=== PATIENT | female | born 1995 | race Caucasian/White ===

== ENCOUNTER 2016-11-04 00:38 | Emergency (ER) | payer OTHER ==
[~2016-11-04] VITALS: Ht 160 cm; Wt 50.8 kg
[2016-11-04] MEDS ORDERED: HYDROCODONE/APAP 5/325MG TABLET. PO ONE (01:15)
[2016-11-04] MEDS ORDERED: PENICILLIN V K 250 MG TABLET. PO ONE (01:15)
[2016-11-04] MEDS ORDERED: IBUPROFEN 800 MG TABLET. PO ONE (01:15)
[2016-11-04] MEDS ORDERED: HYDR-971 PO (01:49)
[2016-11-04] MEDS ORDERED: PENI250T2 PO (01:49)
[2016-11-04] MEDS ORDERED: NAPR375T3 PO (01:49)
--- NOTE | 2016-11-04 01:49 | PHYS DOC ---
Past Medical History Past Medical History: Anemia, Anxiety, Arthritis, Bipolar, Depression, Endometriosis Additional Past Medical Histor: AUTO IMMUNDE DEFICIENCY Past Surgical History: Tonsillectomy, Other Additional Past Surgical Histo: cortison injections in joints, D&C Alcohol Use: None Drug Use: None Adult General Chief Complaint Chief Complaint: DENTAL PROBLEM HPI HPI Patient is a 20 year old female who presents with dental pain. Patient reports for the past 2-3 weeks she has been having worsening pain in her teeth and her right rear mouth. No purulent discharge from area. No fever. She also reports for about a month she has been having cough and her voice has been hoarse. Lastly, she reports that she started having some midsternal sharp chest pain just about 1 hour ago. No shortness of breath. No clear inciting or mitigating factors. She did try some hydrocodone at home with insufficient relief of pain. She has not seen a dentist as of yet. Review of Systems Review of Systems Constitutional: Denies fever or chills HENT: Hoarse, dental pain. Denies nasal congestion or sore throat Respiratory: Denies cough or shortness of breath Cardiovascular: Sharp midsternal chest pain GI: Denies abdominal pain, nausea, vomiting, bloody stools or diarrhea Musculoskeletal: Denies back pain or joint pain INeurologic: Denies headache, focal weakness or sensory changes Current Medications Current Medications Current Medications Medications (Trade) Dose Ordered Sig/Ras Start Time Stop Time Status Last Admin Dose Admin Acetaminophen/ Hydrocodone Bitart (Lortab 5/325) 2 tab 1X ONCE 11/04/16 01:15 11/04/16 01:16 DC 11/04/16 01:24 2 TAB Bupivacaine HCl (Marcaine 0.5%) 50 ml 1X ONCE 11/04/16 02:00 11/04/16 02:02 DC Bupivacaine HCl/ Epinephrine Bitart (Sensorcaine-Epi 0.25%-1:[id number] Mpf) 30 ml 1X ONCE 11/04/16 02:15 11/04/16 02:16 DC 11/04/16 02:12 30 ML Ibuprofen (Motrin) 800 mg 1X ONCE 11/04/16 01:15 11/04/16 01:16 DC 11/04/16 01:25 800 MG Penicillin V Potassium (Veetid) 250 mg 1X ONCE 11/04/16 01:15 11/04/16 01:16 DC 11/04/16 01:25 250 MG Allergies Allergies Allergies Coded Allergies Type Severity Reaction Last Updated Verified infliximab Allergy Unknown 11/04/16 Yes rituximab Allergy Unknown 11/04/16 Yes Physical Exam Physical Exam Constitutional: Well developed, well nourished, no acute distress, non-toxic appearance HENT: Normocephalic, atraumatic, bilateral external ears normal; oropharynx clear without erythema or exudate; poor dentition throughout with multiple caries noted, no abscess; floor of mouth soft; R ear canal and TM clear without erythema Neck: Normal range of motion, no stridor Cardiovascular: Bradycardic, regular rhythm, no murmur Lungs & Thorax: Bilateral breath sounds clear to auscultation; anterior chest wall TTP over sternum without visible lesion or deformity Abdomen: Bowel sounds normal, soft, non-distended, no TTP Skin: Warm, dry, no erythema, no rash Extremities: No obvious deformity, no edema Neurologic: Alert and oriented X 3, no gross deficits noted Psychologic: Affect normal, judgement normal, mood normal Current Patient Data Vital Signs Vital Signs Date Time Temp Pulse Resp B/P Pulse Ox O2 Delivery O2 Flow Rate FiO2 11/04/16 01:56 55 119/80 100 Room Air 11/04/16 01:24 16 11/04/16 00:45 98.7 98.7 Lab Values Laboratory Tests Test 11/04/16 00:20 POC Urine HCG, Qualitative Hcg negative (Negative) EKG EKG EKG (my read): sinus bradycardia, rate 53, normal axis, no acute ST/T changes Radiology/Procedures Radiology/Procedures CXR (my read): No acute abnormality Course & Med Decision Making Course & Med Decision Making Pertinent Labs and Imaging studies reviewed. (See chart for details) Patient is 20 year old female who presents with dental pain. Likely related to multiple caries. Also has cough, chest pain. Chest pain appears to be costochondritis related to cough. Will screen for more serious pathology with CXR and EKG. Oral pain meds and dose of penicillin ordered. EKG and CXR ok per my read. Discussed results with patient. Dental block performed due to continued pain. Discussed importance of following up with dentist for definitive treatment. Will discharge with rx for pain meds and course of abx, instructions for follow up, return precautions. Dragon Disclaimer Dragon Disclaimer This electronic medical record was generated, in whole or in part, using a voice recognition dictation system. PROCEDURE Procedure Dental Block Procedure Note: The distribution of the inferior alveolar nerve was identified. 2mL Sensorcaine was injected into that region after aspirating to ensure needle was not within blood vessel. Estimated Blood Loss: minimal Complications: The patient tolerated the procedure well without complications. Departure Departure Impression: Primary Impression: Toothache Additional Impression: Costochondritis Disposition: HOME, SELF-CARE Condition: STABLE Referrals: RUBEN WALKER MD (PCP) Patient Instructions: Costochondritis, Dental Pain Additional Instructions: Thank you for allowing us to provide care today in the Emergency Department. Take the provided medication as directed. Use caution when taking the pain medication as it can make you drowsy. Be sure to take the full course of antibiotics. Schedule a follow up appointment with your primary care doctor. You will also need to follow up with a dentist for further care of your dental pain. Return promptly to the Emergency Department if you develop any new or concerning symptoms. Scripts Naproxen 375 Mg Tablet1 Tab PO BID PRN PAIN #20 TAB Prov:SHIVA SERRANO MD 11/04/16 Hydrocodone/Apap 5-325 ([place] 5-325 Tablet)1 Each Tablet1 Tab PO PRN Q6HRS PRN PAIN #15 TAB Ref 0 Prov:SHIVA SERRANO MD 11/04/16 Penicillin V Potassium 250 Mg Tablet1 Tab PO QID #28 TAB Prov:SHIVA SERRANO MD 11/04/16 Problem Qualifiers SHIVA SERRANO MD Nov 04, 2016 01:49
[2016-11-04] MEDS ORDERED: BUPIVACAINE 0.5% 50 ML VIAL. IJ ONE (02:00)
[2016-11-04] MEDS ORDERED: BUPIVACAINE-EPI 0.25%-1:200000 MPF 30 ML VIAL. IJ ONE (02:15)
[2016-11-04 02:19] VITALS: BP 109/78
--- NOTE | 2016-11-04 06:49 | EKG ---
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
--- NOTE | 2016-11-04 07:29 | RAD ---
Indication chest pain. Frontal and lateral views of the chest were obtained and are compared to a study 09/19/2012. The heart, pulmonary vessels and mediastinum appear normal. The lungs are clear. There is no pleural fluid or pneumothorax. There has not been a significant change compared to the previous exam. IMPRESSION: Normal study
== END 2016-11-04 02:30 | disposition home or self-care (01) ==
LOC: ER 00:38
DX: K08.89 Other specified disorders of teeth and supporting structures (principal); M94.0 Chondrocostal junction syndrome [Tietze]; R49.0 Dysphonia; F41.9 Anxiety disorder, unspecified; M19.90 Unspecified osteoarthritis, unspecified site; F31.9 Bipolar disorder, unspecified; Z88.8 Allergy status to other drugs, medicaments and biological substances
CPT/HCPCS: 64400; 71020; 81025; 93005; 99284-25

== ENCOUNTER 2016-12-26 23:09 | Emergency (ER) | payer OTHER ==
[~2016-12-26] VITALS: Ht 160 cm; Wt 50.8 kg
[~2016-12-26 23:09] MED LIST: HYDR-971 PO; NAPR375T3 PO; PENI250T85 PO
[2016-12-26 23:24] VITALS: BP 121/85
[2016-12-26] MEDS ORDERED: KETOROLAC TROMETHAMINE 60 MG/2 ML INJ. IM ONE (23:30)
[2016-12-26] MEDS ORDERED: OXYC-323 PO (23:47)
--- NOTE | 2016-12-26 23:47 | PHYS DOC ---
Past Medical History Past Medical History: Anemia, Anxiety, Arthritis, Bipolar, Depression, Endometriosis Additional Past Medical Histor: AUTO IMMUNDE DEFICIENCY Past Surgical History: Tonsillectomy, Other Additional Past Surgical Histo: cortison injections in joints, D&C Alcohol Use: None Drug Use: None Adult General Chief Complaint Chief Complaint: GENERALIZED BODY ACHES HPI HPI 21-year-old female with history of rheumatoid arthritis who is presenting with significant pain in all her joints. 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 She takes naproxen and prednisone daily. Patient is currently taking a Medrol Dosepak for her symptoms as well as hydrocodone without relief. She also receives Arrentzia injection for her rheumatoid disease. She denies any fever or chills. She denies any chest pain or SOB. Review of Systems Review of Systems Constitutional: Denies fever or chills [] Eyes: Denies change in visual acuity, redness, or eye pain [] HENT: Denies nasal congestion or sore throat [] Respiratory: Denies cough or shortness of breath [] Cardiovascular: No additional information not addressed in HPI [] GI: Denies abdominal pain, nausea, vomiting, bloody stools or diarrhea [] : Denies dysuria or hematuria [] Musculoskeletal: Denies back pain, has joint pain [] Integument: Denies rash or skin lesions [] Neurologic: Denies headache, focal weakness or sensory changes [] Endocrine: Denies polyuria or polydipsia [] Current Medications Current Medications Current Medications Medications (Trade) Dose Ordered Sig/Ras Start Time Stop Time Status Last Admin Dose Admin Hydromorphone HCl (Dilaudid) 1 mg 1X ONCE 12/27/16 00:00 12/27/16 00:01 12/26/16 23:48 1 MG Ketorolac Tromethamine (Toradol Im) 60 mg 1X ONCE 12/26/16 23:30 12/26/16 23:31 Cancel Allergies Allergies Allergies Coded Allergies Type Severity Reaction Last Updated Verified infliximab Allergy Intermediate 12/26/16 Yes rituximab Allergy Intermediate 12/26/16 Yes Physical Exam Physical Exam Constitutional: Well developed, well nourished, no acute distress, non-toxic appearance. [] HENT: Normocephalic, atraumatic, bilateral external ears normal, oropharynx moist, no oral exudates, nose normal. [] Eyes: PERRLA, EOMI, conjunctiva normal, no discharge. [] Neck: Normal range of motion, no tenderness, supple, no stridor. [] Cardiovascular:Heart rate regular rhythm, no murmur [] Lungs & Thorax: Bilateral breath sounds clear to auscultation [] Abdomen: Bowel sounds normal, soft, no tenderness, no masses, no pulsatile masses. [] Skin: Warm, dry, no erythema, no rash. [] Back: No tenderness, no CVA tenderness. [] Extremities: No tenderness, no cyanosis, no clubbing, ROM intact, no edema. [] Neurologic: Alert and oriented X 3, normal motor function, normal sensory function, no focal deficits noted. [] Psychologic: Affect normal, judgement normal, mood normal. [] Current Patient Data Vital Signs Vital Signs Date Time Temp Pulse Resp B/P (MAP) Pulse Ox O2 Delivery O2 Flow Rate FiO2 12/26/16 23:48 18 12/26/16 23:24 99.0 87 121/85 (97) 99 Room Air 99.0 Lab Values Laboratory Tests Test 12/26/16 22:33 POC Urine HCG, Qualitative Hcg negative (Negative) EKG EKG [] Radiology/Procedures Radiology/Procedures [] Course & Med Decision Making Course & Med Decision Making Pertinent Labs and Imaging studies reviewed. (See chart for details) This 21-year-old female with history of polyarticular rheumatoid disease receive an IM injection for pain control. I will be discharging her with a course of pain control to follow closely with her primary care doctor. I instructed her to continue to take her Medrol Dosepak as instructed and follow closely with her primary care doctor. I also discussed with the patient that she should follow-up with a pain specialist for possible joint injection or command center officer for her history of rheumatoid disease. Patient is very agreeable to this plan. A work note will be given. She will be discharged without incident. There is no indication at this time to perform any laboratory workup. Dragon Disclaimer Dragon Disclaimer This electronic medical record was generated, in whole or in part, using a voice recognition dictation system. Departure Departure Impression: Primary Impression: Joint pain Additional Impression: Rheumatoid arthritis Disposition: HOME, SELF-CARE Admitting Physician: Other Condition: IMPROVED Referrals: NO PCP (PCP) Patient Instructions: Rheumatoid Arthritis, [id number] Additional Instructions: Please continue to take your steroid as prescribed. Take your pain medications as needed. Return to the ER if you develop any worsening of your symptoms. Follow up closely with your primary doctor in the next 2-3 days for your symptoms. Scripts Oxycodone/Apap 5-325 (PERCOCET 5-325 MG TABLET) 1 Each Tablet 1 TAB PO PRN Q6HRS Y for PAIN, #12 TAB 0 Refills Prov: JOSE CRUZ CALL DO 12/26/16 Problem Qualifiers JOSE CRUZ CALL DO December 26, 2016 23:47
[2016-12-27] MEDS ORDERED: HYDROmorphone 2 MG/ML VIAL IM ONE
== END 2016-12-27 00:05 | disposition home or self-care (01) ==
LOC: ER 23:09
DX: M06.9 Rheumatoid arthritis, unspecified (principal); F41.9 Anxiety disorder, unspecified; F31.9 Bipolar disorder, unspecified; Z88.8 Allergy status to other drugs, medicaments and biological substances
CPT/HCPCS: 81025; 96372; 99283; J1170

== ENCOUNTER 2017-01-27 10:40 | Emergency (ER) | payer OTHER ==
[~2017-01-27] VITALS: Ht 160 cm; Wt 51.3 kg
[~2017-01-27 10:40] MED LIST changes: +OXYC-323 PO
[2017-01-27] MEDS ORDERED: cefTRIAXone IM 250 MG VIAL IM ONE (11:30)
[2017-01-27] MEDS ORDERED: AZITHROMYCIN 250 MG TABLET. PO ONE (11:30)
--- NOTE | 2017-01-27 11:48 | PHYS DOC ---
Past Medical History Past Medical History: Anemia, Anxiety, Arthritis, Bipolar, Depression, Endometriosis, Other Additional Past Medical Histor: AUTO IMMUNDE DEFICIENCY, PCOS Past Surgical History: Tonsillectomy, Other Additional Past Surgical Histo: cortison injections in joints, D&C Alcohol Use: None Drug Use: None Adult General Chief Complaint Chief Complaint: vaginal bleeding HPI HPI Patient is a 21 year old female ambulatory to the emergency department with the complaint of vaginal bleeding for 4 weeks. She has began to feel dizzy and nauseated. She is concerned that she might be , however she has taken 4 home tests which have been negative, she had a blood test and a urine test in the clinic, both were negative. Patient in 2013 had to have "emergency D&C" related to complications with an early , she's never had abnormal vaginal bleeding other than that so she became concerned. Patient states she is chronically anemic and she takes iron. Patient has a Nexplant that she has had for 2 years for contraception and treatment of endometriosis. She's never had bleeding that was abnormal like this before. She's not on any other hormone treatment. She does not have a regular CORRECTIONAL CASE MANAGER doctor. Patient doesn't have any chronic bleeding problems. Review of Systems Review of Systems Constitutional: Denies fever or chills [] Eyes: Denies change in visual acuity, redness, or eye pain [] HENT: Denies nasal congestion or sore throat [] GI: Denies abdominal pain, nausea, vomiting, bloody stools or diarrhea [] : As in history of present illness Musculoskeletal: Denies back pain or joint pain [] Integument: Denies rash or skin lesions [] Neurologic: Denies headache, focal weakness or sensory changes [] Current Medications Current Medications Current Medications Medications (Trade) Dose Ordered Sig/Ras Start Time Stop Time Status Last Admin Dose Admin Azithromycin (Zithromax) 1,000 mg 1X ONCE 01/27/17 11:30 01/27/17 11:31 DC 01/27/17 11:38 1,000 MG Ceftriaxone Sodium (Rocephin Im) 250 mg 1X ONCE 01/27/17 11:30 01/27/17 11:31 DC 01/27/17 11:40 250 MG Allergies Allergies Allergies Coded Allergies Type Severity Reaction Last Updated Verified infliximab Allergy Intermediate 12/26/16 Yes rituximab Allergy Intermediate 12/26/16 Yes Physical Exam Physical Exam Constitutional: Well developed, well nourished, no acute distress, non-toxic appearance. Alert, mentating normally, does not appear pale. HENT: Normocephalic, atraumatic, bilateral external ears normal, nose normal. [] Eyes: conjunctiva normal, no discharge. [] Neck: Normal range of motion, no tenderness, supple, no stridor. Abdomen: Bowel sounds normal, soft, no tenderness, no masses, no pulsatile masses. Pelvic exam: External genitalia normal. Vaginal vault without blood present. Cervix has a small amount of blood at the os. No cervicitis. Bimanual exam with mild to moderate cervical motion tenderness. Uterus not enlarged but is mildly tender to palpation. Mild generalized tenderness throughout the pelvis on bimanual exam, nonlocalized. No adnexal masses or fullness appreciated. Skin: Warm, dry, no erythema, no rash. [] Extremities: No tenderness, no cyanosis, no clubbing, ROM intact, no edema. [] Neurologic: Alert and oriented X 3, normal motor function, normal sensory function, no focal deficits noted. [] Current Patient Data Vital Signs Vital Signs Date Time Temp Pulse Resp B/P (MAP) Pulse Ox O2 Delivery O2 Flow Rate FiO2 01/27/17 12:00 56 92/52 (65) 99 Room Air 01/27/17 10:50 98.5 14 98.5 Lab Values Laboratory Tests Test 01/27/17 09:55 POC Urine HCG, Qualitative Hcg negative (Negative) EKG EKG [] Radiology/Procedures Radiology/Procedures [] Course & Med Decision Making Course & Med Decision Making Pertinent Labs and Imaging studies reviewed. (See chart for details) 21-year-old female presents with a reported history of 4 weeks of vaginal bleeding. She appears stable and she does not have active vaginal bleeding in her vaginal vault on exam. Vitals are stable. I-STAT was done and her hemoglobin is 12.2, hematocrit 36. I reassured the patient that she is not seriously anemic at this time. I don't believe she requires any emergent intervention or treatment in the emergency department today. I encouraged her to follow up with a CORRECTIONAL CASE MANAGER doctor and gave her a name and phone number. She did have some degree of cervical motion tenderness and uterine tenderness on exam, although she is nontoxic I feel it would be appropriate to treat her with antibiotics for possible PID/endometritis as an etiology of this. She was treated with Rocephin and azithromycin in the emergency department. See instructions for plan. [] Luis Manuel Disclaimer Luis Manuel Disclaimer This electronic medical record was generated, in whole or in part, using a voice recognition dictation system. Departure Departure Impression: Primary Impression: Vaginal bleeding, abnormal Disposition: 01 HOME, SELF-CARE Condition: STABLE Referrals: NO PCP (PCP) KEYONNA PATEL Jr, MD Patient Instructions: Abnormal Uterine Bleeding Additional Instructions: Today, you had another negative test here in the emergency department. I believe that you are not . Your blood test did not show significant anemia. h/h WAS 12.2/36 FOR YOUR DOCTOR WHEN YOU ARE SEEN. On exam, you have a little tenderness, so we did treat for possible infection with antibiotics. Sometimes this will help your pain and bleeding. As we discussed, it's important to follow up with a CORRECTIONAL CASE MANAGER doctor for evaluation and treatment of abnormal uterine bleeding. Since your test is negative, this is not related to a serious complication of , but still needs to be evaluated and treated. Talk to your primary care doctor or your insurance company about getting to see a CORRECTIONAL CASE MANAGER doctor soon as possible. I did give you a name and phone number of a CORRECTIONAL CASE MANAGER doctor here [place]. DARREN VARGAS MD Jan 27, 2017 11:48
[2017-01-27 12:00] VITALS: BP 92/52
[2017-01-27 15:19] LABS: POTASSIUM ISTAT 3.8 mmol/L (3.5-5.0)
--- NOTE | 2017-01-31 12:40 | VNOTE ---
CALL BACK NOTE CALL BACK Patient's lab value for chlamydia was positive, gonorrhea negative. I spoke with the patient on January 31 at 12:39 PM. She requested her prescription be called to [facility]. I will prescribe Zithromax 1 g by mouth to be taken today. LIZBETH ANDERSEN APRN Jan 31, 2017 12:40
== END 2017-01-27 12:20 | disposition home or self-care (01) ==
LOC: ER 10:40
DX: N93.8 Other specified abnormal uterine and vaginal bleeding (principal); A74.9 Chlamydial infection, unspecified; R42 Dizziness and giddiness; R11.0 Nausea; F41.9 Anxiety disorder, unspecified; M19.90 Unspecified osteoarthritis, unspecified site; F31.9 Bipolar disorder, unspecified; E28.2 Polycystic ovarian syndrome; Z88.8 Allergy status to other drugs, medicaments and biological substances
CPT/HCPCS: 80047; 81025; 87491; 87591; 96372; 99284; J0696; Q0144

== ENCOUNTER 2017-04-02 08:42 | Emergency (ER) | payer OTHER ==
[~2017-04-02] VITALS: Ht 160 cm; Wt 51.3 kg
[2017-04-02 09:25] VITALS: BP 124/82
--- NOTE | 2017-04-02 09:28 | PHYS DOC ---
Past Medical History Past Medical History: Anemia, Anxiety, Arthritis, Bipolar, Depression, Endometriosis, Other Additional Past Medical Histor: AUTO IMMUNDE DEFICIENCY, PCOS Past Surgical History: Tonsillectomy, Other Additional Past Surgical Histo: cortison injections in joints, D&C Alcohol Use: None Drug Use: None Adult General Chief Complaint Chief Complaint: EARACHE/EAR PAIN [facility] HPI Patient is a 21 year old female with onset of cold symptoms and an earache that started in the left ear this morning. She states that she does have nasal congestion that started this morning as well. She denies fever, nausea or other illness. Review of Systems Review of Systems Constitutional: Denies fever or chills [] Eyes: Denies change in visual acuity, redness, or eye pain [] HENT: See history of present illness Respiratory: Denies cough or shortness of breath [] Cardiovascular: No additional information not addressed in HPI [] GI: Denies abdominal pain, nausea, vomiting, bloody stools or diarrhea [] : Denies dysuria or hematuria [] Integument: Denies rash or skin lesions [] Neurologic: Denies headache, focal weakness or sensory changes [] Endocrine: Denies polyuria or polydipsia [] Allergies Allergies Allergies Coded Allergies Type Severity Reaction Last Updated Verified infliximab Allergy Intermediate 12/26/16 Yes rituximab Allergy Intermediate 12/26/16 Yes Physical Exam Physical Exam Constitutional: Well developed, well nourished, no acute distress, non-toxic appearance. [] HENT: Normocephalic, atraumatic, bilateral external ears normal, oropharynx moist, no oral exudates, swelling and erythema to bilateral nasal turbinates [] Eyes: PERRLA, EOMI, conjunctiva normal, no discharge. [] Neck: Normal range of motion, no tenderness, supple, no stridor. [] Cardiovascular:Heart rate regular rhythm, no murmur [] Lungs & Thorax: Bilateral breath sounds clear to auscultation [] Skin: Warm, dry, no erythema, no rash. [] Neurologic: Alert and oriented X 3, normal motor function, normal sensory function, no focal deficits noted. [] Psychologic: Affect normal, judgement normal, mood normal. [] Current Patient Data Vital Signs Vital Signs Date Time Temp Pulse Resp B/P (MAP) Pulse Ox O2 Delivery O2 Flow Rate FiO2 04/02/17 09:25 98.7 75 18 99 Room Air 98.7 Lab Values Laboratory Tests Test 04/02/17 08:48 04/02/17 09:35 POC Urine HCG, Qualitative Hcg negative (Negative) Group A Streptococcus Rapid Negative (NEGATIVE) EKG EKG [] Radiology/Procedures Radiology/Procedures [] Course & Med Decision Making Course & Med Decision Making Pertinent Labs and Imaging studies reviewed. (See chart for details) [] 1. Common cold 2. Allergic rhinitis The patient was instructed to take [id number] cough and cold medication. It was also recommended that she take an allergy medication. She is to follow up with her PCP in one week if not improving or return to the ED if worsening. Dragon Disclaimer Dragon Disclaimer This electronic medical record was generated, in whole or in part, using a voice recognition dictation system. Departure Departure Referrals: UNKNOWN PCP NAME (PCP) WARNER LIGHT APRN Apr 02, 2017 09:28
[2017-04-02 11:12] LABS: NEGATIVE OBC STREP NEG; POSITIVE OBC STREP POS
== END 2017-04-02 10:20 | disposition home or self-care (01) ==
LOC: ER 08:42
DX: J30.9 Allergic rhinitis, unspecified (principal); F31.9 Bipolar disorder, unspecified; Z90.49 Acquired absence of other specified parts of digestive tract; M19.90 Unspecified osteoarthritis, unspecified site; E28.2 Polycystic ovarian syndrome
CPT/HCPCS: 81025; 87070; 87880; 99284

== ENCOUNTER 2017-07-03 11:16 | Emergency (ER) | payer OTHER ==
[~2017-07-03 11:16] MED LIST changes: +NAPR-695 PO; -NAPR375T3 PO
[2017-07-03] MEDS ORDERED: INHA1SPA94 MC (12:04)
[2017-07-03] MEDS ORDERED: PROAIR HFA8.5 GM INH (12:04)
--- NOTE | 2017-07-03 12:04 | PHYS DOC ---
Past Medical History Past Medical History: Anemia, Anxiety, Arthritis, Bipolar, Depression, Endometriosis, Other Additional Past Medical Histor: AUTO IMMUNDE DEFICIENCY, PCOS Past Surgical History: Tonsillectomy, Other Additional Past Surgical Histo: cortisonE injections in joints, D&C Alcohol Use: None Drug Use: None Adult General Chief Complaint Chief Complaint: FLU SYMPTOM HPI HPI Patient is a 21 year old female presents to the emergency department stating that she has had a cough and congestion for the last 3 weeks. Patient states she 's been on Augmentin for the last 7 days for dental infection. She states that she has a burning sensation in her chest when she coughs. She also states that she's been having frontal and maxillary sinus pressure. She states she has increased pressure when she tries to lay down. She states last week she had a fever this week should since she has not had any fever however she's been taking Tylenol and ibuprofen. Review of Systems Review of Systems Constitutional: Denies fever or chills [] Eyes: Denies change in visual acuity, redness, or eye pain [] HENT: nasal congestion denies sore throat [] Respiratory: cough denies shortness of breath [] Cardiovascular: No additional information not addressed in HPI [] GI: Denies abdominal pain, nausea, vomiting, bloody stools or diarrhea [] : Denies dysuria or hematuria [] Musculoskeletal: Denies back pain or joint pain [] Integument: Denies rash or skin lesions [] Neurologic: Denies headache, focal weakness or sensory changes [] Endocrine: Denies polyuria or polydipsia [] All other systems were reviewed and found to be within normal limits, except as documented in this note. Allergies Allergies Allergies Coded Allergies Type Severity Reaction Last Updated Verified infliximab Allergy Intermediate 12/26/16 Yes rituximab Allergy Intermediate 12/26/16 Yes Physical Exam Physical Exam Constitutional: Well developed, well nourished, no acute distress, non-toxic appearance. [] HENT: Normocephalic, atraumatic, bilateral external ears normal, oropharynx moist, no oral exudates, nose normal. Bilateral tympanic membranes appear to be normal. Throat with postnasal drip with erythematous noted no exudate. Eyes: PERRLA, EOMI, conjunctiva normal, no discharge. [] Neck: Normal range of motion, no tenderness, supple, no stridor. [] Cardiovascular:Heart rate regular rhythm, no murmur [] Lungs & Thorax: Bilateral breath sounds clear to auscultation [] Skin: Warm, dry, no erythema, no rash. [] Back: No tenderness Extremities: No tenderness, no cyanosis, no clubbing, ROM intact, no edema. [] Neurologic: Alert and oriented X 3, normal motor function, normal sensory function, no focal deficits noted. [] Psychologic: Affect normal, judgement normal, mood normal. [] EKG EKG [] Radiology/Procedures Radiology/Procedures [] Course & Med Decision Making Course & Med Decision Making Pertinent Labs and Imaging studies reviewed. (See chart for details) Patient is already on Augmentin. She's been on this for the last 7 days. Spoke with her in regards to this taking care of upper respiratory infections in the chest as well as the sinuses. Patient is on prednisone on a daily basis. Patient will be encouraged to use Sudafed and Mucinex DM [id number]. Patient will be provided with Pro Air for the burning sensation in her chest area. Recommended that she follow up with her primary care physician in the next 3-5 days. Patient will be discharged home in stable condition. I've spoken with the patient and/or caregivers. I've explained the patient's condition, diagnosis and treatment plan based on information available to me at this time. I've answered the patient's and/or caregivers questions and addressed any concerns. The patient and/or caregivers have a good understanding the patient's diagnosis, condition and treatment plan as can be expected at this point. Vital signs have been stabilized. The patient's condition is stable for discharge from the emergency department. The patient will pursue further outpatient evaluation with her primary care provider or other designated consulting physician as outlined in the discharge instructions. Patient and/or caregivers are agreeable to this plan of care and follow-up instructions have been explained in detail. The patient and/or caregivers have received these instructions in written format and expressed understanding of these discharge instructions. The patient and her caregivers are aware that if any significant change in condition or worsening of symptoms should prompt him to immediately return to this of the closest emergency department. If an emergent department is not readily available I would encourage him to call 911. [] Dragon Disclaimer Dragon Disclaimer This electronic medical record was generated, in whole or in part, using a voice recognition dictation system. Departure Departure Impression: Primary Impression: Upper respiratory infection Disposition: 01 HOME, SELF-CARE Condition: STABLE Referrals: UNKNOWN PCP NAME (PCP) Patient Instructions: Upper Respiratory Infection, Adult, [id number] Additional Instructions: Activity as tolerated. Continue antibiotics as prescribed. Sudafed, Mucinex DM as directed by manufacture [id number]. Drink plenty of fluids. Medications prescribed. Follow-up primary care physician in the next 3-5 days. Return back to the emergency department for signs and symptoms become worse. Scripts Inhaler, Assist Devices (Compact Space Chamber) 1 Each Spacer EACH MC, #1 Prov: MARCELA WILL OVEN TENDER 07/03/17 Albuterol Sulfate (PROAIR HFA INHALER) 8.5 Gm Hfa.aer.ad 1 PUFF INH PRN Q6HRS Y for SHORTNESS OF BREATH, #1 INHALER 0 Refills Prov: MARCELA WILL OVEN TENDER 07/03/17 Problem Qualifiers Primary Impression: Upper respiratory infection URI type: unspecified URI Qualified Codes: J06.9 - Acute upper respiratory infection, unspecified MARCELA WILL OVEN TENDER Jul 03, 2017 12:04
== END 2017-07-03 12:10 | disposition home or self-care (01) ==
LOC: ER 11:16
DX: J06.9 Acute upper respiratory infection, unspecified (principal); F41.9 Anxiety disorder, unspecified; F31.9 Bipolar disorder, unspecified; M19.90 Unspecified osteoarthritis, unspecified site; E28.2 Polycystic ovarian syndrome; Z88.8 Allergy status to other drugs, medicaments and biological substances
CPT/HCPCS: 99283

== ENCOUNTER 2017-09-12 10:51 | Inpatient (IN) | payer OTHER ==
[2017-09-12] MEDS ORDERED: PIP/TAZO PER PHARMACY MC (11:45)
[2017-09-12] MEDS ORDERED: ONDANSETRON PF 4 MG/2 ML VIAL. IV (11:45)
[2017-09-12] MEDS: IV DEXTROSE 5 %-0.45 % NACL 1,000 ML IV (12:00)
[2017-09-12] MEDS: MORPHINE SULFATE 4 MG/ML DISP.SYRIN. IV (12:10)
[2017-09-12 12:24] LABS: ADD MAN DIFF? NO
[2017-09-12 12:29] LABS: BASO # 0.1 x10^3/uL (0.0-0.2); BASO % 1 % (0-3); EOS # 0.3 x10^3/uL (0.0-0.7); EOS % 2 % (0-3); HEMATOCRIT 41.7 % (36.0-47.0); LYMPH % 15 % (24-48); MEAN CORPUSCULAR HEMOGLOBIN 30 pg (25-35); MEAN CORPUSCULAR HGB CONC 33 g/dL (31-37); MEAN CORPUSCULAR VOLUME 90 fL (79-100); MONO # 0.7 x10^3/uL (0.0-1.1); MONO % 6 % (0-9); NEUT # 9.6 x10^3uL (1.8-7.7); NEUT % 76 % (31-73); PLATELET COUNT 319 x10^3/uL (140-400); RED BLOOD COUNT 4.63 x10^6/uL (3.50-5.40); RED CELL DISTRIBUTION WIDTH 14.5 % (11.5-14.5); WHITE BLOOD COUNT 12.7 x10^3/uL (4.0-11.0)
[2017-09-12 12:46] LABS: ALBUMIN 3.3 g/dL (3.4-5.0); ALBUMIN/GLOBULIN RATIO 0.9 (1.0-1.7); ALK PHOS 56 U/L (46-116); ALT (SGPT) 13 U/L (14-59); ANION GAP 5 (6-14); AST (SGOT) 13 U/L (15-37); BLOOD UREA NITROGEN 8 mg/dL (7-20); BUN/CREATININE RATIO 11 (6-20); CALCIUM 8.8 mg/dL (8.5-10.1); CARBON DIOXIDE 28 mmol/L (21-32); CHLORIDE 100 mmol/L (98-107); CREATININE 0.7 mg/dL (0.6-1.0); GFR 104.6; GLUCOSE 90 mg/dL (70-99); POTASSIUM 3.8 mmol/L (3.5-5.1); SODIUM 133 mmol/L (136-145); TOTAL BILIRUBIN 0.4 mg/dL (0.2-1.0)
[2017-09-12] MEDS: oxyCODONE IR 5 MG TABLET PO (14:15)
[2017-09-12] MEDS: PIPERACILLIN/TAZOBACTAM 3.375 GM in IV DEXTROSE 5% 50 ML IV ×2 (14:21→18:03)
[2017-09-12] MEDS: fentaNYL PF VIAL 100 MCG/2 ML VIAL IV ×3 (14:37→21:30)
[2017-09-12] MEDS: VANCOMYCIN 1.25 GM in IV 1/2 NORMAL SALINE 250 ML IV (15:24)
[2017-09-12] MEDS: VANCOMYCIN PER PHARMACY MC (16:23)
[2017-09-12] MEDS: diphenhydrAMINE 50 MG/ML VIAL IVP (17:00)
[2017-09-12] MEDS: methylPREDNISolone SOD SUCC PF 125 MG/2 ML VIAL. IV (17:00)
[2017-09-12] MEDS: predniSONE 10 MG TABLET PO (18:03)
[2017-09-12 18:33] LABS: BILIRUBIN,URINE NEGATIVE (NEG); CLARITY,URINE CLEAR; COLOR,URINE YELLOW; GLUCOSE,URINE NEGATIVE (NEG); NITRITE,URINE NEGATIVE (NEG); PH,URINE 5.5; PROTEIN,URINE NEGATIVE (NEG-TRACE); UROBILINOGEN,URINE 0.2 mg/dL (0.2 mg/dL)
[2017-09-12 19:22] LABS: BACTERIA,URINE FEW /HPF (0-FEW); RBC,URINE 0 /HPF (0-2); SQUAMOUS EPITHELIAL CELL,UR FEW /LPF
[2017-09-12] MEDS: HYDROCODONE BITARTRATE 30 MG PO (21:00)
[2017-09-12] MEDS: MELOXICAM 7.5 MG TABLET PO (21:18)
[2017-09-12] MEDS ORDERED: VANCOMYCIN 750 MG in IV DEXTROSE 5% 250 ML IV (23:00)
[2017-09-13] MEDS: IV DEXTROSE 5 %-0.45 % NACL 1,000 ML IV ×2 (01:05→18:06)
[2017-09-13] MEDS: PIPERACILLIN/TAZOBACTAM 3.375 GM in IV DEXTROSE 5% 50 ML IV ×5 (06:26→23:44)
[2017-09-13] MEDS ORDERED: CONTRAST GIVEN MC (08:45)
[2017-09-13] MEDS: IOHEXOL 300 MG/ML 100ML VIAL. IV (08:57)
[2017-09-13] MEDS: MELOXICAM 7.5 MG TABLET PO ×2 (09:05→22:10)
[2017-09-13] MEDS: predniSONE 10 MG TABLET PO ×2 (09:15→18:10)
[2017-09-13] MEDS: fentaNYL PF VIAL 100 MCG/2 ML VIAL IV ×5 (09:15→23:43)
[2017-09-13] MEDS: LACTOBACILLUS RHAMNOSUS GG 1 CAPSULE. PO ×2 (18:10→22:08)
[2017-09-13] MEDS: diphenhydrAMINE 50 MG/ML VIAL IVP (23:43)
[2017-09-14] MEDS: IV DEXTROSE 5 %-0.45 % NACL 1,000 ML IV (03:45)
[2017-09-14] MEDS: PIPERACILLIN/TAZOBACTAM 3.375 GM in IV DEXTROSE 5% 50 ML IV ×2 (06:11→13:33)
[2017-09-14 06:59] LABS: HEMATOCRIT 37.6 % (36.0-47.0); HEMOGLOBIN 12.3 g/dL (12.0-15.5); MEAN CORPUSCULAR HEMOGLOBIN 30 pg (25-35); MEAN CORPUSCULAR HGB CONC 33 g/dL (31-37); MEAN CORPUSCULAR VOLUME 91 fL (79-100); PLATELET COUNT 287 x10^3/uL (140-400); RED BLOOD COUNT 4.13 x10^6/uL (3.50-5.40); RED CELL DISTRIBUTION WIDTH 14.5 % (11.5-14.5); WHITE BLOOD COUNT 13.3 x10^3/uL (4.0-11.0)
[2017-09-14 07:19] LABS: ALBUMIN 2.9 g/dL (3.4-5.0); ALBUMIN/GLOBULIN RATIO 0.9 (1.0-1.7); ALK PHOS 47 U/L (46-116); ALT (SGPT) 29 U/L (14-59); ANION GAP 11 (6-14); AST (SGOT) 20 U/L (15-37); BLOOD UREA NITROGEN 7 mg/dL (7-20); BUN/CREATININE RATIO 10 (6-20); CALCIUM 8.6 mg/dL (8.5-10.1); CARBON DIOXIDE 23 mmol/L (21-32); CHLORIDE 107 mmol/L (98-107); CREATININE 0.7 mg/dL (0.6-1.0); GFR 104.6; GLUCOSE 107 mg/dL (70-99); POTASSIUM 3.7 mmol/L (3.5-5.1); SODIUM 141 mmol/L (136-145); TOTAL BILIRUBIN 0.3 mg/dL (0.2-1.0); TOTAL PROTEIN 6.2 g/dL (6.4-8.2)
[2017-09-14] MEDS: LACTOBACILLUS RHAMNOSUS GG 1 CAPSULE. PO (09:31)
[2017-09-14] MEDS: predniSONE 10 MG TABLET PO (09:32)
[2017-09-14] MEDS: fentaNYL PF VIAL 100 MCG/2 ML VIAL IV ×2 (09:32→13:36)
[2017-09-14] MEDS: MELOXICAM 7.5 MG TABLET PO (09:32)
[2017-09-15] MEDS ORDERED: METHOTREXATE SODIUM 2.5 MG TABLET PO (09:00)
== END 2017-09-14 17:30 | disposition home or self-care (01) | DRG 872 ==
LOC: 6 SOUTH 10:51
DX: A41.9 Sepsis, unspecified organism (principal); F17.210 Nicotine dependence, cigarettes, uncomplicated; L03.211 Cellulitis of face; K02.9 Dental caries, unspecified; M06.9 Rheumatoid arthritis, unspecified; L30.9 Dermatitis, unspecified; S02.5XXA Fracture of tooth (traumatic), initial encounter for closed fracture; X58.XXXA Exposure to other specified factors, initial encounter; R06.02 Shortness of breath; Z79.899 Other long term (current) drug therapy; Z88.1 Allergy status to other antibiotic agents; Z88.8 Allergy status to other drugs, medicaments and biological substances; Z79.2 Long term (current) use of antibiotics; Y93.89 Activity, other specified; Y92.89 Other specified places as the place of occurrence of the external cause; Y99.8 Other external cause status
CPT/HCPCS: 36415; 70487; 80053; 81001; 85025; 85027; 87086; J1200; J2270; J2543; J2930; J3010; J3370; J7512; Q9967

== ENCOUNTER 2017-09-26 23:40 | Inpatient (IN) | payer OTHER ==
[2017-09-27] MEDS ORDERED: ONDANSETRON PF 4 MG/2 ML VIAL. IV (00:45)
[2017-09-27 01:06] LABS: ADD MAN DIFF? YES; BASO % 0 % (0-3); EOS % 0 % (0-3); HEMOGLOBIN 13.3 g/dL (12.0-15.5); LYMPH # 1.4 x10^3/uL (1.0-4.8); LYMPH % 9 % (24-48); MEAN CORPUSCULAR HEMOGLOBIN 31 pg (25-35); MEAN CORPUSCULAR HGB CONC 34 g/dL (31-37); MEAN CORPUSCULAR VOLUME 90 fL (79-100); MONO # 0.4 x10^3/uL (0.0-1.1); MONO % 3 % (0-9); NEUT # 13.4 x10^3uL (1.8-7.7); NEUT % 88 % (31-73); PLATELET COUNT 363 x10^3/uL (140-400); RED BLOOD COUNT 4.32 x10^6/uL (3.50-5.40); RED CELL DISTRIBUTION WIDTH 13.9 % (11.5-14.5); WHITE BLOOD COUNT 15.3 x10^3/uL (4.0-11.0)
[2017-09-27 01:23] LABS: ANION GAP 8 (6-14); BLOOD UREA NITROGEN 5 mg/dL (7-20); CALCIUM 8.6 mg/dL (8.5-10.1); CARBON DIOXIDE 27 mmol/L (21-32); CHLORIDE 102 mmol/L (98-107); CREATININE 0.6 mg/dL (0.6-1.0); GLUCOSE 139 mg/dL (70-99); SODIUM 137 mmol/L (136-145)
[2017-09-27] MEDS: PIPERACILLIN/TAZOBACTAM 3.375 GM in IV NORMAL SALINE 50ML 50 ML IV ×3 (01:55→19:52)
[2017-09-27] MEDS: MORPHINE SULFATE 4 MG/ML DISP.SYRIN. IV ×6 (02:28→23:15)
[2017-09-27 05:04] LABS: % LYMPHS 8 % (24-48); % MONOS 2 % (0-10); % SEGS 90 % (35-66); PLT ESTIMATE ADEQUATE (ADEQUATE)
[2017-09-27] MEDS ORDERED: ACETAMINOPHEN 650 MG SUPP.RECT. PR (11:45)
[2017-09-28] MEDS: PIPERACILLIN/TAZOBACTAM 3.375 GM in IV NORMAL SALINE 50ML 50 ML IV ×3 (02:04→12:45)
[2017-09-28] MEDS: MORPHINE SULFATE 4 MG/ML DISP.SYRIN. IV ×3 (04:51→12:46)
[2017-09-28 05:43] LABS: HEMATOCRIT 39.7 % (36.0-47.0); HEMOGLOBIN 13.1 g/dL (12.0-15.5); MEAN CORPUSCULAR HEMOGLOBIN 30 pg (25-35); MEAN CORPUSCULAR HGB CONC 33 g/dL (31-37); MEAN CORPUSCULAR VOLUME 92 fL (79-100); PLATELET COUNT 338 x10^3/uL (140-400); RED BLOOD COUNT 4.32 x10^6/uL (3.50-5.40); WHITE BLOOD COUNT 14.6 x10^3/uL (4.0-11.0)
[2017-09-28 07:23] LABS: ALBUMIN 2.8 g/dL (3.4-5.0); ALBUMIN/GLOBULIN RATIO 0.8 (1.0-1.7); ALK PHOS 53 U/L (46-116); ALT (SGPT) 13 U/L (14-59); ANION GAP 8 (6-14); AST (SGOT) 11 U/L (15-37); BLOOD UREA NITROGEN 11 mg/dL (7-20); BUN/CREATININE RATIO 16 (6-20); CALCIUM 8.5 mg/dL (8.5-10.1); CARBON DIOXIDE 27 mmol/L (21-32); CHLORIDE 104 mmol/L (98-107); CREATININE 0.7 mg/dL (0.6-1.0); GFR 104.6; GLUCOSE 96 mg/dL (70-99); POTASSIUM 3.3 mmol/L (3.5-5.1); SODIUM 139 mmol/L (136-145); TOTAL BILIRUBIN 0.3 mg/dL (0.2-1.0); TOTAL PROTEIN 6.1 g/dL (6.4-8.2)
[2017-09-28] MEDS ORDERED: LACTOBACILLUS RHAMNOSUS GG 1 CAPSULE. PO (21:00)
[2017-09-28] MEDS ORDERED: AMOXICILLIN/K CLAV 875/125MG TABLET. PO (21:00)
== END 2017-09-28 18:09 | disposition home or self-care (01) | DRG 157 ==
LOC: ER 23:40 → 6 SOUTH 09-27 00:20
DX: K04.7 Periapical abscess without sinus (principal); E43 Unspecified severe protein-calorie malnutrition; L03.211 Cellulitis of face; E28.2 Polycystic ovarian syndrome; K02.9 Dental caries, unspecified; F17.210 Nicotine dependence, cigarettes, uncomplicated; M08.00 Unspecified juvenile rheumatoid arthritis of unspecified site; M19.90 Unspecified osteoarthritis, unspecified site; Z88.8 Allergy status to other drugs, medicaments and biological substances; Z90.49 Acquired absence of other specified parts of digestive tract
CPT/HCPCS: 36415; 80048; 80053; 85007; 85025; 85027; 87040; 99285; 99285-25; J2270; J2543

== ENCOUNTER 2018-12-05 15:05 | Inpatient (IN) | payer OTHER ==
[~2018-12-05] VITALS: Ht 160 cm; Wt 64.4 kg
[~2018-12-05 15:05] MED LIST changes: +ALBU2.5V8 INH; +AMOX1TAB61 PO; +DOXY100C14 PO; +ETON68IM3 SQ; +HYDR-2765 PO; +HYDR-3164 PO; -HYDR-971 PO; +HYDR30TA PO; +INHA1SPA94 MC; +MELO7.5T29 PO; +METH2.5T PO; -OXYC-323 PO; +OXYC1TAB15 PO; +OXYC5CAP PO; +PRED-220 PO; +PRED20TA PO
[2018-12-05] MEDS ORDERED: PIP/TAZO PER PHARMACY MC PRN (18:45)
[2018-12-05 19:15] VITALS: BP 105/69
[2018-12-05] MEDS: MORPHINE SULFATE 4 MG/ML VIAL. IV PRN (19:41)
[2018-12-05] MEDS ORDERED: OXYC10TA PO (20:11)
[2018-12-05] MEDS ORDERED: PRED20TA PO (20:11)
[2018-12-05] MEDS: PIPERACILLIN/TAZOBACTAM 3.375 GM in IV NORMAL SALINE 50ML 50 ML IV SCH (20:31)
[2018-12-05] MEDS: oxyCODONE IR 5 MG TABLET PO SCH ×2 (21:00→22:15)
[2018-12-05 21:26] LABS: BASO # 0.2 x10^3/uL (0.0-0.2); BASO % 1 % (0-3); EOS # 0.3 x10^3/uL (0.0-0.7); EOS % 2 % (0-3); HEMATOCRIT 44.5 % (36.0-47.0); HEMOGLOBIN 14.9 g/dL (12.0-15.5); LYMPH # 3.7 x10^3/uL (1.0-4.8); LYMPH % 24 % (24-48); MEAN CORPUSCULAR HEMOGLOBIN 31 pg (25-35); MEAN CORPUSCULAR HGB CONC 34 g/dL (31-37); MEAN CORPUSCULAR VOLUME 94 fL (79-100); MONO % 7 % (0-9); NEUT % 66 % (31-73); PLATELET COUNT 337 x10^3/uL (140-400); RED BLOOD COUNT 4.76 x10^6/uL (3.50-5.40); RED CELL DISTRIBUTION WIDTH 13.6 % (11.5-14.5); WHITE BLOOD COUNT 15.2 x10^3/uL (4.0-11.0)
[2018-12-05 21:50] LABS: ALBUMIN 3.2 g/dL (3.4-5.0); C-REACTIVE PROTEIN 4.3 mg/L (0-3.3); CALCIUM 8.4 mg/dL (8.5-10.1); CREATININE 0.9 mg/dL (0.6-1.0); GFR 76.9; POTASSIUM 3.6 mmol/L (3.5-5.1); TOTAL BILIRUBIN 0.3 mg/dL (0.2-1.0); TOTAL PROTEIN 6.3 g/dL (6.4-8.2)
[2018-12-05 23:09] VITALS: BP 110/71
[2018-12-06] MEDS: PIPERACILLIN/TAZOBACTAM 3.375 GM in IV NORMAL SALINE 50ML 50 ML IV SCH ×2 (00:17→06:26)
[2018-12-06] MEDS: MORPHINE SULFATE 4 MG/ML VIAL. IV PRN ×6 (00:21→23:54)
--- NOTE | 2018-12-06 02:00 | NUR ---
The patient, JAE ENCINAS, 23 y/o, F admitted by JULIA MUELLER MD, was given written information regarding hospital policies, unit procedures and contact persons. Valuables were checked and left with patient.
[2018-12-06 03:18] VITALS: BP 98/62
[2018-12-06 07:00] VITALS: BP 104/70
[2018-12-06] MEDS: oxyCODONE IR 5 MG TABLET PO SCH ×3 (08:29→21:05)
[2018-12-06] MEDS: MELOXICAM 7.5 MG TABLET PO SCH (08:29)
[2018-12-06] MEDS: predniSONE 20 MG TABLET PO SCH (08:30)
--- NOTE | 2018-12-06 10:47 | NUR ---
SW following for discharge planning. Discussed with RN, pt uses a walker at home due to sever rheumatoid arthritis. Currently on IV abx for jaw osteo. SW will continue to follow for any discharge planning needs.
[2018-12-06 11:00] VITALS: BP 101/62
--- NOTE | 2018-12-06 11:01 | HP ---
ADMIT DATE: 12/05/2018 HISTORY OF PRESENT ILLNESS: The patient is a 23-year-old female patient with past medical history significant for juvenile rheumatoid arthritis, on disease modifying agent, dental caries and several broken teeth, who apparently was treated with ciprofloxacin for possible periodontitis by her primary care physician, Dr. Cosby, who stated that the patient has questionable right mandible osteomyelitis and the patient was admitted for inpatient treatment. We did actually discontinue her ciprofloxacin, started her on Zosyn and Zyvox as she is allergic to VANCOMYCIN. PAST SURGICAL HISTORY: Significant for tonsillectomy and D and C. ALLERGIES: She is allergic to RITUXIMAB and INFLIXIMAB. She is also apparently allergic to VANCOMYCIN. FAMILY HISTORY: Generally unremarkable. She has one brother who is younger and healthy. Does not know her biological father. Her mother is alive at age of 43 and has had head fracture. SOCIAL HISTORY: She is , has 6-year-old daughter. She smokes occasionally. Does not drink alcohol or recreational drugs. 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 MEDICATIONS: She is currently on following medications: She is on meloxicam 7.5 mg twice a day, oxycodone immediate release 10 mg 3 times a day, prednisone 40 mg once a day, etonogestrel 68 mg subcutaneously. REVIEW OF SYSTEMS: As per history of present illness. PHYSICAL EXAMINATION GENERAL: When I examined her, the patient looked well and was clearly in no apparent respiratory distress. There is no pallor, jaundice, cyanosis, or thyromegaly. No jugular venous distension. No lower limb edema. VITAL SIGNS: Her heart rate was 90, blood pressure 105/69, temperature was 98.4, respiratory rate was 18 and oxygen saturation was 95%. HEAD, EYES, EARS, NOSE AND THROAT: Showed normocephalic, atraumatic. She has multiple dental caries. There are only dental roots, mostly her teeth have fallen. NECK: Supple. HEART: Showed normal first and second sounds. No gallop, rub or murmur. CHEST: Clear to auscultation. No crepitation or rhonchi. ABDOMEN: Distended, soft, nontender. NEUROLOGIC: She is awake, alert, responding appropriately. All cranial nerves intact. EXTREMITIES: She moves extremities without difficulty. She ambulates without assistance or assistive devices. 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 LABORATORY DATA: Showed her white cell count was 15,200; hemoglobin 14.9; hematocrit 44.5; MCV 94 and platelet count of 337,000 with normal manual differential. Her chemistry showed a serum sodium of 139, potassium 3.6, chloride 103, bicarbonate 24, anion gap of 12, BUN 11, creatinine 0.9, estimated GFR was 76 mL per minute, her glucose was 98, calcium was 8.4. Total bilirubin, AST, ALT, alkaline phosphatase were normal. Her C-reactive protein was only 4.3 mg/dL. Total protein was 6.3, albumin was 3.2. She apparently has had an MRI of the face without and with contrast, which showed that the craniocervical junction and upper visualized cervical spine appears normal. The visualized orbits appear normal. Mastoid, petrous, air cells are clear. Sinonasal, nasal fossa, nasopharynx, pterygopalatine fossa, and parapharyngeal space appears normal. There is bilateral mild maxillary mucosal thickening and there is a retention cyst in the right maxillary sinus measuring about 2 cm; the oropharyngeal, maxilla and visualized tongue and floor of the mouth appears normal. There is hyperintensity in the right carlee-mandible on the sagittal and axial imaging. There is questionable associated T1 hypointensity; therefore, finding represents edema. There is no definite associated enhancement. The visualized palatine tonsils and parapharyngeal space appears normal. Submandibular space is unremarkable. Parotid, submandibular and sublingual glands appears normal. No sialadenitis or sialolithiasis present. IMPRESSION: The patient has questionable edema within the right carlee-mandible. No definite associated enhancement. Clinical correlation for concern of osteomyelitis at this site would be recommended, no soft tissue. PLAN: My plan is to continue with IV antibiotic. We have consulted the Infectious Disease and we will also consult the maxillofacial surgeon to see if he can assist with her management if need any surgical intervention. JULIA MUELLER MD DR: MAKENNA/dionisio JOB#: [id number] / [id number]
--- NOTE | 2018-12-06 11:27 | PDOC ---
Infectious Disease Note Vital Sign Vital Signs Vital Signs Date Time Temp Pulse Resp B/P (MAP) Pulse Ox O2 Delivery O2 Flow Rate FiO2 12/06/18 10:29 Room Air 12/06/18 07:00 99.2 74 16 104/70 (81) 97 99.2 Labs Lab Laboratory Tests Test 12/05/18 21:15 White Blood Count 15.2 x10^3/uL (4.0-11.0) Red Blood Count 4.76 x10^6/uL (3.50-5.40) Hemoglobin 14.9 g/dL (12.0-15.5) Hematocrit 44.5 % (36.0-47.0) Mean Corpuscular Volume 94 fL (79-100) Mean Corpuscular Hemoglobin 31 pg (25-35) Mean Corpuscular Hemoglobin Concent 34 g/dL (31-37) Red Cell Distribution Width 13.6 % (11.5-14.5) Platelet Count 337 x10^3/uL (140-400) Neutrophils (%) (Auto) 66 % (31-73) Lymphocytes (%) (Auto) 24 % (24-48) Monocytes (%) (Auto) 7 % (0-9) Eosinophils (%) (Auto) 2 % (0-3) Basophils (%) (Auto) 1 % (0-3) Neutrophils # (Auto) 10.0 x10^3uL (1.8-7.7) Lymphocytes # (Auto) 3.7 x10^3/uL (1.0-4.8) Monocytes # (Auto) 1.0 x10^3/uL (0.0-1.1) Eosinophils # (Auto) 0.3 x10^3/uL (0.0-0.7) Basophils # (Auto) 0.2 x10^3/uL (0.0-0.2) Erythrocyte Sedimentation Rate 2 (0-25) Sodium Level 139 mmol/L (136-145) Potassium Level 3.6 mmol/L (3.5-5.1) Chloride Level 103 mmol/L (98-107) Carbon Dioxide Level 24 mmol/L (21-32) Anion Gap 12 (6-14) Blood Urea Nitrogen 11 mg/dL (7-20) Creatinine 0.9 mg/dL (0.6-1.0) Estimated GFR (Cockcroft-Gault) 76.9 BUN/Creatinine Ratio 12 (6-20) Glucose Level 98 mg/dL (70-99) Calcium Level 8.4 mg/dL (8.5-10.1) Total Bilirubin 0.3 mg/dL (0.2-1.0) Aspartate Amino Transf (AST/SGOT) 6 U/L (15-37) Alanine Aminotransferase (ALT/SGPT) 14 U/L (14-59) Alkaline Phosphatase 59 U/L (46-116) C-Reactive Protein, Quantitative 4.3 mg/L (0-3.3) Total Protein 6.3 g/dL (6.4-8.2) Albumin 3.2 g/dL (3.4-5.0) Albumin/Globulin Ratio 1.0 (1.0-1.7) Objective Assessment Leukocytosis Dental infection Vanc allergy - rash and SOA Immunosuppression Recent Proteus MDRO (CRE)/Enterococcus Plan Plan of Care Cont Zyvox Cont cipro and add Flagyl Consult Dr. Wyatt F/u labs May need addtitional cults and or imaging May need Avycaz await Dental eval. D/w pharmacy - not available but could get if needed Contact Isolation outside records reviewed D/w tray Thank you # [id number] DELORES VILLEDA MD Dec 06, 2018 11:26
[2018-12-06] MEDS: CIPROFLOXACIN HCL 250 MG TABLET. PO SCH ×2 (12:37→21:05)
[2018-12-06] MEDS: LINEZOLID 600 MG TABLET PO SCH ×2 (12:37→21:05)
[2018-12-06] MEDS: metroNIDAZOLE 500 MG TABLET PO SCH ×2 (12:37→21:56)
[2018-12-06 15:00] VITALS: BP 118/79
--- NOTE | 2018-12-06 16:00 | NUR ---
ASSUMED PATIENT CARE AT THIS TIME, REPORT GIVEN AT THE BEDSIDE, QUESTIONS AND CONCERNS ANSWERED, WILL MONITOR.
[2018-12-06 19:00] VITALS: BP 95/58
[2018-12-06 23:00] VITALS: BP 134/86
[2018-12-07 03:00] VITALS: BP 107/71
--- NOTE | 2018-12-07 03:20 | CONS ---
DATE OF CONSULTATION: 12/06/2018 ROOM: 430. REQUESTING PHYSICIAN: Dr. Ramos. REASON FOR CONSULTATION: Questionable osteomyelitis of the jaw. HISTORY OF PRESENT ILLNESS: The patient is a 23-year-old female with history of juvenile arthritis and had complications with dental infections for several months now. She has been unable to see a dentist and was recently seen by her local physician where a culture apparently was obtained from some purulent material on her left upper incisor. Cultures returned positive for Enterococcus and Proteus species and she had been placed on Cipro, which she had been taking for several weeks. Additionally, on the , she underwent an MRI that showed some questionable edema of the right carlee-mandibular, no definite associated enhancement, clinical correlation for concern of osteomyelitis at this site would be recommended, no soft tissue lesion or abscess was apparent. She has not been able to see a eight arm operator either. She has had some difficulty eating. She followed up with her primary care doctor yesterday who consulted Dr. Ramos who had directly admitted her to [facility]. Currently, she is on Zosyn and linezolid. She has not had any significant fever or chills or sweats or sinus issues. She has pain in her mouth. No sore throat or cough or chest pain. No dysuria, frequency or urgency. She is concerned if she does not get this taken care of; she is going to make her rheumatoid arthritis flare as it did earlier in the month. PAST MEDICAL HISTORY: Positive for juvenile rheumatoid arthritis. She has had previous dental infections. REVIEW OF SYSTEMS: Otherwise negative. ALLERGIES: LISTED VANCOMYCIN WHICH MOSTLY CAUSES RASH WELL HIVES AND SHORTNESS OF AIR. RITUXIMAB AND INFLIXIMAB ALSO LISTED. SOCIAL HISTORY: She is a smoker. No alcohol. She is . FAMILY HISTORY: Unremarkable. She does not know her biological father. CURRENT MEDICATIONS: Include Zyvox, Zosyn. She was on some prednisone, Mobic. Other meds are available and reviewed in the chart. PHYSICAL EXAMINATION: VITAL SIGNS: She is afebrile, temperature 97, pulse 76, respirations 16, blood pressure 101/62, satting 100% on room air. CONSTITUTIONAL: She is cooperative. She is in no acute distress. HEENT: Pupils equal and reactive. Oral cavity, pharynx, she has thickening of her gumline. There is also necrosis. She has poor dentition. There is no gross swelling of her neck. There is no wheezing. There is no drooling. There is no impediment to her breathing. NECK: Supple, no JVD. LUNGS: Clear. HEART: S1, S2. ABDOMEN: Soft, nontender, nondistended, positive bowel sounds. NEUROLOGIC: She is nonfocal. Moves all extremities. She has some chronic joint changes. SKIN: Warm to touch without signs of rash. She has some tattoos. She also has a tongue stud. NEUROLOGIC: She is nonfocal. Affect is appropriate. LABORATORY DATA: From the , white count 15.2, hemoglobin 14.9, platelets of 337, neutrophils 66, lymphs 24, sed rate of 2. Creatinine 0.9, AST 6, ALT 14. Glucose of 98. Radiological studies were in the outpatient setting. ASSESSMENT: 1. Leukocytosis. 2. Dental infection. 3. VANCOMYCIN ALLERGY WITH RASH, SHORTNESS OF AIR. 4. Immunosuppression. 5. Recent Proteus, Enterococcus. For now, line source what appears to be a PCR type, Enterococcus was sensitive to Augmentin, Unasyn, resistant to amoxicillin according to this, resistant to Zosyn. Proteus is resistant to Zosyn, sensitive to the quinolones, resistant to the carbapenem. Sensitive to Avycaz. RECOMMENDATIONS: 1. Continue Zyvox. Continue Cipro, add Flagyl. Consult Dr. Wyatt. Follow up labs. May need additional cultures and/or imaging. May need Avycaz isolation. Contact isolation. This was discussed with nursing. Dr. Ramos, thank you for allowing us to participate in this patient's care. If you have any questions, please do not hesitate to contact me. DELORES VILLEDA MD DR: RYLEY/dionisio JOB#: [id number] / [id number]
[2018-12-07] MEDS: MORPHINE SULFATE 4 MG/ML VIAL. IV PRN (04:01)
[2018-12-07 04:14] LABS: BASO % 0 % (0-3); EOS % 0 % (0-3); HEMOGLOBIN 13.5 g/dL (12.0-15.5); LYMPH # 1.5 x10^3/uL (1.0-4.8); LYMPH % 13 % (24-48); MEAN CORPUSCULAR HEMOGLOBIN 31 pg (25-35); MEAN CORPUSCULAR HGB CONC 33 g/dL (31-37); MEAN CORPUSCULAR VOLUME 94 fL (79-100); MONO # 0.6 x10^3/uL (0.0-1.1); MONO % 5 % (0-9); NEUT # 9.2 x10^3uL (1.8-7.7); NEUT % 81 % (31-73); PLATELET COUNT 302 x10^3/uL (140-400); RED BLOOD COUNT 4.36 x10^6/uL (3.50-5.40); RED CELL DISTRIBUTION WIDTH 13.6 % (11.5-14.5); WHITE BLOOD COUNT 11.3 x10^3/uL (4.0-11.0)
[2018-12-07 04:41] LABS: CALCIUM 8.9 mg/dL (8.5-10.1); CREATININE 0.7 mg/dL (0.6-1.0); GFR 102.8; POTASSIUM 3.4 mmol/L (3.5-5.1)
[2018-12-07] MEDS: metroNIDAZOLE 500 MG TABLET PO SCH (06:47)
[2018-12-07 07:00] VITALS: BP 113/69
[2018-12-07] MEDS ORDERED: POTASSIUM CHLORIDE 20 MEQ TABLET.ER. PO ONE (07:45)
[2018-12-07] MEDS: CIPROFLOXACIN HCL 250 MG TABLET. PO SCH (08:16)
[2018-12-07] MEDS: MELOXICAM 7.5 MG TABLET PO SCH (08:16)
[2018-12-07] MEDS: predniSONE 20 MG TABLET PO SCH (08:17)
[2018-12-07] MEDS: oxyCODONE IR 5 MG TABLET PO SCH (08:18)
[2018-12-07] MEDS: LINEZOLID 600 MG TABLET PO SCH (08:18)
--- NOTE | 2018-12-07 09:27 | PDOC ---
Infectious Disease Note Subjective Subjective Doing ok but frustrated because wants her teeth extracted No F/C/S/N/V/D/SOA/Rash ROS ROS o/w neg Vital Sign Vital Signs Vital Signs Date Time Temp Pulse Resp B/P (MAP) Pulse Ox O2 Delivery O2 Flow Rate FiO2 12/07/18 08:18 Room Air 12/07/18 07:00 97.7 71 16 113/69 (84) 97 97.7 Physical Exam PHYSICAL EXAM CONSTITUTIONAL: She is cooperative. She is in no acute distress. HEENT: Pupils equal and reactive. Oral cavity, pharynx, she has thickening of her gumline. There is also necrosis. She has poor dentition. There is no gross swelling of her neck. There is no wheezing. There is no drooling. There is no impediment to her breathing. NECK: Supple, no JVD. LUNGS: Clear. HEART: S1, S2. ABDOMEN: Soft, nontender, nondistended, positive bowel sounds. NEUROLOGIC: She is nonfocal. Moves all extremities. She has some chronic joint changes. SKIN: Warm to touch without signs of rash. She has some tattoos. She also has a tongue stud. NEUROLOGIC: She is nonfocal. Affect is appropriate. Labs Lab Laboratory Tests Test 12/07/18 03:20 White Blood Count 11.3 x10^3/uL (4.0-11.0) Red Blood Count 4.36 x10^6/uL (3.50-5.40) Hemoglobin 13.5 g/dL (12.0-15.5) Hematocrit 41.0 % (36.0-47.0) Mean Corpuscular Volume 94 fL (79-100) Mean Corpuscular Hemoglobin 31 pg (25-35) Mean Corpuscular Hemoglobin Concent 33 g/dL (31-37) Red Cell Distribution Width 13.6 % (11.5-14.5) Platelet Count 302 x10^3/uL (140-400) Neutrophils (%) (Auto) 81 % (31-73) Lymphocytes (%) (Auto) 13 % (24-48) Monocytes (%) (Auto) 5 % (0-9) Eosinophils (%) (Auto) 0 % (0-3) Basophils (%) (Auto) 0 % (0-3) Neutrophils # (Auto) 9.2 x10^3uL (1.8-7.7) Lymphocytes # (Auto) 1.5 x10^3/uL (1.0-4.8) Monocytes # (Auto) 0.6 x10^3/uL (0.0-1.1) Eosinophils # (Auto) 0.0 x10^3/uL (0.0-0.7) Basophils # (Auto) 0.0 x10^3/uL (0.0-0.2) Sodium Level 138 mmol/L (136-145) Potassium Level 3.4 mmol/L (3.5-5.1) Chloride Level 104 mmol/L (98-107) Carbon Dioxide Level 23 mmol/L (21-32) Anion Gap 11 (6-14) Blood Urea Nitrogen 7 mg/dL (7-20) Creatinine 0.7 mg/dL (0.6-1.0) Estimated GFR (Cockcroft-Gault) 102.8 Glucose Level 147 mg/dL (70-99) Calcium Level 8.9 mg/dL (8.5-10.1) Micro Microbiology 12/05/18 Blood Culture - Preliminary, Resulted NO GROWTH AFTER 1 DAY Objective Assessment Leukocytosis - better Dental infection Vanc allergy - rash and SOA Immunosuppression Recent Proteus MDRO (CRE)/Enterococcus Plan Plan of Care Cont Zyvox/cipro and Flagyl There are no Dental services available here which is what is needed. Will cont abx for 10 days- Rx written and she will need to f/u with a Dentist - if she worsens she will need to go to a facility that has oral surgery available Will need labs next week with Zyvox (Rx given) and can f/u in our office in 7 to 10 days Contact Isolation D/w nursing D/w DELORES Vargas MD Dec 07, 2018 09:27
--- NOTE | 2018-12-07 09:30 | CONS ---
DATE OF CONSULTATION: 12/06/2018 CONSULTATION REQUESTING PHYSICIAN: Dr. Ramos. REASON FOR CONSULTATION: Multiple joint pain. HISTORY OF PRESENT ILLNESS: The patient is a 23-year-old female with a previous history of juvenile rheumatoid arthritis and multiple dental problems including dental caries, was admitted to the hospital because of the pain in jaw. She also had an MRI done, which was suggestive of possible osteomyelitis of the jaw. She has been evaluated by ID physician and started on antibiotic. According to her, she is on antibiotic from last 5 years on and off. She used to see a director industrial in the past at [facility] and then she had seen Dr. Cobian at , had done all the workup and according to her, she did not have active rheumatoid arthritis. So she did not want to go back to Dr. Cobian. She is on the prednisone 40 mg daily and she raises the dose up to 60 mg depending on her response. She has hard time to lower down the dose of the prednisone. She complains of pain in the hands, neck, back, knees, feet which is achy, constant, exacerbates with activity without joint swelling, but associated with stiffness for about 1 hour. She used to take the oxycodone in the past. PAST MEDICAL HISTORY: Rheumatoid arthritis, dental caries, falling of teeth, costochondritis, respiratory tract infection, dental abscess. PAST SURGICAL HISTORY: Tonsillectomy and D and C. ALLERGIES: RITUXIMAB AND INFLIXIMAB AND VANCOMYCIN. SOCIAL HISTORY: She is . She smokes occasionally. Denies any alcohol abuse. FAMILY HISTORY: Negative for any autoimmune disease. MEDICATIONS: I have reviewed the list of medications. REVIEW OF SYSTEMS: All other systems are reviewed and negative. PHYSICAL EXAMINATION: GENERAL: She is awake, alert, oriented x 3, not in acute distress. VITAL SIGNS: Revealed temperature 98.7, pulse 93, respirations 16 and blood pressure 118/79. SKIN: She does not have any rash. HEENT: Normocephalic, atraumatic head. She had lost almost all teeth and had dental caries, but no oral ulcerations. NECK: Supple. HEART: S1, S2 regular. LUNGS: Clear to auscultation. EXTREMITIES: No pitting edema. MUSCULOSKELETAL: Revealed tenderness in all joints of the hands, bilateral knees, neck, back and all joints of the feet, but she does not have any active synovitis. 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 She has reduced range of motion on the right wrist. She has also reduced range of motion with tenderness in the right shoulder because of the rotator cuff tear. LABORATORY DATA: I have reviewed her laboratory test results. ASSESSMENT: 1. Polyarthralgia. 2. History of juvenile rheumatoid arthritis. 3. Dental caries with a possible dental infection. 4. Chronic systemic prednisone use. 5. 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 Although she carries diagnosis of juvenile rheumatoid arthritis, in my opinion, currently clinically, she does not have any active inflammatory arthritis. She does have the joint pain, which could be just due to the secondary osteoarthritis and she will require just a symptomatic pain management. She is already taking the 40 mg of prednisone, which is a very high dose for rheumatoid arthritis. So I have advised her to try to control the pain and gradually taper down the prednisone. She had all workup done at , so she was advised to have a followup at [facility]. In my opinion, she is also very high risk to start any other DMARD because of the history of frequent infection and also because of lack of active rheumatoid arthritis. I am not requesting any further test at this time. Thank you for allowing me to participate in her care. If you have any question, please do not hesitate to contact me. RYLEY ADRIAN MD DR: ANGEL/dionisio JOB#: [id number] / [id number]
[2018-12-07] MEDS ORDERED: LINE600T PO (10:07)
[2018-12-07] MEDS ORDERED: METR-34 PO (10:07)
[2018-12-07] MEDS ORDERED: CIPR500T94 PO (10:07)
[2018-12-07 11:00] VITALS: BP 110/78
--- NOTE | 2018-12-07 11:55 | NUR ---
SW following for discharge planning. Discussed with RN, pt is discharging home today with self care. RN advised no SW needs.
--- NOTE | 2018-12-07 13:14 | NUR ---
Pt was given all discharge instructions, follow up information, new prescriptions, and teaching. Pt was given documents of her imaging while she was admitted here to [facility]. Pt is stable. Will be returning home with antibiotics and pain medicine, to follow up with dentist and pursue getting teeth removed. Iv removed. No tele. Pt left at 1235, escorted by [facility], all belongings left with pt at discharge. 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 Pt is reluctant to quit. This information was reported to Lali Cheng infection control nurse, left a voicemail at 1320.
--- NOTE | 2018-12-07 14:01 | DS ---
DATE OF DISCHARGE: 12/07/2018 HISTORY OF PRESENT ILLNESS AND HOSPITAL COURSE: The patient is a 23-year-old female patient who was referred by her primary care physician, Dr. Cosby for possible right jaw osteomyelitis, although the MRI finding was inconclusive and she was seen in consultation by Dr. Lala, the hemming and tacking machine operator and Dr. Phillips, the Infectious Disease and unfortunately, we did not have a dentist here or maxillofacial surgeon, Dr. Wyatt comes here only once a month and he requires referral of this patient from the dentist. Her antibiotics were changed to Cipro 500 mg twice a day and metronidazole and linezolid were added to be taken for 10 days and the patient was discharged home to follow with her primary care physician with a clear instruction that the patient needs to be referred to a place where there is a maxillofacial surgeon. PHYSICAL EXAMINATION: GENERAL: On examining her today, she looked well and was clearly in no apparent respiratory distress. She was pale, cushingoid, but no jaundice, cyanosis, or thyromegaly. No jugular venous distension. No limb edema. VITAL SIGNS: Her heart rate was 71, blood pressure 113/69, temperature was 97.7, respiratory rate was 16, and oxygen saturation was 97%. The rest of clinical examination is unremarkable and been stable. LABORATORY DATA: Her lab work this morning showed a white cell count of 11,300, hemoglobin 13.5, hematocrit 41, MCV 94, platelet count of 302,000. Her serum sodium was 138, potassium 3.4, chloride 104, bicarbonate 23, anion gap of 11, BUN 7, creatinine 0.7, estimated GFR was 102 mL per minute. Her glucose 147, calcium was 8.9. DISCHARGE MEDICATIONS: She was discharged home to continue on ciprofloxacin 500 mg twice a day for 10 days, Zyvox 600 mg twice a day for 10 days and Flagyl 500 mg 3 times a day for 10 days. Should continue also on meloxicam 7.5 mg twice a day, oxycodone immediate release 10 mg 3 times a day and prednisone 40 mg once a day as well as etonogestrel 68 mg implant subcutaneously. FINAL DISCHARGE DIAGNOSES: Severe dental caries. The MRI report that she brought with her was inconclusive. She has history of juvenile rheumatoid arthritis and was seen by Dr. Lala who does not think that she has active rheumatoid arthritis. The patient is on a large dose of steroids and was advised to taper it down. JULIA MUELLER MD DR: MAKENNA/dionisio JOB#: [id number] / [id number]
== END 2018-12-07 12:35 | disposition home or self-care (01) | DRG 158 ==
LOC: 4 NORTH 17:33
PROVIDERS: ADMIT Internal Medicine; ATTEND Internal Medicine
DX: K04.7 Periapical abscess without sinus (principal); E44.0 Moderate protein-calorie malnutrition; R65.10 Systemic inflammatory response syndrome (SIRS) of non-infectious origin without acute organ dysfunction; K02.9 Dental caries, unspecified; M08.00 Unspecified juvenile rheumatoid arthritis of unspecified site; D72.829 Elevated white blood cell count, unspecified; K05.30 Chronic periodontitis, unspecified; Z88.1 Allergy status to other antibiotic agents; Z16.11 Resistance to penicillins; M15.9 Polyosteoarthritis, unspecified; F17.200 Nicotine dependence, unspecified, uncomplicated
CPT/HCPCS: 36415; 80048; 80053; 85025; 85651; 86140; 87040; J2020; J2270; J2543; J7512

== ENCOUNTER 2019-01-01 14:03 | Inpatient (IN) | payer OTHER ==
[~2019-01-01] VITALS: Ht 161.3 cm; Wt 68.5 kg
[2019-01-01] VITALS (8 sets, daily range): BP systolic 103–118; BP diastolic 61–76
[~2019-01-01 14:03] MED LIST changes: +CIPR500T94 PO; +LINE600T PO; +METR-34 PO; +OXYC10TA PO
[2019-01-01] MEDS ORDERED: oxyCODONE IR 5 MG TABLET PO ONE (14:45)
[2019-01-01] MEDS ORDERED: CIPROFLOXACIN 400MG PREMIX 200 ML IV ONE (14:45)
[2019-01-01] MEDS ORDERED: LIDOCAINE 2% 20 ML VIAL. IJ ONE (14:45)
--- NOTE | 2019-01-01 14:45 | PHYS DOC ---
Past Medical History Past Medical History: Anxiety, Bipolar, Depression, Endometriosis, Other Additional Past Medical Histor: JRA Past Surgical History: Tonsillectomy Additional Past Surgical Histo: DNC Alcohol Use: None Drug Use: None Adult General Chief Complaint Chief Complaint: PAIN CONTROL HPI HPI Patient is a 23 year old HX OF CRE bacteria on prior cultures based on infectious disease chart review. X OF REPORTED OSTEOMYELITIS OF THE JAW. Patient is complaining of increasing exudative drainage from the gums. has increased bone pain in the area as well she is worried the infection is coming back she has subjective fever noted. she notes that the right knee is more swollen as well over the last few days WELL. She got diagnosed with Grover's cyst but the pain is increasing. She just finished her antibiotics 4 days ago FOR THE OSTEO OF THE JAW. this where she is having increasing pain in her right knee and feels like burning severe minimal response to usual pain medication. BASED ON ID NOTE: PRIOR culture: Recent Proteus, Enterococcus. For now, line source what appears to be a PCR type, Enterococcus was sensitive to Augmentin, Unasyn, resistant to amoxicillin according to this, resistant to Zosyn. Proteus is resistant to Zosyn, sensitive to the quinolones, resistant to the carbapenem. Sensitive to Avycaz. Review of Systems Review of Systems Constitutional: Body aches Eyes: Denies change in visual acuity, redness, or eye pain [] HENT: Denies nasal congestion or sore throat [] Musculoskeletal: Integument: Denies rash or skin lesions [] All other systems were reviewed and found to be within normal limits, except as documented in this note. Current Medications Current Medications Current Medications Medications (Trade) Dose Ordered Sig/Ras Start Time Stop Time Status Last Admin Dose Admin Ciprofloxacin/ Dextrose 200 ml @ 200 mls/hr 1X ONCE 01/01/19 14:45 01/01/19 15:44 DC 01/01/19 17:03 200 MLS/HR Lidocaine HCl 20 ml 1X ONCE 01/01/19 14:45 01/01/19 14:46 DC 01/01/19 14:57 20 ML Linezolid/Dextrose 300 ml @ 300 mls/hr 1X STAT 01/01/19 15:00 01/01/19 15:59 DC Metronidazole 100 ml @ 100 mls/hr 1X ONCE 01/01/19 14:45 01/01/19 15:44 DC 01/01/19 15:54 100 MLS/HR Oxycodone HCl (Roxicodone) 10 mg 1X ONCE 01/01/19 14:45 01/01/19 14:46 DC 01/01/19 14:58 10 MG Allergies Allergies Allergies Coded Allergies Type Severity Reaction Last Updated Verified infliximab Allergy Intermediate 12/26/16 Yes rituximab Allergy Intermediate 12/26/16 Yes vancomycin Allergy Intermediate Hives 09/12/17 Yes I S O L A T I O N *CONTACT* Allergy Unknown 12/07/18 Yes Physical Exam Physical Exam Constitutional: Well developed, well nourished, MILD distress, non-toxic appearance. [] HENT: Normocephalic, atraumatic, bilateral external ears normal, oropharynx moist,, nose normal. [] Poor dentition there is some scant exudate of drainage from the anterior upper molar area no appreciable fluctuance or abscess of the face or gum area on my examination there is very poor dentition Eyes: PERRLA, EOMI, conjunctiva normal, no discharge. [] Neck: Normal range of motion, no tenderness, supple, no stridor. [] Cardiovascular:Heart rate regular rhythm, no definite murmur Lungs & Thorax: Bilateral breath sounds clear to auscultation [] Abdomen: Bowel sounds normal, soft, no tenderness, no masses, no pulsatile masses. [] Skin: Warm, dry, no erythema, no rash. [] Back: No tenderness, no CVA tenderness. [] Extremities there is swelling there is effusion noted to the right knee there is limited range of motion active and passive secondary to pain distal pulses and sensation is intact. There is no significant erythema. There is also tenderness in the posterior knee consistent with known Grover's cyst Neurologic: Alert and oriented X 3, normal motor function, normal sensory function, no focal deficits noted. [] Psychologic: Affect normal, judgement normal, mood normal. [] Current Patient Data Vital Signs Vital Signs Date Time Temp Pulse Resp B/P (MAP) Pulse Ox O2 Delivery O2 Flow Rate FiO2 01/01/19 14:58 16 99 Room Air 01/01/19 14:30 99.8 85 115/92 (100) 99.8 Lab Values Laboratory Tests Test 01/01/19 15:30 White Blood Count 18.1 x10^3/uL (4.0-11.0) H Red Blood Count 4.76 x10^6/uL (3.50-5.40) Hemoglobin 14.8 g/dL (12.0-15.5) Hematocrit 44.0 % (36.0-47.0) Mean Corpuscular Volume 93 fL (79-100) Mean Corpuscular Hemoglobin 31 pg (25-35) Mean Corpuscular Hemoglobin Concent 34 g/dL (31-37) Red Cell Distribution Width 13.1 % (11.5-14.5) Platelet Count 371 x10^3/uL (140-400) Neutrophils (%) (Auto) 77 % (31-73) H Lymphocytes (%) (Auto) 18 % (24-48) L Monocytes (%) (Auto) 4 % (0-9) Eosinophils (%) (Auto) 1 % (0-3) Basophils (%) (Auto) 0 % (0-3) Neutrophils # (Auto) 13.9 x10^3uL (1.8-7.7) H Lymphocytes # (Auto) 3.2 x10^3/uL (1.0-4.8) Monocytes # (Auto) 0.8 x10^3/uL (0.0-1.1) Eosinophils # (Auto) 0.1 x10^3/uL (0.0-0.7) Basophils # (Auto) 0.1 x10^3/uL (0.0-0.2) Platelet Estimate Pending Body Fluid Source Synovial Body Fluid Color Red Body Fluid Clarity Turbid Body Fluid Nucleated Cells /cmm (Not Established) Body Fluid Mononuclear WBCs (%) 7 % Body Fluid Polymorphonuclear Cells 91 % Body Fluid Total RBCs Counted /cmm (Not Established) Body Fluid Other Cells (%) 2 % Sodium Level 139 mmol/L (136-145) Potassium Level 3.2 mmol/L (3.5-5.1) L Chloride Level 101 mmol/L (98-107) Carbon Dioxide Level 28 mmol/L (21-32) Anion Gap 10 (6-14) Blood Urea Nitrogen 7 mg/dL (7-20) Creatinine 0.8 mg/dL (0.6-1.0) Estimated GFR (Cockcroft-Gault) 88.1 BUN/Creatinine Ratio 9 (6-20) Glucose Level 89 mg/dL (70-99) Lactic Acid Level 0.7 mmol/L (0.4-2.0) Calcium Level 9.0 mg/dL (8.5-10.1) Total Bilirubin 0.5 mg/dL (0.2-1.0) Aspartate Amino Transferase (AST) 13 U/L (15-37) L Alanine Aminotransferase (ALT) 14 U/L (14-59) Alkaline Phosphatase 62 U/L (46-116) Total Protein 6.7 g/dL (6.4-8.2) Albumin 3.3 g/dL (3.4-5.0) L Albumin/Globulin Ratio 1.0 (1.0-1.7) Ethyl Alcohol Level < 10 mg/dL (0-10) Laboratory Tests 01/01/19 15:30 Laboratory Tests 01/01/19 15:30 EKG EKG [] Radiology/Procedures Radiology/Procedures [] Impressions: Course & Med Decision Making Course & Med Decision Making Pertinent Labs and Imaging studies reviewed. (See chart for details) FROM ID NOTE: Patient is a history of CRE culture from her GUM AREA per ID note MRI last month showed questionable edema of the right hemimandibular area no definite associated enhancement. In summary This is a complicated 23-year-old female history of juvenile rheumatoid arthritis who had been on multiple immunosuppressant agents who is presenting with 2 complaints that of increased gum pain and drainage and also pain to the right knee with no trauma. Diagnosed with a Grover's cyst of the knee however I was concerned for possible septic knee given her underlying condition also she h as AN elevated white blood cell count WELL. Procedure note arthrocentesis right knee Verbal consent obtained: Wrote area was prepped and draped usual sterile fashion lidocaine subcutaneous for anesthesia used a 20-gauge needle to enter the right synovial space lateral approach under the patella I did get approximately 10 ML's essentially straw-colored fluid with some blood tinge to it really did not look like pus although there was some blood as well so somewhat difficult to know for sure. Unfortunately I could not get any more fluid out and then the blood white blood cell count was clotted we could not obtain that. I spoke with Dr. Coleman, who is taking the patient to the OR for washout. I spoke to Dr. mujica, from oral surgery who is said that he be happy to consult on this patient in the hospital okay to admit here he is correspondence analyst this week I spoke to Dr. Centeno plan to admit as noted. I also spoke to Dr. Brock from infectiouS disease reviewed case given he said as long as oral surgery can see his patient he be happy to have the patient admitted here. Wet read of the ultrasound final read is still pending at did show evidence of a Grover's cyst with no DVT. Specifically there was a fluid collection noted in the right popliteal fossa that was 3.1 x 2.3 x 0.94 cm in addition anterior knee had fluid extending medially and laterally Dragon Disclaimer Dragon Disclaimer This electronic medical record was generated, in whole or in part, using a voice recognition dictation system. Departure Departure Impression: Primary Impression: Osteomyelitis, jaw acute Additional Impression: Synovial cyst of popliteal space [Grover], right knee Disposition: 09 ADMITTED INPATIENT Admitting Physician: Harpreet Ramos Condition: STABLE Referrals: CASS NUNES DO (PCP) Problem Qualifiers AI WANG MD January 01, 2019 14:45
[2019-01-01 16:10] LABS: ALBUMIN 3.3 g/dL (3.4-5.0); CREATININE 0.8 mg/dL (0.6-1.0); GFR 88.1; POTASSIUM 3.2 mmol/L (3.5-5.1); TOTAL BILIRUBIN 0.5 mg/dL (0.2-1.0); TOTAL PROTEIN 6.7 g/dL (6.4-8.2)
[2019-01-01] MEDS ORDERED: MORPHINE SULFATE 4 MG/ML VIAL. IV PRN (16:30)
[2019-01-01 17:17] LABS: BF CLARITY TURBID; BF COLOR RED; BF MON % 7 %; BF OTHER % 2 %; BF PMN % 91 %; BF SOURCE SYNOVIAL
[2019-01-01] MEDS ORDERED: IV RINGERS,LACTATED 1000ML 1,000 ML IV SCH (17:20)
[2019-01-01 17:24] LABS: BASO # 0.1 x10^3/uL (0.0-0.2); BASO % 0 % (0-3); EOS # 0.1 x10^3/uL (0.0-0.7); EOS % 1 % (0-3); HEMOGLOBIN 14.8 g/dL (12.0-15.5); LYMPH # 3.2 x10^3/uL (1.0-4.8); LYMPH % 18 % (24-48); MEAN CORPUSCULAR HEMOGLOBIN 31 pg (25-35); MEAN CORPUSCULAR HGB CONC 34 g/dL (31-37); MEAN CORPUSCULAR VOLUME 93 fL (79-100); MONO # 0.8 x10^3/uL (0.0-1.1); MONO % 4 % (0-9); NEUT # 13.9 x10^3uL (1.8-7.7); NEUT % 77 % (31-73); PLATELET COUNT 371 x10^3/uL (140-400); RED BLOOD COUNT 4.76 x10^6/uL (3.50-5.40); RED CELL DISTRIBUTION WIDTH 13.1 % (11.5-14.5); WHITE BLOOD COUNT 18.1 x10^3/uL (4.0-11.0)
[2019-01-01] MEDS ORDERED: PROPOFOL 20 ML IV ONE (17:47)
[2019-01-01] MEDS ORDERED: ONDANSETRON PF 4 MG/2 ML VIAL. ONE (17:47)
[2019-01-01] MEDS ORDERED: LIDOCAINE 2% PF 5 ML VIAL. ONE (17:47)
[2019-01-01] MEDS ORDERED: DEXAMETHASONE SOD PHOS 4 MG/ML VIAL ONE (17:47)
[2019-01-01] MEDS ORDERED: MIDAZOLAM HCL/PF 2 MG/2 ML VIAL. ONE (17:48)
[2019-01-01 18:49] LABS: % LYMPHS 20 % (24-48); % MONOS 3 % (0-10); % SEGS 77 % (35-66); ANISOCYTOSIS SLIGHT; PLT ESTIMATE INCREASED (ADEQUATE); POLYCHROMASIA SLIGHT; SCHISTOCYTES OCC
[2019-01-01] MEDS ORDERED: fentaNYL PF VIAL 100 MCG/2 ML VIAL ONE (18:55)
[2019-01-01] MEDS ORDERED: SEVOFLURANE 31 TO 60 MINUTES. IH ONE (19:08)
[2019-01-01] MEDS: PROCHLORPERAZINE 10 MG/2 ML VIAL. IV PRN ×2 (19:22→19:52)
[2019-01-01] MEDS: MORPHINE SULFATE 2 MG/ML VIAL. IV PRN ×3 (19:23→23:53)
--- NOTE | 2019-01-01 19:56 | PDOC4 ---
Operative Note Operative Note Date of surgery: 01/01/2019 Preoperative diagnosis: Septic right knee joint Postoperative diagnosis: Same with significant synovitis Operative procedure: Right knee arthroscopy irrigation debridement and synovectomy Surgeon: Jared Anesthesia: Gen. Estimated blood loss: 10 mL Complications: None Intraoperative cultures: Fluid sent for Gram stain cell count and crystal evaluation, anaerobic and aerobic cultures, acid-fast and fungal cultures Operative indications: Please see my emergency department note dated today for detailed operative indications and note that there was a suspicion of septic right knee joint based on her history of jaw osteomyelitis and recent right knee swelling pain that worsened after discontinuing a course of antibiotics for osteomyelitis in her jaw about 4 days ago. She acknowledged risks benefits postoperative course of surgical treatment and wishes to proceed with surgical evaluation and treatment emergently today Operative text: Patient was identified procedure verified patient placed in the supine position on operating table. After adequate amounts of general anesthesia were administered she was placed in the supine position on the operating table thigh tourniquet was placed and the right lower extremity was prepped and draped in standard sterile fashion. After timeout was performed patient procedure identified and verified tourniquet was inflated to 250 mmHg and a lateral portal was established. Approximately 16 mL of cloudy fluid were sent for Gram stain cell count crystal evaluation anaerobic and aerobic cultures acid-fast and fungal cultures. A medial portal was established using spinal needle localization and the knee joint was systematically examined. She was noted to have significant synovitis throughout the knee joint but cartilage surfaces menisci cruciate ligaments appeared well preserved. In addition to extensive synovectomy the Grover cyst opening was opened to allow free communication of fluid and synovitis was debrided throughout the visible portion of the knee including posterior compartment. Patellofemoral tracking was noted to be normal and menisci were probed and found to be intact. After extensive irrigation with a total of 6 L of normal saline solution the knee joint was drained of fluid portals closed with nylon suture sterile dressings were applied patient was returned to recovery room in stable condition having tolerated procedure well DAYLIN ESPINOZA MD January 01, 2019 19:56
--- NOTE | 2019-01-01 20:09 | PDOC1 ---
H & P. HPI: 23 yof with right jaw pain, history of multiple previous admissions for dental pain. She states that she has sought care from [facility] and that she "didn't have coverage" She notes that she has been unsuccessful in getting dental care and that her gums hurt all of the time. She notes today that she has similar pain from all of her bad teeth, and that nothing hurts more than other areas. 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 ROS: Constitutional: Denies fever, fatigue, chills HEENT: Denies sore throat, vision changes Cardio: Denies chest pain, dyspnea with exertion, syncope, palpitations, edema Pulmonary: Denies shortness of breath, cough, wheezing GI: Denies nausea, vomiting, diarrhea, constipation : Denies dysuria, frequency, urgency, incontinence Skin: Denies new lesions Neuro: Denies weakness, paresthesias ED COURSE: patient has dental complaints, and knee complaints. Her knee has been operated on PMH: JRA Rampant dental caries of all remaining teeth. FAMILY HX: RH DM CAD SOCIAL HX: tobacco use (most days) SURGICAL HX: knee surgery dental surgery See admitting H&P MEDS: Reviewed and reconciled ALLERGIES: Reviewed Rituximab, Infliximab, vanc PE: Alert, oriented, no acute distress EOMI, sclera non-icteric Neck: FROM, supple Vestibules are supple, tissue is pink, patient has heavy plaque buildup and severe gingival and periodontal disease her dentition is mostly broken at the gumline, she has rampant caries, Her dentition in terminal. # 2,3,4,5,7,8,9,10,11,12,13,14,15, 27,28,30 There may be additional teeth that are impacted, but do not appear to cause any disease, I will need an image to evaluate this. FOM Supple, FROM tongue, uvula at midline, no expressible purulence Patient is able to swallow secretions, and can phonate without difficulty RRR, no murmur CTAB, no wheezes, crackles or rhonchi Soft, NT, ND, normal bowel sounds, no rebound, guarding. No edema, cyanosis. Normal capillary refill. Calm, cooperative, mood/affect within normal limits ASSESSMENT & PLAN: 23 yof with Severe JRA and rampant caries with a terminal, non restorable dentition # 2,3,4,5,7,8,9,10,11,12,13,14,15, 27,28,30 There may be additional teeth that are impacted, but do not appear to cause any disease, I will need an image to evaluate this. PLAN: Request a Maxillofacial CT to visualize the effected areas. (Will the Admitting MD team please order this? If I am to order this, please contact me, & I will gladly help) I plan to add her to my OR schedule on Tuesday and will plan to remove all remaining teeth and smooth the bone (preprosthetic surgery/alveoloplasty) in order to assist this young woman in her health and in preparation for dentures. Please make NPO after midnight, and I will plan to add her as my first patient of the day on Tuesday on 5.19 please continue ABX during stay and for a brief course following discharge. I will also see her as an out patient CARD,SUELLEN Lin DMD January 01, 2019 20:09
[2019-01-01] MEDS: HYDROmorphone 2 MG/ML VIAL IV PRN ×2 (20:20→20:37)
[2019-01-01] MEDS ORDERED: ONDANSETRON PF 4 MG/2 ML VIAL. IV PRN (20:45)
[2019-01-01] MEDS ORDERED: fentaNYL PF VIAL 100 MCG/2 ML VIAL IV PRN (20:45)
[2019-01-01] MEDS ORDERED: DEXTROSE 50% 25 GM / 50ML DISP.SYRIN. IV PRN (20:45)
[2019-01-01] MEDS ORDERED: POLYETHYLENE GLYCOL 3350 17 GM PACKET. PO PRN (20:45)
[2019-01-01] MEDS: ACETAMINOPHEN 500 MG TABLET PO SCH (21:30)
[2019-01-01] MEDS: oxyCODONE IR 5 MG TABLET PO PRN (22:36)
[2019-01-02] VITALS (7 sets, daily range): BP systolic 90–117; BP diastolic 54–79
[2019-01-02] MEDS ORDERED: IV NORMAL SALINE 500ML BAG 500 ML IV ONE (03:30)
[2019-01-02] MEDS: oxyCODONE IR 5 MG TABLET PO PRN ×4 (03:32→20:05)
[2019-01-02] MEDS: MORPHINE SULFATE 2 MG/ML VIAL. IV PRN ×5 (05:28→21:55)
[2019-01-02] MEDS ORDERED: MAGNESIUM HYDROXIDE 2,400 MG/30 ML ORAL.SUSP. PO PRN (06:00)
[2019-01-02 06:04] LABS: BILIRUBIN,URINE NEGATIVE (NEG); CLARITY,URINE CLEAR; COLOR,URINE YELLOW; NITRITE,URINE NEGATIVE (NEG); PROTEIN,URINE NEGATIVE (NEG-TRACE); UROBILINOGEN,URINE 0.2 mg/dL (0.2 mg/dL)
[2019-01-02 06:10] LABS: BARBITURATES NEG (NEG); BENZODIAZEPINES POS (NEG); CANNABINOIDS NEG (NEG); COCAINE NEG (NEG); METHADONE NEG (NEG); OPIATES POS (NEG); PHENCYCLIDINE NEG (NEG)
[2019-01-02 06:24] LABS: AMPHETAMINE/METHAMPHETAMINE NEG (NEG)
[2019-01-02 06:32] LABS: SQUAMOUS EPITHELIAL CELL,UR MOD /LPF
[2019-01-02 06:33] LABS: BACTERIA,URINE FEW /HPF (0-FEW); RBC,URINE 0 /HPF (0-2); WBC,URINE OCC /HPF (0-4)
[2019-01-02 06:43] LABS: BASO % 0 % (0-3); EOS % 0 % (0-3); HEMATOCRIT 42.2 % (36.0-47.0); HEMOGLOBIN 14.3 g/dL (12.0-15.5); LYMPH % 9 % (24-48); MEAN CORPUSCULAR HEMOGLOBIN 32 pg (25-35); MEAN CORPUSCULAR HGB CONC 34 g/dL (31-37); MEAN CORPUSCULAR VOLUME 93 fL (79-100); MONO # 0.3 x10^3/uL (0.0-1.1); MONO % 3 % (0-9); NEUT # 10.4 x10^3uL (1.8-7.7); NEUT % 88 % (31-73); PLATELET COUNT 336 x10^3/uL (140-400); RED BLOOD COUNT 4.54 x10^6/uL (3.50-5.40); RED CELL DISTRIBUTION WIDTH 13.6 % (11.5-14.5); WHITE BLOOD COUNT 11.8 x10^3/uL (4.0-11.0)
--- NOTE | 2019-01-02 06:44 | PDOC ---
PROGRESS NOTES Subjective Subjective Problems overnight: She says right knee feels a bit better, less burning on activity and movement Objective Vital Signs Vital Signs Date Time Temp Pulse Resp B/P (MAP) Pulse Ox O2 Delivery O2 Flow Rate FiO2 01/02/19 05:45 49 14 103/65 (78) Room Air 01/02/19 03:00 98.3 98 98.3 01/01/19 19:31 10 Physical Exam Dressings clean dry intact distal neurovascular status intact Labs Laboratory Tests Test 01/01/19 15:30 01/02/19 05:40 White Blood Count 18.1 x10^3/uL (4.0-11.0) Red Blood Count 4.76 x10^6/uL (3.50-5.40) Hemoglobin 14.8 g/dL (12.0-15.5) Hematocrit 44.0 % (36.0-47.0) Mean Corpuscular Volume 93 fL (79-100) Mean Corpuscular Hemoglobin 31 pg (25-35) Mean Corpuscular Hemoglobin Concent 34 g/dL (31-37) Red Cell Distribution Width 13.1 % (11.5-14.5) Platelet Count 371 x10^3/uL (140-400) Neutrophils (%) (Auto) 77 % (31-73) Lymphocytes (%) (Auto) 18 % (24-48) Monocytes (%) (Auto) 4 % (0-9) Eosinophils (%) (Auto) 1 % (0-3) Basophils (%) (Auto) 0 % (0-3) Neutrophils # (Auto) 13.9 x10^3uL (1.8-7.7) Lymphocytes # (Auto) 3.2 x10^3/uL (1.0-4.8) Monocytes # (Auto) 0.8 x10^3/uL (0.0-1.1) Eosinophils # (Auto) 0.1 x10^3/uL (0.0-0.7) Basophils # (Auto) 0.1 x10^3/uL (0.0-0.2) Segmented Neutrophils % 77 % (35-66) Lymphocytes % 20 % (24-48) Monocytes % 3 % (0-10) Platelet Estimate Increased (ADEQUATE) Polychromasia Slight Anisocytosis Slight Schistocytes Occ Body Fluid Source Synovial Body Fluid Color Red Body Fluid Clarity Turbid Body Fluid Nucleated Cells /cmm (Not Established) Body Fluid Mononuclear WBCs (%) 7 % Body Fluid Polymorphonuclear Cells 91 % Body Fluid Total RBCs Counted /cmm (Not Established) Body Fluid Other Cells (%) 2 % Maternal Serum HCG Beta Subunit < 1 mIU/mL (0-5) Sodium Level 139 mmol/L (136-145) Potassium Level 3.2 mmol/L (3.5-5.1) Chloride Level 101 mmol/L (98-107) Carbon Dioxide Level 28 mmol/L (21-32) Anion Gap 10 (6-14) Blood Urea Nitrogen 7 mg/dL (7-20) Creatinine 0.8 mg/dL (0.6-1.0) Estimated GFR (Cockcroft-Gault) 88.1 BUN/Creatinine Ratio 9 (6-20) Glucose Level 89 mg/dL (70-99) Lactic Acid Level 0.7 mmol/L (0.4-2.0) Calcium Level 9.0 mg/dL (8.5-10.1) Total Bilirubin 0.5 mg/dL (0.2-1.0) Aspartate Amino Transf (AST/SGOT) 13 U/L (15-37) Alanine Aminotransferase (ALT/SGPT) 14 U/L (14-59) Alkaline Phosphatase 62 U/L (46-116) Total Protein 6.7 g/dL (6.4-8.2) Albumin 3.3 g/dL (3.4-5.0) Albumin/Globulin Ratio 1.0 (1.0-1.7) Ethyl Alcohol Level < 10 mg/dL (0-10) Urine Collection Type Unknown Urine Color Yellow Urine Clarity Clear Urine pH 7.0 Urine Specific [place] 1.010 Urine Protein Negative mg/dL (NEG-TRACE) Urine Glucose (UA) Negative mg/dL (NEG) Urine Ketones (Stick) Negative mg/dL (NEG) Urine Blood Negative (NEG) Urine Nitrite Negative (NEG) Urine Bilirubin Negative (NEG) Urine Urobilinogen Dipstick 0.2 mg/dL (0.2 mg/dL) Urine Leukocyte Esterase Negative (NEG) Urine RBC 0 /HPF (0-2) Urine WBC Occ /HPF (0-4) Urine Squamous Epithelial Cells Mod /LPF Urine Bacteria Few /HPF (0-FEW) Urine Mucus Slight /LPF Urine Opiates Screen Pos (NEG) Urine Methadone Screen Neg (NEG) Urine Barbiturates Neg (NEG) Urine Phencyclidine Screen Neg (NEG) Urine Amphetamine/Methamphetamine Neg (NEG) Urine Benzodiazepines Screen Pos (NEG) Urine Cocaine Screen Neg (NEG) Urine Cannabinoids Screen Neg (NEG) Urine Ethyl Alcohol Neg (NEG) Laboratory Tests Test 01/01/19 15:30 01/02/19 05:40 White Blood Count 18.1 x10^3/uL (4.0-11.0) Red Blood Count 4.76 x10^6/uL (3.50-5.40) Hemoglobin 14.8 g/dL (12.0-15.5) Hematocrit 44.0 % (36.0-47.0) Mean Corpuscular Volume 93 fL (79-100) Mean Corpuscular Hemoglobin 31 pg (25-35) Mean Corpuscular Hemoglobin Concent 34 g/dL (31-37) Red Cell Distribution Width 13.1 % (11.5-14.5) Platelet Count 371 x10^3/uL (140-400) Neutrophils (%) (Auto) 77 % (31-73) Lymphocytes (%) (Auto) 18 % (24-48) Monocytes (%) (Auto) 4 % (0-9) Eosinophils (%) (Auto) 1 % (0-3) Basophils (%) (Auto) 0 % (0-3) Neutrophils # (Auto) 13.9 x10^3uL (1.8-7.7) Lymphocytes # (Auto) 3.2 x10^3/uL (1.0-4.8) Monocytes # (Auto) 0.8 x10^3/uL (0.0-1.1) Eosinophils # (Auto) 0.1 x10^3/uL (0.0-0.7) Basophils # (Auto) 0.1 x10^3/uL (0.0-0.2) Segmented Neutrophils % 77 % (35-66) Lymphocytes % 20 % (24-48) Monocytes % 3 % (0-10) Platelet Estimate Increased (ADEQUATE) Polychromasia Slight Anisocytosis Slight Schistocytes Occ Body Fluid Source Synovial Body Fluid Color Red Body Fluid Clarity Turbid Body Fluid Nucleated Cells /cmm (Not Established) Body Fluid Mononuclear WBCs (%) 7 % Body Fluid Polymorphonuclear Cells 91 % Body Fluid Total RBCs Counted /cmm (Not Established) Body Fluid Other Cells (%) 2 % Maternal Serum HCG Beta Subunit < 1 mIU/mL (0-5) Sodium Level 139 mmol/L (136-145) Potassium Level 3.2 mmol/L (3.5-5.1) Chloride Level 101 mmol/L (98-107) Carbon Dioxide Level 28 mmol/L (21-32) Anion Gap 10 (6-14) Blood Urea Nitrogen 7 mg/dL (7-20) Creatinine 0.8 mg/dL (0.6-1.0) Estimated GFR (Cockcroft-Gault) 88.1 BUN/Creatinine Ratio 9 (6-20) Glucose Level 89 mg/dL (70-99) Lactic Acid Level 0.7 mmol/L (0.4-2.0) Calcium Level 9.0 mg/dL (8.5-10.1) Total Bilirubin 0.5 mg/dL (0.2-1.0) Aspartate Amino Transf (AST/SGOT) 13 U/L (15-37) Alanine Aminotransferase (ALT/SGPT) 14 U/L (14-59) Alkaline Phosphatase 62 U/L (46-116) Total Protein 6.7 g/dL (6.4-8.2) Albumin 3.3 g/dL (3.4-5.0) Albumin/Globulin Ratio 1.0 (1.0-1.7) Ethyl Alcohol Level < 10 mg/dL (0-10) Urine Collection Type Unknown Urine Color Yellow Urine Clarity Clear Urine pH 7.0 Urine Specific [place] 1.010 Urine Protein Negative mg/dL (NEG-TRACE) Urine Glucose (UA) Negative mg/dL (NEG) Urine Ketones (Stick) Negative mg/dL (NEG) Urine Blood Negative (NEG) Urine Nitrite Negative (NEG) Urine Bilirubin Negative (NEG) Urine Urobilinogen Dipstick 0.2 mg/dL (0.2 mg/dL) Urine Leukocyte Esterase Negative (NEG) Urine RBC 0 /HPF (0-2) Urine WBC Occ /HPF (0-4) Urine Squamous Epithelial Cells Mod /LPF Urine Bacteria Few /HPF (0-FEW) Urine Mucus Slight /LPF Urine Opiates Screen Pos (NEG) Urine Methadone Screen Neg (NEG) Urine Barbiturates Neg (NEG) Urine Phencyclidine Screen Neg (NEG) Urine Amphetamine/Methamphetamine Neg (NEG) Urine Benzodiazepines Screen Pos (NEG) Urine Cocaine Screen Neg (NEG) Urine Cannabinoids Screen Neg (NEG) Urine Ethyl Alcohol Neg (NEG) Assessment Assessment POD# [1], S/P [irrigation debridement of septic right knee with synovectomy] Plan Plan of Care Infectious disease consultation pending today, note ongoing osteomyelitis of the jaw and right knee swelling and symptoms over the past few days, resolved significantly with arthroscopic I&D Intraoperative cultures pending, I noted to her that being on previous antibiotics may not result in accurate results but likely prophylaxis based on what she is getting for her jaw Mobilize as tolerated with physical therapy symptomatic restrictions only DAYLIN ESPINOZA MD January 02, 2019 06:44
[2019-01-02 07:20] LABS: U PREG PATIENT NEGATIVE (NEG)
[2019-01-02] MEDS: SENNOSIDES/DOCUSATE 8.6/50MG TABLET. PO SCH (08:04)
[2019-01-02] MEDS: HYDROcodone/APAP 7.5/325MG 1 TAB TABLET PO PRN ×3 (08:04→23:57)
[2019-01-02] MEDS: ACETAMINOPHEN 500 MG TABLET PO SCH ×3 (08:04→21:54)
[2019-01-02] MEDS ORDERED: C.DIFF MED SCREEN BY RX. MC ONE (09:00)
--- NOTE | 2019-01-02 09:06 | NUR ---
DURING PATIENT ROUNDING STATES REC'D MESSAGE FROM DENTAL OFFICE TO HAVE ORAL SURGERY IN AM, TOLD NURSING IS AWAITING ORDERS FROM DENTAL OFFICE. APPETITE POOR ONLY ATE 1 PANCAKE ENCOURAGED TO ASK FOR OTHER FOODS THAT ARE TOLERABLE. REFUSES ICE TO KNEE AND DVT PREVENTION
--- NOTE | 2019-01-02 09:37 | PDOC ---
Infectious Disease Note Vital Sign Vital Signs Vital Signs Date Time Temp Pulse Resp B/P (MAP) Pulse Ox O2 Delivery O2 Flow Rate FiO2 01/02/19 08:04 Room Air 01/02/19 07:00 98.6 55 17 114/58 (76) 96 98.6 01/01/19 19:31 10 Labs Lab Laboratory Tests Test 01/01/19 15:30 01/02/19 05:40 01/02/19 05:50 White Blood Count 18.1 x10^3/uL (4.0-11.0) 11.8 x10^3/uL (4.0-11.0) Red Blood Count 4.76 x10^6/uL (3.50-5.40) 4.54 x10^6/uL (3.50-5.40) Hemoglobin 14.8 g/dL (12.0-15.5) 14.3 g/dL (12.0-15.5) Hematocrit 44.0 % (36.0-47.0) 42.2 % (36.0-47.0) Mean Corpuscular Volume 93 fL (79-100) 93 fL (79-100) Mean Corpuscular Hemoglobin 31 pg (25-35) 32 pg (25-35) Mean Corpuscular Hemoglobin Concent 34 g/dL (31-37) 34 g/dL (31-37) Red Cell Distribution Width 13.1 % (11.5-14.5) 13.6 % (11.5-14.5) Platelet Count 371 x10^3/uL (140-400) 336 x10^3/uL (140-400) Neutrophils (%) (Auto) 77 % (31-73) 88 % (31-73) Lymphocytes (%) (Auto) 18 % (24-48) 9 % (24-48) Monocytes (%) (Auto) 4 % (0-9) 3 % (0-9) Eosinophils (%) (Auto) 1 % (0-3) 0 % (0-3) Basophils (%) (Auto) 0 % (0-3) 0 % (0-3) Neutrophils # (Auto) 13.9 x10^3uL (1.8-7.7) 10.4 x10^3uL (1.8-7.7) Lymphocytes # (Auto) 3.2 x10^3/uL (1.0-4.8) 1.0 x10^3/uL (1.0-4.8) Monocytes # (Auto) 0.8 x10^3/uL (0.0-1.1) 0.3 x10^3/uL (0.0-1.1) Eosinophils # (Auto) 0.1 x10^3/uL (0.0-0.7) 0.0 x10^3/uL (0.0-0.7) Basophils # (Auto) 0.1 x10^3/uL (0.0-0.2) 0.0 x10^3/uL (0.0-0.2) Segmented Neutrophils % 77 % (35-66) Lymphocytes % 20 % (24-48) Monocytes % 3 % (0-10) Platelet Estimate Increased (ADEQUATE) Polychromasia Slight Anisocytosis Slight Schistocytes Occ Body Fluid Source Synovial Body Fluid Color Red Body Fluid Clarity Turbid Body Fluid Nucleated Cells /cmm (Not Established) Body Fluid Mononuclear WBCs (%) 7 % Body Fluid Polymorphonuclear Cells 91 % Body Fluid Total RBCs Counted /cmm (Not Established) Body Fluid Other Cells (%) 2 % Maternal Serum HCG Beta Subunit < 1 mIU/mL (0-5) Sodium Level 139 mmol/L (136-145) Potassium Level 3.2 mmol/L (3.5-5.1) Chloride Level 101 mmol/L (98-107) Carbon Dioxide Level 28 mmol/L (21-32) Anion Gap 10 (6-14) Blood Urea Nitrogen 7 mg/dL (7-20) Creatinine 0.8 mg/dL (0.6-1.0) Estimated GFR (Cockcroft-Gault) 88.1 BUN/Creatinine Ratio 9 (6-20) Glucose Level 89 mg/dL (70-99) Lactic Acid Level 0.7 mmol/L (0.4-2.0) Calcium Level 9.0 mg/dL (8.5-10.1) Total Bilirubin 0.5 mg/dL (0.2-1.0) Aspartate Amino Transf (AST/SGOT) 13 U/L (15-37) Alanine Aminotransferase (ALT/SGPT) 14 U/L (14-59) Alkaline Phosphatase 62 U/L (46-116) Total Protein 6.7 g/dL (6.4-8.2) Albumin 3.3 g/dL (3.4-5.0) Albumin/Globulin Ratio 1.0 (1.0-1.7) Ethyl Alcohol Level < 10 mg/dL (0-10) Urine Collection Type Unknown Urine Color Yellow Urine Clarity Clear Urine pH 7.0 Urine Specific [place] 1.010 Urine Protein Negative mg/dL (NEG-TRACE) Urine Glucose (UA) Negative mg/dL (NEG) Urine Ketones (Stick) Negative mg/dL (NEG) Urine Blood Negative (NEG) Urine Nitrite Negative (NEG) Urine Bilirubin Negative (NEG) Urine Urobilinogen Dipstick 0.2 mg/dL (0.2 mg/dL) Urine Leukocyte Esterase Negative (NEG) Urine RBC 0 /HPF (0-2) Urine WBC Occ /HPF (0-4) Urine Squamous Epithelial Cells Mod /LPF Urine Bacteria Few /HPF (0-FEW) Urine Mucus Slight /LPF Urine Test Negative (NEG) Urine Opiates Screen Pos (NEG) Urine Methadone Screen Neg (NEG) Urine Barbiturates Neg (NEG) Urine Phencyclidine Screen Neg (NEG) Urine Amphetamine/Methamphetamine Neg (NEG) Urine Benzodiazepines Screen Pos (NEG) Urine Cocaine Screen Neg (NEG) Urine Cannabinoids Screen Neg (NEG) Urine Ethyl Alcohol Neg (NEG) Objective Assessment Leukocytosis Dental carries Juvenile RA Rt knee pain/inflammation s/p I and D Plan Plan of Care zosyn dental extraction pending check cultures SIXTO BATES MD January 02, 2019 09:37
--- NOTE | 2019-01-02 09:48 | CONS ---
DATE OF CONSULTATION: 01/01/2019 EMERGENCY DEPARTMENT CONSULTATION REQUESTING PHYSICIAN: Dr. Coleman. REASON FOR CONSULTATION: Right knee effusion. HISTORY OF PRESENT ILLNESS: The patient is a 23-year-old female who has long time osteomyelitis of her jaw and was having increasing purulent drainage from her gums and apparently has been on multiple antibiotics and has a highly resistant bacteria. She has had a several-day history of right knee swelling and pain. Apparently finished a course of antibiotics four days ago for osteomyelitis of her jaw and after that noted increasing pain, swelling, burning in the right knee that has been unresponsive to pain medication. 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 PAST MEDICAL HISTORY: Significant for juvenile rheumatoid arthritis, anxiety, depression, bipolar disorder, endometriosis. PAST SURGICAL HISTORY: Significant for jaw procedures as well as tonsillectomy and dilatation and curettage. MEDICATIONS: List is reviewed. ALLERGIES: INCLUDE VANCOMYCIN, RITUXIMAB AND INFLIXIMAB. FAMILY HISTORY: Denies any significant family history. SOCIAL HISTORY: Denies tobacco, alcohol or drug use. , but has no family members with her today. REVIEW OF SYSTEMS: Significant for a history of Proteus and enterococcal infection in the jaw. She does indicate bodyaches and recent fever. Denies any skin rash or other joint pain, no radiating pain in the extremities, numbness, tingling. PHYSICAL EXAMINATION: VITAL SIGNS: Temperature 99.8, pulse 85, respirations 16, blood pressure 115/92, 99% saturation on room air. GENERAL: She is a pleasant, cooperative 23-year-old female, alert and oriented, no acute distress. HEENT: Significant for only having her front top teeth that have some type of reinforcement on them as they are somewhat loose. No neck or back pain. HEART: Regular rate and rhythm. LUNGS: Clear to auscultation bilaterally. ABDOMEN: Benign. EXTREMITIES: Upper extremities has normal shoulder, elbow and wrist motion bilaterally with no swelling, redness or erythema. Examination of lower extremities, right knee is swollen and painful with motion. Normal examination of the left knee, bilateral hips and ankles. Laboratory examinations include a white blood cell count of 18.1 and 77% neutrophils. A knee aspirate was attempted by the Emergency Department, but with turbid fluid containing 91% polymorphonuclear cells. Cell count itself was not able to be obtained due to clotting. IMPRESSION: Documented osteomyelitis of her jaw longstanding with resistant bacteria and recent knee swelling, suspicious for septic joint. TREATMENT PLAN: I went over with her the concern based on her Infectious Disease history of possibly infection moving from the jaw area, settling in her knee and especially with it happening a few days ago that she could rapidly sometimes sustain a significant damage to the knee joint. She indicates that she has enough related joint pain with her juvenile rheumatoid arthritis and understands the concern for infection as she has been dealing with this jaw infection for several years. She agrees to proceed with surgical evaluation and treatment with right knee arthroscopy, irrigation, debridement and also understands that if the infection is severe, it may require multiple procedures and perhaps extensive antibiotics and certainly could already have significant damage in the knee. Based on the length of onset, we also talked about the possibility that this may not necessarily be infectious in nature, but perhaps an inflammatory condition precipitated by her rheumatoid; however, given the suspicion and worst case scenario of significant damage to the knee, I would recommend proceeding and she certainly agrees to do that. Informed consent was obtained and we are taking her urgently to the operating room today. DAYLIN COLEMAN MD DR: MILTON/dionisio JOB#: [id number] / [id number]
--- NOTE | 2019-01-02 09:48 | RAD ---
Right lower extremity venous ultrasound, 01/01/2019 : History: Right knee swelling/pain Duplex evaluation including grayscale, color flow and spectral Doppler analysis was performed. The femoral and popliteal veins show no filling defects to suggest DVT. The visualized deep veins in the right calf are unremarkable. A 3.1 x 2.3 x 0.9 cm fluid collection is noted in the popliteal fossa. It contains a small amount of echogenic material. This is probably a popliteal cyst. There is a moderate amount of peripatellar fluid anteriorly suggesting a joint effusion. IMPRESSION: 1. There is no sonographic evidence of deep vein thrombosis in the right lower extremity. 2. Complicated popliteal cyst. 3. Probable moderate sized knee joint effusion. Electronically signed by: Aniceto Ram MD (01/01/2019 3:26 PM) [facility]
[2019-01-02] MEDS: PIPERACILLIN/TAZOBACTAM 3.375 GM in IV NORMAL SALINE 50ML 50 ML IV SCH ×3 (10:10→23:58)
--- NOTE | 2019-01-02 10:19 | NUR ---
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 Pt to be in strict contact precautions.
--- NOTE | 2019-01-02 10:32 | NUR ---
SW following for discharge planning. Discussed with RN, pt had I&D yesterday, abx. RN advised no SW needs at this time. SW will continue to follow for any discharge planning needs.
[2019-01-02] MEDS: POTASSIUM CHLORIDE 20 MEQ TABLET.ER. PO SCH ×2 (12:47→17:21)
--- NOTE | 2019-01-02 13:27 | HP ---
ADMIT DATE: 01/02/2019 HISTORY OF PRESENT ILLNESS: The patient is a 23-year-old female patient, who was seen in the Emergency Room with a history of CRE bacteria on prior cultures based on Infectious Disease chart review with history of reported osteomyelitis resolved. She has been complaining of increasing drainage from the gums, has increased ____ pain in the area as well as worried about infection is coming back and has had subjective fever noted. She also complained of right knee swelling. She was diagnosed with Grover cyst, but the pain is increasing. She has just finished her antibiotic 4 days for the osteo of the jaw and now she is having increasing pain in her right knee and it feels like burning, severe with minimal response to pain medications. She apparently was seen by Dr. Coleman, who apparently did irrigation and debridement of septic right knee with synovectomy and she was seen also by the Infectious Disease for her ongoing osteomyelitis of the jaw and the right knee swelling and pain. PAST MEDICAL HISTORY: Significant for; 1. Juvenile rheumatoid arthritis, on disease modifying agents. 2. Dental caries and several broken teeth, apparently was treated with possible right mandibular osteomyelitis. PAST SURGICAL HISTORY: Significant for tonsillectomy and D and C. ALLERGIES: She is allergic to RITUXIMAB and INFLIXIMAB. She is also apparently allergic to VANCOMYCIN. FAMILY HISTORY: Unremarkable. She has one brother who is younger and healthy. She does not know her biological father. Her mother is alive at age of 43 and apparently has had head fracture. SOCIAL HISTORY: She is , has a 6-year-old daughter. She smokes occasionally. Does not drink alcohol or use any recreational drugs. 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 MEDICATIONS: She is currently on following medications; she is on metronidazole 500 mg 3 times a day, meloxicam 7.5 mg twice a day, oxycodone 10 mg 3 times a day, prednisone 40 mg daily and Nexplanon 68 mg subcutaneously apparently every 3 months. PHYSICAL EXAMINATION: GENERAL: On arrival yesterday in the Emergency Room, she looked well and was clearly in no apparent respiratory distress; pale; not jaundiced, cyanosis or thyromegaly. NECK: No jugular venous distention. No limb edema. VITAL SIGNS: Her heart rate was 85, blood pressure was 115/92, temperature was 99.8, respiratory rate was 16, and oxygen saturation was 99%. HEAD, EYES, EARS, NOSE AND THROAT: Showed normocephalic, atraumatic. NECK: Supple. HEART: Showed normal first and second heart sounds. No gallop, rub or murmur. CHEST: Clear to auscultation. No crepitation or rhonchi. ABDOMEN: Distended, soft, nontender. No guarding or rigidity. No organomegaly. All hernial orifices intact. Bowel sounds normal. NEUROLOGIC: She is awake, alert, responding appropriately. All cranial nerves intact. She moves upper extremities without difficulty. EXTREMITIES: Examination of the right knee showed there is marked swelling and effusion of her right knee with limited range of motion both active and passive to pain; however, distal pulses and sensation are intact. There is no significant erythema. There is also tenderness in the posterior knee consistent with known Grover's cyst. LABORATORY DATA: Her lab work on admission showed a white cell count of 18,100, hemoglobin 14.8, hematocrit 44, MCV 93, and platelet count 271,000. Her chemistry showed a serum sodium 139, potassium 3.2, chloride 101, bicarbonate 28, anion gap of 9, BUN of 7, creatinine was 0.8, estimated GFR was 88 mL per minute, her glucose was 89, calcium was 9. Lactic acid was 0.7. Total bilirubin, AST, ALT, alkaline phosphatase were normal. Total protein was 6.7, albumin was 3.3. ASSESSMENT AND PLAN: In summary, this is a 23-year-old female patient, who was admitted with osteomyelitis of her jaw. She has also Grover cyst as well as septic right knee synovectomy for which she underwent debridement and irrigation. Other problems include juvenile rheumatoid arthritis as well as hypokalemia. JULIA MUELLER MD DR: MAKENNA/dionisio JOB#: [id number] / [id number]
--- NOTE | 2019-01-02 13:44 | CONS ---
DATE OF CONSULTATION: 01/02/2019 REQUESTING PHYSICIAN: Harpreet Ramos M.D. REASON FOR CONSULTATION: Dental infection as well as knee pain, possible septic joint. HISTORY OF PRESENT ILLNESS: This is a 23-year-old female with juvenile rheumatoid arthritis, who has had very poor dentition that has been known for a long time. The patient has not been able to get dental care or extraction. The patient had some jaw pain and that is why she came in as well as the right knee pain. The patient was seen by Maxillofacial Surgery and dental extraction has been planned here. The patient also seen by Orthopedic Surgery and I and D of the knee was done for suspected septic knee. The patient denies any fever. Denies any nausea, vomiting or diarrhea. The patient did have leukocytosis to 18,000 white count. The patient's synovial fluid showed WBC 7% and [address] did not show any abscess or any osteomyelitis. Maxillofacial CT was from last year. There is no other CT done at this time. CURRENT MEDICATIONS: Reviewed. ALLERGIES: SHE IS LISTED ALLERGIC TO VANCOMYCIN, CAUSED SLIGHT RASH. SOCIAL HISTORY: Positive for smoking. No alcohol use or drug use. REVIEW OF SYSTEMS: As per HPI; all other systems reviewed are negative. PHYSICAL EXAMINATION: GENERAL: Alert, oriented female, not in any distress. VITAL SIGNS: Stable, afebrile. HEENT: NAD. Both pupils are round and reacting. No conjunctival lesion. No oral lesion. The patient's most of the teeth are with dental caries. There is no gum swelling. There are no signs of any obvious abscess. NECK: Supple. No JVP, no lymphadenopathy. LUNGS: Clear. HEART: S1, S2 regular. ABDOMEN: Benign. EXTREMITIES: The patient has post-surgical dressing on the right knee that was not opened. SKIN: Rest of the skin examination unremarkable. NEUROLOGIC: The patient is neurologically intact. LABORATORY DATA: White count is 11,000. BUN and creatinine are normal. Culture from the knee is pending. IMPRESSION: 1. Leukocytosis. 2. Multiple dental caries. The plan is to have all teeth extracted. 3. Juvenile rheumatoid arthritis. 4. Right knee pain, status post incision and drainage. RECOMMENDATIONS: Would use Unasyn, although Unasyn is on shortage; so we will use Zosyn. Supportive care. We will check the cultures and continue to follow. Thank you very much, Dr. Ramos, for giving me the opportunity to participate in this patient's care. Discussion with the ER physician done yesterday also. SIXTO BATES MD DR: NILSON/dionisio JOB#: [id number] / [id number]
[2019-01-02] MEDS ORDERED: BISACODYL 10 MG SUPP.RECT. PR PRN (16:00)
--- NOTE | 2019-01-02 20:41 | PN ---
DATE: 01/02/2019 SUBJECTIVE: The patient is resting flat in bed, sleeping comfortably, in no apparent distress. On questioning her, she continued to have pain in her knee and jaw. Nursing staff stated her intake is poor; however, she is afebrile. PHYSICAL EXAMINATION: GENERAL: When I examined her, she was pale, not jaundiced or cyanosed. No thyromegaly. No jugular venous distention. No lower limb edema. VITAL SIGNS: Her heart rate was 55, blood pressure 114/58, temperature was 98.6, respiratory rate was 17 and oxygen saturation was 96% on room air. HEAD, EYES, EARS, NOSE AND THROAT: Showed normocephalic, atraumatic. She has severe dental caries. NECK: Supple. HEART: Normal first and second heart sounds. No gallop, rub or murmur. CHEST: Clear to auscultation. No crepitation or rhonchi. ABDOMEN: Distended, soft. EXTREMITIES: She moves her both upper extremities and left lower extremity. She has septic right knee for which she underwent irrigation and debridement. NEUROLOGIC: She is awake, alert, oriented to time, place and person. All cranial nerves appear intact. Her intake and output are incompletely recorded. LABORATORY DATA: Her lab work this morning showed a white cell count of 11,800, hemoglobin 14, hematocrit 42, MCV 93 and platelet count of 336,000. Unfortunately, she has no chemistry this morning; however, yesterday, her potassium was low at 3.2. PLAN: My plan is to start her on potassium chloride and repeat her lab works tomorrow to make sure that it is replenished. JULIA MUELLER MD DR: MAKENNA/dionisio JOB#: [id number] / [id number]
--- NOTE | 2019-01-02 22:42 | PDOC ---
GENERAL General: 23 yof with right jaw pain, history of multiple previous admissions for dental pain. She states that she has sought care from [facility] and that she "didn't have coverage" She notes that she has been unsuccessful in getting dental care and that her gums hurt all of the time. She notes today that she has similar pain from all of her bad teeth, and that nothing hurts more than other areas. 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 Alert, oriented, no acute distress EOMI, sclera non-icteric Neck: FROM, supple Vestibules are supple, tissue is pink, patient has heavy plaque buildup and severe gingival and periodontal disease her dentition is mostly broken at the gumline, she has rampant caries, Her dentition in terminal. # 2,3,4,5,7,8,9,10,11,12,13,14,15, 27,28,30 FOM Supple, FROM tongue, uvula at midline, no expressible purulence Patient is able to swallow secretions, and can phonate without difficulty VITAL SIGNS Vital Signs: Vital Signs Date Time Temp Pulse Resp B/P (MAP) Pulse Ox O2 Delivery O2 Flow Rate FiO2 01/02/19 21:55 18 Room Air 01/02/19 19:15 99.0 61 117/79 (92) 97 99.0 01/01/19 19:31 10 I & O I & O Intake and Output 01/02/19 07:00 Intake Total 2000 ml Output Total 735 ml Balance 1265 ml IV Total 2000 ml Output Urine Total 725 ml Estimated Blood Loss 10 ml # Voids 3 ALLERGIES Allergies: Allergies Coded Allergies Type Severity Reaction Last Updated Verified infliximab Allergy Intermediate 12/26/16 Yes rituximab Allergy Intermediate 12/26/16 Yes vancomycin Allergy Intermediate Hives 09/12/17 Yes I S O L A T I O N *CONTACT* Allergy Unknown 12/07/18 Yes MEDS Medications: Current Medications Medications (Trade) Dose Ordered Sig/Ras Start Time Stop Time Status Last Admin Dose Admin Acetaminophen (Tylenol) 500 mg TID 01/01/19 21:30 01/02/19 21:54 500 MG Acetaminophen/ Hydrocodone Bitart (Lortab 7.5/325) 1 tab PRN Q4HRS PRN 01/01/19 20:45 01/02/19 12:47 1 TAB Bisacodyl (Dulcolax Supp) 10 mg 1X PRN PRN 01/02/19 16:00 01/03/19 15:59 Ciprofloxacin/ Dextrose 200 ml @ 200 mls/hr 1X ONCE 01/01/19 14:45 01/01/19 15:44 DC 01/01/19 17:03 200 MLS/HR Dexamethasone Sodium Phosphate (Decadron) 4 mg STK-MED ONCE 01/01/19 17:47 01/01/19 17:48 DC Dextrose (Dextrose 50%-Water Syringe) 12.5 gm PRN Q15MIN PRN 01/01/19 20:45 Fentanyl Citrate (Fentanyl 2ml Vial) 25 mcg PRN Q1HR PRN 01/01/19 20:45 Hydromorphone HCl (Dilaudid) 0.5 mg PRN Q10MIN PRN 01/01/19 17:30 01/02/19 10:20 DC 01/01/19 20:37 0.5 MG Lidocaine HCl (Lidocaine Pf 2% Vial) 5 ml STK-MED ONCE 01/01/19 17:47 01/01/19 17:48 DC Linezolid/Dextrose 300 ml @ 300 mls/hr 1X STAT 01/01/19 15:00 01/01/19 15:59 DC 01/01/19 18:45 300 MLS/HR Magnesium Hydroxide (Milk Of Magnesia) 2,400 mg 1X PRN PRN 01/02/19 06:00 01/03/19 05:59 Metronidazole 100 ml @ 100 mls/hr 1X ONCE 01/01/19 14:45 01/01/19 15:44 DC 01/01/19 15:54 100 MLS/HR Midazolam HCl (Versed) 2 mg STK-MED ONCE 01/01/19 17:48 01/01/19 17:49 DC Morphine Sulfate (Morphine Sulfate) 2 mg PRN Q1HR PRN 01/01/19 20:45 01/02/19 21:55 2 MG Ondansetron HCl (Zofran) 4 mg PRN Q4HRS PRN 01/01/19 20:45 Oxycodone HCl (Roxicodone) 5 mg PRN Q3HRS PRN 01/01/19 20:45 01/02/19 20:05 5 MG Pharmacy Consult (C.diff Med Screen By Rx) 1 each 1X ONCE 01/02/19 09:00 01/02/19 09:01 Cancel Piperacillin Sod/ Tazobactam Sod 3.375 gm/Sodium Chloride 50 ml @ 100 mls/hr Q6HRS 01/02/19 10:00 01/02/19 17:21 100 MLS/HR Polyethylene Glycol (miraLAX PACKET) 17 gm PRN DAILY PRN 01/01/19 20:45 Potassium Chloride (Klor-Con) 20 meq TIDWMEALS 01/02/19 14:00 01/02/19 17:21 20 MEQ Prochlorperazine Edisylate (Compazine) 5 mg PACU PRN PRN 01/01/19 17:30 01/02/19 10:20 DC 01/01/19 19:52 5 MG Propofol 20 ml @ As Directed STK-MED ONCE 01/01/19 17:47 01/01/19 17:48 DC Ringer's Solution 1,000 ml @ 30 mls/hr Q24H 01/01/19 17:20 01/02/19 05:19 DC 01/01/19 17:20 30 MLS/HR Senna/Docusate Sodium (Senna Plus) 1 tab DAILY 01/02/19 09:00 01/02/19 08:04 1 TAB Sevoflurane (Ultane) 30 ml STK-MED ONCE 01/01/19 19:08 01/01/19 19:09 DC Sodium Chloride 500 ml @ 500 mls/hr 1X ONCE 01/02/19 03:30 01/02/19 04:29 DC 01/02/19 03:33 500 MLS/HR LAB Lab: Laboratory Tests Test 01/02/19 05:40 01/02/19 05:50 Urine Collection Type Unknown Urine Color Yellow Urine Clarity Clear Urine pH 7.0 Urine Specific [place] 1.010 Urine Protein Negative mg/dL (NEG-TRACE) Urine Glucose (UA) Negative mg/dL (NEG) Urine Ketones (Stick) Negative mg/dL (NEG) Urine Blood Negative (NEG) Urine Nitrite Negative (NEG) Urine Bilirubin Negative (NEG) Urine Urobilinogen Dipstick 0.2 mg/dL (0.2 mg/dL) Urine Leukocyte Esterase Negative (NEG) Urine RBC 0 /HPF (0-2) Urine WBC Occ /HPF (0-4) Urine Squamous Epithelial Cells Mod /LPF Urine Bacteria Few /HPF (0-FEW) Urine Mucus Slight /LPF Urine Test Negative (NEG) Urine Opiates Screen Pos (NEG) Urine Methadone Screen Neg (NEG) Urine Barbiturates Neg (NEG) Urine Phencyclidine Screen Neg (NEG) Urine Amphetamine/Methamphetamine Neg (NEG) Urine Benzodiazepines Screen Pos (NEG) Urine Cocaine Screen Neg (NEG) Urine Cannabinoids Screen Neg (NEG) Urine Ethyl Alcohol Neg (NEG) White Blood Count 11.8 x10^3/uL (4.0-11.0) Red Blood Count 4.54 x10^6/uL (3.50-5.40) Hemoglobin 14.3 g/dL (12.0-15.5) Hematocrit 42.2 % (36.0-47.0) Mean Corpuscular Volume 93 fL (79-100) Mean Corpuscular Hemoglobin 32 pg (25-35) Mean Corpuscular Hemoglobin Concent 34 g/dL (31-37) Red Cell Distribution Width 13.6 % (11.5-14.5) Platelet Count 336 x10^3/uL (140-400) Neutrophils (%) (Auto) 88 % (31-73) Lymphocytes (%) (Auto) 9 % (24-48) Monocytes (%) (Auto) 3 % (0-9) Eosinophils (%) (Auto) 0 % (0-3) Basophils (%) (Auto) 0 % (0-3) Neutrophils # (Auto) 10.4 x10^3uL (1.8-7.7) Lymphocytes # (Auto) 1.0 x10^3/uL (1.0-4.8) Monocytes # (Auto) 0.3 x10^3/uL (0.0-1.1) Eosinophils # (Auto) 0.0 x10^3/uL (0.0-0.7) Basophils # (Auto) 0.0 x10^3/uL (0.0-0.2) IMAGING Imaging: Maxillofacial CT Demonstrates carious and non restorable dentition. # 2,3,4,5,7,8,9,10,11,12,13,14,15, 27,28,30 There appears to be limited hong changes, but does not appear to be mottled. This does not appear to be business representative of osteomyelitis. 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 PLAN: Maxillofacial CT Demonstrates carious and non restorable dentition. # 2,3,4,5,7,8,9,10,11,12,13,14,15, 27,28,30 There appears to be limited hong changes, but does not appear to be mottled. This does not appear to be business representative of osteomyelitis. We will plan however to debride back to bleeding bone and submit hong specimens for biopsy I plan to add her to my OR schedule on Tuesday and will plan to remove all remaining teeth and smooth the bone (preprosthetic surgery/alveoloplasty) in order to assist this young woman in her health and in preparation for dentures. Permit obtained this evening, placed in chart Please make NPO after midnight, and I will plan to add her as my first patient of the day on Tuesday on 01.03. please continue ABX during stay and for a brief course following discharge. I will also see her as an out patient CARD,SUELLEN Lin DMD January 02, 2019 22:42
--- NOTE | 2019-01-02 23:28 | RAD ---
CT MAXILLOFACIAL WO CONTRAST dated 01/02/2019 6:07 PM Indication: Jaw pain, dental caries.. Comparison: 09/13/2017. Technique: Contiguous axial imaging the maxillofacial bones obtained with thin cut coronal and sagittal reconstruction. One or more of the following individualized dose reduction techniques were utilized for this examination: 1. Automated exposure control 2. Adjustment of the mA and/or kV according to patient size 3. Use of iterative reconstruction technique Findings: Extensive erosive changes of multiple teeth mild radiolucency around the tooth roots at the upper right canine and the premolar and molar tooth at the right maxilla. There is also mild radiolucency involving the canine and premolar teeth at the upper left maxilla. There is erosive change at the right mandible with associated cortical loss mild surrounding soft tissue edema without associated fluid collection or soft tissue gas. Prominent mucous retention cysts at the right maxillary sinus. Paranasal sinuses are otherwise clear. Mastoid air cells and middle ears are clear. Nasal septum is midline. Imaged portions the brain parenchyma unremarkable. No signal soft tissue abnormality. There are borderline enlarged bilateral submandibular lymph nodes, right greater than left, nonspecific. IMPRESSION: 1. Extensive dental disease as described above. Findings have progressed compared to the prior exam. There is some mild radiolucency along the tooth roots at the upper right and left maxilla which could be related to early apical abscesses. Mild stranding soft tissue edema with no evidence of soft tissue abscess. Correlate with dental exam. 2. Mild sinus disease. 3. Borderline enlarged submandibular lymph nodes, nonspecific. Electronically signed by: Dom Srivastava MD (01/02/2019 11:25 PM) [facility]
[2019-01-03] VITALS (8 sets, daily range): BP systolic 109–138; BP diastolic 64–99
[2019-01-03] MEDS: MORPHINE SULFATE 2 MG/ML VIAL. IV PRN ×7 (05:01→19:30)
[2019-01-03] MEDS: PIPERACILLIN/TAZOBACTAM 3.375 GM in IV NORMAL SALINE 50ML 50 ML IV SCH ×3 (05:02→16:42)
[2019-01-03 05:30] LABS: HEMATOCRIT 43.2 % (36.0-47.0); HEMOGLOBIN 14.2 g/dL (12.0-15.5); RED BLOOD COUNT 4.64 x10^6/uL (3.50-5.40); RED CELL DISTRIBUTION WIDTH 13.7 % (11.5-14.5); WHITE BLOOD COUNT 9.3 x10^3/uL (4.0-11.0)
--- NOTE | 2019-01-03 05:35 | PDOC ---
Infectious Disease Note Subjective Subjective feeling much better ROS ROS no n/v/d/sob Vital Sign Vital Signs Vital Signs Date Time Temp Pulse Resp B/P (MAP) Pulse Ox O2 Delivery O2 Flow Rate FiO2 01/03/19 03:31 98.9 56 18 122/80 (94) 95 Room Air 98.9 Physical Exam PHYSICAL EXAM GENERAL: Alert, oriented female, not in any distress. VITAL SIGNS: Stable, afebrile. HEENT: NAD. Both pupils are round and reacting. No conjunctival lesion. No oral lesion. all teeth removed NECK: Supple. No JVP, no lymphadenopathy. LUNGS: Clear. HEART: S1, S2 regular. ABDOMEN: Benign. EXTREMITIES: The patient has post-surgical dressing on the right knee that was not opened. SKIN: Rest of the skin examination unremarkable. NEUROLOGIC: The patient is neurologically intact. Labs Lab Laboratory Tests Test 01/02/19 05:40 01/02/19 05:50 Urine Collection Type Unknown Urine Color Yellow Urine Clarity Clear Urine pH 7.0 Urine Specific [place] 1.010 Urine Protein Negative mg/dL (NEG-TRACE) Urine Glucose (UA) Negative mg/dL (NEG) Urine Ketones (Stick) Negative mg/dL (NEG) Urine Blood Negative (NEG) Urine Nitrite Negative (NEG) Urine Bilirubin Negative (NEG) Urine Urobilinogen Dipstick 0.2 mg/dL (0.2 mg/dL) Urine Leukocyte Esterase Negative (NEG) Urine RBC 0 /HPF (0-2) Urine WBC Occ /HPF (0-4) Urine Squamous Epithelial Cells Mod /LPF Urine Bacteria Few /HPF (0-FEW) Urine Mucus Slight /LPF Urine Test Negative (NEG) Urine Opiates Screen Pos (NEG) Urine Methadone Screen Neg (NEG) Urine Barbiturates Neg (NEG) Urine Phencyclidine Screen Neg (NEG) Urine Amphetamine/Methamphetamine Neg (NEG) Urine Benzodiazepines Screen Pos (NEG) Urine Cocaine Screen Neg (NEG) Urine Cannabinoids Screen Neg (NEG) Urine Ethyl Alcohol Neg (NEG) White Blood Count 11.8 x10^3/uL (4.0-11.0) Red Blood Count 4.54 x10^6/uL (3.50-5.40) Hemoglobin 14.3 g/dL (12.0-15.5) Hematocrit 42.2 % (36.0-47.0) Mean Corpuscular Volume 93 fL (79-100) Mean Corpuscular Hemoglobin 32 pg (25-35) Mean Corpuscular Hemoglobin Concent 34 g/dL (31-37) Red Cell Distribution Width 13.6 % (11.5-14.5) Platelet Count 336 x10^3/uL (140-400) Neutrophils (%) (Auto) 88 % (31-73) Lymphocytes (%) (Auto) 9 % (24-48) Monocytes (%) (Auto) 3 % (0-9) Eosinophils (%) (Auto) 0 % (0-3) Basophils (%) (Auto) 0 % (0-3) Neutrophils # (Auto) 10.4 x10^3uL (1.8-7.7) Lymphocytes # (Auto) 1.0 x10^3/uL (1.0-4.8) Monocytes # (Auto) 0.3 x10^3/uL (0.0-1.1) Eosinophils # (Auto) 0.0 x10^3/uL (0.0-0.7) Basophils # (Auto) 0.0 x10^3/uL (0.0-0.2) Micro Microbiology 01/01/19 Blood Culture - Preliminary, Resulted NO GROWTH AFTER 1 DAY 01/01/19 Anaerobic/Aerobic Culture, Resulted Pending 01/01/19 Anaerobic Culture Result 1 (ORI), Resulted Pending 01/01/19 Aerobic Culture, Resulted Pending 01/01/19 Aerobic Culture Result 1 (ORI), Resulted Pending 01/01/19 Gram Stain - Final, Resulted 01/01/19 Gram Stain Result 1 (ORI) - Final, Resulted 01/01/19 Gram Stain Result 2 (ORI) - Final, Resulted Objective Assessment Leukocytosis Dental carries,, s/p all teeth removed Juvenile RA Rt knee pain/inflammation s/p I and D Plan Plan of Care zosyn dental extraction pending check cultures SIXTO BATES MD January 03, 2019 05:35
[2019-01-03 05:46] LABS: ALBUMIN 3.2 g/dL (3.4-5.0); CALCIUM 8.9 mg/dL (8.5-10.1); CREATININE 0.7 mg/dL (0.6-1.0); GFR 102.8; TOTAL BILIRUBIN 0.4 mg/dL (0.2-1.0); TOTAL PROTEIN 6.4 g/dL (6.4-8.2)
[2019-01-03] MEDS ORDERED: BUPIVAC MPF-EPI 0.5%-1:200000 30 ML VIAL. ONE (06:09)
[2019-01-03] MEDS ORDERED: GELATIN SPONGE SIZE 4 SPONGE. ONE ×2 (06:09→06:10)
[2019-01-03] MEDS ORDERED: LIDOCAINE 2% PF 5 ML VIAL. ONE (07:19)
[2019-01-03] MEDS ORDERED: fentaNYL PF VIAL 100 MCG/2 ML VIAL ONE (07:19)
[2019-01-03] MEDS ORDERED: PROPOFOL 20 ML IV ONE ×2 (07:19→07:52)
[2019-01-03] MEDS ORDERED: SUCCINYLCHOLINE 200 MG/10 ML VIAL. ONE (07:20)
[2019-01-03] MEDS ORDERED: ROCURONIUM 50 MG/5 ML VIAL. ONE (07:20)
[2019-01-03] MEDS ORDERED: BACITRACIN 50,000 UNIT VIAL. IRR ONE (07:21)
[2019-01-03] MEDS ORDERED: DEXAMETHASONE SOD PHOS 4 MG/ML VIAL ONE (07:21)
--- NOTE | 2019-01-03 07:26 | PDOC ---
GENERAL General: 23 yof with Severe JRA and rampant caries with a terminal, non restorable denti tion # 2,3,4,5,7,8,9,10,11,12,13,14,15, 27,28,30 NAEO AAOX3 Patient agrees with plan to extract painful, carious, non restorable dentition VITAL SIGNS Vital Signs: Vital Signs Date Time Temp Pulse Resp B/P (MAP) Pulse Ox O2 Delivery O2 Flow Rate FiO2 01/03/19 05:31 18 Room Air 01/03/19 03:31 98.9 56 122/80 (94) 95 98.9 I & O I & O Intake and Output 01/03/19 07:00 Intake Total 805 ml Balance 805 ml Intake Oral 805 ml # Voids 4 ALLERGIES Allergies: Allergies Coded Allergies Type Severity Reaction Last Updated Verified infliximab Allergy Intermediate 12/26/16 Yes rituximab Allergy Intermediate 12/26/16 Yes vancomycin Allergy Intermediate Hives 09/12/17 Yes I S O L A T I O N *CONTACT* Allergy Unknown 12/07/18 Yes MEDS Medications: Current Medications Medications (Trade) Dose Ordered Sig/Ras Start Time Stop Time Status Last Admin Dose Admin Acetaminophen (Tylenol) 500 mg TID 01/01/19 21:30 01/02/19 21:54 500 MG Acetaminophen/ Hydrocodone Bitart (Lortab 7.5/325) 1 tab PRN Q4HRS PRN 01/01/19 20:45 01/02/19 23:57 1 TAB Bisacodyl (Dulcolax Supp) 10 mg 1X PRN PRN 01/02/19 16:00 01/03/19 15:59 Bupivacaine HCl/ Epinephrine Bitart (Sensorcain-Mpf Epi 0.5%-1:[id number]) 30 ml STK-MED ONCE 01/03/19 06:09 01/03/19 07:09 DC Chlorhexidine Gluconate (Peridex) 15 ml 1X ONCE 01/03/19 07:30 01/03/19 07:31 Ciprofloxacin/ Dextrose 200 ml @ 200 mls/hr 1X ONCE 01/01/19 14:45 01/01/19 15:44 DC 01/01/19 17:03 200 MLS/HR Dexamethasone Sodium Phosphate (Decadron) 4 mg STK-MED ONCE 01/01/19 17:47 01/01/19 17:48 DC Dextrose (Dextrose 50%-Water Syringe) 12.5 gm PRN Q15MIN PRN 01/01/19 20:45 Fentanyl Citrate (Fentanyl 2ml Vial) 100 mcg STK-MED ONCE 01/03/19 07:19 01/03/19 07:20 DC Gelatin (Gelfoam Dental Sponge Size 4) 1 each STK-MED ONCE 01/03/19 06:10 01/03/19 07:10 DC Hydromorphone HCl (Dilaudid) 0.5 mg PRN Q10MIN PRN 01/01/19 17:30 01/02/19 10:20 DC 01/01/19 20:37 0.5 MG Lidocaine HCl (Lidocaine Pf 2% Vial) 5 ml STK-MED ONCE 01/03/19 07:19 01/03/19 07:20 DC Linezolid/Dextrose 300 ml @ 300 mls/hr 1X STAT 01/01/19 15:00 01/01/19 15:59 DC 01/01/19 18:45 300 MLS/HR Magnesium Hydroxide (Milk Of Magnesia) 2,400 mg 1X PRN PRN 01/02/19 06:00 01/03/19 05:59 DC Metronidazole 100 ml @ 100 mls/hr 1X ONCE 01/01/19 14:45 01/01/19 15:44 DC 01/01/19 15:54 100 MLS/HR Midazolam HCl (Versed) 2 mg STK-MED ONCE 01/01/19 17:48 01/01/19 17:49 DC Morphine Sulfate (Morphine Sulfate) 2 mg PRN Q1HR PRN 01/01/19 20:45 01/03/19 05:01 2 MG Ondansetron HCl (Zofran) 4 mg PRN Q4HRS PRN 01/01/19 20:45 Oxycodone HCl (Roxicodone) 5 mg PRN Q3HRS PRN 01/01/19 20:45 01/02/19 20:05 5 MG Pharmacy Consult (C.diff Med Screen By Rx) 1 each 1X ONCE 01/02/19 09:00 01/02/19 09:01 Cancel Piperacillin Sod/ Tazobactam Sod 3.375 gm/Sodium Chloride 50 ml @ 100 mls/hr Q6HRS 01/02/19 10:00 01/03/19 05:02 100 MLS/HR Polyethylene Glycol (miraLAX PACKET) 17 gm PRN DAILY PRN 01/01/19 20:45 Potassium Chloride (Klor-Con) 20 meq TIDWMEALS 01/02/19 14:00 01/02/19 17:21 20 MEQ Prochlorperazine Edisylate (Compazine) 5 mg PACU PRN PRN 01/01/19 17:30 01/02/19 10:20 DC 01/01/19 19:52 5 MG Propofol 20 ml @ As Directed STK-MED ONCE 01/03/19 07:19 01/03/19 07:20 DC Ringer's Solution 1,000 ml @ 30 mls/hr Q24H 01/01/19 17:20 01/02/19 05:19 DC 01/01/19 17:20 30 MLS/HR Senna/Docusate Sodium (Senna Plus) 1 tab DAILY 01/02/19 09:00 01/02/19 08:04 1 TAB Sevoflurane (Ultane) 30 ml STK-MED ONCE 01/01/19 19:08 01/01/19 19:09 DC Sodium Chloride 500 ml @ 500 mls/hr 1X ONCE 01/02/19 03:30 01/02/19 04:29 DC 01/02/19 03:33 500 MLS/HR LAB Lab: Laboratory Tests Test 01/03/19 04:20 White Blood Count 9.3 x10^3/uL (4.0-11.0) Red Blood Count 4.64 x10^6/uL (3.50-5.40) Hemoglobin 14.2 g/dL (12.0-15.5) Hematocrit 43.2 % (36.0-47.0) Mean Corpuscular Volume 93 fL (79-100) Mean Corpuscular Hemoglobin 31 pg (25-35) Mean Corpuscular Hemoglobin Concent 33 g/dL (31-37) Red Cell Distribution Width 13.7 % (11.5-14.5) Platelet Count 335 x10^3/uL (140-400) Sodium Level 139 mmol/L (136-145) Potassium Level 4.0 mmol/L (3.5-5.1) Chloride Level 104 mmol/L (98-107) Carbon Dioxide Level 25 mmol/L (21-32) Anion Gap 10 (6-14) Blood Urea Nitrogen 9 mg/dL (7-20) Creatinine 0.7 mg/dL (0.6-1.0) Estimated GFR (Cockcroft-Gault) 102.8 BUN/Creatinine Ratio 13 (6-20) Glucose Level 91 mg/dL (70-99) Calcium Level 8.9 mg/dL (8.5-10.1) Total Bilirubin 0.4 mg/dL (0.2-1.0) Aspartate Amino Transf (AST/SGOT) 12 U/L (15-37) Alanine Aminotransferase (ALT/SGPT) 6 U/L (14-59) Alkaline Phosphatase 49 U/L (46-116) Total Protein 6.4 g/dL (6.4-8.2) Albumin 3.2 g/dL (3.4-5.0) Albumin/Globulin Ratio 1.0 (1.0-1.7) IMAGING Imaging: see previous note ASSESSMENT & PLAN A&P 23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 # 2,3,4,5,7,8,9,10,11,12,13,14,15, 27,28,30 There appears to be limited hong changes, but does not appear to be mottled. This does not appear to be medical field representative of osteomyelitis. We will plan however to debride back to bleeding bone and submit hong specimens for biopsy To OR this AM to remove all remaining teeth and smooth the bone (preprosthetic surgery/alveoloplasty) in order to assist this young woman in her health and in preparation for dentures. Permit in chart please continue ABX during stay and for a brief course following discharge. Anticipate Discharge from OMS perspective I will also see her as an out patient CARD,SUELLEN Lin VANDANA January 03, 2019 07:26
[2019-01-03] MEDS ORDERED: IV RINGERS,LACTATED 1000ML 1,000 ML IV SCH (07:27)
[2019-01-03] MEDS ORDERED: PROCHLORPERAZINE 10 MG/2 ML VIAL. IV PRN (07:30)
[2019-01-03] MEDS ORDERED: LIDOCAINE 1% PF 2 ML VIAL. ID PRN (07:30)
[2019-01-03] MEDS ORDERED: fentaNYL PF VIAL 100 MCG/2 ML VIAL IV PRN ×2 (07:30)
[2019-01-03] MEDS ORDERED: ONDANSETRON PF 4 MG/2 ML VIAL. IV PRN (07:30)
[2019-01-03] MEDS ORDERED: CHLORHEXIDINE 0.12% 15 ML MOUTHWASH. SWSP ONE (07:30)
[2019-01-03] MEDS ORDERED: MORPHINE SULFATE 2 MG/ML VIAL. IV PRN (07:30)
[2019-01-03] MEDS ORDERED: MIDAZOLAM HCL/PF 2 MG/2 ML VIAL. ONE (07:36)
[2019-01-03] MEDS ORDERED: ONDANSETRON PF 4 MG/2 ML VIAL. ONE (07:41)
[2019-01-03] MEDS: POTASSIUM CHLORIDE 20 MEQ TABLET.ER. PO SCH ×3 (07:46→16:27)
[2019-01-03] MEDS: ACETAMINOPHEN 500 MG TABLET PO SCH ×3 (07:47→20:40)
[2019-01-03] MEDS: SENNOSIDES/DOCUSATE 8.6/50MG TABLET. PO SCH (07:47)
[2019-01-03] MEDS ORDERED: SEVOFLURANE 61 TO 120 MINUTES. IH ONE (07:50)
--- NOTE | 2019-01-03 09:17 | PDOC4 ---
OPERATIVE NOTE Date: Date: January 03, 2019 Pre-Op Diagnosis: caries, non restorable teeth #2,3,4,5,7,8,9,10,11,12,13,14,27,28,30 JRA Post-Op Diagnosis: caries, non restorable teeth #2,3,4,5,7,8,9,10,11,12,13,14,27,28,30 JRA Procedure Performed: surgical removal of carious non restorable teeth #2,3,4,5,7,8,9,10,11,12,13,14,27,28,30 alveoloplasty UR, UL Right mandibular debridement Deep bone biopsy right mandible, and tissue submitted for cultures Surgeon: guanako Anesthesia Type: hapgood Blood Loss: 20ml Specimans Obtained: right mandibular bone for permanent to rule out osteomyelitis Right mandibular tissue for cultures Aerobe, anaerobe, AFB Findings: necrotic, non restorable teeth, see dictation Complications: none Operative Note: see dictation CARD,SUELLEN Lin DMD January 03, 2019 09:17
[2019-01-03] MEDS: HYDROmorphone 2 MG/ML VIAL IV PRN ×2 (09:26→10:35)
--- NOTE | 2019-01-03 10:18 | OP ---
DATE OF SURGERY: 01/03/2019 ATTENDING PHYSICIAN: Quirino Mckeon DMD. OPERATING SERVICE: dispatch specialist. PREOPERATIVE DIAGNOSES: JRA, caries, nonrestorable dentition, tooth #2, 3, 4, 5, 7, 8, 9, 10, 11, 12, 13, 14, 27, 28, and 30. She has a right mandibular infection. POSTOPERATIVE DIAGNOSES: JRA, caries, nonrestorable dentition, tooth #2, 3, 4, 5, 7, 8, 9, 10, 11, 12, 13, 14, 27, 28, and 30. She has a right mandibular infection. PROCEDURE PERFORMED: 1. Surgical extraction and removal of carious teeth numbers #2, 3, 4, 5, 7, 8, 9, 10, 11, 12, 13, 14, 27, 28, and 30. 2. Alveoloplasty of the upper right and upper left ridges. 3. Debridement of right mandibular bone back to bleeding bone. 4. Submission of right mandibular bone for permanent pathology and submission of right mandibular bone and tissue for culture, aerobic, anaerobic and acid fast bacilli. BRIEF HISTORY: The patient is a 23-year-old female with right mandibular infection that she has had previous admissions for. She has a terminal dentition with rampant caries and none of her teeth are restorable. She reports longstanding history of years "of pain" and neglect of this condition. She does have insurance and has pursued dental care. She states that she was unable to make progress with a general dentist. She was encouraged to see general dentist prior to establish care and a comprehensive plan in order to facilitate the extraction of her teeth and fabrication of dentures. Due to current pain, she reported to the ER on 01/01/2019 again and was admitted for oral pain and inflammation joint of her knee. She was operated on that evening by Orthopedic Surgery. She was posted for schedule for Tuesday, 01/03. We discussed the risks, alternatives and benefits of the procedure including removal of all the teeth, smoothing of the jaw bones and preprosthetic surgery and debridement of her right mandible with a concerning area where she has had multiple recurrent pain and reported history of an MRI that noted concern for possible osteomyelitis. Discussed the risks, alternatives, and benefits of this procedure. The patient was affable with our plan. Permit was obtained. DRAINS PLACED: None. SPECIMENS SENT: 1. Bone for permanent pathology. 2. Bone and tissue for culture, aerobic, anaerobic and acid fast bacilli. COMPLICATIONS: None noted at the time of surgery. ESTIMATED BLOOD LOSS: Approximately 20 mL. OPERATIVE DESCRIPTION: After the history and physical were updated in the preoperative holding area, the patient was transported by the Anesthesia Service to the operating suite, placed in supine position. General anesthesia was induced. Oral intubation was placed, taped to the upper left face. A timeout was initiated by surgical staff. All preoperative staff is in agreeance. Moistened throat pack was placed. Local anesthesia in the form of 0.5% Marcaine, 1:200,000 epinephrine was administered approximately 20 mL. An additional approximately 8 mL for a total of 28 mL was administered at the culmination of the procedure. Surgery began with a bite block and 15 blade and retraction. A full-thickness mucoperiosteal flap was reflected buccally in the upper right and lower right quadrants. Distal hockey stick incisions were employed. The upper right teeth were removed, and the necrotic bone was curetted and debrided with rongeurs, serrated curettes and bone filed. Alveoloplasty was performed with rongeurs, bone file and copious normal sterile saline irrigation was performed. Gelfoam was packed into the site and oversewn with chromic gut suture in a running locked fashion. The lower right mandible was addressed in a similar fashion with the surgical removal of the lower right mandibular teeth. Debridement of the right mandible was performed back to bleeding bone. Specimens of the right mandible were submitted for permanent pathology and culture analysis. Copious normal sterile saline irrigation of the extraction site of #30., the inferior alveolar nerve was exposed. It appeared to be intact. Lower right alveoloplasty was also performed, and the bone was smoothed with rongeurs, bone file and copious normal sterile saline irrigation. Gelfoam was placed in these areas to assist with hemostasis. The sites were oversewn with 3-0 chromic gut sutures. A bite block was then transferred to the opposite side. Surgery continued to the upper left quadrant with a 15 blade and a full thickness mucoperiosteal flap was reflected buccally with the periosteal elevator. These teeth were luxated, elevated and extracted with forceps, elevators and hand instruments as a routine fashion. Alveoloplasty was performed. The bone was contoured with a bone file as well, and sites were curetted with a curettage, and the sites were irrigated with copious normal sterile saline irrigation. Site was oversewn with 3-0 chromic gut suture in a running locked fashion. This is the culmination of the procedure. The oral cavity was then lavaged and suctioned and the moistened throat pack was removed. An OG was passed and the stomach was decompressed. The patient was then returned to care of Anesthesia where she was awakened, extubated and transported to the PACU in stable condition. QUIRINO MCKEON DMD DR: Gene JOB#: [id number] / [id number]
--- NOTE | 2019-01-03 10:23 | NUR ---
SW following for discharge planning. Discussed with RN, pt having dental surgery this morning. PT yesterday advised pt is going to need a two wheeled walker. 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 Cost of the walker is $80 if pt wants to do it without insurance. JIA to meet with pt when pt is appropriate to be seen after surgery. RN notified. SW will continue to follow.
--- NOTE | 2019-01-03 15:33 | NUR ---
SW following. SW met with pt to discuss walker. Pt does not want to pay $80 for the walker and will wait to follow up with her clinic doctor to get the walker through her insurance. RN notified, no further SW needs.
[2019-01-03] MEDS: oxyCODONE IR 5 MG TABLET PO PRN ×2 (16:41→20:41)
[2019-01-03] MEDS: CHLORHEXIDINE 0.12% 15 ML MOUTHWASH. SWSP SCH (20:41)
[2019-01-04] MEDS: PIPERACILLIN/TAZOBACTAM 3.375 GM in IV NORMAL SALINE 50ML 50 ML IV SCH ×4 (00:13→17:40)
[2019-01-04] MEDS: oxyCODONE IR 5 MG TABLET PO PRN ×6 (00:14→19:41)
[2019-01-04] MEDS: MORPHINE SULFATE 2 MG/ML VIAL. IV PRN ×8 (01:13→23:02)
[2019-01-04 03:00] VITALS: BP 102/67
[2019-01-04 07:00] VITALS: BP 112/88
[2019-01-04] MEDS: SENNOSIDES/DOCUSATE 8.6/50MG TABLET. PO SCH (07:45)
[2019-01-04] MEDS: ACETAMINOPHEN 500 MG TABLET PO SCH ×3 (07:45→20:56)
[2019-01-04] MEDS: POTASSIUM CHLORIDE 20 MEQ TABLET.ER. PO SCH ×3 (07:45→17:42)
[2019-01-04] MEDS: CHLORHEXIDINE 0.12% 15 ML MOUTHWASH. SWSP SCH ×2 (07:45→21:03)
--- NOTE | 2019-01-04 09:03 | PDOC ---
Infectious Disease Note Subjective Subjective feeling much better ROS ROS no n/v/d/ Vital Sign Vital Signs Vital Signs Date Time Temp Pulse Resp B/P (MAP) Pulse Ox O2 Delivery O2 Flow Rate FiO2 01/04/19 08:49 16 Room Air 01/04/19 04:28 93 01/04/19 03:00 98.9 51 102/67 (79) 98.9 01/03/19 09:56 10 Physical Exam PHYSICAL EXAM GENERAL: Alert, oriented female, not in any distress. VITAL SIGNS: Stable, afebrile. HEENT: NAD. Both pupils are round and reacting. No conjunctival lesion. No oral lesion. all teeth removed NECK: Supple. No JVP, no lymphadenopathy. LUNGS: Clear. HEART: S1, S2 regular. ABDOMEN: Benign. EXTREMITIES: The patient has post-surgical dressing on the right knee that was not opened. SKIN: Rest of the skin examination unremarkable. NEUROLOGIC: The patient is neurologically intact. Objective Assessment Leukocytosis Dental carries,, s/p all teeth removed Juvenile RA Rt knee pain/inflammation s/p I and D Plan Plan of Care zosyn dental extraction check cultures will d/w dr Wyatt, if no osteo then po augmentin if osteo, then will need iv call placed SIXTO BATES MD January 04, 2019 09:03
[2019-01-04 11:00] VITALS: BP 105/77
--- NOTE | 2019-01-04 11:38 | NUR ---
SW following for discharge planning. Discussed with RN, possible discharge today if okay with Dr. Brock and Dr. Wyatt. RN advised no SW needs.
[2019-01-04 15:00] VITALS: BP 98/67
[2019-01-04 19:00] VITALS: BP 106/73
[2019-01-04 23:00] VITALS: BP 101/67
--- NOTE | 2019-01-04 23:24 | PN ---
DATE: 01/04/2019 SUBJECTIVE: The patient is sitting in the edge of the bed comfortably in no apparent distress. She apparently underwent surgical extraction and removal of carious teeth number 2, 3, 4, 5, 7, 8, 9, 10, 11, 12, 13, 14, 27, 28 and 30, alveoloplasty of the upper right and left ridges, debridement of the right mandibular bone back to the bleeding bone, submission of right mandibular bone for permanent pathology and submission of the right mandibular bone tissue for culture, aerobic, anaerobic and acid fast bacilli. When I saw her this morning, she denied any complaint, in particular denied any pain. She is able to drink and eat soft ____. PHYSICAL EXAMINATION: GENERAL: When I examined her, she was somewhat pale, but no jaundice or cyanosis. No lymphadenopathy, no thyromegaly. No jugular venous distension and no lower limb edema. VITAL SIGNS: Her heart rate was 78, blood pressure was 112/88, temperature was 97.7, respiratory rate was 18 and oxygen saturation was 95%. 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 Otherwise, rest of skin exam is stable. Her intake was 800, no output was recorded. LABORATORY DATA: As of yesterday showed a white cell count 9300, hemoglobin 14, hematocrit 43, MCV 93, and platelet count 335,000. Her chemistry showed a serum sodium 139, potassium 4, chloride 104, bicarbonate 25, anion gap of 10, BUN 9, creatinine 0.7, estimated GFR was 103 mL per minute. Her glucose was 91, calcium was 8.9. Total bilirubin, AST, ALT, alkaline phosphatase were normal. Total protein was 6.4, albumin was 3.2. ASSESSMENT: Dental caries, status post removal all the teeth, juvenile rheumatoid arthritis, right knee pain and inflammation, status post incision and drainage. PLAN: To continue with IV antibiotic for now. Apparently, the Infectious Disease as discussed further treatment with the maxillofacial surgeon to decide whether she can be discharged on Augmentin and/or require IV antibiotic and PICC line need to be placed. JULIA MUELLER MD DR: MAKENNA/dionisio JOB#: [id number] / [id number]
[2019-01-05] MEDS: PIPERACILLIN/TAZOBACTAM 3.375 GM in IV NORMAL SALINE 50ML 50 ML IV SCH ×3 (00:18→11:29)
[2019-01-05 03:00] VITALS: BP 94/64
[2019-01-05] MEDS: MORPHINE SULFATE 2 MG/ML VIAL. IV PRN ×2 (03:27→05:48)
--- NOTE | 2019-01-05 05:43 | PDOC ---
Infectious Disease Note Subjective Subjective feeling much better ROS ROS no n/v/d/fever Vital Sign Vital Signs Vital Signs Date Time Temp Pulse Resp B/P (MAP) Pulse Ox O2 Delivery O2 Flow Rate FiO2 01/05/19 03:57 Room Air 01/05/19 03:00 97.9 50 18 94/64 (74) 97 97.9 Physical Exam PHYSICAL EXAM GENERAL: Alert, oriented female, not in any distress. VITAL SIGNS: Stable, afebrile. HEENT: NAD. Both pupils are round and reacting. No conjunctival lesion. No oral lesion. all teeth removed NECK: Supple. No JVP, no lymphadenopathy. LUNGS: Clear. HEART: S1, S2 regular. ABDOMEN: Benign. EXTREMITIES: The patient has post-surgical dressing on the right knee that was not opened. SKIN: Rest of the skin examination unremarkable. NEUROLOGIC: The patient is neurologically intact. Labs Micro path, chronic inflammation, no acute inflammation, d/w Pathology Objective Assessment Leukocytosis Dental carries,, s/p all teeth removed Juvenile RA Rt knee pain/inflammation s/p I and D Plan Plan of Care d/c home on iv vs oral discussed, best drug by her culture and easiest is unasyn, though shortage and is not available other options discussed, multiple meds vs zyvox and levaquin that has the best bioavailability ( same as iv vs oral ) , she like that option will see her in 7-10 days, and d/w Dr Wyatt yesterday, he will also have close f/u will also follow cultures and may need adjustment if something different comes out side effects discussed with her. probiotics adv SIXTO BATES MD January 05, 2019 05:43
[2019-01-05 07:00] VITALS: BP 108/72
--- NOTE | 2019-01-05 07:09 | PDOC ---
SUBJECTIVE Subjective Phone call from 01.04.19 Spoke with patient for 15 minutes on progress. Patient states that she is feeling much better, improving everyday. OBJECTIVE Vital Signs Vital Signs Date Time Temp Pulse Resp B/P (MAP) Pulse Ox O2 Delivery O2 Flow Rate FiO2 01/05/19 06:19 Room Air 01/05/19 05:48 Room Air 01/05/19 03:27 Room Air 01/05/19 03:00 97.9 50 18 94/64 (74) 97 Room Air 97.9 01/04/19 23:02 Room Air 01/04/19 23:00 97.7 60 18 101/67 (78) 97 Room Air 97.7 01/04/19 21:01 Room Air 01/04/19 20:41 Room Air 01/04/19 19:41 Room Air 01/04/19 19:30 Room Air 01/04/19 19:00 97.6 64 18 106/73 (84) 97 Room Air 97.6 01/04/19 17:45 16 01/04/19 17:45 16 01/04/19 16:57 16 Room Air 01/04/19 16:11 16 Room Air 01/04/19 15:00 97.8 80 18 98/67 (77) 93 Room Air 97.8 01/04/19 12:30 16 Room Air 01/04/19 12:01 16 Room Air 01/04/19 11:00 98.1 75 18 105/77 (86) 96 Room Air 98.1 01/04/19 09:47 16 Room Air 01/04/19 08:28 16 Room Air 01/04/19 08:00 Room Air 01/04/19 07:45 16 Room Air I & O Intake and Output 01/05/19 07:00 Intake Total 320 ml Balance 320 ml Intake Oral 320 ml # Voids 6 ASSESSMENT/PLAN Assessment/Plan A/ 23 yof s/p extraction of all remaining teeth and debridement of mandible Patient states doing well, affable with our plan. Will await pathology of mandible to rule out osteomyelitis Will follow ID recs CARD,SUELLEN Lin DMD January 05, 2019 07:09
[2019-01-05] MEDS: POTASSIUM CHLORIDE 20 MEQ TABLET.ER. PO SCH ×2 (07:53→11:30)
[2019-01-05] MEDS: oxyCODONE IR 5 MG TABLET PO PRN ×2 (07:53→12:20)
[2019-01-05] MEDS: ACETAMINOPHEN 500 MG TABLET PO SCH (07:53)
[2019-01-05] MEDS: SENNOSIDES/DOCUSATE 8.6/50MG TABLET. PO SCH (07:54)
[2019-01-05] MEDS: CHLORHEXIDINE 0.12% 15 ML MOUTHWASH. SWSP SCH (07:57)
[2019-01-05] MEDS: HYDROcodone/APAP 7.5/325MG 1 TAB TABLET PO PRN (10:34)
[2019-01-05 11:00] VITALS: BP 112/70
[2019-01-05] MEDS ORDERED: LINE600T PO (11:17)
[2019-01-05] MEDS ORDERED: LEVO500T59 PO (11:17)
--- NOTE | 2019-01-05 12:00 | NUR ---
SW following. Discussed with RN, pt originally needing to discharge on IV Unasyn, JIA contacted [facility] who advised there is a nationwide shortage of that drug. JIA spoke with Vinod Swann who advised there is no other IV option and pt will discharge on PO abx. RN notified. Pt discharging home today with self care, no further SW needs.
--- NOTE | 2019-01-05 12:35 | DS ---
DATE OF DISCHARGE: 01/05/2019 The patient is a 23-year-old female patient who is known to have juvenile rheumatoid arthritis and severe dental caries who was admitted and was seen in consultation by Dr. Wyatt, the maxillofacial surgeon. She also has pain and swelling of her right knee and was seen by Dr. Salty Coleman and basically she underwent right knee arthroscopy, irrigation, debridement and synovectomy. She also underwent surgical removal of carious nonrestorable teeth #2, 3, 4 5, 7, 8, 9, 10, 11, 12, 13, 14, 27, 28 and 30. She also underwent alveoloplasty, right mandibular debridement and deep bone biopsy of right mandible and tissue and submitted for culture. Actually the patient did extremely well and she is now eating and drinking. She is able to walk and a decision was made to discharge her home to continue on oral antibiotic. PHYSICAL EXAMINATION: GENERAL: When I saw her this morning, she was sitting comfortably in the edge of the bed, eating her breakfast, in no apparent distress. She stated that she is doing well and now able to eat and drink and walk without difficulty. VITAL SIGNS: Her heart rate was 89, blood pressure 108/72, temperature was 97.6, respiratory rate 20 and oxygen saturation was 94%. The rest of the clinical exam is stable. DISCHARGE MEDICATIONS: She was discharged home to continue on levofloxacin 500 mg once a day for 14 days and Zyvox 600 mg twice a day for 14 days. She will continue on her prednisone 40 mg once a day, oxycodone immediate release 10 mg 1 tablet every 4 hours as needed and Nexplanon 68 mg subcutaneously every 3 months. FINAL DISCHARGE DIAGNOSIS: Juvenile rheumatoid arthritis and infected dental caries. She has an inflamed right knee joint, status post synovectomy. JULIA MUELLER MD DR: MAKENNA/dionisio JOB#: [id number] / [id number]
--- NOTE | 2019-01-05 13:16 | NUR ---
Patient discharged from the hospital around 1305. Spoke with all the physicians on patients case prior to dismissal. Appointment made with Dr Quirino Wyatt prior to discharge for next on 01/[address] Wyatt is also calling in a script for the patient to have Peridex mouthwash upon discharge. Scripts for oxy IR, zyvox, and linezolid given to the patient prior to D/C. A script for a one time blood draw and F/U with Dr Brock also given to patient with instructions. Discharge instructions addressed with no concerns noted prior to discharge. She left with scripts for PO antibiotics instead of IV due to there being a shortage of Unasyn. Dr Wyatt is aware of antibiotics upon discharge and states agreement with the plan of care.
--- NOTE | 2019-01-05 13:58 | PN ---
DATE: 01/05/2019 SUBJECTIVE: The patient is sitting on the edge of the bed, eating her breakfast comfortably, in no apparent distress. She stated that she is doing pretty much better. Her pain is much better controlled. She is now eating, drinking more. She is able to walk after the drainage of her right knee. PHYSICAL EXAMINATION: GENERAL: When I examined her, she looked well and was clearly in no apparent respiratory distress, pale, no jaundice, cyanosis, or thyromegaly. No jugular venous distension. No limb edema. VITAL SIGNS: Her heart rate was 89, blood pressure was 108/72, temperature was 97.6, respiratory rate was 20, and oxygen saturation was 94%. HEAD, EYES, EARS, NOSE AND THROAT: Showed normocephalic, atraumatic. NECK: Supple. HEART: Showed normal first and second heart sounds. No gallop, rub or murmur. CHEST: Clear to auscultation. No crepitation or rhonchi. ABDOMEN: Distended, soft, nontender. NEUROLOGIC: She is awake, alert, responding appropriately. Cranial nerves are intact. She moves extremities without difficulty. She ambulates without assistance or assistive devices. Her intake over the last 24 hours was 1400, no output was recorded. LABORATORY DATA: No lab work done this morning. ASSESSMENT: 1. Dental caries, status post removal of all her teeth. 2. Juvenile rheumatoid arthritis. 3. Right knee pain and inflammation, status post incision and drainage. PLAN: To continue with IV Zosyn. Continue pain management. Continue ventilation support with the result of the culture and sensitivity. If there is evidence of osteomyelitis, then she will need obviously IV antibiotics. If no osteomyelitis, she will be discharged on oral Augmentin. JULIA MUELLER MD DR: MAKENNA/dionisio JOB#: [id number] / [id number]
--- NOTE | 2019-01-05 15:06 | PATHOLOGY ---
[facility] Accession Number: [id number] . 01 Material submitted: . mandible - RIGHT MANDIBLE BONE. Modifiers: right . 01 Clinical history: . Osteomyelitis of jaw . 02 Diagnosis: Segments of bone, right mandible: - Fibrosis with focal chronic and mild subacute inflammation. LBQ/01/05/2019 . 02 Comment: Sections of the right mandible bone biopsy reveal segments of viable bone. The marrow space shows fibrosis with patchy chronic inflammation. Focally, there are a few admixed neutrophils. There is no abscess identified. The results are discussed with Dr. Christopher Brock at 10:00 a.m. on 01/05/19. (JPM/db; 01/05/2019) . 02 Electronically signed: . Wayne Ruby MD, Pathologist NPI- [id number] . 01 Gross description: . The specimen is received in formalin, labeled "Marta Brooks, right mandible bone". Received are multiple segments of light hines bone admixed with possible soft tissue measuring 1.4 x 1.4 x 0.3 cm in aggregate dimensions. The specimen is filtered and entirely submitted in cassette A1, following decalcification. (CAA; 01/04/2019) QAC/QAC . 02 Pathologist provided ICD-10: M86.20, M86.60 . 02 CPT . 541067, 387297 Specimen Comment: A courtesy copy of this report has been sent to Specimen Comment: [phone], , , . Specimen Comment: Report sent to ,DR MUELLER,DR NUNES / DR WANG Performed at: 01 [facility] [place] [id number] [facility] [address], [place], [place] [id number] MD Raulito Montes MD Phone: [phone] Performed at: 02 [facility] [address] [place], [place] [id number] MD Wayne Ruby MD Phone: [phone]
== END 2019-01-05 13:05 | disposition home or self-care (01) | DRG 131 ==
LOC: ER 14:03 → 4 NORTH 16:10
PROVIDERS: ADMIT Internal Medicine; ATTEND Internal Medicine
PROC: 0SBC4ZX Excision of Right Knee Joint, Percutaneous Endoscopic Approach, Diagnostic (ICD-10-PCS; principal; 2019-01-01 18:15)
PROC: 0NQV0ZZ Repair Left Mandible, Open Approach (ICD-10-PCS; 2019-01-03)
PROC: 0NQT0ZZ Repair Right Mandible, Open Approach (ICD-10-PCS; 2019-01-03)
PROC: 0CDXXZ1 Extraction of Lower Tooth, Multiple, External Approach (ICD-10-PCS; 2019-01-03)
PROC: 0CDWXZ1 Extraction of Upper Tooth, Multiple, External Approach (ICD-10-PCS; 2019-01-03)
PROC: 0NBT0ZX Excision of Right Mandible, Open Approach, Diagnostic (ICD-10-PCS; 2019-01-03)
DX: M27.2 Inflammatory conditions of jaws (principal); M00.9 Pyogenic arthritis, unspecified; E44.1 Mild protein-calorie malnutrition; K02.9 Dental caries, unspecified; M65.9 Synovitis and tenosynovitis, unspecified; M71.21 Synovial cyst of popliteal space [Baker], right knee; E87.6 Hypokalemia; F17.200 Nicotine dependence, unspecified, uncomplicated; F31.9 Bipolar disorder, unspecified; K04.7 Periapical abscess without sinus; M08.00 Unspecified juvenile rheumatoid arthritis of unspecified site; Z16.11 Resistance to penicillins; F41.9 Anxiety disorder, unspecified; Z88.8 Allergy status to other drugs, medicaments and biological substances; Z79.899 Other long term (current) drug therapy; Z90.49 Acquired absence of other specified parts of digestive tract; Z68.26 Body mass index [BMI] 26.0-26.9, adult
CPT/HCPCS: 36415; 70486; 80053; 80307; 81001; 81025; 83605; 84702; 85007; 85025; 85027; 87040; 87071; 87075; 87102; 87116; 88307; 88311; 89050; 89060; 93971; 96365; 96366; A7015; G0480; J0330; J0744; J0780; J1100; J1170; J2001; J2020; J2250; J2270; J2405; J2543; J2704; J3010; J3490; J7040; J7120; 97535; 99285-25

== ENCOUNTER 2019-01-30 20:12 | Emergency (ER) | payer OTHER ==
[~2019-01-30] VITALS: Ht 160 cm; Wt 65.8 kg
[~2019-01-30 20:12] MED LIST changes: +LEVO500T59 PO
[2019-01-30] MEDS ORDERED: IV NORMAL SALINE 1000ML BAG 1,000 ML IV ONE ×2 (21:30→22:45)
--- NOTE | 2019-01-30 21:39 | PHYS DOC ---
Past Medical History Past Medical History: Anxiety, Bipolar, Depression, Endometriosis, Other Additional Past Medical Histor: JRA (REANNA LÓPEZ APRN) Past Surgical History: Tonsillectomy Additional Past Surgical Histo: DNC (REANNA LÓPEZ APRN) Alcohol Use: None Drug Use: None (REANNA LÓPEZ APRN) Adult General Chief Complaint Chief Complaint: DENTAL PROBLEM HPI HPI Patient is a 23 year old female presents with a sugar swelling started yesterday. The patient's been having ongoing issues with her mouth since December 04. The patient's had all of her teeth removed. Also has had osteomyelitis in the jaw. Rates her pain 5 out of 10 and throbbing. (REANNA LÓPEZ APRN) Review of Systems Review of Systems Constitutional: Denies fever or chills [] Eyes: Denies change in visual acuity, redness, or eye pain [] HENT: Denies nasal congestion or sore throat. Has facial swelling to the R jaw, missing teeth, has gum swelling. Respiratory: Denies cough or shortness of breath [] Cardiovascular: No additional information not addressed in HPI [] GI: Denies abdominal pain, nausea, vomiting, bloody stools or diarrhea [] : Denies dysuria or hematuria [] Musculoskeletal: Denies back pain or joint pain [] Integument: Denies rash or skin lesions [] Neurologic: Denies headache, focal weakness or sensory changes [] Endocrine: Denies polyuria or polydipsia [] Complete systems were reviewed and found to be within normal limits, except as documented in this note. (REANNA LÓPEZ APRN) Current Medications Current Medications Current Medications Medications (Trade) Dose Ordered Sig/Ras Start Time Stop Time Status Last Admin Dose Admin Clindamycin Phosphate 50 ml @ 100 mls/hr 1X ONCE 01/30/19 22:45 01/30/19 23:14 DC 01/30/19 23:10 100 MLS/HR Info (CONTRAST GIVEN -- Rx MONITORING) 1 each PRN DAILY PRN 01/30/19 22:30 02/01/19 22:29 Iohexol (Omnipaque 300 Mg/ml) 75 ml 1X ONCE 01/30/19 22:30 01/30/19 22:31 DC 01/30/19 22:56 75 ML Morphine Sulfate (Morphine Sulfate) 4 mg 1X ONCE 01/30/19 21:45 01/30/19 21:46 DC 01/30/19 22:22 4 MG Oxycodone HCl (Roxicodone) 10 mg 1X ONCE 01/31/19 00:00 01/31/19 00:01 UNV 01/31/19 00:11 10 MG Sodium Chloride 1,000 ml @ 1,000 mls/hr 1X ONCE 01/30/19 22:45 01/30/19 23:44 DC (AI BARRIOS MD) Allergies Allergies Allergies Coded Allergies Type Severity Reaction Last Updated Verified infliximab Allergy Intermediate 12/26/16 Yes rituximab Allergy Intermediate 12/26/16 Yes vancomycin Allergy Intermediate Hives 09/12/17 Yes I S O L A T I O N *CONTACT* Allergy Unknown 12/07/18 Yes (AI BARRIOS MD) Physical Exam Physical Exam Constitutional: Well developed, well nourished, no acute distress, non-toxic appearance. [] HENT: Normocephalic, atraumatic, bilateral external ears normal, oropharynx mois t, no oral exudates, nose normal. Missing teeth, swelling to the gum. R facial swelling. Eyes: PERRLA, EOMI, conjunctiva normal, no discharge. [] Neck: Normal range of motion, no tenderness, supple, no stridor. [] Cardiovascular:Heart rate regular rhythm, no murmur [] Lungs & Thorax: Bilateral breath sounds clear to auscultation [] Abdomen: Bowel sounds normal, soft, no tenderness, no masses, no pulsatile masses. [] Skin: Warm, dry, no erythema, no rash. [] Back: No tenderness, no CVA tenderness. [] Extremities: No tenderness, no cyanosis, no clubbing, ROM intact, no edema. [] Neurologic: Alert and oriented X 3, normal motor function, normal sensory function, no focal deficits noted. [] Psychologic: Affect normal, judgement normal, mood normal. [] (REANNA LÓPEZ APRN) Current Patient Data Vital Signs Vital Signs Date Time Temp Pulse Resp B/P (MAP) Pulse Ox O2 Delivery O2 Flow Rate FiO2 01/30/19 22:22 18 98 01/30/19 21:11 98.7 72 126/78 (94) Room Air 98.7 (AI BARRIOS MD) Lab Values Laboratory Tests Test 01/30/19 22:01 01/30/19 22:08 01/30/19 23:07 POC Urine HCG, Qualitative Hcg negative (Negative) White Blood Count 15.0 x10^3/uL (4.0-11.0) H Red Blood Count 4.31 x10^6/uL (3.50-5.40) Hemoglobin 13.6 g/dL (12.0-15.5) Hematocrit 39.8 % (36.0-47.0) Mean Corpuscular Volume 93 fL (79-100) Mean Corpuscular Hemoglobin 32 pg (25-35) Mean Corpuscular Hemoglobin Concent 34 g/dL (31-37) Red Cell Distribution Width 14.4 % (11.5-14.5) Platelet Count 441 x10^3/uL (140-400) H Neutrophils (%) (Auto) 87 % (31-73) H Lymphocytes (%) (Auto) 9 % (24-48) L Monocytes (%) (Auto) 4 % (0-9) Eosinophils (%) (Auto) 0 % (0-3) Basophils (%) (Auto) 0 % (0-3) Neutrophils # (Auto) 13.1 x10^3uL (1.8-7.7) H Lymphocytes # (Auto) 1.3 x10^3/uL (1.0-4.8) Monocytes # (Auto) 0.6 x10^3/uL (0.0-1.1) Eosinophils # (Auto) 0.0 x10^3/uL (0.0-0.7) Basophils # (Auto) 0.1 x10^3/uL (0.0-0.2) Segmented Neutrophils % 83 % (35-66) H Band Neutrophils % 1 % (0-9) Lymphocytes % 12 % (24-48) L Monocytes % 3 % (0-10) Metamyelocytes % 1 % (0-0) H Platelet Estimate Adequate (ADEQUATE) Sodium Level 136 mmol/L (136-145) Potassium Level 4.3 mmol/L (3.5-5.1) Chloride Level 100 mmol/L (98-107) Carbon Dioxide Level 28 mmol/L (21-32) Anion Gap 8 (6-14) Blood Urea Nitrogen 10 mg/dL (7-20) Creatinine 0.7 mg/dL (0.6-1.0) Estimated GFR (Cockcroft-Gault) 102.8 BUN/Creatinine Ratio 14 (6-20) Glucose Level 112 mg/dL (70-99) H Calcium Level 9.1 mg/dL (8.5-10.1) Total Bilirubin 0.2 mg/dL (0.2-1.0) Aspartate Amino Transferase (AST) 18 U/L (15-37) Alanine Aminotransferase (ALT) 24 U/L (14-59) Alkaline Phosphatase 75 U/L (46-116) C-Reactive Protein, Quantitative 3.7 mg/L (0-3.3) H Total Protein 6.7 g/dL (6.4-8.2) Albumin 3.4 g/dL (3.4-5.0) Albumin/Globulin Ratio 1.0 (1.0-1.7) Lactic Acid Level 1.0 mmol/L (0.4-2.0) Laboratory Tests 01/30/19 22:08 Laboratory Tests 01/30/19 22:08 (AI BARRIOS MD) Lab Values Laboratory Tests Test 01/30/19 22:01 01/30/19 22:08 POC Urine HCG, Qualitative Hcg negative (Negative) White Blood Count 15.0 x10^3/uL (4.0-11.0) H Red Blood Count 4.31 x10^6/uL (3.50-5.40) Hemoglobin 13.6 g/dL (12.0-15.5) Hematocrit 39.8 % (36.0-47.0) Mean Corpuscular Volume 93 fL (79-100) Mean Corpuscular Hemoglobin 32 pg (25-35) Mean Corpuscular Hemoglobin Concent 34 g/dL (31-37) Red Cell Distribution Width 14.4 % (11.5-14.5) Platelet Count 441 x10^3/uL (140-400) H Neutrophils (%) (Auto) 87 % (31-73) H Lymphocytes (%) (Auto) 9 % (24-48) L Monocytes (%) (Auto) 4 % (0-9) Eosinophils (%) (Auto) 0 % (0-3) Basophils (%) (Auto) 0 % (0-3) Neutrophils # (Auto) 13.1 x10^3uL (1.8-7.7) H Lymphocytes # (Auto) 1.3 x10^3/uL (1.0-4.8) Monocytes # (Auto) 0.6 x10^3/uL (0.0-1.1) Eosinophils # (Auto) 0.0 x10^3/uL (0.0-0.7) Basophils # (Auto) 0.1 x10^3/uL (0.0-0.2) Segmented Neutrophils % 83 % (35-66) H Band Neutrophils % 1 % (0-9) Lymphocytes % 12 % (24-48) L Monocytes % 3 % (0-10) Metamyelocytes % 1 % (0-0) H Platelet Estimate Adequate (ADEQUATE) Sodium Level 136 mmol/L (136-145) Potassium Level 4.3 mmol/L (3.5-5.1) Chloride Level 100 mmol/L (98-107) Carbon Dioxide Level 28 mmol/L (21-32) Anion Gap 8 (6-14) Blood Urea Nitrogen 10 mg/dL (7-20) Creatinine 0.7 mg/dL (0.6-1.0) Estimated GFR (Cockcroft-Gault) 102.8 BUN/Creatinine Ratio 14 (6-20) Glucose Level 112 mg/dL (70-99) H Calcium Level 9.1 mg/dL (8.5-10.1) Total Bilirubin 0.2 mg/dL (0.2-1.0) Aspartate Amino Transferase (AST) 18 U/L (15-37) Alanine Aminotransferase (ALT) 24 U/L (14-59) Alkaline Phosphatase 75 U/L (46-116) C-Reactive Protein, Quantitative 3.7 mg/L (0-3.3) H Total Protein 6.7 g/dL (6.4-8.2) Albumin 3.4 g/dL (3.4-5.0) Albumin/Globulin Ratio 1.0 (1.0-1.7) Laboratory Tests 01/30/19 22:08 Laboratory Tests 01/30/19 22:08 (REANNA LÓPEZ APRN) EKG EKG [] (REANNA LÓPEZ APRN) Radiology/Procedures Radiology/Procedures [] (REANNA LÓPEZ APRN) Impressions: IMPRESSION: 1. The teeth have been pulled since the prior study. 2. Possible bony destructive process involving the right mandible with local soft tissue swelling. 3. Mucous retention cyst right maxillary antrum with mucosal thickening left maxillary antrum. Electronically signed by: Spencer Dunham MD (01/30/2019 11:12 PM) [facility] DICTATED and SIGNED BY: SPENCER DUNHAM MD DATE: 01/30/192311 (AI BARRIOS MD) Course & Med Decision Making Course & Med Decision Making Pertinent Labs and Imaging studies reviewed. (See chart for details) With history of the patient, increased swelling is concerning. Will order labs, and CT of face. WBC is 15,000. Will order Lactic Acid, and Blood Cultures. Will also order another liter of NS to cover the 30 mL/kg septic requirements and will order Clindamycin. The patient is allergic to Vancomycin but states she has done fine with Clindamycin in the past. Turned Patient over to Dr. Barrios at 2300. (REANNA LÓPEZ APRN) Course & Med Decision Making I RECEIVED SIGNOUT FROM [facility]. I KNOW THIS PATIENT WELL. I LOOKED at the CT scan as well as the patient's oral exam. The patient does h ave an area of exposed mandible on the right lower jaw. It is approximately 2 cm. It appears that this correlates well with the abnormality identified on the CT scan. This is not unexpected to me given the exposed bone. She tells me her oral surgeon DR Guajardo planning to see her on February 08 and per her report to me he will plan some sort of a procedure to cover that mandible bone she said he is not sure exactly what is going to do yet but that he knows about and is planning to treat it. Unfortunately we do not currently have an oral surgeon on- call tonight however given my experience with this patient and the subacute nature of her complaints I think it is reasonable to give her some more ant ibiotics to help subdue a possible smoldering infection and advised her to call her oral surgeon with the next 12-24 hours for follow-up. I asked her to come back here should she be unable to do so. At this point time she really was most concerned about pain control so we did give her a refill on her oxycodone as well and I also gave her another weeks worth of Zyvox and Levaquin. Return precautions were discussed in detail including for increased swelling fever trouble swallowing inability to take antibiotics or any other symptoms or concerns and she voiced understanding. (AI BARRIOS MD) Dragon Disclaimer Dragon Disclaimer This electronic medical record was generated, in whole or in part, using a voice recognition dictation system. (REANNA LÓPEZ APRN) Departure Departure Impression: Primary Impression: Osteomyelitis, jaw acute Disposition: 01 HOME, SELF-CARE Condition: STABLE Referrals: CASS NUNES DO (PCP) Scripts Oxycodone Hcl (OXYCODONE HCL IMMED.RELEASE) 10 Mg Tablet 10 MG PO PRN Q6HRS PRN for PAIN, #20 TAB 0 Refills Prov: AI BARRIOS MD 01/30/19 Linezolid (ZYVOX) 600 Mg Tablet 600 MG PO BID, #14 TAB Prov: AI BARRIOS MD 01/30/19 Levofloxacin (LEVAQUIN) 500 Mg Tablet 1 TAB PO DAILY, #7 TAB Prov: AI BARRIOS MD 01/30/19 REANNA LÓPEZ APRN Jan 30, 2019 21:39 AI BARRIOS MD Jan 31, 2019 00:20
[2019-01-30] MEDS ORDERED: MORPHINE SULFATE 4 MG/ML VIAL. IV ONE (21:45)
[2019-01-30 22:21] LABS: BASO # 0.1 x10^3/uL (0.0-0.2); BASO % 0 % (0-3); EOS % 0 % (0-3); HEMATOCRIT 39.8 % (36.0-47.0); HEMOGLOBIN 13.6 g/dL (12.0-15.5); LYMPH # 1.3 x10^3/uL (1.0-4.8); LYMPH % 9 % (24-48); MEAN CORPUSCULAR HEMOGLOBIN 32 pg (25-35); MEAN CORPUSCULAR HGB CONC 34 g/dL (31-37); MEAN CORPUSCULAR VOLUME 93 fL (79-100); MONO # 0.6 x10^3/uL (0.0-1.1); MONO % 4 % (0-9); NEUT # 13.1 x10^3uL (1.8-7.7); NEUT % 87 % (31-73); PLATELET COUNT 441 x10^3/uL (140-400); RED BLOOD COUNT 4.31 x10^6/uL (3.50-5.40); RED CELL DISTRIBUTION WIDTH 14.4 % (11.5-14.5)
[2019-01-30] MEDS ORDERED: IOHEXOL 300 MG/ML 100ML VIAL. IV ONE (22:30)
[2019-01-30] MEDS ORDERED: CONTRAST GIVEN. MC PRN (22:30)
[2019-01-30 22:34] LABS: CALCIUM 9.1 mg/dL (8.5-10.1); CREATININE 0.7 mg/dL (0.6-1.0); GFR 102.8; POTASSIUM 4.3 mmol/L (3.5-5.1)
[2019-01-30 22:39] LABS: ALBUMIN 3.4 g/dL (3.4-5.0); C-REACTIVE PROTEIN 3.7 mg/L (0-3.3); TOTAL BILIRUBIN 0.2 mg/dL (0.2-1.0); TOTAL PROTEIN 6.7 g/dL (6.4-8.2)
[2019-01-30] MEDS ORDERED: CLINDAMYCIN 600MG PREMIX 50 ML IV ONE (22:45)
[2019-01-30 22:56] LABS: % BANDS 1 % (0-9); % LYMPHS 12 % (24-48); % METAS 1 % (0-0); % MONOS 3 % (0-10); % SEGS 83 % (35-66); PLT ESTIMATE ADEQUATE (ADEQUATE)
--- NOTE | 2019-01-30 23:15 | RAD ---
CT maxillofacial with contrast. HISTORY: Facial swelling Maxillofacial CT images were done using Omnipaque contrast. Parotid and submandibular glands are unremarkable. There is no adenopathy in the visualized portion of the neck. There is a mucous retention cyst in the right maxillary antrum with mild mucosal thickening in the left maxillary antrum. Remaining sinuses are clear. Patient is a dentulous. There is a bony erosion or destructive process involving the mandible on the right there is mild soft tissue swelling. Definitive abscess is not identified. Comparison is made with a study from August 2017. The patient ACT pulled since that study. The mucous retention cyst in the right maxillary antrum is similar to the old study. The bony destructive process involving the right mandible appears new. IMPRESSION: 1. The teeth have been pulled since the prior study. 2. Possible bony destructive process involving the right mandible with local soft tissue swelling. 3. Mucous retention cyst right maxillary antrum with mucosal thickening left maxillary antrum. Electronically signed by: Spencer Dunham MD (01/30/2019 11:12 PM) [facility]
[2019-01-30] MEDS ORDERED: LINE600T PO (23:47)
[2019-01-30] MEDS ORDERED: LEVO500T59 PO (23:47)
[2019-01-30] MEDS ORDERED: OXYC10TA PO (23:47)
[2019-01-30 23:53] VITALS: BP 122/92
[2019-01-31] MEDS ORDERED: oxyCODONE IR 5 MG TABLET PO ONE
[2019-01-31] MEDS ORDERED: oxyCODONE IR 5 MG TABLET ONE (00:05)
--- NOTE | 2019-02-02 12:04 | NUR ---
Late entry made to Medical Record. IV Stop time transcribed from eMAR to IV spreadsheet
== END 2019-01-31 00:14 | disposition home or self-care (01) ==
LOC: ER 20:12
DX: M27.2 Inflammatory conditions of jaws (principal); F31.9 Bipolar disorder, unspecified; Z90.89 Acquired absence of other organs; Z88.1 Allergy status to other antibiotic agents; Z91.041 Radiographic dye allergy status; Z88.8 Allergy status to other drugs, medicaments and biological substances
CPT/HCPCS: 36415; 70487; 80053; 81025; 83605; 85007; 85025; 86140; 96365; 96375; 99285; J2270; J3490; J7030; Q9967; 87040

== ENCOUNTER 2019-04-09 17:19 | Emergency (ER) | payer OTHER ==
[~2019-04-09] VITALS: Ht 160 cm; Wt 61.7 kg
--- NOTE | 2019-04-09 18:59 | RAD ---
KNEE LEFT 3V History: Left knee pain and swelling for 4 days Comparison: None. Findings: 3 views left knee are submitted. There is moderate to large suprapatellar joint effusion. No acute fracture or dislocation is identified. Impression: 1. There is suprapatellar joint effusion. Electronically signed by: Arden Kumar MD (04/09/2019 6:56 PM) [facility]
--- NOTE | 2019-04-09 18:59 | PHYS DOC ---
Past Medical History Past Medical History: Anxiety, Bipolar, Depression, Endometriosis, Other Additional Past Medical Histor: JRA Past Surgical History: Tonsillectomy Additional Past Surgical Histo: DNC Alcohol Use: None Drug Use: None Adult General Chief Complaint Chief Complaint: KNEE INJURY HPI HPI Patient is a 23 year old female who presents to the ER with complaints of L knee pain and swelling for the last 3-4 days. She denies any known injury or recent trauma. She states the pain and swelling is similar to previous problems she experienced with her R knee. Pt states there was concern that she also had osteomyelitis in her R knee at the time she was dx with osteomyelitis of her jaw last year. She currently rates the pain an 8/10 on the pain scale, she takes oxycodone 10/325 tablets with no relief of her pain. ROS Pt denies any fever, cough, shortness of breath, sore throat, ear pain, or back pain. She numbness, tingling, or decreased ROM of left knee. All other ROS is neg unless otherwise noted in HPI. Review of Systems Review of Systems See Above Allergies Allergies Allergies Coded Allergies Type Severity Reaction Last Updated Verified infliximab Allergy Intermediate 12/26/16 Yes rituximab Allergy Intermediate 12/26/16 Yes vancomycin Allergy Intermediate Hives 09/12/17 Yes I S O L A T I O N *CONTACT* Allergy Unknown 12/07/18 Yes Physical Exam Physical Exam See Above Constitutional: Well developed, well nourished, no acute distress, non-toxic appearance. [] HENT: Normocephalic, atraumatic, bilateral external ears normal, oropharynx moist, no oral exudates, nose normal. [] Eyes: PERRLA, EOMI, conjunctiva normal, no discharge. [] Neck: Normal range of motion, no stridor. [] Cardiovascular:Heart rate regular rhythm, no murmur [] Lungs & Thorax: Bilateral breath sounds clear to auscultation [] Skin: Warm, dry, no erythema, no rash. [] Back: No CVA tenderness. [] Extremities: L anterior knee: tenderness to palpation, no crepitus, no deformity, no erythema, no warmth, no cyanosis, no clubbing, ROM intact, 1+ edema. [] Neurologic: Alert and oriented X 3, normal motor function, normal sensory function, no focal deficits noted. [] Psychologic: Affect normal, judgement normal, mood normal. [] Current Patient Data Vital Signs Vital Signs Date Time Temp Pulse Resp B/P (MAP) Pulse Ox O2 Delivery O2 Flow Rate FiO2 04/09/19 19:00 99.4 67 20 121/79 (93) 99 Room Air 99.4 EKG EKG [] Radiology/Procedures Radiology/Procedures PROCEDURE: KNEE LEFT 3V KNEE LEFT 3V History: Left knee pain and swelling for 4 days Comparison: None. Findings: 3 views left knee are submitted. There is moderate to large suprapatellar joint effusion. No acute fracture or dislocation is identified. Impression: 1. There is suprapatellar joint effusion. [] Course & Med Decision Making Course & Med Decision Making Pertinent Labs and Imaging studies reviewed. (See chart for details) dx: L knee pain and swelling X-ray and physical exam without concern for osteomyelitis. Pt was advised of effusion on x-ray. She was instructed to continue taking her medications as prescribed and follow up with Dr. Coleman (her orthopedic doctor) for further evaluation and treatment of pain. Recommend rest, ice, and elevation. Patient verbalized an understanding of home care, medications, follow-up, and return to ED instructions and was in agreement with the plan of care. [] Dragon Disclaimer Dragon Disclaimer This electronic medical record was generated, in whole or in part, using a voice recognition dictation system. Departure Departure Impression: Primary Impression: Left knee pain Additional Impression: Pain and swelling of left knee Disposition: 01 HOME, SELF-CARE Condition: STABLE Referrals: CASS NUNES DO (PCP) Patient Instructions: Knee Effusion, [id number], Knee Pain, [id number] Additional Instructions: Continue taking your home medications as prescribed. Follow up with Dr. Coleman for further evaluation and treatment of your knee pain. Problem Qualifiers Primary Impression: Left knee pain Chronicity: acute Qualified Codes: M25.562 - Pain in left knee LIAN CLEMENT MACHINE STEMMER Apr 09, 2019 18:59
[2019-04-09 19:00] VITALS: BP 121/79
== END 2019-04-09 19:23 | disposition home or self-care (01) ==
LOC: ER 17:19
DX: M25.462 Effusion, left knee (principal); F41.9 Anxiety disorder, unspecified; F31.9 Bipolar disorder, unspecified; Z90.89 Acquired absence of other organs; Z88.1 Allergy status to other antibiotic agents; Z91.041 Radiographic dye allergy status
CPT/HCPCS: 73562; 99284

== ENCOUNTER 2019-05-06 07:54 | Emergency (ER) | payer OTHER ==
[~2019-05-06] VITALS: Ht 160 cm; Wt 63.0 kg
[~2019-05-06 07:54] MED LIST changes: -LINE600T PO; +LINE600T37 PO
[2019-05-06 08:11] VITALS: BP 128/94
[2019-05-06] MEDS ORDERED: PENI500T PO (08:27)
[2019-05-06] MEDS ORDERED: TRAM50TA PO (08:27)
--- NOTE | 2019-05-06 08:28 | PHYS DOC ---
Past Medical History Past Medical History: Anemia, Endometriosis, Ovarian Cyst Additional Past Medical Histor: RA Past Surgical History: Tonsillectomy Additional Past Surgical Histo: Knee surgery 12/01 Alcohol Use: None Drug Use: None Adult General Chief Complaint Chief Complaint: DENTAL PROBLEM HPI HPI Patient is a 23 year old female who presents with states that she has upper and lower dentures as she's had all her teeth pulled and she has been taking nystatin swish and spit and Diflucan. Patient states that she has been told that she has a yeast infection her gumline due to her dentures. Patient states that the Diflucan and nystatin swish and spit is not helping. Patient is also on prednisone and states that her mouth is dry. Patient is told this is a side effect of the prednisone. Patient states that she is always on prednisone because of her rheumatoid arthritis and that is not usually happen. Patient denies fevers, nausea, vomiting, chest pain, shortness of breath, problems eating. Patient states her doctor has been out of town and she has not been able to get into see him and so she needs pain control. Patient also has rheumatoid arthritis.Patient states she does not have enough prednisone to taper herself up like she usually does but is going to call her doctor tomorrow. Patient is w anting tramadol. She rates her pain a 9/10. Review of Systems Review of Systems Constitutional: Denies fever or chills [] HENT: Denies nasal congestion or sore throat. Dental pain. [] All other systems were reviewed and found to be within normal limits, except as documented in this note. Current Medications Current Medications Current Medications Medications (Trade) Dose Ordered Sig/Ras Start Time Stop Time Status Last Admin Dose Admin Tramadol HCl (Ultram) 50 mg 1X ONCE 05/06/19 08:30 05/06/19 08:31 DC 05/06/19 09:15 50 MG Allergies Allergies Allergies Coded Allergies Type Severity Reaction Last Updated Verified infliximab Allergy Intermediate 12/26/16 Yes rituximab Allergy Intermediate 12/26/16 Yes vancomycin Allergy Intermediate Hives 09/12/17 Yes I S O L A T I O N *CONTACT* Allergy Unknown 12/07/18 Yes Physical Exam Physical Exam Constitutional: Well developed, well nourished, no acute distress, non-toxic appearance. [] HENT: Normocephalic, atraumatic, bilateral external ears normal, oropharynx moist, no oral exudates, nose normal. Gumline redness and 1+ swelling to top gum line. [] Eyes: PERRLA, EOMI, conjunctiva normal, no discharge. [] Neck: Normal range of motion, no tenderness, supple, no stridor. [] Cardiovascular:Heart rate regular rhythm, no murmur [] Lungs & Thorax: Bilateral breath sounds clear to auscultation [] Abdomen: Bowel sounds normal, soft, no tenderness, no masses, no pulsatile masses. [] Skin: Warm, dry, no erythema, no rash. [] Back: No tenderness, no CVA tenderness. [] Extremities: No tenderness, no cyanosis, no clubbing, ROM intact, no edema. [] Neurologic: Alert and oriented X 3, normal motor function, normal sensory f unction, no focal deficits noted. [] Psychologic: Affect normal, judgement normal, mood normal. [] Current Patient Data Vital Signs Vital Signs Date Time Temp Pulse Resp B/P (MAP) Pulse Ox O2 Delivery O2 Flow Rate FiO2 05/06/19 09:15 16 99 Room Air 05/06/19 08:11 98.5 103 128/94 (105) 98.5 Lab Values Laboratory Tests Test 05/06/19 09:19 Glucose (Fingerstick) 96 mg/dL (70-99) EKG EKG [] Radiology/Procedures Radiology/Procedures [] Course & Med Decision Making Course & Med Decision Making Patient is a 23 year old female who presents with states that she has upper and lower dentures as she's had all her teeth pulled and she has been taking nystatin swish and spit and Diflucan. Patient states that she has been told that she has a yeast infection her gumline due to her dentures. Patient states that the Diflucan and nystatin swish and spit is not helping. Patient is also on prednisone and states that her mouth is dry. Patient is told this is a side effect of the prednisone. Patient states that she is always on prednisone because of her rheumatoid arthritis and that is not usually happen. Patient denies fevers, nausea, vomiting, chest pain, shortness of breath, problems eating. Patient states her doctor has been out of town and she has not been able to get into see him and so she needs pain control. Patient also has rheumatoid arthritis. Patient states she does not have enough prednisone to taper herself up like she usually does but is going to call her doctor tomorrow. Patient is wanting tramadol. She rates her pain a 9/10. Alert and oriented. Afebrile. Guml ine is reddened and slightly swollen. No abscess, no facial swelling, no fever, no thrush, throat red but no tonsil swelling or exudates. Dragon Disclaimer Dragon Disclaimer This electronic medical record was generated, in whole or in part, using a voice recognition dictation system. Departure Departure Impression: Primary Impression: Pain, dental Disposition: HOME, SELF-CARE Condition: STABLE Referrals: CASS NUNES DO (PCP) Patient Instructions: Dental Pain Additional Instructions: Call your doctor first thing in the morning. Take medications as prescribed. Scripts Tramadol Hcl (TRAMADOL HCL) 50 Mg Tablet 50 MG PO Q6HRS PRN for PAIN, #8 TAB Prov: MARCELA BARRETO SQUAD BOSS 05/06/19 Penicillin V Potassium (PENICILLIN V POTASSIUM) 500 Mg Tablet 1 TAB PO QID, #40 TAB Prov: MARCELA BARRETO SQUAD BOSS 05/06/19 MARCELA BARRETO APRN May 06, 2019 08:28
[2019-05-06] MEDS ORDERED: traMADol 50 MG TABLET PO ONE (08:30)
== END 2019-05-06 09:27 | disposition home or self-care (01) ==
LOC: ER 07:54
DX: K08.89 Other specified disorders of teeth and supporting structures (principal); Z88.1 Allergy status to other antibiotic agents; Z91.041 Radiographic dye allergy status; Z88.8 Allergy status to other drugs, medicaments and biological substances
CPT/HCPCS: 82962; 99283

== ENCOUNTER 2019-12-15 23:13 | Emergency (ER) | payer OTHER ==
[~2019-12-15] VITALS: Ht 160 cm; Wt 65.7 kg
[~2019-12-15 23:13] MED LIST changes: +LINE600T12 PO; -LINE600T37 PO; +PENI500T PO; +TRAM50TA PO
[2019-12-16] MEDS ORDERED: HYDROmorphone 2 MG/ML VIAL IM ONE (00:45)
[2019-12-16] MEDS ORDERED: INDOMETHACIN 25 MG CAPSULE. PO ONE (00:45)
[2019-12-16] MEDS ORDERED: ORPHENADRINE CITRATE 60 MG/2 ML VIAL. IM ONE (00:45)
[2019-12-16] MEDS ORDERED: DEXAMETHASONE SOD PHOS 20 MG/5 ML VIAL. IV ONE (00:45)
[2019-12-16] MEDS ORDERED: ORPH100T PO (01:23)
[2019-12-16] MEDS ORDERED: INDO50CA15 PO (01:23)
--- NOTE | 2019-12-16 01:23 | PHYS DOC ---
Past Medical History Past Medical History: Arthritis, Endometriosis Additional Past Medical Histor: RA Past Surgical History: Tonsillectomy Additional Past Surgical Histo: Knee surgery 12/01 Smoking Status: Current Every Day Smoker Alcohol Use: None Drug Use: None General Adult EDM: Chief Complaint: LOWER BACK PAIN OR INJURY HPI: HPI: Patient is a 24 year old female who presents with complain in bilateral buttocks with radiation of pain down both of her legs. Patient has history of JRA and was seen last night at [facility] where they gave her a dose of fentanyl. She states that she takes oxycodone at home as well as 40 mg of prednisone daily as part of her regimen for rheumatoid arthritis. She states that the pain in her buttocks has been progressively getting worse and it's very painful to move her legs. She denies any fever, chest pain or shortness breath. She denies any recent injuries.[] Review of Systems: Review of Systems: Constitutional: Denies fever or chills. [] Respiratory: Denies cough or shortness of breath. [] Cardiovascular: Denies chest pain or edema. [] Musculoskeletal: Complains of lower back as well as bilateral SI pain. [] Neurologic: Denies headache, focal weakness or sensory changes. [] Heart Score: Risk Factors: Risk Factors: DM, Current or recent (<one month) smoker, HTN, HLP, family history of CAD, obesity. Risk Scores: Score 0 - 3: 2.5% MACE over next 6 weeks - Discharge Home Score 4 - 6: 20.3% MACE over next 6 weeks - Admit for Clinical Observation Score 7 - 10: 72.7% MACE over next 6 weeks - Early Invasive Strategies Current Medications: Current Medications Medications (Trade) Dose Ordered Sig/[facility] Start Time Stop Time Status Last Admin Dose Admin Dexamethasone Sodium Phosphate (Decadron) 10 mg 1X ONCE 12/16/19 00:45 12/16/19 00:46 DC Hydromorphone HCl (Dilaudid) 1 mg 1X ONCE 12/16/19 00:45 12/16/19 00:46 DC Indomethacin (Indocin) 50 mg 1X ONCE 12/16/19 00:45 12/16/19 00:46 DC Orphenadrine Citrate (Norflex) 60 mg 1X ONCE 12/16/19 00:45 12/16/19 00:46 DC Allergies: Allergies: Allergies Coded Allergies Type Severity Reaction Last Updated Verified infliximab Allergy Intermediate 12/26/16 Yes rituximab Allergy Intermediate 12/26/16 Yes vancomycin Allergy Intermediate Hives 09/12/17 Yes I S O L A T I O N *CONTACT* Allergy Unknown 12/07/18 Yes Physical Exam: PE: Constitutional: Well developed, well nourished, no acute distress, non-toxic appearance. [] Neck: Normal range of motion, no tenderness, supple, no stridor. [] Cardiovascular: Regular rate and rhythm[] Lungs & Thorax: Bilateral breath sounds clear to auscultation [] Skin: Warm, dry. [] Extremities: Examination of hips demonstrates increasing pain with internal rotation of the hips, consistent with piriformis spasm. [] Neurologic: Alert and oriented X 3, no focal deficits noted. [] Current Patient Data: Vital Signs: Vital Signs Date Time Temp Pulse Resp B/P (MAP) Pulse Ox O2 Delivery O2 Flow Rate FiO2 12/15/19 23:26 97.9 95 12 134/90 (105) 95 Room Air 97.9 EKG: EKG: [] Radiology/Procedures: Radiology/Procedures: [] Course & Med Decision Making: Course & Med Decision Making Pertinent Labs and Imaging studies reviewed. (See chart for details) [] Dragon Disclaimer: Neiron Disclaimer: This electronic medical record was generated, in whole or in part, using a voice recognition dictation system. Departure Departure Impression: Primary Impression: Juvenile rheumatoid arthritis Additional Impressions: Spasm of both piriformis muscles Low back pain with sciatica Qualified Codes: M54.42 - Lumbago with sciatica, left side; M54.41 - Lumbago with sciatica, right side Disposition: 01 HOME, SELF-CARE Condition: STABLE Referrals: JAKE ROACH MD (PCP) Patient Instructions: Back Pain, Adult, Sacroiliac Joint Dysfunction, Sciatica Scripts Orphenadrine Citrate (ORPHENADRINE CITRATE) 100 Mg Tablet.er 1 TAB PO BID PRN for MUSCLE SPASMS, #14 TAB Prov: ANDI CARPENTER Jr. DO 12/16/19 Indomethacin (INDOMETHACIN) 50 Mg Capsule 1 CAP PO TID PRN for PAIN for 10 Days, #30 CAP 0 Refills with food Prov: ANDI CARPENTER Jr. DO 12/16/19 ANDI CARPENTER Jr. DO December 16, 2019 01:23
[2019-12-16 01:40] VITALS: BP 119/74
== END 2019-12-16 01:45 | disposition home or self-care (01) ==
LOC: ER 23:13
DX: M08.00 Unspecified juvenile rheumatoid arthritis of unspecified site (principal); M54.41 Lumbago with sciatica, right side; M54.42 Lumbago with sciatica, left side; M62.838 Other muscle spasm; F17.200 Nicotine dependence, unspecified, uncomplicated; Z88.1 Allergy status to other antibiotic agents; Z91.041 Radiographic dye allergy status; Z88.8 Allergy status to other drugs, medicaments and biological substances
CPT/HCPCS: 96372; 96374; 99284; J1100; J1170; J2360

== ENCOUNTER 2019-12-18 17:35 | Emergency (ER) | payer OTHER ==
[~2019-12-18] VITALS: Ht 162.6 cm; Wt 65.0 kg
[~2019-12-18 17:35] MED LIST changes: +INDO50CA15 PO; +ORPH100T PO
--- NOTE | 2019-12-18 19:51 | PHYS DOC ---
Past Medical History Past Medical History: Arthritis, Endometriosis Additional Past Medical Histor: RA (MARCELA BARRETO APRN) Past Surgical History: Tonsillectomy Additional Past Surgical Histo: Knee surgery 12/01 (MARCELA BARRETO APRN) Smoking Status: Current Every Day Smoker Alcohol Use: None Drug Use: None (MARCELA BARRETO APRN) General Adult EDM: Chief Complaint: BACK PAIN - NO INJURY HPI: HPI: Patient is a 24 year old female who presents with patient states over the weekend she had having right lower back pain that is sharp and shooting down the her buttock. She states it hurts to go from sitting to standing and to walk. She rates her pain an 8 out of 10. She states that she has rheumatoid arthritis and this is not feel like her rheumatoid arthritis acting up. She denies dysuria symptoms, back injury, heavy lifting. (MARCELA BARRETO APRN) Review of Systems: Review of Systems: Musculoskeletal: low back pain or joint pain. [] (MARCELA BARRETO APRN) Heart Score: Risk Factors: Risk Factors: DM, Current or recent (<one month) smoker, HTN, HLP, family history of CAD, obesity. Risk Scores: Score 0 - 3: 2.5% MACE over next 6 weeks - Discharge Home Score 4 - 6: 20.3% MACE over next 6 weeks - Admit for Clinical Observation Score 7 - 10: 72.7% MACE over next 6 weeks - Early Invasive Strategies (MARCELA BARRETO APRN) Allergies: Allergies: Allergies Coded Allergies Type Severity Reaction Last Updated Verified infliximab Allergy Intermediate UN 12/18/19 Yes rituximab Allergy Intermediate UN 12/18/19 Yes vancomycin Allergy Intermediate Hives 09/12/17 Yes I S O L A T I O N *CONTACT* Allergy Unknown UN 12/18/19 Yes (MARCELA BARRETO GUN SYNCHRONIZER) Physical Exam: PE: Constitutional: Well developed, well nourished, no acute distress, non-toxic appearance. [] HENT: Normocephalic, atraumatic, bilateral external ears normal, oropharynx moist, no oral exudates, nose normal. [] Eyes: PERRLA, EOMI, conjunctiva normal, no discharge. [] Neck: Normal range of motion, no tenderness, supple, no stridor. [] Cardiovascular:Heart rate regular rhythm, no murmur [] Lungs & Thorax: Bilateral breath sounds clear to auscultation [] Abdomen: Bowel sounds normal, soft, no tenderness, no masses, no pulsatile masses. [] Skin: Warm, dry, no erythema, no rash. [] Back: Right Low back tenderness, no CVA tenderness. [] Extremities: No tenderness, no cyanosis, no clubbing, ROM intact, no edema. [] Neurologic: Alert and oriented X 3, normal motor function, normal sensory function, no focal deficits noted. [] Psychologic: Affect normal, judgement normal, mood normal. [] (MARCELA BARRETO GUN SYNCHRONIZER) Current Patient Data: Labs: Laboratory Tests Test 12/18/19 19:44 POC Urine HCG, Qualitative Hcg negative (Negative) Vital Signs: Vital Signs Date Time Temp Pulse Resp B/P (MAP) Pulse Ox O2 Delivery O2 Flow Rate FiO2 12/18/19 18:55 97.4 58 18 98 Room Air 97.4 (MARCELA BARRETO APRN) EKG: EKG: [] (MARCELA BARRETO APRN) Radiology/Procedures: Radiology/Procedures: [] (MARCELA BARRETO APRN) Course & Med Decision Making: Course & Med Decision Making Pertinent Labs and Imaging studies reviewed. (See chart for details) Alert and oriented. Speaks in full clear sentences. Ambulatory with a steady gait. No CVA tenderness. There is slight tenderness to palpation to the right lower back. No bruising or deformity felt. Afebrile. Patient denies fever, abdominal pain, nausea, vomiting. No saddle paresthesia. [] (MARCELA BARRETO GUN SYNCHRONIZER) Dragon Disclaimer: Dragon Disclaimer: This electronic medical record was generated, in whole or in part, using a voice recognition dictation system. (MARCELA BARRETO GUN SYNCHRONIZER) Departure Departure Impression: Primary Impression: UTI (urinary tract infection) Qualified Codes: N39.0 - Urinary tract infection, site not specified Additional Impression: Low back pain Qualified Codes: M54.41 - Lumbago with sciatica, right side Disposition: 01 HOME, SELF-CARE Condition: STABLE Referrals: JAKE ROACH MD (PCP) Patient Instructions: Back Pain, Adult, Sciatica with Rehab-SportsMed, Urinary Tract Infection Additional Instructions: Follow-up with your primary care provider or your rheumatoid doctor. Take medications as prescribed and with food. Scripts Cephalexin (KEFLEX) 500 Mg Capsule 1 CAP PO BID for 7 Days, #14 CAP 0 Refills Prov: MARCELA BARRETO APRN 12/18/19 Cyclobenzaprine Hcl (CYCLOBENZAPRINE HCL) 5 Mg Tablet 1 TAB PO TID, #10 TAB Prov: MARCELA BARRETO APRN 12/18/19 Oxycodone/Apap 5-325 (PERCOCET 5-325 MG TABLET ) 1 Each Tablet 1 TAB PO PRN TID PRN for PAIN, #10 TAB 0 Refills Prov: MARCELA BARRETO APRN 12/18/19 Attending Signature Attending Signature I have reviewed the PA/EYEGLASS FRAMES POLISHER's note and plan of care. I was available for consultation as needed during the patient's visit in the emergency department. I agree with the clinical impression, plan, and disposition. (REANNA PANDA DO) MARCELA BARRETO APRN December 18, 2019 19:51 REANNA PANDA DO December 19, 2019 05:15
[2019-12-18 19:53] LABS: BILIRUBIN,URINE SMALL (NEG); CLARITY,URINE CLOUDY; COLOR,URINE YELLOW; NITRITE,URINE NEGATIVE (NEG); PROTEIN,URINE NEGATIVE (NEG-TRACE)
[2019-12-18 19:59] LABS: SQUAMOUS EPITHELIAL CELL,UR MOD /LPF
[2019-12-18 20:00] LABS: BACTERIA,URINE MANY /HPF (0-FEW); RBC,URINE 0 /HPF (0-2)
[2019-12-18] MEDS ORDERED: CEPH-264 PO (20:06)
[2019-12-18] MEDS ORDERED: CYCL5TAB PO (20:06)
[2019-12-18] MEDS ORDERED: OXYC1TAB15 PO (20:06)
[2019-12-18 20:13] VITALS: BP 113/79
== END 2019-12-18 20:14 | disposition home or self-care (01) ==
LOC: ER 17:35
DX: N39.0 Urinary tract infection, site not specified (principal); M54.41 Lumbago with sciatica, right side; M19.90 Unspecified osteoarthritis, unspecified site; F17.200 Nicotine dependence, unspecified, uncomplicated; Z90.89 Acquired absence of other organs; Z98.890 Other specified postprocedural states; Z88.1 Allergy status to other antibiotic agents; Z88.8 Allergy status to other drugs, medicaments and biological substances
CPT/HCPCS: 81001; 81025; 87086; 99283

== ENCOUNTER 2019-12-31 18:39 | Emergency (ER) | payer OTHER ==
[~2019-12-31] VITALS: Ht 160 cm; Wt 66.8 kg
[~2019-12-31 18:39] MED LIST changes: +CEPH-264 PO; +CYCL5TAB PO
[2019-12-31 18:47] VITALS: BP 129/90
[2019-12-31] MEDS ORDERED: MORPHINE SULFATE 2 MG/ML VIAL. IM ONE (19:30)
[2019-12-31] MEDS ORDERED: LIDOCAINE (700MG/PATCH) PATCH. TD ONE (19:30)
--- NOTE | 2019-12-31 19:32 | PHYS DOC ---
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 Patient denies any trauma. De nies any loss of bowel/bladder function. She is requesting to be admitted so that she can be seen by a neurosurgeon and be given her choices including possible surgery that she believes she needs right now. She is also requesting a back brace which she states her orthopedic doctor recommended but is not able to write a prescription for 1. Her PCP is not able to write a prescription for a back brace either. She states she follows up with her own PCP who also has her on Valium and oxycodone. (LÁZARO CASTANEDA APRN) Review of Systems: Review of Systems: Constitutional: Denies fever or chills. [] GI: Denies abdominal pain, nausea, vomiting, bloody stools or diarrhea. [] : Denies dysuria. [] Musculoskeletal: Reports low back pain. Integument: Denies rash. [] Neurologic: Denies headache, focal weakness or sensory changes. [] Psychiatric: Denies depression or anxiety. [] (LÁZARO CASTANEDA APRN) Heart Score: Risk Factors: Risk Factors: DM, Current or recent (<one month) smoker, HTN, HLP, family history of CAD, obesity. Risk Scores: Score 0 - 3: 2.5% MACE over next 6 weeks - Discharge Home Score 4 - 6: 20.3% MACE over next 6 weeks - Admit for Clinical Observation Score 7 - 10: 72.7% MACE over next 6 weeks - Early Invasive Strategies (LÁZARO CASTANEDA APRN) Allergies: Allergies: Allergies Coded Allergies Type Severity Reaction Last Updated Verified infliximab Allergy Intermediate UN 12/18/19 Yes rituximab Allergy Intermediate UN 12/18/19 Yes vancomycin Allergy Intermediate Hives 09/12/17 Yes I S O L A T I O N *CONTACT* Allergy Unknown UN 12/18/19 Yes (LÁZARO CASTANEDA APRN) Physical Exam: PE: Constitutional: Well developed, well nourished, no acute distress, non-toxic appearance. [] Abdomen: Bowel sounds normal, soft, no tenderness, no masses, no pulsatile masses. [] Skin: Warm, dry, no erythema, no rash. [] Back: No obvious tenderness, no CVA tenderness. [] Extremities: No tenderness, no cyanosis, no clubbing, ROM intact, no edema. [] Neurologic: Alert and oriented X 3, normal motor function, normal sensory funct ion, no focal deficits noted. [] Psychologic: Flat affect, depressed mood [] (LÁZARO CASTANEDA APRN) Current Patient Data: Vital Signs: Vital Signs Date Time Temp Pulse Resp B/P (MAP) Pulse Ox O2 Delivery O2 Flow Rate FiO2 12/31/19 18:47 98.8 98 14 129/90 (103) 97 Room Air 98.8 (LÁZARO CASTANEDA APRN) EKG: EKG: [] (LÁZARO CASTANEDA APRN) Radiology/Procedures: Radiology/Procedures: [] (LÁZARO CASTANEDA APRN) Course & Med Decision Making: Course & Med Decision Making Pertinent Labs and Imaging studies reviewed. (See chart for details) This is a 24-year-old female patient presenting to the ED today complaining of chronic low back pain and requesting to be admitted so that she can see a neurosurgeon, she states her insurance [employer] will not allow her to see a neurosurgeon. She is also requesting a lumbar brace. I spoke to patient for lengthy. Of time. Informed that she does not have any cauda equina syndrome symptoms to indicate she needs to be emergently admitted. She started asking if we can do an MRI of her lumbar spine. Informed that she does not meet criteria for emergency lumbar spine MRI. Recommended she follows up with a neurosurgeon which was provided, the pain clinic doctor. She was given prescription for Lidoderm patches. (LÁZARO CASTANEDA APRN) Luis Manuel Disclaimer: Luis Manuel Disclaimer: This electronic medical record was generated, in whole or in part, using a voice recognition dictation system. (LÁZARO CASTANEDA APRN) Departure Departure Impression: Primary Impression: Chronic low back pain Qualified Codes: M54.5 - Low back pain; G89.29 - Other chronic pain Disposition: HOME, SELF-CARE Condition: STABLE Referrals: SHASTA GUERRERO MD (PCP) follow up in 1 week BURAK MONROE MD follow up as soon as you can AZEB BARNHART MD follow up in 1 week for back pain Patient Instructions: Chronic Back Pain Additional Instructions: You were given recommendation to follow-up with the provided neurosurgeon as well as the provided pain clinic doctor for management of your back pain. We recommend getting back brace. Attending Signature Attending Signature I have reviewed the PA/TEACHER LIP READING's note and plan of care. I was available for consultation as needed during the patient's visit in the emergency department. I agree with the clinical impression, plan, and disposition. (REANNA PANDA DO) LÁZARO CASTANEDA APRN December 31, 2019 19:32 REANNA PANDA DO January 01, 2020 08:15
== END 2019-12-31 19:50 | disposition home or self-care (01) ==
LOC: ER 18:39
DX: G89.29 Other chronic pain (principal); M54.5 Low back pain; R20.2 Paresthesia of skin; M06.9 Rheumatoid arthritis, unspecified; F17.200 Nicotine dependence, unspecified, uncomplicated; Z88.1 Allergy status to other antibiotic agents; Z91.041 Radiographic dye allergy status; Z88.8 Allergy status to other drugs, medicaments and biological substances
CPT/HCPCS: 99284; J2270

== ENCOUNTER 2020-02-04 01:19 | Inpatient (IN) | payer OTHER ==
[~2020-02-04] VITALS: Ht 160 cm; Wt 70.2 kg
[2020-02-04] VITALS (7 sets, daily range): BP systolic 94–140; BP diastolic 64–88
[2020-02-04] MEDS ORDERED: ONDANSETRON PF 4 MG/2 ML VIAL. IVP PRN (01:45)
[2020-02-04] MEDS ORDERED: ACETAMINOPHEN 325 MG TABLET. PO PRN (01:45)
[2020-02-04] MEDS ORDERED: NICOTINE 21MG PATCH. TD PRN (01:45)
[2020-02-04 04:25] LABS: BASO # 0.1 x10^3/uL (0.0-0.2); BASO % 1 % (0-3); EOS # 0.1 x10^3/uL (0.0-0.7); EOS % 1 % (0-3); HEMATOCRIT 46.5 % (36.0-47.0); LYMPH % 29 % (24-48); MEAN CORPUSCULAR HEMOGLOBIN 32 pg (25-35); MEAN CORPUSCULAR HGB CONC 34 g/dL (31-37); MEAN CORPUSCULAR VOLUME 93 fL (79-100); MONO # 1.2 x10^3/uL (0.0-1.1); MONO % 7 % (0-9); NEUT # 10.7 x10^3/uL (1.8-7.7); NEUT % 63 % (31-73); PLATELET COUNT 347 x10^3/uL (140-400); RED BLOOD COUNT 5.02 x10^6/uL (3.50-5.40); RED CELL DISTRIBUTION WIDTH 14.5 % (11.5-14.5); WHITE BLOOD COUNT 17.1 x10^3/uL (4.0-11.0)
[2020-02-04 04:41] LABS: ALBUMIN 3.5 g/dL (3.4-5.0); ALBUMIN/GLOBULIN RATIO 1.1 (1.0-1.7); CALCIUM 8.3 mg/dL (8.5-10.1); GFR 67.6; MAGNESIUM 2.7 mg/dL (1.8-2.4); TOTAL BILIRUBIN 0.6 mg/dL (0.2-1.0); TOTAL PROTEIN 6.6 g/dL (6.4-8.2)
[2020-02-04 05:20] LABS: % LYMPHS 31 % (24-48); % MONOS 5 % (0-10); % SEGS 64 % (35-66); PLT ESTIMATE ADEQUATE (ADEQUATE)
[2020-02-04] MEDS: levETIRAcetam 500 MG TABLET PO SCH ×2 (08:43→20:36)
[2020-02-04] MEDS ORDERED: LORA-434 PO (09:27)
[2020-02-04] MEDS: fentaNYL PF VIAL 100 MCG/2 ML VIAL IVP PRN ×3 (09:39→17:52)
[2020-02-04] MEDS ORDERED: LIDO700A21 TP (09:50)
--- NOTE | 2020-02-04 09:51 | NUR ---
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
--- NOTE | 2020-02-04 11:30 | PDOC2 ---
NEUROLOGY CONSULT Date of Admission Date of Admission DATE: 02/04/20 TIME: 11:27 Reason for Consult Reason for Consult: Seizures Referring Physician Referring Physician: Dr. Ramos Source Source: Chart review, Patient History of Present Illness History of Present Illness The patient is a 24-year-old right-handed female who had 3 seizures yesterday. At home she had hyperventilation, feeling of anxiety, and then shook all over. She had 2 more seizures, one in the ambulance, and one at the emergency department.There is no description of the seizure in the physician note. Nursing note: 2021, Seizure Onset Location * All Extremities Seizure Type * Tonic Clonic ([place]) Additional Information on Seizure Type * eyes rolled back with full body convulsions. Eye Deviation * Up Head Deviation * Left State of Conciousness * Unresponsive Seizure Duration * 1-3 min Seizure Resulting In * Loss of Memory * Loss of Consciousness Seizure Skin Color * Red Postictal * ended at 2022 Seizure Precautions * In Place Additional Seizure Precautions * suction at bedside and bed rails are padded * The patient denies any prior history of stroke, seizure, head injury, or family history of seizures. There is no new medication. She has long-standing depression and anxiety. She also has rheumatoid arthritis. She says that I saw her in the past when she had a dental infection, but I do not have a record of this. Past Medical History Pulmonary: Asthma ( exercise-induced) GI: GERD Heme/Onc: Anemia NOS Psych: Anxiety, Bipolar, Depression Musculoskeletal: low back pain ( multiple compression fractures) Rheumatologic: Rheumatoid arthritis Renal/: Other ( endometriosis) Past Surgical History Past Surgical History: Tonsillectomy, Other (Dental extractions) Family History Family History: No pertinent hx ( negative for seizures) Social History Social History , no alcohol or tobacco, no street drugs Current Medications Current Medications Current Medications Nicotine (Nicoderm Cq 21mg) 1 patch PRN DAILY PRN TD SMOKING CESSATION; Start 02/04/20 at 01:45 Ondansetron HCl (Zofran) 4 mg PRN Q4HRS PRN IVP NAUSEA/VOMITING 1ST CHOICE; Start 02/04/20 at 01:45 Acetaminophen (Tylenol) 650 mg PRN Q4HRS PRN PO MILD PAIN / TEMP > 100.3'F; Start 02/04/20 at 01:45 Fentanyl Citrate (Fentanyl 2ml Vial) 50 mcg PRN Q3HRS PRN IVP SEVERE PAIN 7-10 Last administered on 02/04/20at 09:39; Start 02/04/20 at 01:45 Levetiracetam (Keppra) 500 mg BID PO Last administered on 02/04/20at 08:43; Start 02/04/20 at 09:00 Active Scripts Active Oxycodone Hcl Immed.release (Oxycodone Hcl) 10 Mg Tablet 10 Mg PO PRN Q6HRS PRN Reported Lidocaine PATCH (Lidocaine) 1 Each Adh..patch 1 Each TP DAILY REMOVE AFTER 12 HOURS Ativan (Lorazepam) 1 Mg Tablet 1 Mg PO PRN TID PRN Prednisone 20 Mg Tablet 2 Tab PO DAILY Allergies Allergies: Coded Allergies: infliximab (Verified Allergy, Intermediate, 02/04/20) rituximab (Verified Allergy, Intermediate, 02/04/20) vancomycin (Verified Allergy, Intermediate, Hives, 09/12/17) Patient developed hives, mild shortness of breathe that resolved along with lower abdominal pain. Patient also stated she felt burning sensation/warmth to her face and scalp. I S O L A T I O N *CONTACT* (Verified Allergy, Unknown, UN, 12/18/19) CRE ROS Review of System Negative for fever, chills, weight loss, shortness of breath, chest pain, indigestion, hematochezia, melena, and dysuria. Full 14-point review of systems is negative. Physical Exam Physical Examination General: Well-developed, well-nourished white female in no acute distress HEENT: Normocephalic andatraumatic. Temporal arteriespulsatile and nontender. Neck: Supple without bruit, no meningismus Musculoskeletal: Stability:see neurologic. Gait exam:see neurologic. Tone:see neurolo gic.Strength:see neurologic. Neurological: Mental Status:intact, orientation, memory, attention span/concentration, language, fund of knowledge normal. Cranial Nerves:Pupils equal and reactive to light, extraocular movements areintact, visual veronica are full to confrontation. Facial sensation is normal. There is no facial asymmetry. Vestibulo-ocular reflex is intact. Palate elevates and tongue protrudes in midline. All other cranial related problems are negative except as mentioned before.Reflexes:2+ and symmetric with flexor plantar responses. Motor:5/5 strength with normal tone and bulk. Coordination:Finger-nose finger and [id number]-[id number] testing are normal. Rapid alternating movements and fine finger movements are intact. Gait:Normal, including tandem. Sensory:Normal pinprick, vibration, light touch, proprioception. Vitals VITALS Vital Signs Date Time Temp Pulse Resp B/P (MAP) Pulse Ox O2 Delivery O2 Flow Rate FiO2 02/04/20 10:44 97.8 96 18 94/66 (75) 98 Room Air 97.8 Labs Labs Laboratory Tests Test 02/04/20 03:35 White Blood Count 17.1 x10^3/uL (4.0-11.0) Red Blood Count 5.02 x10^6/uL (3.50-5.40) Hemoglobin 16.0 g/dL (12.0-15.5) Hematocrit 46.5 % (36.0-47.0) Mean Corpuscular Volume 93 fL (79-100) Mean Corpuscular Hemoglobin 32 pg (25-35) Mean Corpuscular Hemoglobin Concent 34 g/dL (31-37) Red Cell Distribution Width 14.5 % (11.5-14.5) Platelet Count 347 x10^3/uL (140-400) Neutrophils (%) (Auto) 63 % (31-73) Lymphocytes (%) (Auto) 29 % (24-48) Monocytes (%) (Auto) 7 % (0-9) Eosinophils (%) (Auto) 1 % (0-3) Basophils (%) (Auto) 1 % (0-3) Neutrophils # (Auto) 10.7 x10^3/uL (1.8-7.7) Lymphocytes # (Auto) 5.0 x10^3/uL (1.0-4.8) Monocytes # (Auto) 1.2 x10^3/uL (0.0-1.1) Eosinophils # (Auto) 0.1 x10^3/uL (0.0-0.7) Basophils # (Auto) 0.1 x10^3/uL (0.0-0.2) Segmented Neutrophils % 64 % (35-66) Lymphocytes % 31 % (24-48) Monocytes % 5 % (0-10) Platelet Estimate Adequate (ADEQUATE) Sodium Level 139 mmol/L (136-145) Potassium Level 3.0 mmol/L (3.5-5.1) Chloride Level 103 mmol/L (98-107) Carbon Dioxide Level 26 mmol/L (21-32) Anion Gap 10 (6-14) Blood Urea Nitrogen 11 mg/dL (7-20) Creatinine 1.0 mg/dL (0.6-1.0) Estimated GFR (Cockcroft-Gault) 67.6 BUN/Creatinine Ratio 11 (6-20) Glucose Level 75 mg/dL (70-99) Calcium Level 8.3 mg/dL (8.5-10.1) Magnesium Level 2.7 mg/dL (1.8-2.4) Total Bilirubin 0.6 mg/dL (0.2-1.0) Aspartate Amino Transf (AST/SGOT) 11 U/L (15-37) Alanine Aminotransferase (ALT/SGPT) 19 U/L (14-59) Alkaline Phosphatase 62 U/L (46-116) Total Protein 6.6 g/dL (6.4-8.2) Albumin 3.5 g/dL (3.4-5.0) Albumin/Globulin Ratio 1.1 (1.0-1.7) Laboratory Tests Test 02/04/20 03:35 White Blood Count 17.1 x10^3/uL (4.0-11.0) Red Blood Count 5.02 x10^6/uL (3.50-5.40) Hemoglobin 16.0 g/dL (12.0-15.5) Hematocrit 46.5 % (36.0-47.0) Mean Corpuscular Volume 93 fL (79-100) Mean Corpuscular Hemoglobin 32 pg (25-35) Mean Corpuscular Hemoglobin Concent 34 g/dL (31-37) Red Cell Distribution Width 14.5 % (11.5-14.5) Platelet Count 347 x10^3/uL (140-400) Neutrophils (%) (Auto) 63 % (31-73) Lymphocytes (%) (Auto) 29 % (24-48) Monocytes (%) (Auto) 7 % (0-9) Eosinophils (%) (Auto) 1 % (0-3) Basophils (%) (Auto) 1 % (0-3) Neutrophils # (Auto) 10.7 x10^3/uL (1.8-7.7) Lymphocytes # (Auto) 5.0 x10^3/uL (1.0-4.8) Monocytes # (Auto) 1.2 x10^3/uL (0.0-1.1) Eosinophils # (Auto) 0.1 x10^3/uL (0.0-0.7) Basophils # (Auto) 0.1 x10^3/uL (0.0-0.2) Segmented Neutrophils % 64 % (35-66) Lymphocytes % 31 % (24-48) Monocytes % 5 % (0-10) Platelet Estimate Adequate (ADEQUATE) Sodium Level 139 mmol/L (136-145) Potassium Level 3.0 mmol/L (3.5-5.1) Chloride Level 103 mmol/L (98-107) Carbon Dioxide Level 26 mmol/L (21-32) Anion Gap 10 (6-14) Blood Urea Nitrogen 11 mg/dL (7-20) Creatinine 1.0 mg/dL (0.6-1.0) Estimated GFR (Cockcroft-Gault) 67.6 BUN/Creatinine Ratio 11 (6-20) Glucose Level 75 mg/dL (70-99) Calcium Level 8.3 mg/dL (8.5-10.1) Magnesium Level 2.7 mg/dL (1.8-2.4) Total Bilirubin 0.6 mg/dL (0.2-1.0) Aspartate Amino Transf (AST/SGOT) 11 U/L (15-37) Alanine Aminotransferase (ALT/SGPT) 19 U/L (14-59) Alkaline Phosphatase 62 U/L (46-116) Total Protein 6.6 g/dL (6.4-8.2) Albumin 3.5 g/dL (3.4-5.0) Albumin/Globulin Ratio 1.1 (1.0-1.7) Images Images CT HEAD WO [facility] , [facility] Date: 02/03/2020 6:49 PM Clinical Indication: Reason: seizure; AMS / Spl. Instructions: / History: Comparison: None. Technique: 5 mm axial tomographic images were obtained of the head without contrast. These were viewed on brain and bone windows. One or more of the following dose reduction techniques were utilized: Automated exposure control (AEC), Adjustment of mA and/or kV according to patient size, Use of iterative reconstruction technique such as ASiR, CT scan done according to ALARA and image gently/image wisely Findings: The brain parenchyma is normal in attenuation. No intra- or extra-axial mass or fluid collection. No acute hemorrhage. The ventricles are normal in size, shape, and morphology. The mcnulty-white matter junction is normal. The subarachnoid cisterns are patent. The visualized paranasal sinuses are normal. The visualized portions of the orbits and globes are normal. The mastoid air cells are clear. The picker / packer topogram shows no lytic lesion or fracture. Impression: No acute intracranial process. Assessment/Plan Assessment/Plan Impression: New onset of seizure, keeping in mind psychogenic nonepileptic seizures given her description of the seizure at home. Psychiatric disease Rheumatologic disease Under investigation for COVID. Recommendations: EEG and MRI if cleared from COVID Levetiracetam If EEG and MRI cannot be done because of COVID, she is probably stable to go home and we can do these tests as an outpatient when COVID cleared. I discussed seizure precautions including the fact that she cannot drive until 6 months without a seizure. Thank you for letting me help with the patient's care. DOMINGO CARL MD Feb 04, 2020 11:30
--- NOTE | 2020-02-04 13:25 | HP ---
ADMIT DATE: 02/04/2020 HISTORY OF PRESENT ILLNESS: The patient is a 24-year-old female patient who apparently presented to the emergency room of [facility] with recurrent episode of tonic-clonic seizures. The EMS reported activity was described as generalized tonic-clonic type seizures. The medics were not certain as to the duration of seizure-like activity. There is no history of tongue biting or bowel or bladder incontinence; however, the patient was postictal up until arrival and her oxygen saturation was about 93%. The patient does indicate that she has had cough for the last few days and has had some intermittent shortness of breath. Her temperature was 99.7. On arrival, the patient does complain of back pain and she rates it as 8/10 and she takes prednisone and oxycodone for rheumatoid arthritis. She apparently has seizures 3 times. The patient was investigated in the emergency room and has had a CT scan of the head, which showed no acute intracranial process. She was treated with Ativan, received Keppra IV and was transferred to [facility] for further evaluation and treatment. PAST MEDICAL HISTORY: Significant for juvenile rheumatoid arthritis, on disease-modifying agents. 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 PAST SURGICAL HISTORY: Significant for tonsillectomy and D and C. ALLERGIES: SHE IS ALLERGIC TO RITUXIMAB AND INFLIXIMAB. SHE IS ALSO APPARENTLY ALLERGIC TO VANCOMYCIN. FAMILY HISTORY: Unremarkable. She has one brother who is younger and healthy. She does not know her biological father. Her mother is alive at age of 43 and apparently has had head fracture. SOCIAL HISTORY: She is , has a 7-year-old daughter. She smokes occasionally. Does not drink alcohol or use any recreational drugs. 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 MEDICATIONS: She is currently on following medications: She is on methotrexate 2.5 mg weekly, Celebrex 200 mg daily, acetaminophen with codeine 1 tablet every 4-6 hours, prednisone 20 mg daily and Orencia 250 mg IV. PHYSICAL EXAMINATION: GENERAL: On arrival to the emergency room, she apparently was postictal, but there was no pallor, jaundice, cyanosis or thyromegaly. No jugular venous distention. No limb edema. VITAL SIGNS: Her heart rate was 105, temperature was 98.8, respiratory rate 20, blood pressure 127/87, temperature was 97 on room air. HEAD, EYES, EARS, NOSE AND THROAT: Showed normocephalic, atraumatic. NECK: Supple. HEART: Showed normal first and second heart sounds. No gallop or murmur. CHEST: Clear to auscultation. No crepitation or rhonchi. ABDOMEN: Distended, soft, nontender. NEUROLOGIC: She apparently was alert, oriented with no focal deficit. EXTREMITIES: Showed no clubbing, cyanosis or edema. IMAGING: CT scan of the head showed that the brain parenchyma is normal in attenuation. No intra or extraaxial mass or fluid collection, no acute hemorrhage. Ventricles are normal in size, shape and morphology. The mcnulty white matter junction is normal. The subarachnoid cisterns are patent. The visualized paranasal sinuses are normal. Visualized portion of the orbits and globes are normal. The mastoid cells are clear. Her chest x-ray basically showed no acute cardiopulmonary disease. Her lab work showed her white cell count was 16,100, hemoglobin 16.7, hematocrit 49.8, MCV 95, and platelet count of 126,000. Her D-dimer was 0.41 and toxic screen was essentially negative. Her lactic acid was 6.1. Her serum sodium was 139, potassium 3.7, chloride 103, bicarbonate 19, anion gap of 17, BUN 11, creatinine 1.2, estimated GFR was 54 mL per minute, glucose 100, calcium was 9.4. Total bilirubin, AST, ALT, alkaline phosphatase were normal. Total protein 7.4, albumin was 3.3. ASSESSMENT AND PLAN: The patient was transferred to [facility]. We will continue with Keppra 500 mg twice a day together with fentanyl, Tylenol, nicotine patch. We did consult Dr. Guzman and apparently she is waiting for the COVID-19 test and if it is negative, she might have her EEG and MRI. JULIA MUELLER MD DR: MAKENNA/dionisio JOB#: [id number] / [id number]
[2020-02-04] MEDS ORDERED: LORazepam 1 MG TABLET PO PRN (14:00)
[2020-02-04] MEDS: oxyCODONE IR 5 MG TABLET PO PRN ×2 (14:46→20:37)
[2020-02-04] MEDS: LIDOCAINE (700MG/PATCH) PATCH. TP SCH (14:46)
[2020-02-04] MEDS: predniSONE 20 MG TABLET PO SCH (14:47)
--- NOTE | 2020-02-04 15:27 | NUR ---
SW following. Reviewed chart and spoke with RN. RN stated no SW needs identified. COVID results pending. Pt from home and on room air.
[2020-02-05] MEDS: oxyCODONE IR 5 MG TABLET PO PRN ×2 (02:52→08:21)
[2020-02-05 03:01] VITALS: BP 99/69
[2020-02-05 07:00] VITALS: BP 114/79
[2020-02-05] MEDS: levETIRAcetam 500 MG TABLET PO SCH (08:19)
[2020-02-05] MEDS: predniSONE 20 MG TABLET PO SCH (08:19)
[2020-02-05] MEDS: LIDOCAINE (700MG/PATCH) PATCH. TP SCH (08:20)
[2020-02-05 10:42] VITALS: BP 117/77
--- NOTE | 2020-02-05 10:55 | PDOC ---
PROGRESS NOTES Assessment New onset of seizure, keeping in mind psychogenic nonepileptic seizures given her description of the seizure at home. Psychiatric disease Rheumatologic disease Under investigation for COVID. Plan EEG and MRI if cleared from COVID, COVID result still not back Therefore suggest discharge and I can arrange these test as outpatient Levetiracetam Follow-up with me in 6 weeks Subjective No complaints, no further seizures Objective Vital Signs Date Time Temp Pulse Resp B/P (MAP) Pulse Ox O2 Delivery O2 Flow Rate FiO2 02/05/20 10:42 97.8 74 18 117/77 (90) 97 Room Air 97.8 Intake and Output0 02/05/20 07:00 Intake Total 1880 ml Balance 1880 ml Intake Oral 1880 ml # Voids 5 # Bowel Movements 1 PHYSICAL EXAM Alert. Oriented to time, place and person. PERRL. EOMI. CN: no focal findings. Muscle tone: normal. Muscle strength: 5/5 DTR: 2+ Plantar reflex: flexor Gait: not examined in bed. Sensory exam: no abnormal findings. No cerebellar signs elicited. Review of Relevant I have reviewed the following items jona (where applicable) has been applied. Labs Laboratory Tests Test 02/04/20 03:35 White Blood Count 17.1 x10^3/uL (4.0-11.0) Red Blood Count 5.02 x10^6/uL (3.50-5.40) Hemoglobin 16.0 g/dL (12.0-15.5) Hematocrit 46.5 % (36.0-47.0) Mean Corpuscular Volume 93 fL (79-100) Mean Corpuscular Hemoglobin 32 pg (25-35) Mean Corpuscular Hemoglobin Concent 34 g/dL (31-37) Red Cell Distribution Width 14.5 % (11.5-14.5) Platelet Count 347 x10^3/uL (140-400) Neutrophils (%) (Auto) 63 % (31-73) Lymphocytes (%) (Auto) 29 % (24-48) Monocytes (%) (Auto) 7 % (0-9) Eosinophils (%) (Auto) 1 % (0-3) Basophils (%) (Auto) 1 % (0-3) Neutrophils # (Auto) 10.7 x10^3/uL (1.8-7.7) Lymphocytes # (Auto) 5.0 x10^3/uL (1.0-4.8) Monocytes # (Auto) 1.2 x10^3/uL (0.0-1.1) Eosinophils # (Auto) 0.1 x10^3/uL (0.0-0.7) Basophils # (Auto) 0.1 x10^3/uL (0.0-0.2) Segmented Neutrophils % 64 % (35-66) Lymphocytes % 31 % (24-48) Monocytes % 5 % (0-10) Platelet Estimate Adequate (ADEQUATE) Sodium Level 139 mmol/L (136-145) Potassium Level 3.0 mmol/L (3.5-5.1) Chloride Level 103 mmol/L (98-107) Carbon Dioxide Level 26 mmol/L (21-32) Anion Gap 10 (6-14) Blood Urea Nitrogen 11 mg/dL (7-20) Creatinine 1.0 mg/dL (0.6-1.0) Estimated GFR (Cockcroft-Gault) 67.6 BUN/Creatinine Ratio 11 (6-20) Glucose Level 75 mg/dL (70-99) Calcium Level 8.3 mg/dL (8.5-10.1) Magnesium Level 2.7 mg/dL (1.8-2.4) Total Bilirubin 0.6 mg/dL (0.2-1.0) Aspartate Amino Transf (AST/SGOT) 11 U/L (15-37) Alanine Aminotransferase (ALT/SGPT) 19 U/L (14-59) Alkaline Phosphatase 62 U/L (46-116) Total Protein 6.6 g/dL (6.4-8.2) Albumin 3.5 g/dL (3.4-5.0) Albumin/Globulin Ratio 1.1 (1.0-1.7) Medications Current Medications Nicotine (Nicoderm Cq 21mg) 1 patch PRN DAILY PRN TD SMOKING CESSATION Last ad ministered on 02/04/20at 20:37; Start 02/04/20 at 01:45 Ondansetron HCl (Zofran) 4 mg PRN Q4HRS PRN IVP NAUSEA/VOMITING 1ST CHOICE; Start 02/04/20 at 01:45 Acetaminophen (Tylenol) 650 mg PRN Q4HRS PRN PO MILD PAIN / TEMP > 100.3'F; Start 02/04/20 at 01:45 Fentanyl Citrate (Fentanyl 2ml Vial) 50 mcg PRN Q3HRS PRN IVP SEVERE PAIN 7-10 Last administered on 02/04/20at 17:52; Start 02/04/20 at 01:45 Levetiracetam (Keppra) 500 mg BID PO Last administered on 02/05/20at 08:19; Start 02/04/20 at 09:00 Lidocaine (Lidoderm) 1 patch DAILY TP Last administered on 02/05/20at 08:20; Start 02/04/20 at 15:00 Lorazepam (Ativan) 1 mg PRN TID PRN PO ANXIETY / AGITATION Last administered on 02/04/20at 20:37; Start 02/04/20 at 14:00 Prednisone (Prednisone) 40 mg DAILY PO Last administered on 02/05/20at 08:19; Start 02/04/20 at 15:00 Oxycodone HCl (Roxicodone) 10 mg PRN Q6HRS PRN PO PAIN Last administered on 02/05/20at 08:21; Start 02/04/20 at 14:15 Active Scripts Active Oxycodone Hcl Immed.release (Oxycodone Hcl) 10 Mg Tablet 10 Mg PO PRN Q6HRS PRN Reported Lidocaine PATCH (Lidocaine) 1 Each Adh..patch 1 Each TP DAILY REMOVE AFTER 12 HOURS Ativan (Lorazepam) 1 Mg Tablet 1 Mg PO PRN TID PRN Prednisone 20 Mg Tablet 2 Tab PO DAILY Vitals/I & O Vital Sign - Last 24 Hours 02/04/20 02/04/20 02/04/20 02/04/20 12:11 12:41 14:46 14:50 Temp 97.8 97.8 Pulse 93 Resp 16 16 16 18 B/P (MAP) 105/69 (81) Pulse Ox 96 O2 Delivery Room Air Room Air Room Air Room Air 02/04/20 02/04/20 02/04/20 02/04/20 15:46 17:52 18:21 19:00 Temp 98.5 98.5 Pulse 101 Resp 16 16 16 18 B/P (MAP) 118/78 (91) Pulse Ox 94 O2 Delivery Room Air Room Air Room Air 02/04/20 02/04/20 02/04/20 02/04/20 19:20 20:37 21:30 23:00 Temp 97.8 97.8 Pulse 85 Resp 16 17 20 B/P (MAP) 101/64 (76) Pulse Ox 95 O2 Delivery Room Air Room Air Room Air 02/05/20 02/05/20 02/05/20 02/05/20 02:52 03:01 03:50 07:00 Temp 97.2 97.8 97.2 97.8 Pulse 71 74 Resp 16 15 15 18 B/P (MAP) 99/69 (79) 114/79 (91) Pulse Ox 98 96 O2 Delivery Room Air Room Air Room Air Room Air 02/05/20 02/05/20 02/05/20 02/05/20 08:00 08:21 09:21 10:42 Temp 97.8 97.8 Pulse 74 Resp 18 B/P (MAP) 117/77 (90) Pulse Ox 96 96 97 O2 Delivery Room Air Room Air Room Air Room Air Intake and Output 02/04/20 02/04/20 02/05/20 15:00 23:00 07:00 Intake Total 600 ml 540 ml 740 ml Balance 600 ml 540 ml 740 ml Justicifation of Admission Dx: Justifications for Admission: Justification of Admission Dx: N/A DOMINGO CARL MD Feb 05, 2020 10:55
[2020-02-05] MEDS ORDERED: POTASSIUM CHLORIDE 20 MEQ TABLET.ER. PO ONE (12:00)
[2020-02-05] MEDS: fentaNYL PF VIAL 100 MCG/2 ML VIAL IVP PRN (12:41)
[2020-02-05] MEDS ORDERED: LEVE500T56 PO (13:03)
--- NOTE | 2020-02-05 13:31 | DS ---
DATE OF DISCHARGE: HISTORY OF PRESENT ILLNESS: The patient is a 24-year-old female patient who was admitted with new onset of seizures. She does have longstanding rheumatoid arthritis, however, her COVID test still pending and she has had no further episode of seizures. She is on Keppra and a decision was made to discharge her home to follow with Dr. Castro as an outpatient. PHYSICAL EXAMINATION: GENERAL: When I saw her today, she looked well and was clearly in no apparent respiratory distress. VITAL SIGNS: Heart rate was 74, blood pressure was 117/77, temperature 97.8, respiratory rate was 18 and oxygen saturation was 97%. The rest of the exam is stable. LABORATORY DATA: Showed a white cell count 17,000, hemoglobin 16, hematocrit 46, MCV 93, and platelet count 347,000. Her serum potassium is low. She was given 40 mEq of potassium. Otherwise, his BUN is 11, creatinine 1. DISCHARGE MEDICATIONS: She was discharged home on Keppra 500 mg twice a day, Lidoderm patches 1 patch topically daily on for 12 hours and off for 12 hours. She is on lorazepam 1 mg 3 times a day for anxiety, oxycodone 10 mg immediate release 1 tablet every 6 hours and prednisone 40 mg daily. FINAL DISCHARGE DIAGNOSES: 1. New onset of seizures. 2. Bipolar disorder. 3. Longstanding rheumatoid arthritis. JULIA MUELLER MD DR: MAKENNA/dionisio JOB#: [id number] / [id number]
--- NOTE | 2020-02-05 14:44 | NUR ---
Discharge Note: JEA [id number] [place] [address] Discharge instructions and discharge home medications reviewed with Patient and a copy given. All questions have been answered and understanding verbalized. The following instructions and handouts were given: Seizures, Chronic pain Discontinued lines and drains: IV catheter removed intact. Tele monitor removed. Patient discharged to Home with self care via wheelchair.
--- NOTE | 2020-02-05 16:06 | NUR ---
SW following. Spoke with RN and reviewed chart. Coordinated care with Dr. Ramos. Pt to discharge home today, 02/05/2020 on room air and oral medications. Pt is covid pending and will follow up out-patient with Dr. Castro for MRI and EEG. No further SW needs at this time.
== END 2020-02-05 14:46 | disposition home or self-care (01) | DRG 101 ==
LOC: 6 SOUTH 01:19
PROVIDERS: ADMIT Internal Medicine; ATTEND Internal Medicine
DX: G40.409 Other generalized epilepsy and epileptic syndromes, not intractable, without status epilepticus (principal); R65.10 Systemic inflammatory response syndrome (SIRS) of non-infectious origin without acute organ dysfunction; F17.200 Nicotine dependence, unspecified, uncomplicated; F31.9 Bipolar disorder, unspecified; K21.9 Gastro-esophageal reflux disease without esophagitis; F41.9 Anxiety disorder, unspecified; Z20.828 Contact with and (suspected) exposure to other viral communicable diseases; H51.8 Other specified disorders of binocular movement; J45.909 Unspecified asthma, uncomplicated; M08.00 Unspecified juvenile rheumatoid arthritis of unspecified site; Z79.899 Other long term (current) drug therapy; Z88.8 Allergy status to other drugs, medicaments and biological substances
CPT/HCPCS: 36415; 80053; 83735; 85007; 85025; J3010; J7512; G0378

== ENCOUNTER 2020-02-11 13:35 | Emergency (ER) | payer OTHER ==
[~2020-02-11] VITALS: Ht 160 cm; Wt 66.8 kg
[~2020-02-11 13:35] MED LIST changes: +LEVE500T56 PO; +LIDO700A21 TP; +LORA-434 PO
[2020-02-11 14:30] VITALS: BP 133/86
--- NOTE | 2020-02-11 15:16 | PHYS DOC ---
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 Patient reports that she had a seizure this morning and she hit wall and that exacerbated her chronic back pain. Patient reports that she has a history of compression fractures in her back. She denies any radiation of pain. She describes the pain as a stabbing pain and rates it 9 out of 10. She has been applying Biofreeze to her lower back without any improvement in symptoms. There is nothing that makes pain worse or better. Patient was recently diagnosed with seizures and takes Keppra. She reports that she called her neurologist Dr. Castro and she reports that she was scheduled on for an EEG and that they did not tell her anything about adjusting her dose of Keppra. Patient reports that when she did have her seizure she did have a loss of bladder which is typical of her seizures. Patient is able to bear weight and ambulate with a steady gait at this time. Patient has a history of osteoarthritis, anxiety, seizures, panic attacks, endometriosis. Patient denies numbness, tingling, loss of bowel and bladder post seizure, dizziness, headache, denies hitting her head, nausea, vomiting, fever, neck pain, abdominal pain, chest pain, shortness of breath. (MARCELA BARRETO [employer] MACHINE OPERATOR) Review of Systems: Review of Systems: Constitutional: Denies fever or chills. [] Eyes: Denies change in visual acuity. [] HENT: Denies nasal congestion or sore throat. [] Respiratory: Denies cough or shortness of breath. [] Cardiovascular: Denies chest pain or edema. [] GI: Denies abdominal pain, nausea, vomiting, bloody stools or diarrhea. [] : Denies dysuria. [] Musculoskeletal: Lumbar back pain or joint pain. [] Integument: Denies rash. [] Neurologic: Denies headache, focal weakness or sensory changes. [] Endocrine: Denies polyuria or polydipsia. [] Lymphatic: Denies swollen glands. [] Psychiatric: Denies depression or anxiety. [] (MARCELA BARRETO APRN) Heart Score: Risk Factors: Risk Factors: DM, Current or recent (<one month) smoker, HTN, HLP, family hi story of CAD, obesity. Risk Scores: Score 0 - 3: 2.5% MACE over next 6 weeks - Discharge Home Score 4 - 6: 20.3% MACE over next 6 weeks - Admit for Clinical Observation Score 7 - 10: 72.7% MACE over next 6 weeks - Early Invasive Strategies (MARCELA BARRETO APRN) Allergies: Allergies: Allergies Coded Allergies Type Severity Reaction Last Updated Verified infliximab Allergy Intermediate 02/04/20 Yes rituximab Allergy Intermediate 02/04/20 Yes vancomycin Allergy Intermediate Hives 09/12/17 Yes I S O L A T I O N *CONTACT* Allergy Unknown UN 12/18/19 Yes (MARCELA BARRETO APRN) Physical Exam: PE: Constitutional: Well developed, well nourished, no acute distress, non-toxic appearance. [] HENT: Normocephalic, atraumatic, bilateral external ears normal, oropharynx moist, no oral exudates, nose normal. [] Eyes: PERRLA, EOMI, conjunctiva normal, no discharge. [] Neck: Normal range of motion, no tenderness, supple, no stridor. [] Cardiovascular:Heart rate regular rhythm, no murmur [] Lungs & Thorax: Bilateral breath sounds clear to auscultation [] Abdomen: Bowel sounds normal, soft, no tenderness, no masses, no pulsatile masses. [] Skin: Warm, dry, no erythema, no rash. [] Back: Lumbar spiny tenderness, no CVA tenderness. [] Extremities: No tenderness, no cyanosis, no clubbing, ROM intact, no edema. [] Neurologic: Alert and oriented X 3, normal motor function, normal sensory function, no focal deficits noted. [] Psychologic: Affect normal, judgement normal, mood normal. [] (MARCELA BARRETO APRN) Current Patient Data: Vital Signs: Vital Signs Date Time Temp Pulse Resp B/P (MAP) Pulse Ox O2 Delivery O2 Flow Rate FiO2 02/11/20 14:30 98.1 67 16 133/86 (102) 96 Room Air 98.1 (MARCELA BARRETO APRN) EKG: EKG: [] (MARCELA BARRETO APRN) Radiology/Procedures: Radiology/Procedures: [] Impression: [facility] [address] [place] [address] IMAGING REPORT Signed PATIENT: JAE ENCINAS DACCOUNT: [id number] : 1995 LOCATION: ER AGE: 24 SEX: F EXAM STATUS: REG ER ORD. PHYSICIAN: MARCELA BARRETO APRN REASON: BACK PAIN TODAY PROCEDURE: CT LUMBAR SPINE WO CONTRAST Examination: CT LUMBAR SPINE WO CONTRAST History: Reason: BACK PAIN TODAY / Spl. Instructions: / History: Comparison/Correlation: None Findings: Axial images of the lumbar spine were obtained without contrast. Sagittal and coronal reformatted images were provided. Alignment is normal. Compression deformity of the L2, L3, and L4 superior endplates is evident with loss of vertebral body heights of less than 25 percent. Neural foramina are patent. No evidence of disc bulge or herniation. Disc spaces sclerotic. Visualized retroperitoneum is unremarkable. Impression: Compression deformity of L2, L3, and L4 superior vertebral body endplates. No retropulsed fracture fragments. Correlate with trauma history. No degenerative change. PQRS Compliance Statement: One or more of the following individualized dose reduction techniques were utilized for this examination: 1. Automated exposure control 2. Adjustment of the mA and/or kV according to patient size 3. Use of iterative reconstruction technique Electronically signed by: Jose L Adame MD (02/11/2020 4:07 PM) [id number] DICTATED and SIGNED BY: JOSE L ADAME MD DATE: 02/11/20 1607 (MARCELA BARRETO APRN) Course & Med Decision Making: Course & Med Decision Making Pertinent Labs and Imaging studies reviewed. (See chart for details) Ambulatory with steady gait. Denies any numbness or tingling. Alert and oriented. Speaks in full clear sentences. Skin pink warm and dry. Vital signs within normal limits. PERRLA. Denies any visual changes. No tenderness to cervical spine or thoracic spine. There is no bruising to her back. Patient has focal bony spinal tenderness to lumbar spine. She denies any radiation of the pain. There is no bruising or abrasions or other injuries. Patient's only complaint is her back pain. I have spoken to Dr Sveta Menon who states this is not a surgical finding and she can be discharged home with pain medication. She states that she will call the patient tomorrow for the patient to call them and get set up for a appointment in 2 weeks for repeat x-rays. Patient is neurologically stable. Patient will be sent home with pain medication and Keflex antibiotic due to her urinary tract infection. And to follow-up with her neurologist for seizures as scheduled. [] (MARCELA BARRETO APRN) Dragon Disclaimer: Dragon Disclaimer: This electronic medical record was generated, in whole or in part, using a voice recognition dictation system. (MARCELA BARRETO APRN) Departure Departure Impression: Primary Impression: Compression deformity of vertebra Additional Impression: UTI (urinary tract infection) Qualified Codes: N39.0 - Urinary tract infection, site not specified Disposition: HOME, SELF-CARE Condition: STABLE Referrals: NO PCP (PCP) BURAK MONROE MD Patient Instructions: Back, Compression Fracture, Urinary Tract Infection Additional Instructions: Call Dr Monroe office in the morning for a appointment. I did call and spoke to Lynsey the nurse practitioner, so that she knows about you. Take medication as prescribed and with food. Do not drink any alcohol or drive while taking this medication. Scripts Cephalexin (KEFLEX) 500 Mg Capsule 1 CAP PO BID for 7 Days, #14 CAP 0 Refills Prov: MARCELA BARRETO APRN 02/11/20 Hydrocodone/Apap 5-325 (NORCO 5-325 TABLET) 1 Each Tablet 1 TAB PO PRN Q6HRS PRN for PAIN, #10 TAB 0 Refills Prov: MARCELA BARRETO APRN 02/11/20 Justicifation of Admission Dx: Justifications for Admission: Justification of Admission Dx: N/A (MARCELA BARRETO APRN) Attending Signature Attending Signature I have participated in the care of this patient and I have reviewed and agree with all pertinent clinical information above including history, exam, and recommendations. (FARAZ VILLANUEVA DO) MARCELA BARRETO APRN Feb 11, 2020 15:16 FARAZ VILLANUEVA DO Feb 11, 2020 17:19
[2020-02-11 15:43] LABS: BILIRUBIN,URINE NEGATIVE (NEG); CLARITY,URINE CLOUDY; COLOR,URINE YELLOW; NITRITE,URINE NEGATIVE (NEG); PROTEIN,URINE NEGATIVE (NEG-TRACE)
[2020-02-11] MEDS ORDERED: ORPHENADRINE CITRATE 60 MG/2 ML VIAL. IM ONE (15:45)
[2020-02-11] MEDS ORDERED: HYDROcodone/APAP 5/325MG 1 TAB TABLET PO ONE (15:45)
[2020-02-11 15:50] LABS: SQUAMOUS EPITHELIAL CELL,UR MANY /LPF
[2020-02-11 15:51] LABS: BACTERIA,URINE MANY /HPF (0-FEW)
[2020-02-11 15:53] LABS: RBC,URINE 0 /HPF (0-2)
--- NOTE | 2020-02-11 16:10 | RAD ---
Examination: CT LUMBAR SPINE WO CONTRAST History: Reason: BACK PAIN TODAY / Spl. Instructions: / History: Comparison/Correlation: None Findings: Axial images of the lumbar spine were obtained without contrast. Sagittal and coronal reformatted images were provided. Alignment is normal. Compression deformity of the L2, L3, and L4 superior endplates is evident with loss of vertebral body heights of less than 25 percent. Neural foramina are patent. No evidence of disc bulge or herniation. Disc spaces sclerotic. Visualized retroperitoneum is unremarkable. Impression: Compression deformity of L2, L3, and L4 superior vertebral body endplates. No retropulsed fracture fragments. Correlate with trauma history. No degenerative change. PQRS Compliance Statement: One or more of the following individualized dose reduction techniques were utilized for this examination: 1. Automated exposure control 2. Adjustment of the mA and/or kV according to patient size 3. Use of iterative reconstruction technique Electronically signed by: Jose L Cruz MD (02/11/2020 4:07 PM) [id number]
[2020-02-11] MEDS ORDERED: HYDR-3164 PO (16:49)
[2020-02-11] MEDS ORDERED: CEPH-264 PO (16:50)
== END 2020-02-11 17:11 | disposition home or self-care (01) ==
LOC: ER 13:35
DX: N39.0 Urinary tract infection, site not specified (principal); M43.9 Deforming dorsopathy, unspecified; R56.9 Unspecified convulsions; F41.9 Anxiety disorder, unspecified; M19.90 Unspecified osteoarthritis, unspecified site; F17.200 Nicotine dependence, unspecified, uncomplicated; G89.29 Other chronic pain; Z98.890 Other specified postprocedural states; Z90.89 Acquired absence of other organs; Z88.1 Allergy status to other antibiotic agents; Z88.8 Allergy status to other drugs, medicaments and biological substances
CPT/HCPCS: 72131; 81001; 81025; 87086; 96372; 99284; J2360

== ENCOUNTER → 2020-02-22 | Outpatient (CLI) | payer OTHER ==
[2020-02-11 14:30] VITALS: BP 133/86
--- NOTE | 2020-02-22 12:36 | EEG ---
DATE OF SERVICE: 02/22/2020 EEG NUMBER: [id number] performed on 02/22/2020. OBJECTIVE: The patient is a 24-year-old female with new seizure. DESCRIPTION: This is a digital study. Electrodes are placed according to the international 10-20 system. Bipolar and referential montages are available. Activation procedures typically include hyperventilation and intermittent photic stimulation. INTERPRETATION: The waking background consists of 9-10 Hz, 50-100 microvolt activity, symmetrically distributed over parietooccipital regions and reactive to eye opening. During intermittent photic stimulation, there are brief episodes of 3 Hz spike and wave activity associated with myoclonic jerks on certain occasions. Hyperventilation is not performed. Intermittent photic stimulation is noncontributory. IMPRESSION: This electroencephalogram with the patient awake and asleep is abnormal because of an epileptic disturbance of cerebral activity during photic stimulation consistent with primary generalized epilepsy. There is no focal abnormality. Thank you for letting us help with the patient's care. DOMINGO CARL MD DR: CECILY/dionisio JOB#: [id number] / [id number]
== END | disposition home or self-care (01) ==
LOC: RT 08:50
PROVIDERS: ATTEND Psychiatry & Neurology Neurology with Special Qualifications in Child Neurology
DX: G40.909 Epilepsy, unspecified, not intractable, without status epilepticus (principal)
CPT/HCPCS: 95816

== ENCOUNTER 2020-02-23 00:14 | Emergency (ER) | payer OTHER ==
[~2020-02-23] VITALS: Ht 160 cm; Wt 63.0 kg
[2020-02-23] MEDS ORDERED: oxyCODONE/APAP 10/325 1 TAB TABLET PO ONE (02:45)
--- NOTE | 2020-02-23 02:52 | PHYS DOC ---
Past Medical History Past Medical History: Anxiety, Arthritis, Endometriosis, Seizure, Other Additional Past Medical Histor: RAPCOPD/PANIC ATTACKS/OSTEOMYELITIS/CHRONIC BACK PAIN Past Surgical History: Tonsillectomy Additional Past Surgical Histo: Knee surgery 12/01,D&C,ORAL Smoking Status: Current Every Day Smoker Alcohol Use: Rarely Drug Use: None General Adult EDM: Chief Complaint: SEIZURE HPI: HPI: 24-year-old female past medical history of juvenile rheumatoid arthritis and recently diagnosed of seizures presents for evaluation after 3 seizures today. Patient states 2 weeks ago she was diagnosed with seizures. She was hospitalized for 2 days and placed on Keppra 500 mg twice daily. Patient states she had an EEG this a.m. She states that she had a seizure during the EEG. Patient also states around dinnertime she was cooking a grilled cheese sandwich for her daughter and last thing she remembered was flipping the sandwich for her daughter then she woke up on the couch. Patient states her mother carried her to the couch. She states her mother stated patient fell to the ground and hit her head. Mother states patient was confused for about 30 to 45 minutes. Patient also states prior to arrival she was on the toilet going to the bathroom when she woke up leaning against the wall. On exam patient is alert and oriented x4. She looks in no acute distress. History obtained from the patient. She is accompanied by her significant other. Review of Systems: Review of Systems: Constitutional: Denies fever or chills. [] Eyes: Denies change in visual acuity. [] HENT: Denies nasal congestion or sore throat. [] Respiratory: Denies cough or shortness of breath. [] Cardiovascular: Denies chest pain or edema. [] GI: Denies abdominal pain, nausea, vomiting, bloody stools or diarrhea. [] : Denies dysuria. [] Musculoskeletal: Denies back pain or joint pain. [Positive muscle aches] Integument: Denies rash. [] Neurologic: Denies headache, focal weakness or sensory changes. [Positive seizures] Endocrine: Denies polyuria or polydipsia. [] Lymphatic: Denies swollen glands. [] Psychiatric: Denies depression or anxiety. [] Heart Score: Risk Factors: Risk Factors: DM, Current or recent (<one month) smoker, HTN, HLP, family history of CAD, obesity. Risk Scores: Score 0 - 3: 2.5% MACE over next 6 weeks - Discharge Home Score 4 - 6: 20.3% MACE over next 6 weeks - Admit for Clinical Observation Score 7 - 10: 72.7% MACE over next 6 weeks - Early Invasive Strategies Current Medications: Current Medications Medications (Trade) Dose Ordered Sig/Ras Start Time Stop Time Status Last Admin Dose Admin Oxycodone/ Acetaminophen (Percocet 10/325) 1 tab 1X ONCE 02/23/20 02:45 02/23/20 02:46 UNV Allergies: Allergies: Allergies Coded Allergies Type Severity Reaction Last Updated Verified infliximab Allergy Intermediate 02/04/20 Yes rituximab Allergy Intermediate 02/04/20 Yes vancomycin Allergy Intermediate Hives 09/12/17 Yes I S O L A T I O N *CONTACT* Allergy Unknown UN 12/18/19 Yes Physical Exam: PE: Constitutional: Well developed, well nourished, no acute distress, non-toxic appearance. [] HENT: Normocephalic, atraumatic, bilateral external ears normal, oropharynx moist, no oral exudates, nose normal. [] Eyes: PERRLA, EOMI, conjunctiva normal, no discharge. [] Neck: Normal range of motion, no tenderness, supple, no stridor. [] Cardiovascular:Heart rate regular rhythm, no murmur [] Lungs & Thorax: Bilateral breath sounds clear to auscultation [] Abdomen: Bowel sounds normal, soft, no tenderness, no masses, no pulsatile masses. [] Skin: Warm, dry, no erythema, no rash. [] Back: No tenderness, no CVA tenderness. [] Extremities: No tenderness, no cyanosis, no clubbing, ROM intact, no edema. [] Neurologic: Alert and oriented X 3, normal motor function, normal sensory function, no focal deficits noted. [] Psychologic: Affect normal, judgement normal, mood normal. [] Current Patient Data: Vital Signs: Vital Signs Date Time Temp Pulse Resp B/P (MAP) Pulse Ox O2 Delivery O2 Flow Rate FiO2 02/23/20 01:51 98.6 66 22 97 98.6 02/23/20 00:20 127/86 (100) Room Air EKG: EKG: [] Radiology/Procedures: Radiology/Procedures: [] Course & Med Decision Making: Course & Med Decision Making Pertinent Labs and Imaging studies reviewed. (See chart for details) [] Patient was evaluated for chief complaint. Work-up consisted of laboratory analysis. Results reviewed and discussed with patient. Patient labs within normal limits. Patient was given a tablet of Percocet because of her chronic and muscle pain status post seizure. Patient was also given extra dose of Keppra. EEG results reviewed. Discussed findings with the patient. Patient advised she will need to follow-up with her neurologist. At this time I feel the patient is safe for discharge. Dragon Disclaimer: Dragon Disclaimer: This electronic medical record was generated, in whole or in part, using a voice recognition dictation system. Departure Departure Impression: Primary Impression: Seizure Disposition: 01 HOME, SELF-CARE Referrals: JAKE ROACH MD (PCP) Patient Instructions: Seizure, Adult Justicifation of Admission Dx: Justifications for Admission: Justification of Admission Dx: N/A HAILY SPANGLER DO Feb 23, 2020 02:52
[2020-02-23 03:16] LABS: CALCIUM 8.6 mg/dL (8.5-10.1); CREATININE 0.9 mg/dL (0.6-1.0); GFR 76.3; POTASSIUM 4.2 mmol/L (3.5-5.1)
[2020-02-23] MEDS ORDERED: levETIRAcetam 500 MG TABLET PO ONE (03:45)
[2020-02-23 04:00] VITALS: BP 111/69
== END 2020-02-23 04:05 | disposition home or self-care (01) ==
LOC: ER 00:14
DX: R56.9 Unspecified convulsions (principal); F41.9 Anxiety disorder, unspecified; M19.90 Unspecified osteoarthritis, unspecified site; F17.200 Nicotine dependence, unspecified, uncomplicated; Z90.89 Acquired absence of other organs; Z98.890 Other specified postprocedural states
CPT/HCPCS: 36415; 80048; 99285

== ENCOUNTER 2020-03-09 15:12 | Emergency (ER) | payer OTHER ==
[~2020-03-09] VITALS: Ht 160 cm; Wt 72.0 kg
[2020-03-09 15:25] VITALS: BP 121/89
[2020-03-09] MEDS ORDERED: ONDANSETRON PF 4 MG/2 ML VIAL. IVP ONE (15:45)
[2020-03-09] MEDS ORDERED: MORPHINE SULFATE 4 MG/ML VIAL. IV ONE ×2 (15:45→17:15)
[2020-03-09 16:12] LABS: BASO # 0.1 x10^3/uL (0.0-0.2); BASO % 1 % (0-3); EOS # 0.4 x10^3/uL (0.0-0.7); EOS % 4 % (0-3); HEMATOCRIT 43.9 % (36.0-47.0); HEMOGLOBIN 15.2 g/dL (12.0-15.5); LYMPH # 3.1 x10^3/uL (1.0-4.8); LYMPH % 27 % (24-48); MEAN CORPUSCULAR HEMOGLOBIN 32 pg (25-35); MEAN CORPUSCULAR HGB CONC 35 g/dL (31-37); MEAN CORPUSCULAR VOLUME 93 fL (79-100); MONO % 9 % (0-9); NEUT # 6.7 x10^3/uL (1.8-7.7); NEUT % 60 % (31-73); PLATELET COUNT 341 x10^3/uL (140-400); RED BLOOD COUNT 4.73 x10^6/uL (3.50-5.40); RED CELL DISTRIBUTION WIDTH 14.3 % (11.5-14.5); WHITE BLOOD COUNT 11.2 x10^3/uL (4.0-11.0)
[2020-03-09 16:14] LABS: BILIRUBIN,URINE NEGATIVE (NEG); CLARITY,URINE TURBID; COLOR,URINE YELLOW; NITRITE,URINE NEGATIVE (NEG); PH,URINE 5.5 (<5.0-8.0); PROTEIN,URINE NEGATIVE (NEG-TRACE); UROBILINOGEN,URINE 0.2 mg/dL (0.2 mg/dL)
[2020-03-09 16:17] LABS: CALCIUM 8.9 mg/dL (8.5-10.1); GFR 67.6; POTASSIUM 4.5 mmol/L (3.5-5.1)
[2020-03-09 16:18] LABS: SQUAMOUS EPITHELIAL CELL,UR MANY /LPF
[2020-03-09 16:19] LABS: BACTERIA,URINE MANY /HPF (0-FEW)
[2020-03-09 16:21] LABS: RBC,URINE 0 /HPF (0-2)
[2020-03-09 16:23] LABS: ALBUMIN 3.5 g/dL (3.4-5.0); ALBUMIN/GLOBULIN RATIO 1.2 (1.0-1.7); MAGNESIUM 2.2 mg/dL (1.8-2.4); TOTAL BILIRUBIN 0.3 mg/dL (0.2-1.0); TOTAL PROTEIN 6.4 g/dL (6.4-8.2)
--- NOTE | 2020-03-09 16:25 | RAD ---
EXAM: CHEST PA LATERAL INDICATION: Reason: CHEST PAIN / Spl. Instructions: / History: . TECHNIQUE: PA and lateral views COMPARISON: None FINDINGS: The heart size is normal. The great vessels appear unremarkable. There is no hilar or mediastinal mass. Lungs show platelike atelectasis or scarring in the right midlung, likely the right middle lobe. There is no pleural effusion or pneumothorax. There are no significant osseous abnormalities. IMPRESSION: Right middle lobe atelectasis or scarring. Otherwise no acute cardiopulmonary process shown. Electronically signed by: Gildardo Degroot MD (03/09/2020 4:22 PM) [facility] [place]
[2020-03-09 16:30] LABS: CREATINE KINASE 23 U/L (26-192)
--- NOTE | 2020-03-09 16:33 | RAD ---
Exam: CT head INDICATION: Fall, head injury TECHNIQUE: Sequential axial images through the head were obtained without the administration of IV contrast. Comparisons: None FINDINGS: No focal parenchymal lesion or hemorrhage is identified. There is no midline shift or sulcal effacement. No acute vascular territory infarction is identified. Enciso-white distinction is preserved. The ventricular system is within normal limits without compression hydrocephalus. The basal cisterns are well maintained. The visualized portions of the paranasal sinuses and mastoid air cells are well-pneumatized. No acute fractures. IMPRESSION: No acute intracranial abnormality. Exposure: One or more of the following in the visualized dose reduction techniques were utilized for this examination: 1. Automated exposure control 2. Adjustment of the MA and/or KV according to patient size Use of iterative of reconstructive technique Electronically signed by: Jessa Melvin MD (03/09/2020 4:30 PM) [id number]
--- NOTE | 2020-03-09 17:55 | PHYS DOC ---
Past Medical History Past Medical History: Anxiety, Arthritis, Endometriosis, Seizure, Other Additional Past Medical Histor: RAPCOPD/PANIC ATTACKS/OSTEOMYELITIS/CHRONIC BACK PAIN Past Surgical History: Tonsillectomy Additional Past Surgical Histo: Knee surgery 12/01,D&C,ORAL Smoking Status: Current Every Day Smoker Alcohol Use: Rarely Drug Use: None General Adult EDM: Chief Complaint: CHEST PAIN HPI: HPI: Patient is a 24 year old female who presents with complaints of having a seizure just prior to arrival stating that her mother witnessed her have an approximate 5-minute seizure, patient states she has absent seizures where she is just out of it and is not aware of what is going on, does not have grand mal seizures. Patient states that she apparently fell during her seizure and she complains of sternal chest pain without radiation, and is worried about an RA flareup. Patient states that she is scheduled for Tuesday, tomorrow with Dr. Castro to have a brain MRI. Patient denies any recent fever or chills, denies any exposure to the COVID-19 virus nor has concerns of the COVID-19 virus. Patient denies any visual changes, any nasal congestion, any cough or shortness of breath. Patient denies any swelling to her extremities, abdominal pain, nausea, vomiting, diarrhea, constipation. Patient denies any problems urinating, denies increased urination or increased thirst. Patient denies any back pain or pain in her joints, any skin rashes, any headaches, focal weaknesses, or sensory changes. Patient denies any swelling of her glands, any recent life changes, depression, anxiety, homicidal or suicidal ideation. Review of Systems: Review of Systems: Constitutional: Denies fever or chills. Denies exposure to her concerns for COVID-19 virus, complains of a 5-minute absence seizure just prior to arrival. Eyes: Denies change in visual acuity. HENT: Denies nasal congestion or sore throat. Respiratory: Denies cough or shortness of breath. Cardiovascular: Complains of sternal chest pain without radiation. GI: Denies abdominal pain, nausea, vomiting, bloody stools or diarrhea. : Denies dysuria. Musculoskeletal: Denies back paiN. Complains of sternal chest pain without radiation. Also complains of generalized aches and pains related to her RA flareups. Integument: Denies rash. Neurologic: Denies headache, focal weakness or sensory changes. Endocrine: Denies polyuria or polydipsia. Lymphatic: Denies swollen glands. Psychiatric: Denies depression or anxiety. Heart Score: Risk Factors: Risk Factors: DM, Current or recent (<one month) smoker, HTN, HLP, family history of CAD, obesity. Risk Scores: Score 0 - 3: 2.5% MACE over next 6 weeks - Discharge Home Score 4 - 6: 20.3% MACE over next 6 weeks - Admit for Clinical Observation Score 7 - 10: 72.7% MACE over next 6 weeks - Early Invasive Strategies Current Medications: Current Medications Medications (Trade) Dose Ordered Sig/Ras Start Time Stop Time Status Last Admin Dose Admin Morphine Sulfate (Morphine Sulfate) 4 mg 1X ONCE 03/09/20 17:15 03/09/20 17:21 DC Ondansetron HCl (Zofran) 4 mg 1X ONCE 03/09/20 15:45 03/09/20 15:46 DC 03/09/20 16:15 4 MG Allergies: Allergies: Allergies Coded Allergies Type Severity Reaction Last Updated Verified infliximab Allergy Intermediate 02/04/20 Yes rituximab Allergy Intermediate 02/04/20 Yes vancomycin Allergy Intermediate Hives 09/12/17 Yes I S O L A T I O N *CONTACT* Allergy Unknown UN 12/18/19 Yes Physical Exam: PE: Constitutional: Well developed, well nourished, no acute distress, non-toxic appearance. HENT: Normocephalic, atraumatic, bilateral external ears normal, oropharynx moist, no oral exudates, nose normal. Eyes: PERRLA, EOMI, conjunctiva normal, no discharge. Pupils 2 mm. Neck: Normal range of motion, no tenderness, supple, no stridor. Cardiovascular:Heart rate regular rhythm, no murmur, heart sounds S1-S2, no abnormalities noted per auscultation. Lungs & Thorax: Bilateral breath sounds clear to auscultation all lung veronica. Abdomen: Bowel sounds normal all 4 quadrants to auscultation, soft, no tenderness, no masses, no pulsatile masses. Skin: Warm, dry, no erythema, no rash. Back: No tenderness, no CVA tenderness. Extremities: No tenderness, no cyanosis, no clubbing, ROM intact, no edema. Neurologic: Alert and oriented X 3, normal motor function, normal sensory function, no focal deficits noted. Psychologic: Affect normal, judgement normal, mood normal. Musculoskeletal: Reproducible sternal chest pain without radiation. Generalized body aches pain level of 10/10 is out of proportion to physical findings. Current Patient Data: Labs: Laboratory Tests Test 03/09/20 15:40 03/09/20 15:50 03/09/20 16:05 Urine Collection Type Void Urine Color Yellow Urine Clarity Turbid Urine pH 5.5 (<5.0-8.0) Urine Specific [place] 1.020 (1.000-1.030) Urine Protein Negative mg/dL (NEG-TRACE) Urine Glucose (UA) Negative mg/dL (NEG) Urine Ketones (Stick) Negative mg/dL (NEG) Urine Blood Small (NEG) Urine Nitrite Negative (NEG) Urine Bilirubin Negative (NEG) Urine Urobilinogen Dipstick 0.2 mg/dL (0.2 mg/dL) Urine Leukocyte Esterase Moderate (NEG) Urine RBC 0 /HPF (0-2) Urine WBC 5-10 /HPF (0-4) Urine Squamous Epithelial Cells Many /LPF Urine Bacteria Many /HPF (0-FEW) Urine Mucus Marked /LPF White Blood Count 11.2 x10^3/uL (4.0-11.0) H Red Blood Count 4.73 x10^6/uL (3.50-5.40) Hemoglobin 15.2 g/dL (12.0-15.5) Hematocrit 43.9 % (36.0-47.0) Mean Corpuscular Volume 93 fL (79-100) Mean Corpuscular Hemoglobin 32 pg (25-35) Mean Corpuscular Hemoglobin Concent 35 g/dL (31-37) Red Cell Distribution Width 14.3 % (11.5-14.5) Platelet Count 341 x10^3/uL (140-400) Neutrophils (%) (Auto) 60 % (31-73) Lymphocytes (%) (Auto) 27 % (24-48) Monocytes (%) (Auto) 9 % (0-9) Eosinophils (%) (Auto) 4 % (0-3) H Basophils (%) (Auto) 1 % (0-3) Neutrophils # (Auto) 6.7 x10^3/uL (1.8-7.7) Lymphocytes # (Auto) 3.1 x10^3/uL (1.0-4.8) Monocytes # (Auto) 1.0 x10^3/uL (0.0-1.1) Eosinophils # (Auto) 0.4 x10^3/uL (0.0-0.7) Basophils # (Auto) 0.1 x10^3/uL (0.0-0.2) Sodium Level 138 mmol/L (136-145) Potassium Level 4.5 mmol/L (3.5-5.1) Chloride Level 103 mmol/L (98-107) Carbon Dioxide Level 26 mmol/L (21-32) Anion Gap 9 (6-14) Blood Urea Nitrogen 8 mg/dL (7-20) Creatinine 1.0 mg/dL (0.6-1.0) Estimated GFR (Cockcroft-Gault) 67.6 BUN/Creatinine Ratio 8 (6-20) Glucose Level 93 mg/dL (70-99) Calcium Level 8.9 mg/dL (8.5-10.1) Magnesium Level 2.2 mg/dL (1.8-2.4) Total Bilirubin 0.3 mg/dL (0.2-1.0) Aspartate Amino Transferase (AST) 12 U/L (15-37) L Alanine Aminotransferase (ALT) 19 U/L (14-59) Alkaline Phosphatase 74 U/L (46-116) Creatine Kinase 23 U/L (26-192) L Creatine Kinase MB (Mass) 0.5 ng/mL (0.0-3.6) Creatine Kinase MB Relative Index % (0-4) Troponin I Quantitative < 0.017 ng/mL (0.000-0.055) Total Protein 6.4 g/dL (6.4-8.2) Albumin 3.5 g/dL (3.4-5.0) Albumin/Globulin Ratio 1.2 (1.0-1.7) POC Urine HCG, Qualitative Hcg negative (Negative) Laboratory Tests 03/09/20 15:50 Laboratory Tests 03/09/20 15:50 Vital Signs: Vital Signs Date Time Temp Pulse Resp B/P (MAP) Pulse Ox O2 Delivery O2 Flow Rate FiO2 03/09/20 15:25 98.7 109 18 121/89 (100) 99 Room Air 98.7 EKG: EKG: EKG performed at 1802 by ED nursing staff, showed normal sinus rhythm without ectopy no STEMI no concerns for ACS EKG was reviewed by ED attending Dr. Cooney. Radiology/Procedures: Radiology/Procedures: PROCEDURE: CT HEAD WO CONTRAST Exam: CT head INDICATION: Fall, head injury TECHNIQUE: Sequential axial images through the head were obtained without the administration of IV contrast. Comparisons: None FINDINGS: No focal parenchymal lesion or hemorrhage is identified. There is no midline shift or sulcal effacement. No acute vascular territory infarction is identified. Enciso-white distinction is preserved. The ventricular system is within normal limits without compression hydrocephalus. The basal cisterns are well maintained. The visualized portions of the paranasal sinuses and mastoid air cells are well-pneumatized. No acute fractures. IMPRESSION: No acute intracranial abnormality. Exposure: One or more of the following in the visualized dose reduction techniques were utilized for this examination: 1. Automated exposure control 2. Adjustment of the MA and/or KV according to patient size Use of iterative of reconstructive technique Electronically signed by: Jessa Griffith MD (03/09/2020 4:30 PM) [id number] DICTATED and SIGNED BY: JESSA GRIFFITH MD DATE: 03/09/201629 PROCEDURE: CHEST PA & LATERAL EXAM: CHEST PA LATERAL INDICATION: Reason: CHEST PAIN / Spl. Instructions: / History: . TECHNIQUE: PA and lateral views COMPARISON: None FINDINGS: The heart size is normal. The great vessels appear unremarkable. There is no hilar or mediastinal mass. Lungs show platelike atelectasis or scarring in the right midlung, likely the right middle lobe. There is no pleural effusion or pneumothorax. There are no significant osseous abnormalities. IMPRESSION: Right middle lobe atelectasis or scarring. Otherwise no acute cardiopulmonary process shown. Electronically signed by: Phillip Degroot MD (03/09/2020 4:22 PM) [facility] [place] DICTATED and SIGNED BY: PHILLIP DEGROOT MD DATE: 03/09/201621 Course & Med Decision Making: Course & Med Decision Making Pertinent Labs and Imaging studies reviewed. (See chart for details) 24-year-old female patient comes to the ER today with complaints of a seizure at home, waking up thinking that she must have fallen because she has sternal chest pain without radiation, and also noticed that her RA symptoms are coming back as evidenced by increasing pain to all of her body joints. EKG, labs, imaging was ordered non-concerning for STEMI not concerning for ACS. Her Keppra level was drawn as well noting it is a send out and would not receive result today. Patient was given IV morphine for pain which brought her pain from a 10/10 down to a 1/10. Discussed findings with patient that sternal chest pain was most likely chest wall pain or possibly a contusion although no bruising was noted. Discussed with patient DC to home instructions, she is to follow-up with her doctor tomorrow morning and discuss pain medications, pain medications will not be prescribed from the ER today. Patient was agreeable to discharge planning will keep her appointment with her primary care physician tomorrow, reviewed return to ER precautions and concerns. Patient had no further questions or concerns, patient discharged home. Dragon Disclaimer: Dragon Disclaimer: This electronic medical record was generated, in whole or in part, using a voice recognition dictation system. Departure Departure Impression: Primary Impression: Chest wall contusion Qualified Codes: S20.219A - Contusion of unspecified front wall of thorax, initial encounter Additional Impression: Seizure Disposition: HOME, SELF-CARE Condition: GOOD Referrals: JAKE ROACH MD (PCP) Patient Instructions: Chest Contusion Additional Instructions: Follow-up with your doctor soon, call your doctor tomorrow to ask about additional pain medications and sleep medications. Return to the emergency department for worsening symptoms or further concerns. Your Keppra level has been drawn in the ER today, your primary care doctor should be able to access the results. Justicifation of Admission Dx: Justifications for Admission: Justification of Admission Dx: N/A REANNA CHAMPION APRN Mar 09, 2020 17:55
--- NOTE | 2020-03-11 03:11 | EKG ---
[facility] [address] [place] [address] Test Date: 2020-03-09 Test Time: 18:02:36 Pat Name: JAE ENCINAS Department: Room: Gender: F Pail Tester: : 1995 Requested By: REANNA CHAMPION Order Number: [id number] Reading MD: Measurements Intervals [place] Rate: 87 P: 31 MD: 158 QRS: 47 QRSD: 78 T: 5 QT: 372 QTc: 448 Interpretive Statements SINUS RHYTHM OTHERWISE NORMAL ECG RI6.01 No previous ECG available for comparison
== END 2020-03-09 18:35 | disposition home or self-care (01) ==
LOC: ER 15:12
DX: S20.212A Contusion of left front wall of thorax, initial encounter (principal); S20.211A Contusion of right front wall of thorax, initial encounter; R56.9 Unspecified convulsions; F41.9 Anxiety disorder, unspecified; M19.90 Unspecified osteoarthritis, unspecified site; F17.200 Nicotine dependence, unspecified, uncomplicated; G89.29 Other chronic pain; Z90.89 Acquired absence of other organs; Z98.890 Other specified postprocedural states; Z88.1 Allergy status to other antibiotic agents; Z88.8 Allergy status to other drugs, medicaments and biological substances; W18.39XA Other fall on same level, initial encounter; Y93.89 Activity, other specified; Y92.89 Other specified places as the place of occurrence of the external cause; Y99.8 Other external cause status
CPT/HCPCS: 70450; 71046; 80053; 80177; 81001; 81025; 82553; 83735; 84484; 85025; 93005; 96374; 96375; 96376; 99285; J2270; J2405

== ENCOUNTER → 2020-03-10 | Outpatient (CLI) | payer OTHER ==
[2020-03-09 15:25] VITALS: BP 121/89
[~2020-03-10] MED LIST changes: +GADOTERATE 7.5 MMOL/15ML VIAL. IVP ONE
--- NOTE | 2020-03-10 12:58 | KCIC ---
BRAIN WO/W CONTRAST Date: 03/10/2020 10:15 AM Indication: SEIZURES. Seizure disorder, new dx this year. Last seizure was yesterday. Comparison: CT head 03/09/2020. Technique: Multiplanar multisequence MRI of the brain was performed with and without intravenous contrast using the seizure protocol. 14 cc Dotarem contrast was administered intravenously during the exam. Findings: No acute infarct. No acute or chronic hemorrhage. The ventricles are normal in size and configuration without hydrocephalus. Hippocampi are normal in signal and morphology. No mcnulty matter heterotopia or cortical dysplasia. No evidence of arteriovenous malformation or cavernoma. No abnormal enhancement. The scalp and calvarium are normal. The pituitary and sella are normal. No Chiari malformation. The visualized upper cervical spine is normal. The visualized orbits and globes are normal. The visualized paranasal sinuses are clear. The mastoid air cells are clear. Normal flow voids within the vertebral, basilar, and internal carotid arteries indicating patency. IMPRESSION: No findings to explain the patient's seizure activity. No acute infarct or hemorrhage. No mass or abnormal enhancement. Electronically signed by: Arden Melvin MD (03/10/2020 12:55 PM) [id number]
== END ==
LOC: KCIC MRI 09:41
PROVIDERS: ATTEND Psychiatry & Neurology Neurology with Special Qualifications in Child Neurology
DX: R56.9 Unspecified convulsions (principal)
CPT/HCPCS: 70553; A9575

== ENCOUNTER 2020-03-29 01:10 | Emergency (ER) | payer OTHER ==
[~2020-03-29] VITALS: Ht 165.1 cm; Wt 81.8 kg
[~2020-03-29 01:10] MED LIST changes: -GADOTERATE 7.5 MMOL/15ML VIAL. IVP ONE
--- NOTE | 2020-03-29 02:45 | PHYS DOC ---
Past Medical History Past Medical History: Anxiety, Arthritis, Endometriosis, Seizure, Other Additional Past Medical Histor: RAPCOPD/PANIC ATTACKS/OSTEOMYELITIS/CHRONIC BACK PAIN Past Surgical History: Tonsillectomy Additional Past Surgical Histo: Knee surgery 12/01,D&C,ORAL Smoking Status: Current Every Day Smoker Alcohol Use: Rarely Drug Use: None General Adult EDM: Chief Complaint: GENERALIZED BODY ACHES HPI: HPI: Patient is a 24 year old female who presents with complaints of generalized body aches. Patient reports that she was recently in where they stopped her Keppra and prednisone. Patient is stating that she left AMA from on Tuesday morning and is here tonight stating that she continues to have pain and so she is here for further evaluation. She stated that yesterday she began to have nausea and vomiting. This was on Tuesday after she left. She denied any abdominal pain, fever, chills or sweats or change in cough. She denied any diarrhea, melena or hematochezia. Patient reports she has been able to eat since then. However she is concerned that something else is going on. Patient stated that she was tested for COVID 19 at this week Review of Systems: Review of Systems: Constitutional: See HPI. [] Eyes: Denies change in visual acuity. [] HENT: Denies nasal congestion or sore throat. [] Respiratory: See HPI. [] Cardiovascular: Denies chest pain or edema. [] GI: Denies abdominal pain, bloody stools or diarrhea. [] : Denies dysuria. [] Musculoskeletal: See HPI [] Integument: Denies rash. [] Neurologic: Denies headache, focal weakness or sensory changes. [] Endocrine: Denies polyuria or polydipsia. [] Lymphatic: Denies swollen glands. [] Psychiatric: Denies depression or anxiety. [] Heart Score: Risk Factors: Risk Factors: DM, Current or recent (<one month) smoker, HTN, HLP, family history of CAD, obesity. Risk Scores: Score 0 - 3: 2.5% MACE over next 6 weeks - Discharge Home Score 4 - 6: 20.3% MACE over next 6 weeks - Admit for Clinical Observation Score 7 - 10: 72.7% MACE over next 6 weeks - Early Invasive Strategies Allergies: Allergies: Allergies Coded Allergies Type Severity Reaction Last Updated Verified infliximab Allergy Intermediate 02/04/20 Yes rituximab Allergy Intermediate 02/04/20 Yes vancomycin Allergy Intermediate Hives 09/12/17 Yes I S O L A T I O N *CONTACT* Allergy Unknown UN 12/18/19 Yes Physical Exam: PE: Constitutional: Well developed, well nourished, no acute distress, non-toxic appearance. [] HENT: Normocephalic, atraumatic, bilateral external ears normal, oropharynx moist, no oral exudates, nose normal. [] Eyes: PERRLA, EOMI, conjunctiva normal, no discharge. [] Neck: Normal range of motion, no tenderness, supple, no stridor. [] Cardiovascular:Heart rate regular rhythm, no murmur [] Lungs & Thorax: Bilateral breath sounds clear to auscultation [] Abdomen: Bowel sounds normal, soft, no tenderness, no masses, no pulsatile masses. [] Skin: Warm, dry, no erythema, no rash. [] Back: No tenderness, no CVA tenderness. [] Extremities: No tenderness, no cyanosis, no clubbing, ROM intact, no edema. No joint effusions were identified, calor without erythema of the large joints of the upper and lower appendicular skeleton was noted [] Neurologic: Alert and oriented X 3, normal motor function, normal sensory function, no focal deficits noted. [] Psychologic: Affect normal, judgement normal, mood normal. [] EKG: EKG: [] Radiology/Procedures: Radiology/Procedures: [] Course & Med Decision Making: Course & Med Decision Making Pertinent Labs and Imaging studies reviewed. (See chart for details) 0513-the patient was seen and examined. Patient was reevaluated. I reviewed medical records from . The medical record suggested the patient was admitted because of drug-induced encephalopathy most likely from narcotic abuse. Patient responded to Narcan and was admitted for concerns of possible pneumonia and/or COVID-19 infection. They were unable to find a source of infection other than an abnormal chest x-ray. Here the patient's symptoms remain benign in appearance. She has vague complaints of pain and a cough. Without shortness of breath, hypoxemia, elevated white count I do not feel the patient needs to be admitted for further treatment here in the emergency department but can be treated as an outpatient. I discussed with the patient treatment plan, reasons to return and need for follow-up. [] Dragon Disclaimer: Dragon Disclaimer: This electronic medical record was generated, in whole or in part, using a voice recognition dictation system. Departure Departure Impression: Primary Impression: Community acquired pneumonia Qualified Codes: J18.9 - Pneumonia, unspecified organism Additional Impressions: Juvenile rheumatoid arthritis Fever Qualified Codes: R50.9 - Fever, unspecified Disposition: HOME, SELF-CARE Condition: STABLE Referrals: JAKE ROACH MD (PCP) Patient Instructions: Pneumonia, Adult Additional Instructions: Follow-up with your primary care physician on Tuesday or Tuesday. Return for change in shortness of breath, persistent fever, change in cough or persistent nausea and vomiting. Scripts Azithromycin (ZITHROMAX) 250 Mg Tablet 1 PKG PO UD, #6 TAB Take as directed on the package Prov: AYLEEN ADAMSON MD 03/29/20 Justicifation of Admission Dx: Justifications for Admission: Justification of Admission Dx: N/A AYLEEN ADAMSON MD Mar 29, 2020 02:45
[2020-03-29] MEDS ORDERED: KETOROLAC 15 MG/ML VIAL. IVP ONE (03:00)
[2020-03-29] MEDS ORDERED: IV NORMAL SALINE 1000ML BAG 1,000 ML IV ONE (03:00)
[2020-03-29] MEDS ORDERED: ONDANSETRON PF 4 MG/2 ML VIAL. IVP ONE (03:00)
[2020-03-29 03:10] LABS: BILIRUBIN,URINE NEGATIVE (NEG); CLARITY,URINE CLEAR; COLOR,URINE YELLOW; NITRITE,URINE NEGATIVE (NEG); PH,URINE 5.5 (<5.0-8.0); PROTEIN,URINE NEGATIVE (NEG-TRACE)
[2020-03-29 03:21] LABS: BACTERIA,URINE 0 /HPF (0-FEW); RBC,URINE OCC /HPF (0-2); SQUAMOUS EPITHELIAL CELL,UR MOD /LPF
--- NOTE | 2020-03-29 03:45 | RAD ---
AP chest x-ray HISTORY: Cough. COMPARISON: Chest March 09, 2020. FINDINGS: Heart size normal. Mediastinal silhouette is normal. No pneumothorax. No pleural effusions. Increased bibasilar heterogeneous opacities. Bones unremarkable. IMPRESSION: Increased bibasilar opacities since the prior exam could indicate progressive atelectasis or pneumonia including atypical viral infection. Electronically signed by: Juan José Ayala MD (03/29/2020 3:42 AM) [facility]
[2020-03-29 04:16] LABS: CREATININE 0.6 mg/dL (0.6-1.0); GFR 121.8; POTASSIUM 3.3 mmol/L (3.5-5.1)
[2020-03-29 04:21] LABS: BASO # 0.1 x10^3/uL (0.0-0.2); BASO % 1 % (0-3); EOS # 0.3 x10^3/uL (0.0-0.7); EOS % 3 % (0-3); HEMATOCRIT 38.6 % (36.0-47.0); HEMOGLOBIN 13.2 g/dL (12.0-15.5); LYMPH # 2.3 x10^3/uL (1.0-4.8); LYMPH % 26 % (24-48); MEAN CORPUSCULAR HEMOGLOBIN 31 pg (25-35); MEAN CORPUSCULAR HGB CONC 34 g/dL (31-37); MEAN CORPUSCULAR VOLUME 90 fL (79-100); MONO # 0.7 x10^3/uL (0.0-1.1); MONO % 8 % (0-9); NEUT # 5.6 x10^3/uL (1.8-7.7); NEUT % 62 % (31-73); PLATELET COUNT 411 x10^3/uL (140-400); RED BLOOD COUNT 4.28 x10^6/uL (3.50-5.40); WHITE BLOOD COUNT 8.9 x10^3/uL (4.0-11.0)
[2020-03-29 04:21] LABS: ALBUMIN 2.6 g/dL (3.4-5.0); ALBUMIN/GLOBULIN RATIO 0.9 (1.0-1.7); TOTAL BILIRUBIN 0.4 mg/dL (0.2-1.0); TOTAL PROTEIN 5.4 g/dL (6.4-8.2)
[2020-03-29 04:21] LABS: BARBITURATES NEG (NEG); BENZODIAZEPINES POS (NEG); CANNABINOIDS NEG (NEG); COCAINE NEG (NEG); METHADONE NEG (NEG); OPIATES POS (NEG); PHENCYCLIDINE NEG (NEG)
[2020-03-29 04:22] LABS: AMPHETAMINE/METHAMPHETAMINE NEG (NEG)
[2020-03-29] MEDS ORDERED: AZIT250T PO (05:12)
[2020-03-29] MEDS ORDERED: AZITHROMYCIN 250 MG TABLET. PO ONE (05:30)
[2020-03-29 06:05] VITALS: BP 110/68
== END 2020-03-29 06:20 | disposition home or self-care (01) ==
LOC: ER 01:10
DX: J18.9 Pneumonia, unspecified organism (principal); M08.00 Unspecified juvenile rheumatoid arthritis of unspecified site; R11.2 Nausea with vomiting, unspecified; G89.29 Other chronic pain; F17.200 Nicotine dependence, unspecified, uncomplicated; Z88.1 Allergy status to other antibiotic agents; Z91.041 Radiographic dye allergy status; Z88.8 Allergy status to other drugs, medicaments and biological substances
CPT/HCPCS: 36415; 71045; 80053; 80307; 81001; 81025; 83605; 83690; 85025; 86140; 87040; 87086; 96361; 96374; 96375; 99285; J1885; J2405; J7030

== ENCOUNTER 2020-07-17 21:02 | Emergency (ER) | payer OTHER ==
[~2020-07-17] VITALS: Ht 160 cm; Wt 71.3 kg
[~2020-07-17 21:02] MED LIST changes: +AZIT250T PO
[2020-07-17 21:48] LABS: BASO # 0.1 x10^3/uL (0.0-0.2); BASO % 1 % (0-3); EOS # 0.3 x10^3/uL (0.0-0.7); EOS % 4 % (0-3); HEMATOCRIT 41.7 % (36.0-47.0); HEMOGLOBIN 14.1 g/dL (12.0-15.5); LYMPH % 25 % (24-48); MEAN CORPUSCULAR HEMOGLOBIN 31 pg (25-35); MEAN CORPUSCULAR HGB CONC 34 g/dL (31-37); MEAN CORPUSCULAR VOLUME 91 fL (79-100); MONO # 0.4 x10^3/uL (0.0-1.1); MONO % 5 % (0-9); NEUT # 5.2 x10^3/uL (1.8-7.7); NEUT % 65 % (31-73); PLATELET COUNT 353 x10^3/uL (140-400); RED BLOOD COUNT 4.58 x10^6/uL (3.50-5.40); RED CELL DISTRIBUTION WIDTH 16.4 % (11.5-14.5)
[2020-07-17 21:49] LABS: BILIRUBIN,URINE NEGATIVE (NEG); CLARITY,URINE CLEAR; COLOR,URINE YELLOW; NITRITE,URINE NEGATIVE (NEG); PH,URINE 5.5 (<5.0-8.0); PROTEIN,URINE NEGATIVE (NEG-TRACE); UROBILINOGEN,URINE 0.2 mg/dL (0.2 mg/dL)
[2020-07-17 21:59] LABS: BACTERIA,URINE 0 /HPF (0-FEW); RBC,URINE 0 /HPF (0-2); WBC,URINE 0 /HPF (0-4)
[2020-07-17 22:05] LABS: CALCIUM 8.5 mg/dL (8.5-10.1); CREATININE 0.7 mg/dL (0.6-1.0); POTASSIUM 3.2 mmol/L (3.5-5.1)
[2020-07-17 22:05] LABS: BARBITURATES NEG (NEG); BENZODIAZEPINES POS (NEG); CANNABINOIDS NEG (NEG); COCAINE NEG (NEG); METHADONE NEG (NEG); OPIATES POS (NEG); PHENCYCLIDINE NEG (NEG)
[2020-07-17 22:06] LABS: AMPHETAMINE/METHAMPHETAMINE NEG (NEG)
[2020-07-17 22:10] LABS: ALBUMIN 3.2 g/dL (3.4-5.0); ALBUMIN/GLOBULIN RATIO 0.9 (1.0-1.7); MAGNESIUM 2.1 mg/dL (1.8-2.4); TOTAL BILIRUBIN 0.3 mg/dL (0.2-1.0); TOTAL PROTEIN 6.6 g/dL (6.4-8.2)
--- NOTE | 2020-07-17 22:32 | RAD ---
Exam: Chest one view INDICATION: Cough with yellow sputum TECHNIQUE: Frontal view of the chest Comparisons: 03/29/2020 FINDINGS: The cardiomediastinal silhouette and pulmonary vessels are within normal limits. Patchy bibasilar airspace disease. No pleural effusion. IMPRESSION: Patchy bibasilar airspace disease, may be infectious or inflammatory in etiology. Follow-up imaging to ensure resolution is recommended. Electronically signed by: Jessa Melvin MD (07/17/2020 10:29 PM) [facility]
[2020-07-17 22:39] LABS: U PREG PATIENT NEGATIVE (NEG)
[2020-07-18] MEDS ORDERED: AZIT250T6 PO (00:13)
[2020-07-18] MEDS ORDERED: VENTOLIN HFA18 GM INH (00:13)
--- NOTE | 2020-07-18 00:14 | ED.ADGEN ---
Past Medical History Past Medical History: Anxiety, Arthritis, Endometriosis, Seizure, Other Additional Past Medical Histor: RAPCOPD/PANIC ATTACKS/OSTEOMYELITIS/CHRONIC BACK PAIN Past Surgical History: Tonsillectomy Additional Past Surgical Histo: Knee surgery 12/01,D&C,ORAL Smoking Status: Current Every Day Smoker Alcohol Use: Rarely Drug Use: None General Adult EDM: Chief Complaint: SYNCOPE HPI: HPI: Patient is a 24 year old female, who presents to the emergency department via EMS today with complaints of a syncopal episode while inside of [employer]. EMS reports that upon their arrival the patient was laying on the floor [facility]. Patient states that she remembers bending down to get something and then the next thing she knew she had passed out. Patient states that she has had a productive cough with yellow sputum for the last week and a half. She denies any shortness of breath, nasal congestion, runny nose, loss of taste/smell, fever, body aches, chest pain, sore throat, headache, nausea, vomiting, diarrhea, or abdominal pain. Patient states that she has a history of chronic back pain due to bulging disks that she takes 10 mg oxycodones for at home. She denies any change in her chronic back pain. She denies any illicit drug or al cohol use. Patient reports that she smokes a pack and a half of cigarettes every day. Patient states she has felt very fatigued all day today. She denies any known COVID-19 exposure. She currently rates her back pain a 9 out of 10 on the pain scale, she denies any exacerbating factors. States that her oxycodone is the only one that helps her back pain. Review of Systems: Review of Systems: Complete ROS is negative unless otherwise noted in HPI. Allergies: Allergies: Allergies Coded Allergies Type Severity Reaction Last Updated Verified infliximab Allergy Intermediate 02/04/20 Yes rituximab Allergy Intermediate 02/04/20 Yes vancomycin Allergy Intermediate Hives 09/12/17 Yes I S O L A T I O N *CONTACT* Allergy Unknown UN 12/18/19 Yes Physical Exam: PE: See Above Constitutional: Well developed, well nourished, no acute distress, non-toxic appearance. [] HENT: Normocephalic, atraumatic, bilateral external ears normal, nose normal. [] Eyes: PERRLA, EOMI, conjunctiva normal, no discharge. [] Neck: Normal range of motion, no stridor. [] Cardiovascular:Heart rate regular rhythm Lungs & Thorax: Respirations even and unlabored, no retractions, no respiratory distress Abdomen: soft, no tenderness Skin: Warm, dry, no erythema, no rash. [] Back: No bony tenderness or deformity, no crepitus, no step-off, no CVA tenderness. [] Extremities: No cyanosis, no clubbing, ROM intact, no edema. [] Neurologic: Alert and oriented X 3, normal motor function, normal sensory function, no focal deficits noted. [] Psychologic: Affect normal, judgement normal, mood normal. [] Current Patient Data: Labs: Laboratory Tests Test 07/17/20 21:09 07/17/20 21:17 White Blood Count 8.0 x10^3/uL (4.0-11.0) Red Blood Count 4.58 x10^6/uL (3.50-5.40) Hemoglobin 14.1 g/dL (12.0-15.5) Hematocrit 41.7 % (36.0-47.0) Mean Corpuscular Volume 91 fL (79-100) Mean Corpuscular Hemoglobin 31 pg (25-35) Mean Corpuscular Hemoglobin Concent 34 g/dL (31-37) Red Cell Distribution Width 16.4 % (11.5-14.5) H Platelet Count 353 x10^3/uL (140-400) Neutrophils (%) (Auto) 65 % (31-73) Lymphocytes (%) (Auto) 25 % (24-48) Monocytes (%) (Auto) 5 % (0-9) Eosinophils (%) (Auto) 4 % (0-3) H Basophils (%) (Auto) 1 % (0-3) Neutrophils # (Auto) 5.2 x10^3/uL (1.8-7.7) Lymphocytes # (Auto) 2.0 x10^3/uL (1.0-4.8) Monocytes # (Auto) 0.4 x10^3/uL (0.0-1.1) Eosinophils # (Auto) 0.3 x10^3/uL (0.0-0.7) Basophils # (Auto) 0.1 x10^3/uL (0.0-0.2) Sodium Level 136 mmol/L (136-145) Potassium Level 3.2 mmol/L (3.5-5.1) L Chloride Level 103 mmol/L (98-107) Carbon Dioxide Level 26 mmol/L (21-32) Anion Gap 7 (6-14) Blood Urea Nitrogen 7 mg/dL (7-20) Creatinine 0.7 mg/dL (0.6-1.0) Estimated GFR (Cockcroft-Gault) 102.0 BUN/Creatinine Ratio 10 (6-20) Glucose Level 94 mg/dL (70-99) Calcium Level 8.5 mg/dL (8.5-10.1) Magnesium Level 2.1 mg/dL (1.8-2.4) Total Bilirubin 0.3 mg/dL (0.2-1.0) Aspartate Amino Transferase (AST) 15 U/L (15-37) Alanine Aminotransferase (ALT) 14 U/L (14-59) Alkaline Phosphatase 74 U/L (46-116) Troponin I Quantitative < 0.017 ng/mL (0.000-0.055) Total Protein 6.6 g/dL (6.4-8.2) Albumin 3.2 g/dL (3.4-5.0) L Albumin/Globulin Ratio 0.9 (1.0-1.7) L Ethyl Alcohol Level < 10 mg/dL (0-10) Urine Collection Type U cath Urine Color Yellow Urine Clarity Clear Urine pH 5.5 (<5.0-8.0) Urine Specific Diana 1.015 (1.000-1.030) Urine Protein Negative mg/dL (NEG-TRACE) Urine Glucose (UA) Negative mg/dL (NEG) Urine Ketones (Stick) Negative mg/dL (NEG) Urine Blood Negative (NEG) Urine Nitrite Negative (NEG) Urine Bilirubin Negative (NEG) Urine Urobilinogen Dipstick 0.2 mg/dL (0.2 mg/dL) Urine Leukocyte Esterase Negative (NEG) Urine RBC 0 /HPF (0-2) Urine WBC 0 /HPF (0-4) Urine Squamous Epithelial Cells Mod /LPF Urine Bacteria 0 /HPF (0-FEW) Urine Mucus Marked /LPF Urine Test Negative (NEG) Urine Opiates Screen Pos (NEG) Urine Methadone Screen Neg (NEG) Urine Barbiturates Neg (NEG) Urine Phencyclidine Screen Neg (NEG) Urine Amphetamine/Methamphetamine Neg (NEG) Urine Benzodiazepines Screen Pos (NEG) Urine Cocaine Screen Neg (NEG) Urine Cannabinoids Screen Neg (NEG) Urine Ethyl Alcohol Neg (NEG) Laboratory Tests 07/17/20 21:09 Laboratory Tests 07/17/20 21:09 Vital Signs: Vital Signs Date Time Temp Pulse Resp B/P (MAP) Pulse Ox O2 Delivery O2 Flow Rate FiO2 07/17/20 21:31 98.0 84 17 111/71 (84) 95 Room Air 98.0 EKG: EK- SR rate 86, no STEMI, read by Dr. Xiao[] Heart Score: Risk Factors: Risk Factors: DM, Current or recent (<one month) smoker, HTN, HLP, family history of CAD, obesity. Risk Scores: Score 0 - 3: 2.5% MACE over next 6 weeks - Discharge Home Score 4 - 6: 20.3% MACE over next 6 weeks - Admit for Clinical Observation Score 7 - 10: 72.7% MACE over next 6 weeks - Early Invasive Strategies Radiology/Procedures: Radiology/Procedures: PROCEDURE: CHEST AP ONLY Exam: Chest one view INDICATION: Cough with yellow sputum TECHNIQUE: Frontal view of the chest Comparisons: 03/29/2020 FINDINGS: The cardiomediastinal silhouette and pulmonary vessels are within normal limits. Patchy bibasilar airspace disease. No pleural effusion. IMPRESSION: Patchy bibasilar airspace disease, may be infectious or inflammatory in etiology. Follow-up imaging to ensure resolution is recommended.[] Course & Med Decision Making: Course & Med Decision Making Pertinent Labs and Imaging studies reviewed. (See chart for details) 24-year-old female who presented to the emergency room for evaluation following a syncopal episode. Patient reported a cough with yellow sputum for the last week and a half. Work-up included labs, chest x-ray, COVID-19 test, and an EKG. EKG revealed normal sinus rhythm, unremarkable; patient CBC is unremarkable; CMP revealed a potassium of 3.2, troponin less than 0.017, otherwise unremarkable; urinalysis was unremarkable, urine test was negative; urine drug screen was positive for opiates and benzos. COVID-19 test is pending. Chest x-ray revealed patchy bibasilar airspace disease possibly infectious could be due to inflammatory etiology. Due to the patient's reported productive cough of 10 days prescription was written for Z-Hung, and albuterol inhaler. The patient was advised of the possibility of a COVID-19 being positive. She was provided with quarantine instructions and advised that she and any of her close contacts need to quarantine and follow the provided instructions. I advised the patient that she can continue taking her prescribed pain medication for her chronic back pain an d encouraged her to follow-up with her primary care doctor to discuss a Chantix prescription and continued back pain. The patient's vital signs are stable throughout her visit. Patient verbalized an understanding of home care, medications, follow-up, and return to ED instructions and was in agreement with the plan of care. [] I have reviewed the PA/VICE CHANCELLOR's note and Plan of Care. I was available for consultation as needed during the patient's visit in the emergency department. I agree with the clinical impression, plans and disposition. Dragon Disclaimer: Dragon Disclaimer: This electronic medical record was generated, in whole or in part, using a voice recognition dictation system. Departure Departure Impression: Primary Impression: Bronchitis Additional Impression: Person under investigation for COVID-19 Disposition: 01 DC HOME SELF CARE/HOMELESS Condition: STABLE Referrals: JAKE ROACH MD (PCP) Patient Instructions: Acute Bronchitis, [id number] Additional Instructions: Fill prescription(s) and use as directed. Alternate Tylenol or ibuprofen as needed for pain/fever. Increase clear fluids. Avoid airway triggers such as smoke, fragrance, dust, and pollen. May take [id number] cough suppressants as needed. Follow-up with your primary care doctor if symptoms persist, return to the ER if symptoms worsen. You have been tested for or diagnosed with COVID-19. It is an infection caused by a new type of coronavirus. COVID-19 will cause cold-like or mild flu symptoms in most. It can cause more severe symptoms like problems breathing in some. There is no treatment for COVID-19. The body will clear the infection over time. Self-care will help to ease discomfort. Steps to Take: Self-Care Rest as needed. Healthy habits may help you feel better. Steps include: Choose healthy foods including fruits and vegetables. Drink water throughout the day. Get plenty of sleep each night. If you smoke, try to quit. It may ease breathing. Avoid alcohol. Keep Others Healthy The virus can spread to others. Droplets are released every time you sneeze or cough. The droplets can get into the mouth, nose, or eyes of people near you and lead to infection. To lower the chances of spreading COVID-19 to others: Stay at home until your doctor has said it is safe to leave. If you tested positive this will mean staying isolated until both of the following are true: At least 7 days have passed since the start of illness. You are free of fever for at least 72 hours without the use of medicine. During this time: - Avoid public areas, events, or transportation. Do not return to work or school until your doctor has said it is safe to do so. - Call ahead if you need to go to a medical center. Let them know you may have COVID-19. It will help them guide you where to go. They may also ask you to wear a facemask when you come to the office. - If you call for emergency medical services, let them know you may have COVID- 19. While at home: - Try to avoid close contact with others. Stay about 6 feet away. - If possible, spend most of your time in a separate room from others. - Use a face mask if you will be in close contact with others such as sharing a room or vehicle. - Have someone wipe down common surfaces in the home. Use household bobbin dumper every day on areas like doorknobs, counters, or sinks. - Cough or sneeze into a tissue. Throw the tissue away right after use. If a tissue is not available, cough or sneeze into your elbow. - Wash your hands often. Wash them after sneezing or coughing. Use soap and water and wash for at least 20 seconds. Alcohol based hand shafting cleaner can be used if soap and water is not available. - Do not prepare food for others. Avoid sharing personal items like forks, spoons, or toothbrushes. - Avoid close contact with pets while you are sick. There is no evidence of the virus passing to pets. This is a safety step until more is known about this virus. Isolation can be frustrating. Social interaction can help. Keep in touch with friends and family through phone and tech options. You can still interact with others in your home, just keep a safe distance of about 6 feet. Follow-up: Your doctors office will check in with you to see if there are any changes in your health. You may be asked to keep track of symptoms to share with them. They will also let you know when you are clear to be in public again. Problems to Look Out For: Contact your doctor if your recovery is not going as you expect. Get emergency care if you have problems such as: - Trouble breathing - Nonstop chest pain or pressure - Changes in awareness, confusion, or problems waking - Lips or face have bluish color - Worsening of symptoms If you think you have an emergency, call for emergency medical services right away. As taken from [facility] Albuterol Sulfate (VENTOLIN HFA INHALER) 18 Gm Hfa.aer.ad 2 PUFF INH Q4HRS PRN for WHEEZING for 30 Days, #1 INHALER 0 Refills Prov: LIAN CLEMENT APRN 07/18/20 Azithromycin (AZITHROMYCIN TABLET) 250 Mg Tablet 1 PKG PO UD for 5 Days, #6 TAB 0 Refills 2 the first day followed by 1 for days 2-5 Prov: LIAN CLEMENT APRN 07/18/20 Problem Qualifiers LIAN CLEMENT APRN Jul 18, 2020 00:14 JOSE CRUZ XIAO MD Jul 18, 2020 00:58
[2020-07-18 01:01] VITALS: BP 110/82
--- NOTE | 2020-07-20 13:57 | NUR ---
IP: Attempted to call COVID results. No answer. left a voicemail to return the call.
== END 2020-07-18 01:13 | disposition home or self-care (01) ==
LOC: ER 21:02
DX: J40 Bronchitis, not specified as acute or chronic (principal); R55 Syncope and collapse; Z20.828 Contact with and (suspected) exposure to other viral communicable diseases; G89.29 Other chronic pain; F17.200 Nicotine dependence, unspecified, uncomplicated; Z88.1 Allergy status to other antibiotic agents; Z91.041 Radiographic dye allergy status; Z88.8 Allergy status to other drugs, medicaments and biological substances
CPT/HCPCS: 36415; 71045; 80053; 80307; 81001; 81025; 83735; 84484; 85025; 99285; C9803; G0480; U0003

== ENCOUNTER 2020-07-23 19:54 | Emergency (ER) | payer OTHER ==
[~2020-07-23] VITALS: Ht 160 cm; Wt 70.9 kg
[~2020-07-23 19:54] MED LIST changes: +AZIT250T6 PO; +VENTOLIN HFA18 GM INH
--- NOTE | 2020-07-23 20:29 | PHYS DOC ---
Past Medical History Past Medical History: Anxiety, Arthritis, Endometriosis, Seizure, Other Additional Past Medical Histor: RAPCOPD/PANIC ATTACKS/OSTEOMYELITIS/CHRONIC BACK PAIN, RA Past Surgical History: Tonsillectomy Additional Past Surgical Histo: Knee surgery 12/01,D&C,ORAL Smoking Status: Current Every Day Smoker Alcohol Use: Heavy Drug Use: None General Adult EDM: Chief Complaint: LOWER EXTREMITY EDEMA HPI: HPI: Patient is a 24 year old female who arrives with a chief complaint of bilateral lower extremity edema. Patient describes a 3-day history of bilateral lower extremity edema. Symptoms are worse with gravity, patient states she is having moderate discomfort that is worse with palpation as well. Pain is described as a aching pain. Patient was recently here for bronchitis and was recently in [facility] for a seizure. Patient denies any fevers or chills and has improving cough and shortness of breath from her recent bout of bronchitis. Patient denies any specific trauma. Patient also notes some bruising to the bilateral lower extremities which does not know the etiology. Pain is non-radiating and located bilateral lower extremities. Patient states she was taken off her steroids 2 weeks ago after being on prednisone for many years. Review of Systems: Review of Systems: Constitutional: Denies fever or chills. [] Eyes: Denies change in visual acuity. [] HENT: Denies nasal congestion or sore throat. [] Respiratory: Reports improving cough but no shortness of breath Cardiovascular: Patient has some intermittent chest pain and has had edema in her legs GI: Denies abdominal pain, nausea, vomiting, bloody stools or diarrhea. [] : Denies dysuria. [] Musculoskeletal: Has chronic back pain and has knee and ankle pain Integument: Denies rash. [] Neurologic: Denies headache, focal weakness or sensory changes. [] Endocrine: Denies polyuria or polydipsia. [] Lymphatic: Denies swollen glands. [] Psychiatric: Denies depression or anxiety. [] Heart Score: Risk Factors: Risk Factors: DM, Current or recent (<one month) smoker, HTN, HLP, family history of CAD, obesity. Risk Scores: Score 0 - 3: 2.5% MACE over next 6 weeks - Discharge Home Score 4 - 6: 20.3% MACE over next 6 weeks - Admit for Clinical Observation Score 7 - 10: 72.7% MACE over next 6 weeks - Early Invasive Strategies Current Medications: Current Medications Potassium Chloride (Klor-Con) 40 meq 1X ONCE PO Last administered on 07/23/20at 21:26; Start 07/23/20 at 21:30; Stop 07/23/20 at 21:31; Status DC Piperacillin Sod/ Tazobactam Sod 3.375 gm/Sodium Chloride 50 ml @ 100 mls/hr 1X ONCE IV ; Start 07/23/20 at 22:30; Stop 07/23/20 at 22:59 Methylprednisolone Sodium Succinate (SOLU-Medrol 125MG VIAL) 125 mg 1X ONCE IV ; Start 07/23/20 at 22:30; Stop 07/23/20 at 22:31; Status DC Furosemide (Lasix) 20 mg 1X ONCE IVP ; Start 07/23/20 at 22:30; Stop 07/23/20 at 22:31; Status DC Ondansetron HCl (Zofran) 4 mg PRN Q8HRS PRN IV NAUSEA/VOMITING; Start 07/23/20 at 22:30; Stop 07/24/20 at 22:29 Morphine Sulfate (Morphine Sulfate) 4 mg PRN Q2HR PRN IV PAIN; Start 07/23/20 at 22:30; Stop 07/24/20 at 22:29 Active Scripts Active Ventolin Hfa Inhaler (Albuterol Sulfate) 18 Gm Hfa.aer.ad 2 Puff INH Q4HRS PRN 30 Days Azithromycin Tablet (Azithromycin) 250 Mg Tablet 1 Pkg PO UD 5 Days 2 the first day followed by 1 for days 2-5 Zithromax (Azithromycin) 250 Mg Tablet 1 Pkg PO UD Take as directed on the package Keflex (Cephalexin) 500 Mg Capsule 1 Cap PO BID 7 Days [place] 5-325 Tablet (Acetaminophen/Hydrocodone Bitart) 1 Each Tablet 1 Tab PO PRN Q6HRS PRN Keppra (Levetiracetam) 500 Mg Tablet 1 Tab PO BID 30 Days Oxycodone Hcl Immed.release (Oxycodone Hcl) 10 Mg Tablet 10 Mg PO PRN Q6HRS PRN Reported Lidocaine PATCH (Lidocaine) 1 Each Adh..patch 1 Each TP DAILY REMOVE AFTER 12 HOURS Ativan (Lorazepam) 1 Mg Tablet 1 Mg PO PRN TID PRN Prednisone 20 Mg Tablet 2 Tab PO DAILY Allergies: Allergies: Allergies Coded Allergies Type Severity Reaction Last Updated Verified infliximab Allergy Intermediate 02/04/20 Yes rituximab Allergy Intermediate 02/04/20 Yes vancomycin Allergy Intermediate Hives 09/12/17 Yes I S O L A T I O N *CONTACT* Allergy Unknown UN 12/18/19 Yes Physical Exam: PE: Constitutional: Well developed, well nourished, no acute distress, non-toxic appearance. [] HENT: Normocephalic, atraumatic, bilateral external ears normal, no trismus nose normal. [] Eyes: PERRLA, EOMI, conjunctiva normal, no discharge. [] Neck: Normal range of motion, no tenderness, supple, no stridor. [] Cardiovascular: Tachycardic, peripheral pulse intact, cap refill is brisk Lungs & Thorax: Diminished bilateral breath sounds Abdomen: Bowel sounds normal, soft, no tenderness, no masses, no pulsatile masses. [] Skin: Warm, dry, scattered bruising to the bilateral lower extremities Back: Mild limited range of motion due to pain, tenderness to palpate the left lumbar area Extremities: 2+ bilateral lower extremity edema without erythema. Neurovascular intact distally. Limited range of motion in the foot, knees and ankles due to pain. Neurologic: Alert and oriented X 3, normal motor function, normal sensory function, no focal deficits noted. [] Psychologic: Affect normal, judgement normal, mood normal. [] Current Patient Data: Labs: Laboratory Tests Test 07/23/20 20:23 07/23/20 20:42 White Blood Count 9.2 x10^3/uL Red Blood Count 4.33 x10^6/uL Hemoglobin 13.2 g/dL Hematocrit 39.1 % Mean Corpuscular Volume 90 fL Mean Corpuscular Hemoglobin 31 pg Mean Corpuscular Hemoglobin Concent 34 g/dL Red Cell Distribution Width 15.8 % Platelet Count 387 x10^3/uL Neutrophils (%) (Auto) 63 % Lymphocytes (%) (Auto) 25 % Monocytes (%) (Auto) 7 % Eosinophils (%) (Auto) 4 % Basophils (%) (Auto) 1 % Neutrophils # (Auto) 5.7 x10^3/uL Lymphocytes # (Auto) 2.3 x10^3/uL Monocytes # (Auto) 0.6 x10^3/uL Eosinophils # (Auto) 0.4 x10^3/uL Basophils # (Auto) 0.1 x10^3/uL Maternal Serum HCG Beta Subunit < 1 mIU/mL Sodium Level 135 mmol/L Potassium Level 3.2 mmol/L Chloride Level 101 mmol/L Carbon Dioxide Level 25 mmol/L Anion Gap 9 Blood Urea Nitrogen 4 mg/dL Creatinine 0.6 mg/dL Estimated GFR (Cockcroft-Gault) 121.8 BUN/Creatinine Ratio 7 Glucose Level 101 mg/dL Calcium Level 8.4 mg/dL Magnesium Level 1.8 mg/dL Total Bilirubin 0.3 mg/dL Aspartate Amino Transf (AST/SGOT) 13 U/L Alanine Aminotransferase (ALT/SGPT) 14 U/L Alkaline Phosphatase 77 U/L Creatine Kinase 39 U/L Troponin I Quantitative < 0.017 ng/mL C-Reactive Protein, Quantitative 95.8 mg/L KB-Llh-A-Type Natriuretic Peptide 39 pg/mL Total Protein 6.2 g/dL Albumin 2.8 g/dL Albumin/Globulin Ratio 0.8 Ethyl Alcohol Level < 10 mg/dL Urine Collection Type Unknown Urine Color Gretchen Urine Clarity Clear Urine pH 5.5 Urine Specific [place] 1.020 Urine Protein Negative mg/dL Urine Glucose (UA) Negative mg/dL Urine Ketones (Stick) Negative mg/dL Urine Blood Negative Urine Nitrite Negative Urine Bilirubin Small Urine Urobilinogen Dipstick 1.0 mg/dL Urine Leukocyte Esterase Small Urine RBC 0 /HPF Urine WBC 5-10 /HPF Urine Squamous Epithelial Cells Many /LPF Urine Bacteria 0 /HPF Urine Mucus Marked /LPF Urine Yeast Present /HPF Urine Opiates Screen Pos Urine Methadone Screen Neg Urine Barbiturates Neg Urine Phencyclidine Screen Neg Urine Amphetamine/Methamphetamine Neg Urine Benzodiazepines Screen Pos Urine Cocaine Screen Neg Urine Cannabinoids Screen Neg Urine Ethyl Alcohol Neg Current Medications Medications (Trade) Dose Ordered Sig/Ras Route PRN Reason Start Time Stop Time Status Last Admin Dose Admin Potassium Chloride (Klor-Con) 40 meq 1X ONCE PO 07/23/20 21:30 07/23/20 21:31 DC 07/23/20 21:26 Piperacillin Sod/ Tazobactam Sod 3.375 gm/Sodium Chloride 50 ml @ 100 mls/hr 1X ONCE IV 07/23/20 22:30 07/23/20 22:59 Methylprednisolone Sodium Succinate (SOLU-Medrol 125MG VIAL) 125 mg 1X ONCE IV 12/9/20 22:30 07/23/20 22:31 DC Furosemide (Lasix) 20 mg 1X ONCE IVP 07/23/20 22:30 07/23/20 22:31 DC Ondansetron HCl (Zofran) 4 mg PRN Q8HRS PRN IV NAUSEA/VOMITING 07/23/20 22:30 07/24/20 22:29 Morphine Sulfate (Morphine Sulfate) 4 mg PRN Q2HR PRN IV PAIN 07/23/20 22:30 07/24/20 22:29 Vital Signs: Vital Signs Date Time Temp Pulse Resp B/P (MAP) Pulse Ox O2 Delivery O2 Flow Rate FiO2 07/23/20 20:13 98.6 114 24 140/89 (106) 98 Room Air 98.6 EKG: EKG: [] EKG interpreted by me sinus tachycardia with a rate of 110 normal axis normal intervals normal ST segments Radiology/Procedures: Radiology/Procedures: [][facility] [address] [place] [address] IMAGING REPORT Signed PATIENT: JAE ENCINAS DACCOUNT: [id number] : 1995 LOCATION: ER AGE: 24 SEX: F EXAM STATUS: REG ER ORD. PHYSICIAN: JOSE CRUZ CEE MD REASON: LEG PAIN, R/O DVT, SWELLING PROCEDURE: VENOUS LOWER EXT BILATERAL Bilateral Lower Extremity Venous Doppler: Reason for examination: Bilateral lower extremity pain and swelling for 3 days. Recent seizure. The lower extremity venous systems bilaterally were evaluated from the common femoral and greater saphenous veins distally to the calf veins with grayscale imaging, color-flow imaging and spectral analysis. There is normal blood flow without deep venous thrombosis. There is normal response of the venous systems to compression and augmentation. There are multiple hepatic lesions in the right groin measuring up to 1.6 cm in greatest dimension. There is a small 2.3 x 3.4 x 0.7 cm fluid collection right popliteal space probably representing a Grover's cyst. There are lymph nodes in the left groin measuring up to 2 cm in size which have benign. There is a small 1.4 x 1 x 0.7 cm hypoechoic structure in the left popliteal fossa probably representing a Grover's cyst. In the soft tissues of the medial aspect of the left knee, there appears be a complex fluid collection with some minimal vascular flow measuring 5.4 x 4.2 x 3.1 cm in greatest dimension which could represent an abscess or posttraumatic hematoma. Recommend clinical correlation and follow-up. Impression: No deep venous thrombosis in the lower extremity venous systems bilaterally. Popliteal structures probably representing popliteal cysts bilaterally. Complex lesion possibly representing abscess or posttraumatic hematoma medial to the left knee measuring 5.4 x 4.2 x 3.1 cm in greatest dimension. Recommend clinical correlation and follow-up. Electronically signed by: Caroline Marte MD (07/23/2020 9:32 PM) SATHISHJACOB DICTATED and SIGNED BY: CAROLINE MARTE MD DATE: 07/23/[id number] 0 [facility] [address] [facility] [place] [address] IMAGING REPORT Signed PATIENT: JAE ENCINAS DACCOUNT: [id number] : 1995 LOCATION: ER AGE: 24 SEX: F EXAM STATUS: REG ER ORD. PHYSICIAN: JOSE CRUZ CEE MD REASON: SOA PROCEDURE: PORTABLE CHEST 1V Chest AP portable at 2117: Reason for examination: Short of breath. Comparison is made to previous study dated 07/17/2020. The heart size is normal. Mediastinum is unremarkable. Lung veronica show mild increase in interstitial markings without consolidation or pleural effusions. There appears to be improvement at the left lung base. No acute bony abnormalities are seen. IMPRESSION: Mildly increased interstitial markings. Improvement at the left lung base since previous exam. Electronically signed by: Caroline Marte MD (07/23/2020 9:39 PM) [facility]I DICTATED and SIGNED BY: CAROLINE MARTE MD DATE: 07/23/[id number] 0 [facility] [address] [place] [address] IMAGING REPORT Signed PATIENT: JAE ENCINAS DACCOUNT: [id number] : 1995 LOCATION: ER AGE: 24 SEX: F EXAM STATUS: REG ER ORD. PHYSICIAN: JOSE CRUZ CEE MD REASON: CHEST PAIN, R/O PE, ELEVATED D DIMER,INCLUDE VENOUS PHASE TO R/O PELVIC DVT PROCEDURE: CT ANGIO CHEST ABD PELVIS CT ANGIO CHEST ABD PELVIS History: Chest pain. Technique: CT angiogram chest, abdomen and pelvis was performed without and with intravenous contrast. Coronal and sagittal reconstructions were performed. 3-D reconstructions were performed. Exposure: One or more of the following individualized dose reduction techniques were utilized for this examination: 1. Automated exposure control 2. Adjustment of the mA and/or kV according to patient size 3. Use of iterative reconstruction technique. Comparison: Lumbar spine CT February 11, 2020 Findings: Chest: No pulmonary embolus. No aortic aneurysm or dissection. Residual thymus within the anterior mediastinum. Multiple enlarged bilateral axillary lymph nodes largest on the left measures 1.0 x 0.9 cm in largest on the right measures 1.7 x 0.8 cm. No mediastinal or hilar lymphadenopathy. No consolidation or pleural effusion. No pneumothorax. Linear left lower lobe and lingular atelectasis. Upper abdomen: Inferior vena cava and pelvic venous system is not opacified for evaluation. The liver, spleen, adrenal glands, pancreas and gallbladder are unremarkable. No biliary ductal dilatation. Normal-appearing kidneys. No hydronephrosis. Moderate stool-filled rectum. Normal appendix. No evidence of bowel obstruction.No ascites. Uterus and ovaries are unremarkable. Small fat-containing umbilical hernia. Bilateral inguinal enlarged lymph nodes largest on the right measures 1.4 x 1.0 cm and on the left measures 1.6 x 1.3 cm. Enlarged external iliac chain lymph nodes. Numerous small retroperitoneal lymph nodes. Bones: Benign-appearing lytic lesion within the left proximal humerus measures 1.4 x 0.9 cm with well-circumscribed margins and sclerotic border. Chronic L2, L3 and L4 mild compression fractures, unchanged height loss compared to prior. Impression: 1. No acute pathology within the chest, abdomen or pelvis. No pulmonary embolism. Abdomen and pelvis venous system is not opacified with contrast for evaluation. 2. Mild axillary, inguinal and external iliac chain lymphadenopathy, potentially reactive although lymphoproliferative disorder is possible. Recommend further clinical evaluation and follow-up. 3. Moderate stool-filled colon. Electronically signed by: Que Lacey DO (07/24/2020 12:26 AM) [facility] DICTATED and SIGNED BY: QUE LACEY DO DATE: 07/24/20 [id number] Course & Med Decision Making: Course & Med Decision Making Pertinent Labs and Imaging studies reviewed. (See chart for details) [] 24-year-old female presents with bilateral lower extremity pain and swelling, she has cysts that are present behind the knees. I wanted to admit the patient for steroids and orthopedic consult as well as antibiotics. Patient does not want to stay. Patient signed out AMA. Patient understands risk. Patient had elevated D-dimer therefore she underwent a CT angiogram to rule pulmonary embolism. Imaging was continued in the pelvis to rule out pelvis thrombus. No evidence of pulmonary embolism or DVT was found. Patient does have diffuse lymphadenopathy and will give referral to a oncologist. Signs symptoms are consistent with a flare of inflammatory arthritis as opposed to septic arthritis. I will placed on antibiotics in case there is infectious component to her cyst. Dragon Disclaimer: Dragon Disclaimer: This electronic medical record was generated, in whole or in part, using a voice recognition dictation system. Departure Departure Impression: Primary Impression: Left knee pain Additional Impressions: Pain and swelling of left knee Bilateral lower extremity edema Rheumatoid arthritis flare Lymphadenopathy Disposition: 07 AMA/ELOPED/LWBS Admitting Physician: ANGELIQUE (mandy) Condition: STABLE Referrals: JAKE ROACH MD (PCP) LARON MOSQUEDA MD, JOHN N MD 2-3 DAYS Patient Instructions: Arthritis, Reactive, Grover's Cyst, Rheumatoid Arthritis Additional Instructions: You have been tested for or diagnosed with COVID-19. It is an infection caused by a new type of coronavirus. COVID-19 will cause cold-like or mild flu symptoms in most. It can cause more severe symptoms like problems breathing in some. There is no treatment for COVID-19. The body will clear the infection over time. Self-care will help to ease discomfort. Steps to Take: Self-Care Rest as needed. Healthy habits may help you feel better. Steps include: Choose healthy foods including fruits and vegetables. Drink water throughout the day. Get plenty of sleep each night. If you smoke, try to quit. It may ease breathing. Avoid alcohol. Keep Others Healthy The virus can spread to others. Droplets are released every time you sneeze or cough. The droplets can get into the mouth, nose, or eyes of people near you and lead to infection. To lower the chances of spreading COVID-19 to others: Stay at home until your doctor has said it is safe to leave. If you tested positive this will mean staying isolated until both of the following are true: At least 7 days have passed since the start of illness. You are free of fever for at least 72 hours without the use of medicine. During this time: - Avoid public areas, events, or transportation. Do not return to work or school until your doctor has said it is safe to do so. - Call ahead if you need to go to a medical center. Let them know you may have COVID-19. It will help them guide you where to go. They may also ask you to wear a facemask when you come to the office. - If you call for emergency medical services, let them know you may have COVID- 19. While at home: - Try to avoid close contact with others. Stay about 6 feet away. - If possible, spend most of your time in a separate room from others. - Use a face mask if you will be in close contact with others such as sharing a room or vehicle. - Have someone wipe down common surfaces in the home. Use household aerial advertiser every day on areas like doorknobs, counters, or sinks. - Cough or sneeze into a tissue. Throw the tissue away right after use. If a tissue is not available, cough or sneeze into your elbow. - Wash your hands often. Wash them after sneezing or coughing. Use soap and water and wash for at least 20 seconds. Alcohol based hand cleaners can be used if soap and water is not available. - Do not prepare food for others. Avoid sharing personal items like forks, spoons, or toothbrushes. - Avoid close contact with pets while you are sick. There is no evidence of the virus passing to pets. This is a safety step until more is known about this virus. Isolation can be frustrating. Social interaction can help. Keep in touch with friends and family through phone and tech options. You can still interact with others in your home, just keep a safe distance of about 6 feet. Follow-up: Your doctors office will check in with you to see if there are any changes in your health. You may be asked to keep track of symptoms to share with them. They will also let you know when you are clear to be in public again. Problems to Look Out For: Contact your doctor if your recovery is not going as you expect. Get emergency care if you have problems such as: - Trouble breathing - Nonstop chest pain or pressure - Changes in awareness, confusion, or problems waking - Lips or face have bluish color - Worsening of symptoms If you think you have an emergency, call for emergency medical services right away. As taken from [facility] Scripts Methylprednisolone (MEDROL) 4 Mg Tab.ds.pk 1 PKG PO UD, #1 PKG Prov: JOSE CRUZ CEE MD 07/23/20 Hydrocodone/Apap 5-325 (NORCO 5-325 TABLET) 1 Each Tablet 1-2 EACH PO PRN Q6HRS PRN for PAIN, #15 as needed for pain Prov: JOSE CRUZ CEE MD 07/23/20 Cephalexin (KEFLEX) 500 Mg Capsule 1 CAP PO TID for 10 Days, #30 CAP 0 Refills Prov: JOSE CRUZ CEE MD 07/23/20 JOSE CRUZ CEE MD Jul 23, 2020 20:29
[2020-07-23 20:35] LABS: BASO # 0.1 x10^3/uL (0.0-0.2); BASO % 1 % (0-3); EOS # 0.4 x10^3/uL (0.0-0.7); EOS % 4 % (0-3); HEMATOCRIT 39.1 % (36.0-47.0); HEMOGLOBIN 13.2 g/dL (12.0-15.5); LYMPH # 2.3 x10^3/uL (1.0-4.8); LYMPH % 25 % (24-48); MEAN CORPUSCULAR HEMOGLOBIN 31 pg (25-35); MEAN CORPUSCULAR HGB CONC 34 g/dL (31-37); MEAN CORPUSCULAR VOLUME 90 fL (79-100); MONO # 0.6 x10^3/uL (0.0-1.1); MONO % 7 % (0-9); NEUT # 5.7 x10^3/uL (1.8-7.7); NEUT % 63 % (31-73); PLATELET COUNT 387 x10^3/uL (140-400); RED BLOOD COUNT 4.33 x10^6/uL (3.50-5.40); RED CELL DISTRIBUTION WIDTH 15.8 % (11.5-14.5); WHITE BLOOD COUNT 9.2 x10^3/uL (4.0-11.0)
[2020-07-23 20:47] LABS: CALCIUM 8.4 mg/dL (8.5-10.1); CREATININE 0.6 mg/dL (0.6-1.0); GFR 121.8; POTASSIUM 3.2 mmol/L (3.5-5.1)
[2020-07-23 20:51] LABS: BILIRUBIN,URINE SMALL (NEG); CLARITY,URINE CLEAR; COLOR,URINE AMBER; NITRITE,URINE NEGATIVE (NEG); PH,URINE 5.5 (<5.0-8.0); PROTEIN,URINE NEGATIVE (NEG-TRACE)
[2020-07-23 20:53] LABS: ALBUMIN 2.8 g/dL (3.4-5.0); ALBUMIN/GLOBULIN RATIO 0.8 (1.0-1.7); C-REACTIVE PROTEIN 95.8 mg/L (0-3.3); MAGNESIUM 1.8 mg/dL (1.8-2.4); TOTAL BILIRUBIN 0.3 mg/dL (0.2-1.0); TOTAL PROTEIN 6.2 g/dL (6.4-8.2)
[2020-07-23 20:55] LABS: BARBITURATES NEG (NEG); BENZODIAZEPINES POS (NEG); CANNABINOIDS NEG (NEG); COCAINE NEG (NEG); METHADONE NEG (NEG); OPIATES POS (NEG); PHENCYCLIDINE NEG (NEG)
[2020-07-23 20:56] LABS: AMPHETAMINE/METHAMPHETAMINE NEG (NEG)
[2020-07-23 20:57] LABS: BACTERIA,URINE 0 /HPF (0-FEW); RBC,URINE 0 /HPF (0-2)
[2020-07-23 20:58] LABS: YEAST,URINE PRESENT /HPF
[2020-07-23] MEDS ORDERED: POTASSIUM CHLORIDE 20 MEQ TABLET.ER. PO ONE (21:30)
--- NOTE | 2020-07-23 21:35 | RAD ---
Bilateral Lower Extremity Venous Doppler: Reason for examination: Bilateral lower extremity pain and swelling for 3 days. Recent seizure. The lower extremity venous systems bilaterally were evaluated from the common femoral and greater saphenous veins distally to the calf veins with grayscale imaging, color-flow imaging and spectral analysis. There is normal blood flow without deep venous thrombosis. There is normal response of the venous systems to compression and augmentation. There are multiple hepatic lesions in the right groin measuring up to 1.6 cm in greatest dimension. There is a small 2.3 x 3.4 x 0.7 cm fluid collection right popliteal space probably representing a Grover's cyst. There are lymph nodes in the left groin measuring up to 2 cm in size which have benign. There is a small 1.4 x 1 x 0.7 cm hypoechoic structure in the left popliteal fossa probably representing a Grover's cyst. In the soft tissues of the medial aspect of the left knee, there appears be a complex fluid collection with some minimal vascular flow measuring 5.4 x 4.2 x 3.1 cm in greatest dimension which could represent an abscess or posttraumatic hematoma. Recommend clinical correlation and follow-up. Impression: No deep venous thrombosis in the lower extremity venous systems bilaterally. Popliteal structures probably representing popliteal cysts bilaterally. Complex lesion possibly representing abscess or posttraumatic hematoma medial to the left knee measuring 5.4 x 4.2 x 3.1 cm in greatest dimension. Recommend clinical correlation and follow-up. Electronically signed by: Lavern De Paz MD (07/23/2020 9:32 PM) [facility]
--- NOTE | 2020-07-23 21:42 | RAD ---
Chest AP portable at 2116: Reason for examination: Short of breath. Comparison is made to previous study dated 07/17/2020. The heart size is normal. Mediastinum is unremarkable. Lung veronica show mild increase in interstitial markings without consolidation or pleural effusions. There appears to be improvement at the left lung base. No acute bony abnormalities are seen. IMPRESSION: Mildly increased interstitial markings. Improvement at the left lung base since previous exam. Electronically signed by: Lavern De Paz MD (07/23/2020 9:39 PM) ROS[facility]
[2020-07-23] MEDS ORDERED: FUROSEMIDE 20 MG/2 ML VIAL. IVP ONE (22:30)
[2020-07-23] MEDS ORDERED: methylPREDNISolone SOD SUCC PF 125 MG/2 ML VIAL. IV ONE (22:30)
[2020-07-23] MEDS ORDERED: PIPERACILLIN/TAZOBACTAM 3.375 GM in IV NORMAL SALINE 50ML 50 ML IV ONE (22:30)
[2020-07-23] MEDS ORDERED: ONDANSETRON PF 4 MG/2 ML VIAL. IV PRN (22:30)
[2020-07-23] MEDS ORDERED: MORPHINE SULFATE 4 MG/ML VIAL. IV PRN (22:30)
[2020-07-23] MEDS ORDERED: CEPH-264 PO (22:37)
[2020-07-23] MEDS ORDERED: METH4TAB2 PO (22:37)
[2020-07-23] MEDS ORDERED: HYDR-3164 PO (22:37)
[2020-07-23 22:43] LABS: PROTHROMBIN TIME PATIENT 14.1 SEC (11.7-14.0)
[2020-07-23 23:01] LABS: D-DIMER 7.32 ug/mlFEU (0.00-0.50)
[2020-07-23 23:39] VITALS: BP 105/66
[2020-07-23] MEDS ORDERED: IOHEXOL 350 MG/ML 100 ML VIAL. IV ONE (23:45)
[2020-07-23] MEDS ORDERED: CONTRAST GIVEN. MC PRN (23:45)
--- NOTE | 2020-07-24 00:29 | RAD ---
CT ANGIO CHEST ABD PELVIS History: Chest pain. Technique: CT angiogram chest, abdomen and pelvis was performed without and with intravenous contrast. Coronal and sagittal reconstructions were performed. 3-D reconstructions were performed. Exposure: One or more of the following individualized dose reduction techniques were utilized for this examination: 1. Automated exposure control 2. Adjustment of the mA and/or kV according to patient size 3. Use of iterative reconstruction technique. Comparison: Lumbar spine CT February 11, 2020 Findings: Chest: No pulmonary embolus. No aortic aneurysm or dissection. Residual thymus within the anterior mediastinum. Multiple enlarged bilateral axillary lymph nodes largest on the left measures 1.0 x 0.9 cm in largest on the right measures 1.7 x 0.8 cm. No mediastinal or hilar lymphadenopathy. No consolidation or pleural effusion. No pneumothorax. Linear left lower lobe and lingular atelectasis. Upper abdomen: Inferior vena cava and pelvic venous system is not opacified for evaluation. The liver, spleen, adrenal glands, pancreas and gallbladder are unremarkable. No biliary ductal dilatation. Normal-appearing kidneys. No hydronephrosis. Moderate stool-filled rectum. Normal appendix. No evidence of bowel obstruction.No ascites. Uterus and ovaries are unremarkable. Small fat-containing umbilical hernia. Bilateral inguinal enlarged lymph nodes largest on the right measures 1.4 x 1.0 cm and on the left measures 1.6 x 1.3 cm. Enlarged external iliac chain lymph nodes. Numerous small retroperitoneal lymph nodes. Bones: Benign-appearing lytic lesion within the left proximal humerus measures 1.4 x 0.9 cm with well-circumscribed margins and sclerotic border. Chronic L2, L3 and L4 mild compression fractures, unchanged height loss compared to prior. Impression: 1. No acute pathology within the chest, abdomen or pelvis. No pulmonary embolism. Abdomen and pelvis venous system is not opacified with contrast for evaluation. 2. Mild axillary, inguinal and external iliac chain lymphadenopathy, potentially reactive although lymphoproliferative disorder is possible. Recommend further clinical evaluation and follow-up. 3. Moderate stool-filled colon. Electronically signed by: Que Lacey DO (07/24/2020 12:26 AM) [facility]
== END 2020-07-24 01:08 | disposition home or self-care (01) ==
LOC: ER 19:54
DX: M06.8A Other specified rheumatoid arthritis, other specified site (principal); R60.0 Localized edema; R59.1 Generalized enlarged lymph nodes; M25.561 Pain in right knee; M25.562 Pain in left knee; R06.02 Shortness of breath; G89.29 Other chronic pain; F17.200 Nicotine dependence, unspecified, uncomplicated; Z88.1 Allergy status to other antibiotic agents; F10.20 Alcohol dependence, uncomplicated; Y90.0 Blood alcohol level of less than 20 mg/100 ml; Z91.041 Radiographic dye allergy status; Z88.8 Allergy status to other drugs, medicaments and biological substances
CPT/HCPCS: 36415; 71045; 71275; 74174; 80053; 80307; 81001; 82550; 83735; 83880; 84484; 84702; 85025; 85379; 85610; 85730; 86140; 87086; 93005; 93970; 96365; 96375; 99285; G0480; J1940; J2270; J2543; J2930; Q9967

== ENCOUNTER 2020-07-31 10:20 | Emergency (ER) | payer OTHER ==
[~2020-07-31] VITALS: Ht 160 cm; Wt 70.0 kg
[~2020-07-31 10:20] MED LIST changes: +METH4TAB2 PO
[2020-07-31] MEDS ORDERED: KETOROLAC 60 MG/2 ML VIAL. IM ONE (11:30)
[2020-07-31] MEDS ORDERED: methylPREDNISolone SOD SUCC PF 125 MG/2 ML VIAL. IM ONE (11:30)
--- NOTE | 2020-07-31 11:59 | PHYS DOC ---
Past Medical History Past Medical History: Anxiety, Arthritis, Endometriosis, Seizure, Other Additional Past Medical Histor: RAPCOPD/PANIC ATTACKS/OSTEOMYELITIS/CHRONIC BACK PAIN, RA (LÁZARO CASTANEDA APRN) Past Surgical History: Tonsillectomy Additional Past Surgical Histo: Knee surgery 12/01,D&C,ORAL (LÁZARO CASTANEDA APRN) Smoking Status: Current Every Day Smoker Alcohol Use: Heavy Drug Use: None (LÁZARO CASTANEDA APRN) General Adult EDM: Chief Complaint: PAIN CONTROL HPI: HPI: Patient is a 24 year old female with history of rheumatoid arthritis presenting to the ED today complaining of a rheumatoid arthritis flareup that began this morning when she woke up. Patient goes through a long extensive story about her rheumatoid arthritis. She states she used to be on prednisone 40 mg daily but her doctor took her off the prednisone. She states her doctor is planning to start on an immunologic but she does not like that her appointment will be the end of July or the beginning of August. Patient states her pain is so bad that she cannot do activities today she states she took oxycodone with no relief. She is also complaining of a chronic cough she has had for months. She states she was seen in the ED 1-1/2 weeks ago and was told she has bronchitis. She is a smoker. She states she thinks whenever she has rheumatoid arthritis flareup she could have an infection somewhere. Denies any fever. She states she has a loss of taste but has a sense of smell. (LÁZARO CASTANEDA APRN) Review of Systems: Review of Systems: Constitutional: Denies fever or chills. [] Eyes: Denies change in visual acuity. [] HENT: Reports loss of test. Denies nasal congestion or sore throat. [] Respiratory: Reports chronic cough, reports smoking, denies shortness of breath. [] Cardiovascular: Denies chest pain or edema. [] GI: Denies abdominal pain, nausea, vomiting, bloody stools or diarrhea. [] : Denies dysuria. [] Musculoskeletal: Reports pain throughout her body. Integument: Denies rash. [] Neurologic: Denies headache, focal weakness or sensory changes. [] Endocrine: Denies polyuria or polydipsia. [] Lymphatic: Denies swollen glands. [] Psychiatric: Denies depression or anxiety. [] (LÁZARO CASTANEDA APRN) Heart Score: Risk Factors: Risk Factors: DM, Current or recent (<one month) smoker, HTN, HLP, family history of CAD, obesity. Risk Scores: Score 0 - 3: 2.5% MACE over next 6 weeks - Discharge Home Score 4 - 6: 20.3% MACE over next 6 weeks - Admit for Clinical Observation Score 7 - 10: 72.7% MACE over next 6 weeks - Early Invasive Strategies (LÁZARO CASTANEDA APRN) Current Medications: Current Medications Medications (Trade) Dose Ordered Sig/Ras Start Time Stop Time Status Last Admin Dose Admin Ketorolac Tromethamine (Toradol Im) 60 mg 1X ONCE 07/31/20 11:30 07/31/20 11:38 DC 07/31/20 11:48 60 MG Methylprednisolone Sodium Succinate (SOLU-Medrol 125MG VIAL) 125 mg 1X ONCE 07/31/20 11:30 07/31/20 11:38 DC 07/31/20 11:48 125 MG (LÁZARO CASTANEDA APRN) Allergies: Allergies: Allergies Coded Allergies Type Severity Reaction Last Updated Verified infliximab Allergy Intermediate 02/04/20 Yes rituximab Allergy Intermediate 02/04/20 Yes vancomycin Allergy Intermediate Hives 09/12/17 Yes I S O L A T I O N *CONTACT* Allergy Unknown UN 12/18/19 Yes (LÁZARO CASTANEDA APRN) Physical Exam: PE: Constitutional: Well developed, well nourished, no acute distress, non-toxic appearance. [] HENT: Normocephalic, atraumatic, bilateral external ears normal, oropharynx moist, no oral exudates, nose normal. [] Eyes: PERRLA, EOMI, conjunctiva normal, no discharge. [] Neck: Normal range of motion, no tenderness, supple, no stridor. [] Cardiovascular:Heart rate regular rhythm, no murmur [] Lungs & Thorax: Bilateral breath sounds clear to auscultation [] Abdomen: Bowel sounds normal, soft, no tenderness, no masses, no pulsatile masses. [] Skin: Warm, dry, no erythema, no rash. [] Back: No tenderness, no CVA tenderness. [] Extremities: No tenderness, no cyanosis, no clubbing, ROM intact, trace edema noted to bilateral lower extremities Neurologic: Alert and oriented X 3, normal motor function, normal sensory function, no focal deficits noted. [] Psychologic: Flat affect, depressed mood (LÁZARO CASTANEDA APRN) Current Patient Data: Vital Signs: Vital Signs Date Time Temp Pulse Resp B/P (MAP) Pulse Ox O2 Delivery O2 Flow Rate FiO2 07/31/20 11:08 98.2 96 18 110/81 (91) 98 Room Air 98.2 (LÁZARO CASTANEDA APRN) EKG: EKG: [] (LÁZARO CASTANEDA APRN) Radiology/Procedures: Radiology/Procedures: [] (LÁZARO CASTANEDA APRN) Course & Med Decision Making: Course & Med Decision Making Pertinent Labs and Imaging studies reviewed. (See chart for details) This is a 24-year-old female patient with history of rheumatoid arthritis presenting to the ED today complaining of a flareup of her disease. Patient states she woke up this morning with 9 out of 10 pain throughout her body. She is on oxycodone with no relief. Is also complaining of a chronic cough, she is a smoker, also complaining of loss of taste. Smoking cessation discussed Offered patient a chest x-ray, she refused stating the x-ray which showed the same thing it showed last time. She was given Solu-Medrol and Toradol in the ED and discharged. Follow-up with her own doctor next week. She was tested for COVID-19, results will be called to her when available (LÁZARO CASTANEDA APRN) Dragon Disclaimer: Dragon Disclaimer: This electronic medical record was generated, in whole or in part, using a voice recognition dictation system. (LÁZARO CASTANEDA APRN) Departure Departure Impression: Primary Impression: Rheumatoid arthritis Qualified Codes: M06.00 - Rheumatoid arthritis without rheumatoid factor, unspecified site Additional Impressions: Person under investigation for COVID-19 Smoking addiction Cough Disposition: 01 DC HOME SELF CARE/HOMELESS Condition: STABLE Referrals: JAKE RAOCH MD (PCP) follow up in the course of this week or next week Patient Instructions: Cough, Adult, Rheumatoid Arthritis Additional Instructions: You were evaluated in the emergency room for rheumatoid arthritis flareup. Continue taking your oxycodone as needed for pain. You were tested for COVID- 19, we will call you when results are available. Please follow-up with your own doctor as soon as you can. Consider smoking cessation Attending Signature Attending Signature I have reviewed the PA/STRAIGHTEDGE WORKER's note and plan of care. I was available for consultation as needed during the patient's visit in the emergency department. I agree with the clinical impression, plan, and disposition. (REANNA PANDA DO) LÁZARO CASTANEDA APRN Jul 31, 2020 11:59 REANNA PANDA DO Aug 01, 2020 06:56
[2020-07-31 12:00] VITALS: BP 106/79
--- NOTE | 2020-07-31 12:23 | RAD ---
Examination: XR CHEST 1V History: cough Comparison/Correlation: 07/23/2020 Findings: Portable upright frontal view chest was obtained. Heart size and pulmonary vessels appear n ormal. No infiltrate or pleural effusion. No pneumothorax. Bony structures unremarkable. Impression: Normal Portable Chest X-ray Exam. Electronically signed by: Jose L Cruz MD (07/31/2020 12:20 PM) [id number]
== END 2020-07-31 12:39 | disposition home or self-care (01) ==
LOC: ER 10:20
DX: M06.00 Rheumatoid arthritis without rheumatoid factor, unspecified site (principal); Z20.828 Contact with and (suspected) exposure to other viral communicable diseases; R05 Cough; F17.200 Nicotine dependence, unspecified, uncomplicated; F41.9 Anxiety disorder, unspecified; M19.90 Unspecified osteoarthritis, unspecified site; G89.29 Other chronic pain; F10.10 Alcohol abuse, uncomplicated; Z90.89 Acquired absence of other organs; Z98.890 Other specified postprocedural states; Z88.1 Allergy status to other antibiotic agents; Z88.8 Allergy status to other drugs, medicaments and biological substances
CPT/HCPCS: 71045; 96372; 99284; C9803; J1885; J2930; U0003

== ENCOUNTER 2020-08-18 21:38 | Emergency (ER) | payer OTHER ==
[~2020-08-18] VITALS: Ht 160 cm; Wt 71.0 kg
--- NOTE | 2020-08-19 00:14 | RAD ---
INDICATION: Reason: INFECTION DISTAL LEFT LATERAL LEG VS OSTEOMYELITIS / Spl. Instructions: / Histor y: COMPARISON: Ankle plain film from September 2013 IMPRESSION: Left ankle: 3 views obtained. Mild focal lucency is seen at the medial malleolus however this was lik shell present on prior examination therefore likely from chronic causes such as focal osseous demineral ization or subchondral cyst. There is also a small focal lucency at the fibular tip which was likely present on prior as well. A definite new destructive process is not seen. Degenerative changes are id entified of the ankle as well as the partially visualized foot with osteophyte formation. This is mor e than typically seen for the patient's age. There is a suspected large joint effusion although the p atient likely had an effusion on prior exam as well. Left lower le views obtained. No acute fracture or dislocation. No destructive process is seen to the osseous structures. Electronically signed by: Jerry Hameed MD (08/19/2020 12:12 AM) [id number]
[2020-08-19] MEDS ORDERED: ACETAMINOPHEN 500 MG TABLET PO ONE (00:30)
[2020-08-19 00:47] LABS: BASO # 0.1 x10^3/uL (0.0-0.2); BASO % 1 % (0-3); EOS # 0.5 x10^3/uL (0.0-0.7); EOS % 4 % (0-3); HEMATOCRIT 41.2 % (36.0-47.0); HEMOGLOBIN 13.7 g/dL (12.0-15.5); LYMPH % 20 % (24-48); MEAN CORPUSCULAR HEMOGLOBIN 30 pg (25-35); MEAN CORPUSCULAR HGB CONC 33 g/dL (31-37); MEAN CORPUSCULAR VOLUME 90 fL (79-100); MONO # 0.8 x10^3/uL (0.0-1.1); MONO % 8 % (0-9); NEUT % 67 % (31-73); PLATELET COUNT 354 x10^3/uL (140-400); RED BLOOD COUNT 4.58 x10^6/uL (3.50-5.40); RED CELL DISTRIBUTION WIDTH 15.5 % (11.5-14.5); WHITE BLOOD COUNT 10.3 x10^3/uL (4.0-11.0)
[2020-08-19 00:56] LABS: CALCIUM 8.9 mg/dL (8.5-10.1); CREATININE 0.8 mg/dL (0.6-1.0); GFR 87.4; POTASSIUM 3.6 mmol/L (3.5-5.1)
[2020-08-19] MEDS ORDERED: HYDROmorphone 2 MG/ML VIAL IVP ONE (01:00)
[2020-08-19] MEDS ORDERED: ONDANSETRON PF 4 MG/2 ML VIAL. IVP ONE (01:00)
[2020-08-19 01:03] LABS: ALBUMIN 2.8 g/dL (3.4-5.0); ALBUMIN/GLOBULIN RATIO 0.8 (1.0-1.7); TOTAL BILIRUBIN 0.5 mg/dL (0.2-1.0); TOTAL PROTEIN 6.3 g/dL (6.4-8.2)
[2020-08-19 01:20] VITALS: BP 105/70
[2020-08-19] MEDS ORDERED: CLIN150C15 PO (01:21)
--- NOTE | 2020-08-19 01:22 | PHYS DOC ---
Past Medical History Past Medical History: Anxiety, Arthritis, Endometriosis, Seizure, Other Additional Past Medical Histor: RAPCOPD/PANIC ATTACKS/OSTEOMYELITIS/CHRONIC BACK PAIN, RA Past Surgical History: Tonsillectomy Additional Past Surgical Histo: Knee surgery 12/01,D&C,ORAL Smoking Status: Current Every Day Smoker Alcohol Use: Heavy Additional Information: Pt states she doesn't drink but it appears she has a history of heavy ETOH use Drug Use: None General Adult EDM: Chief Complaint: WOUND CHECK HPI: HPI: Patient is a 24 year old 24-year-old female presents emergency department stating she noticed a sore develop on her left lower leg just above her ankle yesterday morning. Patient states that the day before serous no sore and the next morning she woke up and there was a sore on her lower leg. Patient denies any injury to this left lower leg. Patient states she did not know how the sore came about but does noticed it when she woke up in the morning. Patient states it has become more red and more swollen, states she was going to see her primary care Dr. Reynolds today but was unable to make an appointment. Patient states that she has an appointment tomorrow at 2:00 in the afternoon with Dr. Reynolds. Patient denies any other physical complaints or physical concerns. Patient denies fever chills, denies chest pains, abdominal pains, nausea, vomiting, diarrhea or other skin rashes. Patient states she has a long history of rheumatoid arthritis and because of the medications he takes she gets infections easily. Review of Systems: Review of Systems: 14 body systems of review of systems have been reviewed. See HPI for pertinent positives and negative responses, otherwise all other systems are negative, nonpertinent or noncontributory. Heart Score: Risk Factors: Risk Factors: DM, Current or recent (<one month) smoker, HTN, HLP, family history of CAD, obesity. Risk Scores: Score 0 - 3: 2.5% MACE over next 6 weeks - Discharge Home Score 4 - 6: 20.3% MACE over next 6 weeks - Admit for Clinical Observation Score 7 - 10: 72.7% MACE over next 6 weeks - Early Invasive Strategies Current Medications: Patient reports her current meds are daily prednisone, daily OxyContin, daily Keppra, daily Paxil, daily alprazolam. Current Medications Medications (Trade) Dose Ordered Sig/Ras Start Time Stop Time Status Last Admin Dose Admin Acetaminophen (Tylenol) 1,000 mg 1X ONCE 08/19/20 00:30 08/19/20 00:31 DC Hydromorphone HCl (Dilaudid) 1 mg 1X ONCE 08/19/20 01:00 08/19/20 01:01 Ondansetron HCl (Zofran) 4 mg 1X ONCE 08/19/20 01:00 08/19/20 01:01 Allergies: Allergies: Allergies Coded Allergies Type Severity Reaction Last Updated Verified infliximab Allergy Intermediate 02/04/20 Yes rituximab Allergy Intermediate 02/04/20 Yes vancomycin Allergy Intermediate Hives 09/12/17 Yes I S O L A T I O N *CONTACT* Allergy Unknown UN 12/18/19 Yes Physical Exam: PE: Constitutional: Well developed, well nourished, no acute distress, non-toxic appearance. HENT: Normocephalic, atraumatic, bilateral external ears normal, oropharynx moist, no oral exudates, nose normal. Eyes: PERRLA, EOMI, conjunctiva normal, no discharge. Neck: Normal range of motion, no tenderness, supple, no stridor. Cardiovascular:Heart rate regular rhythm, no murmur Lungs & Thorax: Bilateral breath sounds clear to auscultation Abdomen: Bowel sounds normal, soft, no tenderness, no masses, no pulsatile masses. Skin: Warm, dry, no erythema, no rash. Open lesion to the left distal lateral leg just above ankle measuring 2 cm x 3 cm nondraining reddened at the edges wit h appearance consistent with stage II pressure ulcer. No induration around skin ulcerative lesion. Distal cap refill less than 2 seconds, painful passive range of motion of the ankle. Back: No tenderness, no CVA tenderness. [] Extremities: No tenderness, no cyanosis, no clubbing, ROM intact, no edema. [] Neurologic: Alert and oriented X 3, normal motor function, normal sensory function, no focal deficits noted. [] Psychologic: Affect normal, judgement normal, mood normal. [] Current Patient Data: Labs: Laboratory Tests Test 08/19/20 00:25 White Blood Count 10.3 x10^3/uL (4.0-11.0) Red Blood Count 4.58 x10^6/uL (3.50-5.40) Hemoglobin 13.7 g/dL (12.0-15.5) Hematocrit 41.2 % (36.0-47.0) Mean Corpuscular Volume 90 fL (79-100) Mean Corpuscular Hemoglobin 30 pg (25-35) Mean Corpuscular Hemoglobin Concent 33 g/dL (31-37) Red Cell Distribution Width 15.5 % (11.5-14.5) H Platelet Count 354 x10^3/uL (140-400) Neutrophils (%) (Auto) 67 % (31-73) Lymphocytes (%) (Auto) 20 % (24-48) L Monocytes (%) (Auto) 8 % (0-9) Eosinophils (%) (Auto) 4 % (0-3) H Basophils (%) (Auto) 1 % (0-3) Neutrophils # (Auto) 7.0 x10^3/uL (1.8-7.7) Lymphocytes # (Auto) 2.0 x10^3/uL (1.0-4.8) Monocytes # (Auto) 0.8 x10^3/uL (0.0-1.1) Eosinophils # (Auto) 0.5 x10^3/uL (0.0-0.7) Basophils # (Auto) 0.1 x10^3/uL (0.0-0.2) Laboratory Tests 08/19/20 00:25 Vital Signs: Vital Signs Date Time Temp Pulse Resp B/P (MAP) Pulse Ox O2 Delivery O2 Flow Rate FiO2 08/19/20 00:20 118 20 119/80 (93) 98 Room Air 08/18/20 21:48 102.2 102.2 EKG: EKG: [] Radiology/Procedures: Radiology/Procedures: STATUS: REG ER ORD. PHYSICIAN: REANNA CHAMPION APRN REASON: INFECTION DISTAL LEFT LATERAL LEG VS OSTEOMYELITIS PROCEDURE: TIBIA FIBULA LEFT INDICATION: Reason: INFECTION DISTAL LEFT LATERAL LEG VS OSTEOMYELITIS / Spl. Instructions: / History: COMPARISON: Ankle plain film from September 2013 IMPRESSION: Left ankle: 3 views obtained. Mild focal lucency is seen at the medial malleolus however this was likely present on prior examination therefore likely from chronic causes such as focal osseous demineralization or subchondral cyst. There is also a small focal lucency at the fibular tip which was likely present on prior as well. A definite new destructive process is not seen. Degenerative changes are identified of the ankle as well as the partially visualized foot with osteophyte formation. This is more than typically seen for the patient's age. There is a suspected large joint effusion although the patient likely had an effusion on prior exam as well. Left lower le views obtained. No acute fracture or dislocation. No destructive process is seen to the osseous structures. Electronically signed by: Ismael Burnette MD (08/19/2020 12:12 AM) [id number] DICTATED and SIGNED BY: ISMAEL BURNETTE MD DATE: 08/19/20 [id number] STATUS: REG ER ORD. PHYSICIAN: REANNA CHAMPION APRN REASON: INFECTION DISTAL LEFT LATERAL LEG VS OSTEOMYELITIS PROCEDURE: ANKLE LEFT 3V INDICATION: Reason: INFECTION DISTAL LEFT LATERAL LEG VS OSTEOMYELITIS / Spl. Instructions: / History: COMPARISON: Ankle plain film from September 2013 IMPRESSION: Left ankle: 3 views obtained. Mild focal lucency is seen at the medial malleolus however this was likely present on prior examination therefore likely from chronic causes such as focal osseous demineralization or subchondral cyst. There is also a small focal lucency at the fibular tip which was likely present on prior as well. A definite new destructive process is not seen. Degenerative changes are identified of the ankle as well as the partially visualized foot with osteophyte formation. This is more than typically seen for the patient's age. There is a suspected large joint effusion although the patient likely had an effusion on prior exam as well. Left lower le views obtained. No acute fracture or dislocation. No destructive process is seen to the osseous structures. Electronically signed by: Ismael Burnette MD (08/19/2020 12:12 AM) [id number] DICTATED and SIGNED BY: ISMAEL BURNETTE MD DATE: 08/19/20 [id number] Course & Med Decision Making: Course & Med Decision Making Pertinent Labs and Imaging studies reviewed. (See chart for details) 24-year-old patient presents emergency department with an open lesion on her left lower leg. Physical examination was consistent with a stage II pressure ulcer. Patient has a history of spontaneous osteomyelitis in the past, and x- ray was ordered to rule out infectious bony process. Patient had low-grade fever during initial examination, 600 p.o. Motrin was ordered to treat fever. Patient states she is having 10/10 pain from this pressure ulcer on her leg and now is experiencing nausea, IV Zofran along with 1 mg IV Dilaudid was ordered. Serum labs were nonconcerning for infectious process, x-ray read by house radiologist interpretation was not concerning for gangrenous process or osteomyelitis. Discussed findings with patient, will treat with 600 mg IV clindamycin. Patient will be sent home on an oral regimen of clindamycin. Gave strict instructions for her to keep appointment with her primary care physician tomorrow at 2:00 to that he can reevaluate her skin wound and make a medication change if needed. Patient gave verbal understanding of discharge home instructions, had no further questions or concerns and was discharged home without incident. Impression: #1 skin ulcer with adipose tissue exposed. Dragon Disclaimer: Dragon Disclaimer: This electronic medical record was generated, in whole or in part, using a voice recognition dictation system. Departure Departure Impression: Primary Impression: Skin ulcer Qualified Codes: L98.492 - Non-pressure chronic ulcer of skin of other sites with fat layer exposed Disposition: 01 DC HOME SELF CARE/HOMELESS Condition: IMPROVED Referrals: JAKE REYNOLDS MD (PCP) Additional Instructions: Please take antibiotic medication as directed, keep your appointment with your primary care doctor tomorrow at 2:00, have your primary care doctor examine the wound and determine if a medication change to your antibiotic regimen is needed. Return to the emergency department for worsening symptoms or other concerns. EMERGENCY DEPARTMENT GENERAL DISCHARGE INSTRUCTIONS Thank you for coming to [facility] Emergency Department (ED) today and trusting us with you care. We trust that you had a positive experience in our Emergency Department. If you wish to speak to the department management, you may call the Director at [phone]. YOUR FOLLOW UP INSTRUCTIONS ARE FOLLOWS: 1. Do you have a private Doctor? If you do not have a private doctor, please ask for a resource list of physicians or clinics that may be able to assist you with follow up care. 2. The Emergency Physicain has interpreted your x-rays. The X-Ray specialist will also review them. If there is a change in the findings, you will be notified in 48 hours when at all possible. 3. A lab test or culture has been done, your results will be reviewed and you will be notified if you need a change in treatment. ADDITIONAL INSTRUCTIONS AND INFORMATION: 1. Your care today has been supervised by a physician who is specially trained in emergency care. Many problems require more than one evaluation for a complete diagnosis and treatment. We recommend that you schedule your follow up appointment as recommended to ensure complete treatment of you illness or injury. If you are unable to obtain follow up care and continue to have a problem, or if your condition worsens, we recommend that you return to the ED. 2. We are not able to safely determine your condition over the phone nor are we able to give sound medical advice over the phone. For these safety reasons, if you call for medical advice we will ask you to come to the ED for further evaluation. 3. If you have any questions regarding these discharge instructions please call the ED at [phone]. SAFETY INFORMATION: In the interest of safety, wellness, and injury prevention; we encourage you to wear your sealbelt, if you smoke; quite smoking, and we encourage family to use a protective helmet for bicycling and other sporting events that present an increased risk for head injury. IF YOUR SYMPTOMS WORSEN OR NEW SYMPTOMS DEVELOP, OR YOU HAVE CONCERNS ABOUT YOUR CONDITION; OR IF YOUR CONDITION WORSENS WHILE YOU ARE WAITING FOR YOUR FOLLOW UP APPOINTMENT; EITHER CONTACT YOUR PRIMARY CARE DOCTOR, THE PHYSICIAN WHOSE NAME AND NUMBER YOU WERE GIVEN, OR RETURN TO THE ED IMMEDIATELY. Scripts Clindamycin Hcl (CLINDAMYCIN HCL) 150 Mg Capsule 450 MG PO TID for SKIN INFECTION for 14 Days, #126 CAP 0 Refills Prov: REANNA CHAMPION APRN 08/19/20 REANNA CHAMPION APRN Aug 19, 2020 01:22
[2020-08-19] MEDS ORDERED: CLINDAMYCIN 600MG PREMIX 50 ML IV ONE (01:30)
[2020-08-19] MEDS ORDERED: IBUPROFEN 200 MG TABLET. PO ONE (01:30)
== END 2020-08-19 02:20 | disposition home or self-care (01) ==
LOC: ER 21:38
DX: L98.492 Non-pressure chronic ulcer of skin of other sites with fat layer exposed (principal); M25.572 Pain in left ankle and joints of left foot; F41.9 Anxiety disorder, unspecified; M19.90 Unspecified osteoarthritis, unspecified site; G89.29 Other chronic pain; F17.200 Nicotine dependence, unspecified, uncomplicated; F10.10 Alcohol abuse, uncomplicated; Z90.89 Acquired absence of other organs; Z98.890 Other specified postprocedural states; Z88.1 Allergy status to other antibiotic agents; Z88.8 Allergy status to other drugs, medicaments and biological substances
CPT/HCPCS: 36415; 73590; 73610; 80053; 83605; 85025; 96365; 96375; 99284; J1170; J2405; J3490

== ENCOUNTER 2021-01-01 20:11 | Emergency (ER) | payer OTHER ==
[~2021-01-01] VITALS: Ht 160 cm; Wt 68.0 kg
[~2021-01-01 20:11] MED LIST changes: +CLIN150C15 PO
[2021-01-01 20:33] VITALS: BP 114/69
--- NOTE | 2021-01-01 20:37 | PHYS DOC ---
Past Medical History Past Medical History: Anxiety, Arthritis, Endometriosis, Seizure, Other Additional Past Medical Histor: RAPCOPD/PANIC ATTACKS/OSTEOMYELITIS/CHRONIC BACK PAIN, RA (HAILY SPANGLER DO) Past Surgical History: Tonsillectomy Additional Past Surgical Histo: Knee surgery 12/01,D&C,ORAL (HAILY SPANGLER DO) Smoking Status: Current Every Day Smoker Alcohol Use: Heavy Drug Use: None (HAILY SPANGLER DO) General Adult EDM: Chief Complaint: COUGH HPI: HPI: Patient is a 25 year old [f__sex] who presents with [] (HAILY SPANGLER DO) Review of Systems: Review of Systems: Constitutional: Denies fever or chills. [] Eyes: Denies change in visual acuity. [] HENT: Denies nasal congestion or sore throat. [] Respiratory: Denies cough or shortness of breath. [] Cardiovascular: Denies chest pain or edema. [] GI: Denies abdominal pain, nausea, vomiting, bloody stools or diarrhea. [] : Denies dysuria. [] Musculoskeletal: Denies back pain or joint pain. [] Integument: Denies rash. [] Neurologic: Denies headache, focal weakness or sensory changes. [] Endocrine: Denies polyuria or polydipsia. [] Lymphatic: Denies swollen glands. [] Psychiatric: Denies depression or anxiety. [] (HAILY SPANGLER DO) Heart Score: Risk Factors: Risk Factors: DM, Current or recent (<one month) smoker, HTN, HLP, family history of CAD, obesity. Risk Scores: Score 0 - 3: 2.5% MACE over next 6 weeks - Discharge Home Score 4 - 6: 20.3% MACE over next 6 weeks - Admit for Clinical Observation Score 7 - 10: 72.7% MACE over next 6 weeks - Early Invasive Strategies (HAILY SPANGLER DO) C/O Chest Pain: No (MARCELA BARRETO APRN) Allergies: Allergies: Allergies Coded Allergies Type Severity Reaction Last Updated Verified infliximab Allergy Intermediate 02/04/20 Yes rituximab Allergy Intermediate 02/04/20 Yes vancomycin Allergy Intermediate Hives 09/12/17 Yes I S O L A T I O N *CONTACT* Allergy Unknown UN 12/18/19 Yes (HAILY SPANGLER DO) Physical Exam: PE: Constitutional: Well developed, well nourished, no acute distress, non-toxic appearance. [] HENT: Normocephalic, atraumatic, bilateral external ears normal, oropharynx moist, no oral exudates, nose normal. [] Eyes: PERRLA, EOMI, conjunctiva normal, no discharge. [] Neck: Normal range of motion, no tenderness, supple, no stridor. [] Cardiovascular:Heart rate regular rhythm, no murmur [] Lungs & Thorax: Bilateral breath sounds clear to auscultation [] Abdomen: Bowel sounds normal, soft, no tenderness, no masses, no pulsatile masses. [] Skin: Warm, dry, no erythema, no rash. [] Back: No tenderness, no CVA tenderness. [] Extremities: No tenderness, no cyanosis, no clubbing, ROM intact, no edema. [] Neurologic: Alert and oriented X 3, normal motor function, normal sensory funct ion, no focal deficits noted. [] Psychologic: Affect normal, judgement normal, mood normal. [] (HAILY SPANGLER DO) EKG: EKG: [] (HAILY SPANGLER DO) Radiology/Procedures: Radiology/Procedures: [] (HAILY SPANGLER DO) Course & Med Decision Making: Course & Med Decision Making Pertinent Labs and Imaging studies reviewed. (See chart for details) [] The patient was seen and interviewed as well as examined at the bedside. The chart was reviewed. The case was discussed. Agree with the plan of care. (HAILY SPANGLER DO) Dragon Disclaimer: Dragon Disclaimer: This electronic medical record was generated, in whole or in part, using a voice recognition dictation system. (HAILY SPANGLER DO) Departure Departure Referrals: JAKE ROACH MD (PCP) Scripts Oxycodone Hcl (OXYCODONE HCL) 5 Mg Capsule 5 MG PO PRN Q6HRS PRN for PAIN, #10 TAB 0 Refills Prov: MARCELA BARRETO APRN 01/01/21 Albuterol Sulfate (PROAIR HFA INHALER) 8.5 Gm Hfa.aer.ad 1 PUFF INH PRN Q6HRS PRN for SHORTNESS OF BREATH, #1 EACH 0 Refills Prov: MARCELA BARRETO APRN 01/01/21 Methylprednisolone (MEDROL) 4 Mg Tab.ds.pk 1 PKG PO UD, #1 PKG Prov: MARCELA BARRETO APRN 01/01/21 HAILY SPANGLER DO January 01, 2021 20:37 MARCELA BARRETO APRN January 01, 2021 22:47
--- NOTE | 2021-01-01 20:57 | RAD ---
Exam: Chest one view INDICATION: Cough TECHNIQUE: Frontal view of the chest Comparisons: 07/31/2020 FINDINGS: The cardiomediastinal silhouette and pulmonary vessels are within normal limits. The lung and pleural spaces are clear. IMPRESSION: No acute cardiopulmonary process. Electronically signed by: Jessa Melvin MD (01/01/2021 8:55 PM) ANNETTE
--- NOTE | 2021-01-01 21:21 | PHYS DOC ---
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 Patient denied chest pain, abdominal pain, nausea, vomiting, diarrhea, fever, shortness of breath, headache, dizziness. Rates her discomfort at a an aching 5 out of 10. Review of Systems Review of Systems Constitutional: Denies fever or chills. [] Eyes: Denies change in visual acuity. [] HENT: Denies nasal congestion or +sore throat. [] Respiratory: + cough or denies shortness of breath. [] Cardiovascular: Denies chest pain or edema. [] GI: Denies abdominal pain, nausea, vomiting, bloody stools or diarrhea. [] : Denies dysuria. [] Musculoskeletal: Denies back pain or joint pain. + Generalized body aches [] Integument: Denies rash. [] Neurologic: Denies headache, focal weakness or sensory changes. [] Endocrine: Denies polyuria or polydipsia. [] Lymphatic: Denies swollen glands. [] Psychiatric: Denies depression or anxiety. [] Current Medications Current Medications Current Medications Medications (Trade) Dose Ordered Sig/Ras Start Time Stop Time Status Last Admin Dose Admin Oxycodone HCl (Roxicodone) 5 mg 1X ONCE 01/01/21 22:00 01/01/21 22:01 Allergies Allergies Allergies Coded Allergies Type Severity Reaction Last Updated Verified infliximab Allergy Intermediate 02/04/20 Yes rituximab Allergy Intermediate 02/04/20 Yes vancomycin Allergy Intermediate Hives 09/12/17 Yes I S O L A T I O N *CONTACT* Allergy Unknown UN 12/18/19 Yes Physical Exam Physical Exam Constitutional: Well developed, well nourished, no acute distress, non-toxic appearance. [] HENT: Normocephalic, atraumatic, bilateral external ears normal, oropharynx moist, no oral exudates, nose normal. [] Eyes: PERRLA, EOMI, conjunctiva normal, no discharge. [] Neck: Normal range of motion, no tenderness, supple, no stridor. [] Cardiovascular:Heart rate regular rhythm, no murmur [] Lungs & Thorax: Bilateral breath sounds clear to auscultation [] Abdomen: Bowel sounds normal, soft, no tenderness, no masses, no pulsatile masses. [] Skin: Warm, dry, no erythema, no rash. [] Back: No tenderness, no CVA tenderness. [] Extremities: No tenderness, no cyanosis, no clubbing, ROM intact, no edema. [] Neurologic: Alert and oriented X 3, normal motor function, normal sensory function, no focal deficits noted. [] Psychologic: Affect normal, judgement normal, mood normal. Normal physical exam [] Current Patient Data Vital Signs Vital Signs Date Time Temp Pulse Resp B/P (MAP) Pulse Ox O2 Delivery O2 Flow Rate FiO2 01/01/21 20:33 98.5 92 20 114/69 (84) 95 Room Air 98.5 EKG EKG [] Radiology/Procedures Radiology/Procedures [] Impressions: [facility] [address] [place] [address] IMAGING REPORT Signed PATIENT: JAE ENCINAS DACCOUNT: [id number] : 1995 LOCATION: ER AGE: 25 SEX: F EXAM STATUS: REG ER ORD. PHYSICIAN: MARCELA BARRETO APRN REASON: cough PROCEDURE: PORTABLE CHEST 1V Exam: Chest one view INDICATION: Cough TECHNIQUE: Frontal view of the chest Comparisons: 07/31/2020 FINDINGS: The cardiomediastinal silhouette and pulmonary vessels are within normal limits. The lung and pleural spaces are clear. IMPRESSION: No acute cardiopulmonary process. Electronically signed by: Jessa Griffith MD (01/01/2021 8:55 PM) [facility] DICTATED and SIGNED BY: JESSA GRIFFITH MD DATE: 01/01/2120530780LHE4 0 Course & Med Decision Making Course & Med Decision Making Pertinent Labs and Imaging studies reviewed. (See chart for details) COVID-19 CRITERIA: The patient was evaluated during the global COVID-19 pandemic, and that diagnosis was suspected/considered upon their initial presentation. Their evaluation, treatment and testing was consistent with current guidelines for patients who present with complaints or symptoms that may be related to COVID-19. See HPI. Alert and oriented x4. Ambulatory with a steady gait. Speaks in full clear sentences. Abdomen is soft and nontender. No CVA tenderness. Chest x- ray shows no acute findings. Throat is reddened but there is no swelling or exudates. [] Dragon Disclaimer Dragon Disclaimer This electronic medical record was generated, in whole or in part, using a voice recognition dictation system. COVID-19 Patient Risks: Age 65 or older: No Sign of co-morbidity: Yes Exp to person + for COVID: No Exp to PUI: No Travel from affected area: No Lower respiratory symptoms: Yes Fever: No Other: No PPE Use: Full PPE with N95 mask or PAPR: Yes HAILY SPANGLER I DO 01/01/21 2230: Adult General Course & Med Decision Making Course & Med Decision Making I did not see the patient. Patient was evaluated and treated independently by MLP. I was available for consult. The chart was reviewed. MARCELA BARRETO APRN January 01, 2021 21:21 HAILY SPANGLER DO January 01, 2021 22:30
[2021-01-01] MEDS ORDERED: METH4TAB2 PO (21:41)
[2021-01-01] MEDS ORDERED: OXYC5CAP PO (21:41)
[2021-01-01] MEDS ORDERED: ALBU2.5V8 INH (21:41)
[2021-01-01] MEDS ORDERED: oxyCODONE IR 5 MG TABLET PO ONE (22:00)
--- NOTE | 2021-01-02 15:48 | NUR ---
IP: Informed pt of negative covid test. Pt verbalized understanding.
== END 2021-01-01 21:55 | disposition home or self-care (01) ==
LOC: ER 20:11
DX: M79.10 Myalgia, unspecified site (principal); J02.9 Acute pharyngitis, unspecified; R05 Cough; G89.29 Other chronic pain; F41.9 Anxiety disorder, unspecified; M19.90 Unspecified osteoarthritis, unspecified site; F17.200 Nicotine dependence, unspecified, uncomplicated; F10.20 Alcohol dependence, uncomplicated; Z20.822 Contact with and (suspected) exposure to COVID-19; Z88.1 Allergy status to other antibiotic agents; Z88.8 Allergy status to other drugs, medicaments and biological substances; Y90.9 Presence of alcohol in blood, level not specified
CPT/HCPCS: 71045; 87070; 87880; 99284; U0003; U0005

== ENCOUNTER 2021-01-21 22:30 | Emergency (ER) | payer OTHER ==
[~2021-01-21] VITALS: Ht 160 cm; Wt 64.5 kg
[~2021-01-21 22:30] MED LIST changes: +DOXY-181 PO; -DOXY100C14 PO
[2021-01-21 23:39] LABS: BASO # 0.1 x10^3/uL (0.0-0.2); BASO % 1 % (0-3); EOS # 0.4 x10^3/uL (0.0-0.7); EOS % 4 % (0-3); HEMATOCRIT 38.8 % (36.0-47.0); LYMPH # 3.1 x10^3/uL (1.0-4.8); LYMPH % 25 % (24-48); MEAN CORPUSCULAR HEMOGLOBIN 30 pg (25-35); MEAN CORPUSCULAR HGB CONC 34 g/dL (31-37); MEAN CORPUSCULAR VOLUME 89 fL (79-100); MONO # 0.6 x10^3/uL (0.0-1.1); MONO % 5 % (0-9); NEUT # 8.2 x10^3/uL (1.8-7.7); NEUT % 66 % (31-73); PLATELET COUNT 347 x10^3/uL (140-400); RED BLOOD COUNT 4.39 x10^6/uL (3.50-5.40); RED CELL DISTRIBUTION WIDTH 16.4 % (11.5-14.5); WHITE BLOOD COUNT 12.4 x10^3/uL (4.0-11.0)
[2021-01-21 23:46] LABS: CALCIUM 8.1 mg/dL (8.5-10.1); CREATININE 0.8 mg/dL (0.6-1.0); GFR 86.7; POTASSIUM 3.8 mmol/L (3.5-5.1)
[2021-01-22] MEDS ORDERED: KETOROLAC 30 MG/ML VIAL. IVP ONE (00:15)
[2021-01-22] MEDS ORDERED: levETIRAcetam 1,000 MG in IV DEXTROSE 5% 100ML 100 ML IV ONE (00:15)
--- NOTE | 2021-01-22 00:25 | RAD ---
XR CHEST 1V History: Reason: sob / Spl. Instructions: / History: Comparison: January 01, 2021 Findings: Multifocal pulmonary opacities most prominent within the lung bases. No definite pleural effusion. No pneumothorax. Portal technique accentuates cardiac size. Impression: 1. Multifocal pulmonary opacities, may represent pneumonia or edema. Electronically signed by: Que Lacey DO (01/22/2021 12:22 AM) [facility]
--- NOTE | 2021-01-22 01:29 | ED.ADGEN ---
Past Medical History Past Medical History: Anxiety, Arthritis, Endometriosis, Migraines, Seizure, Other Additional Past Medical Histor: PANIC ATTACKS/OSTEOMYELITIS/CHRONIC BACK PAIN, RA, PCOS Past Surgical History: Tonsillectomy Additional Past Surgical Histo: Knee surgery 12/01,D&C,ORAL Smoking Status: Current Every Day Smoker Additional Information: 0.5 ppd Alcohol Use: None Drug Use: None Social History Narrative: rx'd oxy General Adult EDM: Chief Complaint: SYNCOPE HPI: HPI: Patient is 25-year-old female with past medical history of opiate dependency and RA who presents to the emergency room complaining of a syncopal episode. Patient states that she believes this could be a possible seizure. She does have a history of seizures. She quit taking that occasion because it was not helping. She does not follow with a neurologist. She feels sleepy. She is complaining of severe chronic pain. She takes oxycodone for pain. History is limited due to patient's significant fatigue. Review of Systems: Review of Systems: Complete ROS is negative unless otherwise documented in HPI Current Medications: Current Medications Medications (Trade) Dose Ordered Sig/Ras Start Time Stop Time Status Last Admin Dose Admin Ketorolac Tromethamine (Toradol 30mg Vial) 30 mg 1X ONCE 01/22/21 00:15 01/22/21 00:16 DC 01/22/21 00:16 30 MG Levetiracetam 1000 mg/Dextrose 110 ml @ 440 mls/hr 1X ONCE 01/22/21 00:15 01/22/21 00:29 DC 01/22/21 00:16 440 MLS/HR Allergies: Allergies: Allergies Coded Allergies Type Severity Reaction Last Updated Verified infliximab Allergy Intermediate 02/04/20 Yes rituximab Allergy Intermediate 02/04/20 Yes vancomycin Allergy Intermediate Hives 09/12/17 Yes I S O L A T I O N *CONTACT* Allergy Unknown UN 12/18/19 Yes Physical Exam: PE: General: Lethargic. Well Nourished, well hydrated. Cooperative HEENT: Atraumatic, EOMI, PERRL, airway patent, moist oral mucosa Neck: Supple, trachea midline Respiratory: CTA bilaterally, normal effort, no wheezing/crackles CV: RRR, no murmur, cap refill <2 GI: Soft, nondistended, nontender, no masses MSK: No obvious deformities, braces on bilateral knees and feet Skin: Warm, dry, intact Neuro: A&O x3, speech NL, sensory and motor grossly intact, no focal deficits Psych: Normal affect, normal mood, not suicidal or homicidal Current Patient Data: Labs: Laboratory Tests Test 01/21/21 23:30 White Blood Count 12.4 x10^3/uL (4.0-11.0) H Red Blood Count 4.39 x10^6/uL (3.50-5.40) Hemoglobin 13.0 g/dL (12.0-15.5) Hematocrit 38.8 % (36.0-47.0) Mean Corpuscular Volume 89 fL (79-100) Mean Corpuscular Hemoglobin 30 pg (25-35) Mean Corpuscular Hemoglobin Concent 34 g/dL (31-37) Red Cell Distribution Width 16.4 % (11.5-14.5) H Platelet Count 347 x10^3/uL (140-400) Neutrophils (%) (Auto) 66 % (31-73) Lymphocytes (%) (Auto) 25 % (24-48) Monocytes (%) (Auto) 5 % (0-9) Eosinophils (%) (Auto) 4 % (0-3) H Basophils (%) (Auto) 1 % (0-3) Neutrophils # (Auto) 8.2 x10^3/uL (1.8-7.7) H Lymphocytes # (Auto) 3.1 x10^3/uL (1.0-4.8) Monocytes # (Auto) 0.6 x10^3/uL (0.0-1.1) Eosinophils # (Auto) 0.4 x10^3/uL (0.0-0.7) Basophils # (Auto) 0.1 x10^3/uL (0.0-0.2) Sodium Level 137 mmol/L (136-145) Potassium Level 3.8 mmol/L (3.5-5.1) Chloride Level 103 mmol/L (98-107) Carbon Dioxide Level 27 mmol/L (21-32) Anion Gap 7 (6-14) Blood Urea Nitrogen 11 mg/dL (7-20) Creatinine 0.8 mg/dL (0.6-1.0) Estimated GFR (Cockcroft-Gault) 86.7 Glucose Level 94 mg/dL (70-99) Calcium Level 8.1 mg/dL (8.5-10.1) L Troponin I Quantitative < 0.017 ng/mL (0.000-0.055) XF-Iyc-X-Type Natriuretic Peptide 26 pg/mL (0-124) Ethyl Alcohol Level < 10 mg/dL (0-10) Laboratory Tests 01/21/21 23:30 Laboratory Tests 01/21/21 23:30 Vital Signs: Vital Signs Date Time Temp Pulse Resp B/P (MAP) Pulse Ox O2 Delivery O2 Flow Rate FiO2 01/22/21 01:30 85 20 91/57 (68) 95 Room Air 01/21/21 22:58 99.0 99.0 EKG: EKG: [] Heart Score: C/O Chest Pain: N/A Risk Factors: Risk Factors: DM, Current or recent (<one month) smoker, HTN, HLP, family history of CAD, obesity. Risk Scores: Score 0 - 3: 2.5% MACE over next 6 weeks - Discharge Home Score 4 - 6: 20.3% MACE over next 6 weeks - Admit for Clinical Observation Score 7 - 10: 72.7% MACE over next 6 weeks - Early Invasive Strategies Radiology/Procedures: Radiology/Procedures: [] Course & Med Decision Making: Course & Med Decision Making Pertinent Labs and Imaging studies reviewed. (See chart for details) Patient is a 25-year-old female who presents to the emergency room after having a syncopal episode. Is possible this could have been a seizure, however patient does not have a confirmed seizure history in our system and has not had a EEG or MRI done. EKG and lab work are unremarkable. Patient is lethargic and requesting narcotic pain medicine. It is possible that her syncope was due to her narcotic use. She is on a large amount of narcotics every day. She was observed in the emergency room and did not have any further episodes of syncope, seizures, or arrhythmias on the monitor. Patient's test results and vitals while in the ED were fully reviewed and discussed with the patient. Patient is stable and at this time does not need admission to the hospital. We have discussed strict return precautions and the importance of following up with their Primary Care Physician. Patient stated understanding and was given an opportunity to ask any questions. Patient is in agreement with cameron. Luis Manuel Disclaimer: Luis Manuel Disclaimer: This electronic medical record was generated, in whole or in part, using a voice recognition dictation system. Departure Departure Impression: Primary Impression: Lethargy Additional Impressions: Opiate dependence Chronic pain Syncope Disposition: HOME / SELF CARE / HOMELESS Condition: STABLE Referrals: JAKE ROACH MD (PCP) Patient Instructions: Nonepileptic Seizures, Opiate Dependence, Syncope Problem Qualifiers DURGA PRESTON MD Jan 22, 2021 01:29
[2021-01-22 01:30] VITALS: BP 91/57
== END 2021-01-22 01:47 | disposition home or self-care (01) ==
LOC: ER 22:30
DX: R55 Syncope and collapse (principal); R53.83 Other fatigue; F11.20 Opioid dependence, uncomplicated; G89.29 Other chronic pain; G43.909 Migraine, unspecified, not intractable, without status migrainosus; F17.200 Nicotine dependence, unspecified, uncomplicated; Z88.1 Allergy status to other antibiotic agents; Z91.041 Radiographic dye allergy status; Z88.8 Allergy status to other drugs, medicaments and biological substances
CPT/HCPCS: 36415; 71045; 80048; 83880; 84484; 85025; 96365; 96375; 99285; G0480; J1885; J1953; J7060

== ENCOUNTER 2021-07-06 23:30 | Emergency (ER) | payer MEDICARE ==
[~2021-07-06] VITALS: Ht 160 cm; Wt 67.6 kg
[~2021-07-06 23:30] MED LIST changes: -CLIN150C15 PO; +CLIN150C16 PO
[2021-07-06 23:47] LABS: BASO % 0 % (0-3); EOS # 0.5 x10^3/uL (0.0-0.7); EOS % 4 % (0-3); HEMATOCRIT 46.5 % (36.0-47.0); LYMPH % 47 % (24-48); MEAN CORPUSCULAR HEMOGLOBIN 32 pg (25-35); MEAN CORPUSCULAR HGB CONC 34 g/dL (31-37); MEAN CORPUSCULAR VOLUME 93 fL (79-100); MONO # 0.6 x10^3/uL (0.0-1.1); MONO % 6 % (0-9); NEUT # 4.5 x10^3/uL (1.8-7.7); NEUT % 42 % (31-73); PLATELET COUNT 350 x10^3/uL (140-400); RED BLOOD COUNT 4.98 x10^6/uL (3.50-5.40); WHITE BLOOD COUNT 10.6 x10^3/uL (4.0-11.0)
[2021-07-06 23:58] LABS: CALCIUM 8.7 mg/dL (8.5-10.1); CREATININE 0.7 mg/dL (0.6-1.0); GFR 101.1; POTASSIUM 3.3 mmol/L (3.5-5.1)
--- NOTE | 2021-07-06 23:59 | PHYS DOC ---
Past Medical History Past Medical History: Anxiety, Arthritis, Endometriosis, Migraines, Seizure, Other Additional Past Medical Histor: PANIC ATTACKS/OSTEOMYELITIS/CHRONIC BACK PAIN, RA, PCOS Past Surgical History: Tonsillectomy Additional Past Surgical Histo: Knee surgery 12/01,D&C,ORAL Smoking Status: Current Every Day Smoker Alcohol Use: None Drug Use: None General Adult EDM: Chief Complaint: ALCOHOL INTOXICATION HPI: HPI: Patient is a 25 year old female brought to ER for evaluation due to altered mental status. Patient appears under the influence. Patient admitted to nursing that she has been drinking [place] and Coke. Patient is slurring her words. She has alcohol on her breath. I see no focal weakness no signs of trauma. Review of Systems: Review of Systems: Limited due to intoxication Heart Score: C/O Chest Pain: N/A Risk Factors: Risk Factors: DM, Current or recent (<one month) smoker, HTN, HLP, family history of CAD, obesity. Risk Scores: Score 0 - 3: 2.5% MACE over next 6 weeks - Discharge Home Score 4 - 6: 20.3% MACE over next 6 weeks - Admit for Clinical Observation Score 7 - 10: 72.7% MACE over next 6 weeks - Early Invasive Strategies Current Medications: Current Medications Medications (Trade) Dose Ordered Sig/Ras Start Time Stop Time Status Last Admin Dose Admin Sodium Chloride 1,000 ml @ 1,000 mls/hr 1X ONCE 07/07/21 00:00 07/07/21 00:59 Allergies: Allergies: Allergies Coded Allergies Type Severity Reaction Last Updated Verified infliximab Allergy Intermediate 02/04/20 Yes rituximab Allergy Intermediate 02/04/20 Yes vancomycin Allergy Intermediate Hives 09/12/17 Yes I S O L A T I O N *CONTACT* Allergy Unknown UN 12/18/19 Yes Physical Exam: PE: General: alert, no acute distress. Skin: warm, dry and intact, no erythema, no rash. HENT: bilateral external ears normal, oropharynx moist, nose normal. Head:: Normocephalic, atraumatic. Neck: Trachea midline. Eyes: EOMI, Normal conjunctiva, No drainage CARDIOVASCULAR: Regular rate and rhythm RESPIRATORY: No respiratory distress Back: Full range of motion. MUSCULOSKELETAL: Full range of motion of bilateral upper and lower extremities. GASTROINTESTINAL: Abdomen soft without rebound or guarding. NEUROLOGICAL: Alert No neurological deficits observed Psychiatric: intoxication EKG: EKG: [] Radiology/Procedures: Radiology/Procedures: [] Course & Med Decision Making: Course & Med Decision Making Pertinent Labs and Imaging studies reviewed. (See chart for details) [] Patient was evaluated for chief complaint. Work-up consisted of laboratory analysis. Patient found to have alcohol level greater than 300. Treatment included IV fluids. Patient was observed to clinical sobriety. Patient ambulated with steady gait. She was discharged home in the care of friends. Dragon Disclaimer: Luis Manuel Disclaimer: This electronic medical record was generated, in whole or in part, using a voice recognition dictation system. Departure Departure Impression: Primary Impression: Alcohol intoxication Disposition: 01 HOME / SELF CARE / HOMELESS Condition: STABLE Referrals: JAKE ROACH MD (PCP) Patient Instructions: Alcohol Intoxication HAILY SPANGLER DO Jul 06, 2021 23:59
[2021-07-07] MEDS ORDERED: IV NORMAL SALINE 1000ML BAG 1,000 ML IV ONE
[2021-07-07 00:02] LABS: ALBUMIN 3.8 g/dL (3.4-5.0); ALBUMIN/GLOBULIN RATIO 1.3 (1.0-1.7); TOTAL BILIRUBIN 0.3 mg/dL (0.2-1.0); TOTAL PROTEIN 6.8 g/dL (6.4-8.2)
[2021-07-07 00:02] LABS: AMPHETAMINE/METHAMPHETAMINE NEG (NEG); BARBITURATES NEG (NEG); BENZODIAZEPINES POS (NEG); CANNABINOIDS NEG (NEG); COCAINE NEG (NEG); METHADONE NEG (NEG); OPIATES POS (NEG); PHENCYCLIDINE NEG (NEG)
[2021-07-07 05:24] VITALS: BP 87/52
== END 2021-07-07 05:42 | disposition home or self-care (01) ==
LOC: ER 23:30
DX: F10.129 Alcohol abuse with intoxication, unspecified (principal); Y90.8 Blood alcohol level of 240 mg/100 ml or more; R41.82 Altered mental status, unspecified; G43.909 Migraine, unspecified, not intractable, without status migrainosus; F17.200 Nicotine dependence, unspecified, uncomplicated; Z88.1 Allergy status to other antibiotic agents; Z91.041 Radiographic dye allergy status; Z88.8 Allergy status to other drugs, medicaments and biological substances
CPT/HCPCS: 36415; 80053; 80307; 85025; 96360; 99285; G0480; J7030